=== PATIENT | male | born 1960 | race Caucasian/White ===

== ENCOUNTER 2017-04-27 20:35 | Emergency (ER) | payer OTHER ==
--- NOTE | 2017-04-27 21:28 | ED ---
Skin/Abscess/FB HPI - General Chief complaint: Skin/Abscess/Foreign Body Stated complaint: Infected Knee Time Seen by Provider: 04/27/17 20:43 Source: patient, RN notes reviewed Mode of arrival: ambulatory Limitations: no limitations - History of Present Illness Initial comments: This a 57-year-old male presents emergency Department chief complaint left knee infection. He states proximal week ago he was playing some valeri states that he had 2 L of pain. He states that she get any nausea or blister on his left knee. He states 2 days late area popped and states that he's been covering putting ointment with states that it formed a scab and now has increasing surrounding redness. Patient denies fever, chills. He has very minimal pain with movement of his left knee. He states that he was not wearing kneepads at that time. Patient's had no prior knee infections. Denies any pain proximal or distal to left knee. - Related Data Home Medications Medication Instructions Recorded Confirmed HYDROcodone/APAP 10-325MG [[place] 1 tab PO Q6H PRN 11/20/15 04/27/17 10-325] Levothyroxine Sodium [Synthroid] 50 mcg PO DAILY 11/20/15 04/27/17 Mirtazapine [Remeron] 30 mg PO HS 04/27/17 04/27/17 Simvastatin [Zocor] 20 mg PO QAM 04/27/17 04/27/17 Previous Rx's Medication Instructions Recorded Albuterol Inhaler [Ventolin Hfa 2 puff INHALATION RT-QID PRN #0 11/24/15 Inhaler] puff Divalproex ER [Depakote ER] 1,000 mg PO HS #60 tab.er.24h 11/24/15 Sulfamethox-Tmp 800-160Mg [Bactrim 1 each PO Q12HR #20 tab 04/27/17 Ds] Allergies Allergy/AdvReac Type Severity Reaction Status Date / Time quetiapine fumarate Allergy Rash/Hives Verified 04/27/17 20:41 [From Seroquel] Review of Systems ROS Statement: Those systems with pertinent positive or pertinent negative responses have been documented in the HPI. ROS Other: All systems not noted in ROS Statement are negative. Past Medical History Past Medical History: Asthma, COPD, Hyperlipidemia, Liver Disease, Musculoskeletal Disorder, Thyroid Disorder Additional Past Medical History / Comment(s): Optic neuritis History of Any Multi-Drug Resistant Organisms: None Reported Past Surgical History: No Surgical Hx Reported Past Anesthesia/Blood Transfusion Reactions: No Reported Reaction Past Psychological History: Bipolar, Depression Smoking Status: Current every day smoker Past Alcohol Use History: Abuse, Heavy Past Drug Use History: None Reported - Past Family History Father Additional Family Medical History / Comment(s): Patient states is father is but will not provide any additional information. He states he does not know his mothers history. He has 2 brothers and 2 step brothers and only one living. They have committed suicide. General Exam Limitations: no limitations General appearance: alert, in no apparent distress Respiratory exam: Present: normal lung sounds bilaterally. Absent: respiratory distress, wheezes, rales, rhonchi, stridor Cardiovascular Exam: Present: regular rate, normal rhythm, normal heart sounds. Absent: systolic murmur, diastolic murmur, rubs, gallop, clicks Extremities exam: Present: other (Left knee: Anterior surface of the patella there is a 4 cm area of open skin and erythematous surrounding borders., Patient has full range of motion with minimal discomfort there is minimal swelling of the left knee pupils are equal bilaterally) Course Vital Signs 04/27/17 20:37 Temperature 98.5 F Pulse Rate 74 Respiratory 16 Rate Blood Pressure 132/83 O2 Sat by Pulse 100 Oximetry Medical Decision Making - Medical Decision Making 57-year-old male present emergency from for possible infection to his left knee. Patient has open wound with surrounding erythema. Patient has no signs of cellulitis, infected wound. Patient was given Ancef in emergency department we discharged on Bactrim advised to wash with soap water and let air dry when possible. Patient will have recheck in 48 hours and return for worsening symptoms. - Lab Data Result diagrams: 04/27/17 21:31 04/27/17 21:31 Lab Results 04/27/17 04/27/17 Range/Units 21:31 21:31 WBC 6.0 (3.8-10.6) k/uL RBC 4.33 (4.30-5.90) m/uL Hgb 14.1 (13.0-17.5) gm/dL Hct 43.2 (39.0-53.0) % MCV 99.6 (80.0-100.0) fL MCH 32.5 (25.0-35.0) pg MCHC 32.6 (31.0-37.0) g/dL RDW 13.7 (11.5-15.5) % Plt Count 146 L (150-450) k/uL Neutrophils % 52 % Lymphocytes % 37 % Monocytes % 6 % Eosinophils % 1 % Basophils % 0 % Neutrophils # 3.1 (1.3-7.7) k/uL Lymphocytes # 2.2 (1.0-4.8) k/uL Monocytes # 0.4 (0-1.0) k/uL Eosinophils # 0.1 (0-0.7) k/uL Basophils # 0.0 (0-0.2) k/uL Sodium 141 (137-145) mmol/L Potassium 3.8 (3.5-5.1) mmol/L Chloride 105 (98-107) mmol/L Carbon Dioxide 25 (22-30) mmol/L Anion Gap 11 mmol/L BUN 14 (9-20) mg/dL Creatinine 0.70 (0.66-1.25) mg/dL Est GFR (MDRD) Af Amer >60 (>60 ml/min/1.73 sqM) Est GFR (MDRD) Non-Af >60 (>60 ml/min/1.73 sqM) Glucose 89 (74-99) mg/dL Calcium 10.0 (8.4-10.2) mg/dL Total Bilirubin 0.7 (0.2-1.3) mg/dL AST 30 (17-59) U/L ALT 50 (21-72) U/L Alkaline Phosphatase 45 (38-126) U/L C-Reactive Protein 5.7 (<10.0) mg/L Total Protein 7.2 (6.3-8.2) g/dL Albumin 4.3 (3.5-5.0) g/dL Disposition Clinical Impression: Cellulitis of left knee Disposition: HOME SELF-CARE Condition: Stable Instructions: Cellulitis (ED) Additional Instructions: Please return to the Emergency Department if symptoms worsen or any other concerns. Prescriptions: Sulfamethox-Tmp 800-160Mg [Bactrim Ds] 1 each PO Q12HR #20 tab Referrals: Cathy Fabian MD [Primary Care Provider] - 1-2 days Time of Disposition: 22:08
[2017-04-27 21:47] LABS: Basophils % (A) 0 %; Eosinophils # (A) 0.1 k/uL (0-0.7); Eosinophils % (A) 1 %; HCT 43.2 % (39.0-53.0); HGB 14.1 gm/dL (13.0-17.5); Lymphocytes # (A) 2.2 k/uL (1.0-4.8); Lymphocytes % (A) 37 %; MCH 32.5 pg (25.0-35.0); MCHC 32.6 g/dL (31.0-37.0); MCV 99.6 fL (80.0-100.0); Mean Platelet Volume 8.1; Monocytes # (A) 0.4 k/uL (0-1.0); Monocytes % (A) 6 %; Neutrophils # (A) 3.1 k/uL (1.3-7.7); Neutrophils % (A) 52 %; Platelet Count 146 k/uL (150-450); RBC 4.33 m/uL (4.30-5.90); RDW 13.7 % (11.5-15.5)
[2017-04-27 21:54] LABS: ALT 50 U/L (21-72); AST 30 U/L (17-59); Albumin 4.3 g/dL (3.5-5.0); Alkaline Phosphatase 45 U/L (38-126); Anion Gap 11 mmol/L; Blood Urea Nitrogen 14 mg/dL (9-20); C Reactive Protein 5.7 mg/L (<10.0); Carbon Dioxide 25 mmol/L (22-30); Chloride 105 mmol/L (98-107); Glucose 89 mg/dL (74-99); Potassium 3.8 mmol/L (3.5-5.1); Sodium 141 mmol/L (137-145); Total Bilirubin 0.7 mg/dL (0.2-1.3); Total Protein 7.2 g/dL (6.3-8.2)
--- NOTE | 2017-04-27 21:57 | XR ---
EXAMINATION TYPE: XR knee complete LT DATE OF EXAM: 04/27/2017 COMPARISON: NONE HISTORY: Knee swelling TECHNIQUE: 3 views FINDINGS: I see no fracture nor dislocation. Joint spaces are normal. There is no sign of knee joint effusion. IMPRESSION: Negative left knee exam. No fracture.
[2017-04-27] MEDS ORDERED: ceFAZolin IN SWFI 2 GM/20 ML SYRINGE IVP ONE (22:06)
[2017-04-27 22:25] VITALS: BP 164/93; PULSE 58; RESP 17; TEMP 98.6
[2017-04-27 22:37] LABS: Erythrocyte Sedimentation Rate 2 mm/hr (0-15)
== END 2017-04-27 22:33 | disposition home or self-care (01) ==
LOC: EC 20:35 → SUPCPDRO 20:35 → EC 22:33
DX: L03.116 Cellulitis of left lower limb (principal); E78.5 Hyperlipidemia, unspecified; E07.9 Disorder of thyroid, unspecified; F32.9 Major depressive disorder, single episode, unspecified; F17.200 Nicotine dependence, unspecified, uncomplicated; Z79.899 Other long term (current) drug therapy; Z88.8 Allergy status to other drugs, medicaments and biological substances
CPT/HCPCS: 36415; 80053; 85652; 85025; 86140; 87040; 73562; 99283; 96374; J0690

== ENCOUNTER → 2017-08-07 | Outpatient (CLI) | payer OTHER ==
[2017-08-07 11:28] LABS: Albumin 4.3 g/dL (3.5-5.0); Bilirubin, Delta 0.5 mg/dL (0.0-0.2); Total Bilirubin 0.5 mg/dL (0.2-1.3); Total Protein 7.7 g/dL (6.3-8.2)
[2017-08-07 11:34] LABS: Valproic Acid (Depakene) 58.8 ug/mL
[2017-08-07 11:45] LABS: T4, Free (Free Thyroxine) 0.91 ng/dL (0.78-2.19)
== END | disposition home or self-care (01) ==
LOC: LABWHC1 10:57
PROVIDERS: ATTEND Psychiatry & Neurology Psychiatry
DX: Z51.81 Encounter for therapeutic drug level monitoring (principal); Z79.899 Other long term (current) drug therapy
CPT/HCPCS: 36415; 80076; 80164; 84439; 84443

== ENCOUNTER 2017-09-01 20:50 | Emergency (ER) | payer OTHER ==
--- NOTE | 2017-09-01 21:18 | ED ---
Psych HPI - General Source: patient Mode of arrival: ambulatory - History of Present Illness MD Complaint: suicidal ideation, feels depressed Onset/Timin -: month(s) Associated Psychiatric Symptoms: depression History of same: Yes Quality: constant Improves With: none Worsens With: alcohol Context: recent alcohol abuse Associated Symptoms: denies other symptoms <Emile Vu - Last Filed: 09/01/17 21:29> <Mario Basilio - Last Filed: 09/02/17 06:28> - General Chief Complaint: Psychiatric Symptoms Stated Complaint: [facility] Eval Time Seen by Provider: 09/01/17 21:07 - History of Present Illness Initial Comments: This patient's 57-year-old man who presents with complaint that he has had worsening depression and associated suicidal feelings over about the past 3 months or so. (Emile Vu) - Related Data Home Medications Medication Instructions Recorded Confirmed HYDROcodone/APAP 10-325MG [[place] 1 tab PO Q6H PRN 11/20/15 04/27/17 10-325] Levothyroxine Sodium [Synthroid] 50 mcg PO DAILY 11/20/15 04/27/17 Mirtazapine [Remeron] 30 mg PO HS 04/27/17 04/27/17 Simvastatin [Zocor] 20 mg PO QAM 04/27/17 04/27/17 Previous Rx's Medication Instructions Recorded Albuterol Inhaler [Ventolin Hfa 2 puff INHALATION RT-QID PRN #0 11/24/15 Inhaler] puff Divalproex ER [Depakote ER] 1,000 mg PO HS #60 tab.er.24h 11/24/15 Sulfamethox-Tmp 800-160Mg [Bactrim 1 each PO Q12HR #20 tab 04/27/17 Ds] Allergies Allergy/AdvReac Type Severity Reaction Status Date / Time quetiapine fumarate Allergy Rash/Hives Verified 09/01/17 21:01 [From Seroquel] Review of Systems ROS Other: All systems not noted in ROS Statement are negative. Constitutional: Denies: fever, chills Respiratory: Reports: cough, wheezes. Denies: dyspnea Cardiovascular: Denies: chest pain, palpitations, edema Gastrointestinal: Denies: abdominal pain, vomiting, diarrhea Genitourinary: Denies: dysuria Musculoskeletal: Denies: back pain Skin: Denies: rash Neurological: Denies: headache, weakness, numbness Psychiatric: Reports: depression, suicidal thoughts. Denies: auditory hallucinations, visual hallucinations, homicidal thoughts <Emile Vu - Last Filed: 09/01/17 21:29> ROS Other: All systems not noted in ROS Statement are negative. <Mario Basilio - Last Filed: 09/02/17 06:28> ROS Statement: Those systems with pertinent positive or pertinent negative responses have been documented in the HPI. Past Medical History Past Medical History: Asthma, COPD, Hyperlipidemia, Liver Disease, Musculoskeletal Disorder, Thyroid Disorder Additional Past Medical History / Comment(s): Optic neuritis. liver disease. History of Any Multi-Drug Resistant Organisms: None Reported Past Surgical History: No Surgical Hx Reported Past Anesthesia/Blood Transfusion Reactions: No Reported Reaction Past Psychological History: Bipolar, Depression Smoking Status: Current every day smoker Past Alcohol Use History: Abuse, Daily, Heavy Past Drug Use History: None Reported - Past Family History Father Additional Family Medical History / Comment(s): Patient states is father is but will not provide any additional information. He states he does not know his mothers history. He has 2 brothers and 2 step brothers and only one living. They have committed suicide. <Emile Vu - Last Filed: 09/01/17 21:29> General Exam Limitations: no limitations General appearance: alert, in no apparent distress Head exam: Present: atraumatic, normocephalic Eye exam: Present: normal appearance. Absent: scleral icterus, conjunctival injection Respiratory exam: Present: normal lung sounds bilaterally. Absent: respiratory distress, wheezes, rales, rhonchi, stridor Cardiovascular Exam: Present: regular rate, normal rhythm, normal heart sounds. Absent: systolic murmur, diastolic murmur, rubs, gallop GI/Abdominal exam: Present: soft. Absent: distended, tenderness, guarding Extremities exam: Present: normal inspection, normal capillary refill. Absent: pedal edema, calf tenderness Back exam: Present: normal inspection. Absent: CVA tenderness (R), CVA tenderness (L) Skin exam: Present: warm, dry, intact, normal color. Absent: rash <Emile Vu - Last Filed: 09/01/17 21:29> Vital Signs 09/01/17 09/02/17 20:54 06:22 Temperature 97.7 F 98 F Pulse Rate 99 77 Respiratory 20 16 Rate Blood Pressure 147/96 153/92 O2 Sat by Pulse 98 95 Oximetry Medical Decision Making <Emile Vu - Last Filed: 09/01/17 21:29> - Lab Data Result diagrams: 09/02/17 04:15 09/02/17 04:15 <Mario Basilio - Last Filed: 09/02/17 06:28> - Medical Decision Making Patient is evaluated by EPS, given the diagnosis of both suicidal ideation and depression as well as alcoholism patient will be transferred at this time for further evaluation and treatment. Transfer is currently being arranged. I did reevaluate patient, he continues to be suicidal. CBC, CMP and urinalysis are obtained, these are consistent with some mild dehydration no significant abnormalities. I did complete a certification and patient will be transferred. (Mario Basilio) - Lab Data Lab Results 09/01/17 09/01/17 09/02/17 Range/Units 22:43 22:43 04:15 WBC 5.6 (3.8-10.6) k/uL RBC 4.54 (4.30-5.90) m/uL Hgb 15.0 (13.0-17.5) gm/dL Hct 43.7 (39.0-53.0) % MCV 96.2 (80.0-100.0) fL MCH 32.9 (25.0-35.0) pg MCHC 34.2 (31.0-37.0) g/dL RDW 13.2 (11.5-15.5) % Plt Count 232 (150-450) k/uL Neutrophils % 55 % Lymphocytes % 34 % Monocytes % 6 % Eosinophils % 2 % Basophils % 1 % Neutrophils # 3.0 (1.3-7.7) k/uL Lymphocytes # 1.9 (1.0-4.8) k/uL Monocytes # 0.3 (0-1.0) k/uL Eosinophils # 0.1 (0-0.7) k/uL Basophils # 0.0 (0-0.2) k/uL Sodium (137-145) mmol/L Potassium (3.5-5.1) mmol/L Chloride (98-107) mmol/L Carbon Dioxide (22-30) mmol/L Anion Gap mmol/L BUN (9-20) mg/dL Creatinine (0.66-1.25) mg/dL Est GFR (CKD-EPI)AfAm (>60 ml/min/1.73 sqM) Est GFR (CKD-EPI)NonAf (>60 ml/min/1.73 sqM) Glucose (74-99) mg/dL Calcium (8.4-10.2) mg/dL Total Bilirubin (0.2-1.3) mg/dL AST (17-59) U/L ALT (21-72) U/L Alkaline Phosphatase (38-126) U/L Total Protein (6.3-8.2) g/dL Albumin (3.5-5.0) g/dL Urine Color Light Yellow Urine Appearance Clear (Clear) Urine pH 5.5 (5.0-8.0) Ur Specific [place] 1.004 (1.001-1.035) Urine Protein Negative (Negative) Urine Glucose (UA) Negative (Negative) Urine Ketones Negative (Negative) Urine Blood Negative (Negative) Urine Nitrite Negative (Negative) Urine Bilirubin Negative (Negative) Urine Urobilinogen <2.0 (<2.0) mg/dL Ur Leukocyte Esterase Negative (Negative) Urine Opiates Screen Detected H (NotDetected) Ur Oxycodone Screen Not Detected (NotDetected) Urine Methadone Screen Not Detected (NotDetected) Ur Propoxyphene Screen Not Detected (NotDetected) Ur Barbiturates Screen Not Detected (NotDetected) U Tricyclic Antidepress Not Detected (NotDetected) Ur Phencyclidine Scrn Not Detected (NotDetected) Ur Amphetamines Screen Not Detected (NotDetected) U Methamphetamines Scrn Not Detected (NotDetected) U Benzodiazepines Scrn Not Detected (NotDetected) Urine Cocaine Screen Not Detected (NotDetected) U Marijuana (THC) Screen Detected H (NotDetected) 09/02/17 Range/Units 04:15 WBC (3.8-10.6) k/uL RBC (4.30-5.90) m/uL Hgb (13.0-17.5) gm/dL Hct (39.0-53.0) % MCV (80.0-100.0) fL MCH (25.0-35.0) pg MCHC (31.0-37.0) g/dL RDW (11.5-15.5) % Plt Count (150-450) k/uL Neutrophils % % Lymphocytes % % Monocytes % % Eosinophils % % Basophils % % Neutrophils # (1.3-7.7) k/uL Lymphocytes # (1.0-4.8) k/uL Monocytes # (0-1.0) k/uL Eosinophils # (0-0.7) k/uL Basophils # (0-0.2) k/uL Sodium 146 H (137-145) mmol/L Potassium 3.7 (3.5-5.1) mmol/L Chloride 111 H (98-107) mmol/L Carbon Dioxide 23 (22-30) mmol/L Anion Gap 12 mmol/L BUN 10 (9-20) mg/dL Creatinine 0.60 L (0.66-1.25) mg/dL Est GFR (CKD-EPI)AfAm >90 (>60 ml/min/1.73 sqM) Est GFR (CKD-EPI)NonAf >90 (>60 ml/min/1.73 sqM) Glucose 98 (74-99) mg/dL Calcium 9.6 (8.4-10.2) mg/dL Total Bilirubin 0.6 (0.2-1.3) mg/dL AST 87 H (17-59) U/L ALT 98 H (21-72) U/L Alkaline Phosphatase 101 (38-126) U/L Total Protein 6.9 (6.3-8.2) g/dL Albumin 3.6 (3.5-5.0) g/dL Urine Color Urine Appearance (Clear) Urine pH (5.0-8.0) Ur Specific [place] (1.001-1.035) Urine Protein (Negative) Urine Glucose (UA) (Negative) Urine Ketones (Negative) Urine Blood (Negative) Urine Nitrite (Negative) Urine Bilirubin (Negative) Urine Urobilinogen (<2.0) mg/dL Ur Leukocyte Esterase (Negative) Urine Opiates Screen (NotDetected) Ur Oxycodone Screen (NotDetected) Urine Methadone Screen (NotDetected) Ur Propoxyphene Screen (NotDetected) Ur Barbiturates Screen (NotDetected) U Tricyclic Antidepress (NotDetected) Ur Phencyclidine Scrn (NotDetected) Ur Amphetamines Screen (NotDetected) U Methamphetamines Scrn (NotDetected) U Benzodiazepines Scrn (NotDetected) Urine Cocaine Screen (NotDetected) U Marijuana (THC) Screen (NotDetected) Disposition <Emile Vu - Last Filed: 09/01/17 21:29> Is patient prescribed a controlled substance at d/c from ED?: No Time of Disposition: 05:01 - Out of Hospital Transfer - Req. Specs Out of Hospital Transfer - Requested Specifics: Psychiatric Non-ICU (Transfer to [facility]) <Mario Basilio - Last Filed: 09/02/17 06:28> Clinical Impression: Suicidal ideation, Depression, Alcohol abuse Disposition: OTHER INSTITUTION NOT DEFINED Condition: Stable Referrals: Cathy Fabian MD [Primary Care Provider] - 1-2 days
[2017-09-01 23:05] LABS: Amphetamine Screen,Urine Not Detected (NotDetected); Barbiturate Screen,Urine Not Detected (NotDetected); Benzodiazepines Screen,Urine Not Detected (NotDetected); Cocaine Screen,Urine Not Detected (NotDetected); Methadone Screen, Urine Not Detected (NotDetected); Opiate Screen,Urine Detected (NotDetected); Oxycodone Screen, Urine Not Detected (NotDetected); Phencyclidine Screen,Urine Not Detected (NotDetected); Tricyclic Antidepressant,Urine Not Detected (NotDetected); Urn Cannabinoid Scrn Detected (NotDetected)
[2017-09-02 04:35] LABS: ALT 98 U/L (21-72); AST 87 U/L (17-59); Albumin 3.6 g/dL (3.5-5.0); Alkaline Phosphatase 101 U/L (38-126); Anion Gap 12 mmol/L; Basophils % (A) 1 %; Blood Urea Nitrogen 10 mg/dL (9-20); Calcium 9.6 mg/dL (8.4-10.2); Carbon Dioxide 23 mmol/L (22-30); Chloride 111 mmol/L (98-107); Eosinophils # (A) 0.1 k/uL (0-0.7); Eosinophils % (A) 2 %; Glucose 98 mg/dL (74-99); HCT 43.7 % (39.0-53.0); Lymphocytes # (A) 1.9 k/uL (1.0-4.8); Lymphocytes % (A) 34 %; MCH 32.9 pg (25.0-35.0); MCHC 34.2 g/dL (31.0-37.0); MCV 96.2 fL (80.0-100.0); Mean Platelet Volume 6.8; Monocytes # (A) 0.3 k/uL (0-1.0); Monocytes % (A) 6 %; Neutrophils % (A) 55 %; Platelet Count 232 k/uL (150-450); Potassium 3.7 mmol/L (3.5-5.1); RBC 4.54 m/uL (4.30-5.90); RDW 13.2 % (11.5-15.5); Sodium 146 mmol/L (137-145); Total Bilirubin 0.6 mg/dL (0.2-1.3); Total Protein 6.9 g/dL (6.3-8.2); WBC 5.6 k/uL (3.8-10.6)
[2017-09-02 04:58] LABS: Appearance,Urine Clear (Clear); Bilirubin,Urine Negative (Negative); Blood,Urine Negative (Negative); Color,Urine Light Yellow; Glucose,Urine (UA) Negative (Negative); Ketones,Urine Negative (Negative); Leukocyte Esterase,Urine Negative (Negative); Nitrite,Urine Negative (Negative); PH, Urine 5.5 (5.0-8.0); Protein,Urine Negative (Negative); Specific Gravity,Urine 1.004 (1.001-1.035); Urobilinogen,Urine <2.0 mg/dL (<2.0)
[2017-09-02 06:23] VITALS: BP 153/92; PULSE 77; RESP 16; TEMP 98
== END 2017-09-02 08:56 | disposition short-term general hospital (02) ==
LOC: EC 20:50
DX: F31.30 Bipolar disorder, current episode depressed, mild or moderate severity, unspecified (principal); F10.10 Alcohol abuse, uncomplicated; R45.851 Suicidal ideations; E78.5 Hyperlipidemia, unspecified; E07.9 Disorder of thyroid, unspecified; F17.200 Nicotine dependence, unspecified, uncomplicated; Z79.899 Other long term (current) drug therapy; Z88.8 Allergy status to other drugs, medicaments and biological substances; Z81.8 Family history of other mental and behavioral disorders
CPT/HCPCS: 36415; 80053; 80306; 81003; 82075; 85025; 99285

== ENCOUNTER → 2017-10-05 | Outpatient (CLI) | payer OTHER ==
[2017-10-05 16:42] LABS: Basophils % (A) 1 %; Eosinophils # (A) 0.1 k/uL (0-0.7); Eosinophils % (A) 1 %; HCT 46.2 % (39.0-53.0); HGB 15.6 gm/dL (13.0-17.5); Lymphocytes # (A) 1.8 k/uL (1.0-4.8); Lymphocytes % (A) 25 %; MCHC 33.9 g/dL (31.0-37.0); MCV 100.3 fL (80.0-100.0); Monocytes # (A) 0.4 k/uL (0-1.0); Monocytes % (A) 5 %; Neutrophils # (A) 4.7 k/uL (1.3-7.7); Neutrophils % (A) 65 %; Platelet Count 177 k/uL (150-450); RDW 14.1 % (11.5-15.5); WBC 7.2 k/uL (3.8-10.6)
[2017-10-05 16:57] LABS: INR 1.2 (<1.2); Prothrombin Time 11.2 sec (9.0-12.0)
[2017-10-05 16:59] LABS: Albumin 4.2 g/dL (3.5-5.0); Bilirubin, Delta 0.4 mg/dL (0.0-0.2); Bilirubin,Unconjugated 0.1 mg/dL (0.0-1.1); Total Bilirubin 0.5 mg/dL (0.2-1.3); Total Protein 7.2 g/dL (6.3-8.2)
--- NOTE | 2017-10-07 14:30 | US ---
EXAMINATION TYPE: US liver DATE OF EXAM: 10/05/2017 COMPARISON: US 2016 CLINICAL HISTORY: B18.2 Chronic Hepatitis C. Hep C, history of liver biopsy EXAM MEASUREMENTS: Liver Length: 15.8 cm Gallbladder Wall: 0.2 cm CBD: 0.7 cm Right Kidney: 10.7 x 3.9 x 5.4 cm Pancreas: duct seen measuring 0.3cm Liver: wnl Gallbladder: hydropic Evidence for sonographic Leigh's sign: no CBD: dilated Right Kidney: seen in right pelvis, fullness of renal pelvis IMPRESSION: 1. The gallbladder appears somewhat hydropic there is no definite wall thickening or cholelithiasis. Common bile duct does measure slightly dilated 7 mm. Distal CBD pathology in the differential diagnos is correlate clinically. Stones, sludge or mucosal lesion. 2. The liver measures 15.8 cm and appears homogeneous in pattern without evidence of focal mass.
[2017-10-08 16:15] LABS: HCV Quant Log 6.05 (<1.08)
== END | disposition home or self-care (01) ==
LOC: RADUSWWP 15:53
PROVIDERS: ATTEND Internal Medicine Gastroenterology
DX: B18.2 Chronic viral hepatitis C (principal)
CPT/HCPCS: 76705; 80076; 82105; 85025; 85610; 87522; 87902

== ENCOUNTER 2017-10-29 22:31 | Emergency (ER) | payer OTHER ==
--- NOTE | 2017-10-30 00:04 | ED ---
General Adult HPI - General Chief complaint: Psychiatric Symptoms Stated complaint: mental health Time Seen by Provider: 10/29/17 22:47 Source: patient, RN notes reviewed, old records reviewed Mode of arrival: ambulatory Limitations: no limitations - History of Present Illness Initial comments: Is a 57-year-old male the ER for evaluation of multiple complaints, depression suicidal thoughts with positive alcohol intoxication. Patient denies drugs today. No suicide attempt was made - Related Data Home Medications Medication Instructions Recorded Confirmed HYDROcodone/APAP 10-325MG [[place] 1 tab PO Q6H PRN 11/20/15 10/29/17 10-325] Levothyroxine Sodium [Synthroid] 50 mcg PO DAILY 11/20/15 10/29/17 Simvastatin [Zocor] 20 mg PO QAM 04/27/17 10/29/17 traMADol HCL [Ultram] 50 mg PO Q6HR PRN 10/29/17 10/29/17 Previous Rx's Medication Instructions Recorded Albuterol Inhaler [Ventolin Hfa 2 puff INHALATION RT-QID PRN #0 11/24/15 Inhaler] puff Divalproex ER [Depakote ER] 1,000 mg PO HS #60 tab.er.24h 11/24/15 Allergies Allergy/AdvReac Type Severity Reaction Status Date / Time quetiapine fumarate Allergy Rash/Hives Verified 10/29/17 22:58 [From Seroquel] Review of Systems ROS Statement: Those systems with pertinent positive or pertinent negative responses have been documented in the HPI. ROS Other: All systems not noted in ROS Statement are negative. Past Medical History Past Medical History: Asthma, COPD, Hyperlipidemia, Liver Disease, Musculoskeletal Disorder, Thyroid Disorder Additional Past Medical History / Comment(s): Optic neuritis. liver disease. History of Any Multi-Drug Resistant Organisms: None Reported Past Surgical History: No Surgical Hx Reported Past Anesthesia/Blood Transfusion Reactions: No Reported Reaction Past Psychological History: Bipolar, Depression Smoking Status: Current every day smoker Past Alcohol Use History: Abuse, Daily, Heavy Past Drug Use History: None Reported - Past Family History Father Additional Family Medical History / Comment(s): Patient states is father is but will not provide any additional information. He states he does not know his mothers history. He has 2 brothers and 2 step brothers and only one living. They have committed suicide. General Exam Limitations: no limitations General appearance: alert, in no apparent distress, appears intoxicated Head exam: Present: atraumatic, normocephalic, normal inspection Eye exam: Present: normal appearance, PERRL, EOMI. Absent: scleral icterus, conjunctival injection, periorbital swelling ENT exam: Present: normal exam, mucous membranes moist Neck exam: Present: normal inspection. Absent: tenderness, meningismus, lymphadenopathy Respiratory exam: Present: normal lung sounds bilaterally. Absent: respiratory distress, wheezes, rales, rhonchi, stridor Cardiovascular Exam: Present: regular rate, normal rhythm, normal heart sounds. Absent: systolic murmur, diastolic murmur, rubs, gallop, clicks GI/Abdominal exam: Present: soft, normal bowel sounds. Absent: distended, tenderness, guarding, rebound, rigid Extremities exam: Present: normal inspection, full ROM, normal capillary refill. Absent: tenderness, pedal edema, joint swelling, calf tenderness Back exam: Present: normal inspection Neurological exam: Present: alert, oriented X3, CN II-XII intact Psychiatric exam: Present: normal affect, normal mood Skin exam: Present: warm, dry, intact, normal color. Absent: rash Course Vital Signs 10/29/17 22:42 Temperature 98.3 F Pulse Rate 84 Respiratory 18 Rate Blood Pressure 130/89 O2 Sat by Pulse 99 Oximetry Medical Decision Making - Medical Decision Making 57 male the ER with history of psychiatric illness, and without contrast intoxication suicidal thoughts and ideation. Patient be transferred for inpatient psychiatric treatment Disposition Clinical Impression: Suicidal ideation, Depression Disposition: TRANSFER TO PSYCH HOSP/UNIT Condition: Fair Is patient prescribed a controlled substance at d/c from ED?: No Referrals: Cathy Fabian MD [Primary Care Provider] - 1-2 days
[2017-10-30] MEDS ORDERED: diphenhydrAMINE 50 MG CAP PO STA (02:40)
[2017-10-30] MEDS ORDERED: LORazepam 1 MG TAB PO STA (02:40)
[2017-10-30 03:18] LABS: Appearance,Urine Clear (Clear); Basophils % (A) 1 %; Bilirubin,Urine Negative (Negative); Blood,Urine Negative (Negative); Color,Urine Yellow; Eosinophils # (A) 0.1 k/uL (0-0.7); Eosinophils % (A) 2 %; Glucose,Urine (UA) Negative (Negative); HCT 44.4 % (39.0-53.0); HGB 15.5 gm/dL (13.0-17.5); Ketones,Urine Negative (Negative); Leukocyte Esterase,Urine Negative (Negative); Lymphocytes # (A) 2.7 k/uL (1.0-4.8); Lymphocytes % (A) 45 %; MCH 34.6 pg (25.0-35.0); MCHC 34.8 g/dL (31.0-37.0); MCV 99.5 fL (80.0-100.0); Mean Platelet Volume 6.8; Monocytes # (A) 0.4 k/uL (0-1.0); Monocytes % (A) 7 %; Neutrophils # (A) 2.6 k/uL (1.3-7.7); Neutrophils % (A) 43 %; Nitrite,Urine Negative (Negative); PH, Urine 5.5 (5.0-8.0); Platelet Count 181 k/uL (150-450); Protein,Urine Negative (Negative); RBC 4.46 m/uL (4.30-5.90); RDW 13.8 % (11.5-15.5); Specific Gravity,Urine 1.007 (1.001-1.035); WBC 6.1 k/uL (3.8-10.6)
[2017-10-30 03:27] LABS: ALT 46 U/L (21-72); AST 38 U/L (17-59); Albumin 3.9 g/dL (3.5-5.0); Alkaline Phosphatase 54 U/L (38-126); Amphetamine Screen,Urine Not Detected (NotDetected); Anion Gap 12 mmol/L; Barbiturate Screen,Urine Not Detected (NotDetected); Benzodiazepines Screen,Urine Not Detected (NotDetected); Blood Urea Nitrogen 9 mg/dL (9-20); Calcium 9.4 mg/dL (8.4-10.2); Carbon Dioxide 23 mmol/L (22-30); Chloride 106 mmol/L (98-107); Cocaine Screen,Urine Not Detected (NotDetected); Glucose 109 mg/dL (74-99); Methadone Screen, Urine Not Detected (NotDetected); Opiate Screen,Urine Detected (NotDetected); Oxycodone Screen, Urine Not Detected (NotDetected); Phencyclidine Screen,Urine Not Detected (NotDetected); Potassium 3.5 mmol/L (3.5-5.1); Sodium 141 mmol/L (137-145); Total Bilirubin 0.4 mg/dL (0.2-1.3); Total Protein 6.7 g/dL (6.3-8.2); Tricyclic Antidepressant,Urine Not Detected (NotDetected); Urn Cannabinoid Scrn Detected (NotDetected)
[2017-10-30] MEDS ORDERED: ZIPRASIDONE 20 MG VIAL IM STA (06:32)
[2017-10-30] MEDS ORDERED: LORazepam 2 MG/ML INJ IM STA (06:36)
[2017-10-30 06:48] VITALS: BP 146/64; PULSE 84; RESP 18; TEMP 98.4
== END 2017-10-30 06:43 ==
LOC: EC 22:31
DX: F31.9 Bipolar disorder, unspecified (principal); R45.851 Suicidal ideations; F10.120 Alcohol abuse with intoxication, uncomplicated; E78.5 Hyperlipidemia, unspecified; E07.9 Disorder of thyroid, unspecified; F17.200 Nicotine dependence, unspecified, uncomplicated; Z88.8 Allergy status to other drugs, medicaments and biological substances
CPT/HCPCS: 82075 ×2; 36415; 80164; 80053; 85025; 81003; 80306; 99285; 96372 ×2; J2060; J3486

== ENCOUNTER 2017-12-24 23:10 | Inpatient (IN) | payer MEDICAID, OTHER ==
[2017-12-24] MEDS ORDERED: HALOPERIDOL LACTATE 5 MG/ML 1 ML VIAL IM STA (23:35)
[2017-12-24] MEDS ORDERED: diphenhydrAMINE 50 MG/ML 1 ML VIAL IM STA (23:36)
--- NOTE | 2017-12-25 | ED ---
Psych HPI - General Source: patient, RN notes reviewed Mode of arrival: ambulatory Limitations: no limitations <Yeison Murguia - Last Filed: 12/24/17 23:34> <Del Berman - Last Filed: 12/25/17 10:43> - General Chief Complaint: Psychiatric Symptoms Stated Complaint: mental health Time Seen by Provider: 12/24/17 23:21 - History of Present Illness Initial Comments: This is a 57-year-old male presents emergency Department with chief complaint of alcohol intoxication, psychiatric evaluation. Patient was brought to emergency department by a neighbor for evaluation. Patient states that he drinks alcohol and takes pills off the street daily. Patient states that he takes Adderall, [place]. Patient states he is suicidal and homicidal towards his landlord. Patient denies any physical other chronic back pain. (Yeison Murguia) - Related Data Home Medications Medication Instructions Recorded Confirmed HYDROcodone/APAP 10-325MG [[place] 1 tab PO Q6H PRN 11/20/15 12/25/17 10-325] Levothyroxine Sodium [Synthroid] 50 mcg PO DAILY 11/20/15 12/25/17 Simvastatin [Zocor] 20 mg PO QAM 04/27/17 12/25/17 Previous Rx's Medication Instructions Recorded Divalproex ER [Depakote ER] 1,000 mg PO HS #60 tab.er.24h 11/24/15 Allergies Allergy/AdvReac Type Severity Reaction Status Date / Time quetiapine fumarate Allergy Rash/Hives Verified 12/24/17 23:21 [From Seroquel] Review of Systems ROS Other: All systems not noted in ROS Statement are negative. <Yeison Murguia - Last Filed: 12/24/17 23:34> ROS Other: All systems not noted in ROS Statement are negative. <Del Berman - Last Filed: 12/25/17 10:43> ROS Statement: Those systems with pertinent positive or pertinent negative responses have been documented in the HPI. Past Medical History Past Medical History: Asthma, COPD, Hyperlipidemia, Liver Disease, Musculoskeletal Disorder, Thyroid Disorder Additional Past Medical History / Comment(s): Optic neuritis. liver disease. History of Any Multi-Drug Resistant Organisms: None Reported Past Surgical History: No Surgical Hx Reported Past Anesthesia/Blood Transfusion Reactions: No Reported Reaction Past Psychological History: Bipolar, Depression Smoking Status: Current every day smoker Past Alcohol Use History: Abuse, Daily, Heavy Past Drug Use History: Marijuana, Opiates - Past Family History Father Additional Family Medical History / Comment(s): Patient states is father is but will not provide any additional information. He states he does not know his mothers history. He has 2 brothers and 2 step brothers and only one living. They have committed suicide. <Yeison Murguia - Last Filed: 12/24/17 23:34> General Exam Limitations: no limitations <Yeison Murguia - Last Filed: 12/24/17 23:34> Limitations: no limitations General appearance: alert, in no apparent distress Head exam: Present: atraumatic Eye exam: Present: normal appearance Neck exam: Present: normal inspection Respiratory exam: Present: normal lung sounds bilaterally Cardiovascular Exam: Present: regular rate, normal rhythm GI/Abdominal exam: Present: soft. Absent: tenderness Extremities exam: Present: normal inspection Neurological exam: Present: alert Psychiatric exam: Present: depressed, agitated Skin exam: Present: normal color <Del Berman - Last Filed: 12/25/17 10:43> Vital Signs 12/24/17 23:12 Temperature 98.4 F Pulse Rate 104 H Respiratory 20 Rate Blood Pressure 147/93 O2 Sat by Pulse 98 Oximetry Procedures - Restraint - Face to Face Restraint Occurrence 1 Patient's Immediate Situation: Endangers staff safety, Violent behavior Patient's Reaction to the Intervention: Angry, Belligerent, Combative Patient's Medical & Behavioral Condition: Awake, Alert, Agitated Need to Continue or Terminate Restraint or Seclusion: Continue Face to Face Eval of Restraint Date: 12/24/17 Face to Face Eval of Restraint Time: 23:55 <Yeison Murguia - Last Filed: 12/24/17 23:34> Medical Decision Making <Yeison Murguia - Last Filed: 12/24/17 23:34> <Del Berman - Last Filed: 12/25/17 10:43> - Medical Decision Making Physical exam was not previously documented and exam was done by myself at this time. Patient was seen by mental health services who plans for transfer. Patient was reevaluated by myself, Dr. Berman. Patient admits to being depressed and having suicidal thoughts. Patient has plans of by any means necessary. Patient does not recall stating any homicidal thoughts. Positive clinical certificate is completed. (Del Berman) - Lab Data Lab Results 12/25/17 Range/Units 00:05 Urine Opiates Screen Not Detected (NotDetected) Ur Oxycodone Screen Not Detected (NotDetected) Urine Methadone Screen Not Detected (NotDetected) Ur Propoxyphene Screen Not Detected (NotDetected) Ur Barbiturates Screen Not Detected (NotDetected) U Tricyclic Antidepress Not Detected (NotDetected) Ur Phencyclidine Scrn Not Detected (NotDetected) Ur Amphetamines Screen Not Detected (NotDetected) U Methamphetamines Scrn Not Detected (NotDetected) U Benzodiazepines Scrn Not Detected (NotDetected) Urine Cocaine Screen Detected H (NotDetected) U Marijuana (THC) Screen Detected H (NotDetected) Disposition <Yeison Murguia - Last Filed: 12/24/17 23:34> Is patient prescribed a controlled substance at d/c from ED?: No Time of Disposition: 10:42 <Del Berman - Last Filed: 12/25/17 10:43> Clinical Impression: Suicidal ideation, Depression Disposition: TRANSFER TO PSYCH HOSP/UNIT Referrals: Cathy Fabian MD [Primary Care Provider] - 1-2 days
[2017-12-25 00:27] LABS: Amphetamine Screen,Urine Not Detected (NotDetected); Barbiturate Screen,Urine Not Detected (NotDetected); Benzodiazepines Screen,Urine Not Detected (NotDetected); Cocaine Screen,Urine Detected (NotDetected); Methadone Screen, Urine Not Detected (NotDetected); Opiate Screen,Urine Not Detected (NotDetected); Oxycodone Screen, Urine Not Detected (NotDetected); Phencyclidine Screen,Urine Not Detected (NotDetected); Tricyclic Antidepressant,Urine Not Detected (NotDetected); Urn Cannabinoid Scrn Detected (NotDetected)
[2017-12-25 11:10] LABS: Appearance,Urine Clear (Clear); Bilirubin,Urine Negative (Negative); Blood,Urine Negative (Negative); Color,Urine Colorless; Glucose,Urine (UA) Negative (Negative); Ketones,Urine Negative (Negative); Leukocyte Esterase,Urine Negative (Negative); Nitrite,Urine Negative (Negative); Protein,Urine Negative (Negative); Specific Gravity,Urine 1.004 (1.001-1.035); Urobilinogen,Urine <2.0 mg/dL (<2.0)
[2017-12-25 11:24] LABS: ALT 42 U/L (21-72); AST 52 U/L (17-59); Albumin 3.7 g/dL (3.5-5.0); Alkaline Phosphatase 54 U/L (38-126); Anion Gap 5 mmol/L; Blood Urea Nitrogen 10 mg/dL (9-20); Calcium 9.4 mg/dL (8.4-10.2); Carbon Dioxide 23 mmol/L (22-30); Chloride 115 mmol/L (98-107); Glucose 101 mg/dL (74-99); Potassium 4.1 mmol/L (3.5-5.1); Sodium 143 mmol/L (137-145); Total Bilirubin 0.4 mg/dL (0.2-1.3)
[2017-12-25 11:25] LABS: Basophils % (A) 1 %; Eosinophils # (A) 0.1 k/uL (0-0.7); Eosinophils % (A) 1 %; Lymphocytes # (A) 1.5 k/uL (1.0-4.8); Lymphocytes % (A) 29 %; MCH 32.4 pg (25.0-35.0); MCHC 32.7 g/dL (31.0-37.0); MCV 99.2 fL (80.0-100.0); Monocytes # (A) 0.3 k/uL (0-1.0); Monocytes % (A) 6 %; Neutrophils % (A) 60 %; Platelet Count 261 k/uL (150-450); RBC 4.64 m/uL (4.30-5.90)
[2017-12-25] MEDS ORDERED: MAG HYDROX/AL HYDROX/SIMETH 30 ML CUP PO PRN (16:48)
[2017-12-25] MEDS ORDERED: MAGNESIUM HYDROXIDE 2,400 MG/10 ML CUP PO PRN (16:48)
[2017-12-25] MEDS ORDERED: HALOPERIDOL LACTATE 5 MG/ML 1 ML VIAL IM PRN (16:53)
[2017-12-25] MEDS ORDERED: LORazepam 2 MG/ML INJ IM PRN (16:54)
[2017-12-25] MEDS: LORazepam 1 MG TAB PO PRN (17:28)
[2017-12-25] MEDS: NICOTINE 21MG/24HR PATCH TRANSDERM SCH (17:28)
[2017-12-25] MEDS: ACETAMINOPHEN TAB 325 MG TAB PO PRN ×2 (17:29→23:55)
[2017-12-25] MEDS ORDERED: DIVALPROEX ER 500 MG TAB.ER.24H PO SCH (21:00)
[2017-12-26] MEDS: ACETAMINOPHEN TAB 325 MG TAB PO PRN (09:19)
[2017-12-26] MEDS: LEVOTHYROXINE 50 MCG TAB PO SCH (09:19)
[2017-12-26] MEDS: ATORVASTATIN 10 MG TAB PO SCH (09:19)
[2017-12-26] MEDS: LORazepam 1 MG TAB PO PRN ×2 (09:19→15:48)
[2017-12-26] MEDS: NICOTINE 21MG/24HR PATCH TRANSDERM SCH (09:25)
[2017-12-26] MEDS: LOPERAMIDE 2 MG CAP PO PRN ×3 (09:26→20:58)
--- NOTE | 2017-12-26 11:16 | HP ---
HISTORY AND PHYSICAL DATE OF SERVICE: 12/26/2017 IDENTIFYING DATA: This patient is a 57-year-old single male who was admitted to the mental health unit through the emergency room. The patient states he was brought here by a friend as he was having suicidal ideation. He states, "I don't want to be here any longer." He reports having poor sleep for the last 2 days. He feels exhausted. His appetite has been poor and he has not eaten in 2-3 days. He describes a history of having bipolar disorder and is prescribed Depakote ER 1000 mg at bedtime, but he has been off of his medication for approximately a month. He states that he has been drinking heavily and has been doing so for the last 30-40 days, consuming liquor with beer and he would approximate it as a fifth a day. He also had cocaine and marijuana in his urine drug screen. He describes feeling very irritable in the context of having no sleep. He is reporting no homicidal ideation. He describes no auditory or visual hallucinations or specific delusions. PAST PSYCHIATRIC HISTORY: This is the patient's seventh psychiatric admission since 2014 on this mental health unit. His diagnoses have varied from depression, unspecified to bipolar disorder. He describes a history of suicide attempts in the past, but does not quantify how many. He states he has cut his wrist. He is prescribed Depakote ER 1000 mg at bedtime. He reports he has been on trazodone in the past. He refuses to cover other psychotropics tried stating "I have tried them all." PAST MEDICAL HISTORY: Hyperlipidemia, hypothyroidism, reported chronic pain. He is on Lipitor, Synthroid. He states he is prescribed [place] [address] Chapman. ALLERGIES: SEROQUEL. CHEMICAL DEPENDENCY HISTORY: He reports alcohol use as noted above, drinking daily for the last 30-40 days. He did not spontaneously mention cocaine or marijuana use, but admits to using it after we discussed the results of his urine drug screen. He states he had only been using that for several days. His opiates were not in his urine drug screen and he states he stopped those because of his alcohol use recently. He has been to inpatient chemical dependency treatment 7-8 times in the past. The last one approximately 1 year ago. FAMILY PSYCHIATRIC HISTORY: The patient states that all four of his brothers committed suicide. He is unable to describe the circumstances, whether they had a known psychiatric illness or substance use. SOCIAL HISTORY: The patient is 57 years old. He is single. He resides alone in his own apartment. He has a disability income. He has a high school education with history of special education help. No history of service. He had 4 brothers, but they are all due to suicide, he states. LEGAL HISTORY: Unknown. ABUSE HISTORY: Unknown. MENTAL STATUS EXAM: The patient is a thin male. He has a disheveled appearance. He is seated in the chair. Eye contact is intermittent. He is irritable and feels agitated with the questioning during the interview. He reports ongoing suicidal thoughts. No homicidal ideation. He is endorsing no auditory or visual hallucinations or any specific delusions. He is oriented to person, place, and date. He does not cooperate with any further cognitive testing. He is limited in his responses. He demonstrates no tangential thinking, loose associations or flight of ideas at this time. Insight and judgment limited. IMPRESSION: 1. Depression, unspecified, rule out major depressive disorder versus bipolar disorder, alcohol use disorder, rule out cocaine use disorder, rule out cannabis use disorder. 2. Medical comorbidities include hyperlipidemia, hypothyroidism, reported pain. PLAN OF TREATMENT: The patient will be admitted to the mental health unit. He is here voluntarily. We reviewed his presenting symptoms and treatment options. He feels restarting the Depakote ER 1000 mg at bedtime will help stabilize his mood. He is requesting trazodone at bedtime for sleep. He states that he would like to participate in inpatient chemical dependency treatment and we discussed the process for arranging that placement. He will be seen by Internal Medicine for routine history and physical exam. We will monitor him for safety including monitoring for alcohol withdrawal symptoms. We will utilize the CIWA protocol and Ativan is available as needed. We will involve family/friends as he will allow in treatment and discharge planning. MMCATIEL / MERYN: [id number] /
[2017-12-26] MEDS: HYDROcodone/APAP 5-325MG 1 EACH TAB PO PRN ×2 (13:25→20:59)
--- NOTE | 2017-12-26 16:42 | P.CONS ---
History of Present Illness - Reason for Consult Consult date: 12/26/17 H&P from mental health admission Requesting physician: Jorge Navas - Chief Complaint Depression - History of Present Illness This is a 57-year-old male patient who was a patient of Dr. Toth. Patient states he was having suicidal ideation and was brought into the emergency room by a friend. Patient reports that he has been having poor sleep and eating habits over the past couple days and patient also states he's been drinking heavily for the past 30-40 days straight. Patient was positive for cocaine and marijuana on urine drug screen. Patient has past medical history of asthma, COPD, hyperlipidemia, liver disease, thyroid disorder, bipolar, depression and nicotine dependence. Patient also reports opiate and alcohol abuse. TSH level 0.574. UA negative. Patient is currently admitted to the mental health unit. At this time patient denies chest pain or shortness of breath. Patient denies nausea or vomiting. Does report occasional diarrhea. Denies any urinary burning or frequency. Review of Systems Please refer to HPI otherwise unremarkable Past Medical History Past Medical History: Asthma, COPD, Hyperlipidemia, Liver Disease, Musculoskeletal Disorder, Thyroid Disorder Additional Past Medical History / Comment(s): Optic neuritis. liver disease. History of Any Multi-Drug Resistant Organisms: None Reported Past Surgical History: No Surgical Hx Reported Past Anesthesia/Blood Transfusion Reactions: No Reported Reaction Past Psychological History: Bipolar, Depression Smoking Status: Current every day smoker Past Alcohol Use History: Abuse, Daily, Heavy Past Drug Use History: Marijuana, Opiates - Past Family History Father Additional Family Medical History / Comment(s): Patient states is father is but will not provide any additional information. He states he does not know his mothers history. He has 2 brothers and 2 step brothers and only one living. They have committed suicide. Medications and Allergies Home Medications Medication Instructions Recorded Confirmed Type HYDROcodone/APAP 10-325MG [[place] 1 tab PO Q6H PRN 11/20/15 12/25/17 History 10-325] Levothyroxine Sodium [Synthroid] 50 mcg PO DAILY 11/20/15 12/25/17 History Divalproex ER [Depakote ER] 1,000 mg PO HS #60 tab.er.24h 11/24/15 12/25/17 Rx Simvastatin [Zocor] 20 mg PO QAM 04/27/17 12/25/17 History Allergies Allergy/AdvReac Type Severity Reaction Status Date / Time quetiapine fumarate Allergy Rash/Hives Verified 12/25/17 16:48 [From Seroquel] Physical Exam Vitals: Vital Signs Temp Pulse Pulse Resp BP BP Pulse Ox 12/26/17 13:23 98 18 138/84 12/26/17 06:10 98.2 F 69 16 150/87 12/25/17 16:50 98.4 F 65 16 132/75 12/25/17 16:41 99.5 F 74 18 140/80 100 Head normocephalic Neck supple Lungs clear to auscultation bilaterally no wheezing or crackles Heart regular rate and rhythm S1-S2, no rub or gallop Abdomen is soft nontender nondistended positive bowel sounds no hepatosplenomegaly Extremities no edema Neuro alert and orientated to 3 Results CBC & Chem 7: 12/25/17 11:07 12/25/17 11:07 Labs: Abnormal Lab Results - Last 24 Hours (Table) 12/25/17 Range/Units 11:07 HDL Cholesterol 66 H (40-60) mg/dL Assessment and Plan Assessment: 1. Depression with suicide ideation. Patient is currently admitted to the mental health unit and followed closely by psychiatry 2. History of hyperlipidemia. Patient on Lipitor 3. History of nicotine dependence. Patient currently ordered nicotine patch 4. Hypothyroidism. Patient currently on home dose of Synthroid. TSH level 0.54 5. Chronic back pain. Pain management managed by psychiatry 6. EtOH. Patient currently on CIWA protocal managed my psychiatry Thank you for this consultation. Time with Patient: Greater than 30 (Greater than 60% of the total time spent in counseling and coordination of care. I performed an examination of the patient and discussed their management with the Nurse Practitioner. I have reviewed the Nurse Practitioner's notes and agree with the documented findings and plan of care)
[2017-12-26 19:19] LABS: Hemoglobin A1C 5.7 % (4.0-6.0)
[2017-12-26] MEDS: traZODone HCL 50 MG TAB PO SCH (20:59)
[2017-12-26] MEDS: DIVALPROEX ER 500 MG TAB.ER.24H PO SCH (20:59)
[2017-12-27] MEDS: HYDROcodone/APAP 5-325MG 1 EACH TAB PO PRN ×3 (05:04→21:00)
[2017-12-27] MEDS: LORazepam 1 MG TAB PO PRN ×3 (05:06→21:00)
[2017-12-27] MEDS: LOPERAMIDE 2 MG CAP PO PRN (05:07)
--- NOTE | 2017-12-27 10:07 | P.PN ---
Progress Note - Text Interval history: The patient is found in his room. He prefers not to speak in an interview room. He reports feeling tired. He continues to have mild symptoms of alcohol withdrawal such as sweating. He reports having some diarrhea as well. That is being addressed with Imodium. He states he did call the access line and is due to participate in inpatient chemical dependency treatment at [facility] starting Sunday. He reports having a depressed mood with hopelessness thoughts. He has been isolating in his room due to his physical symptoms. Mental status exam: The patient is alert he makes appropriate eye contact he provides spontaneous speech and answers questions asked of him today. He indicates his mood is depressed and he has some hopelessness thinking. Continues to feel safe in the hospital but would be unsafe otherwise at this time. He endorses no homicidal ideation. He reports no auditory or visual hallucinations or specific delusions and there is no observed evidence of psychosis. He does not appear hypomanic or manic at this time. Thought process is linear overall directed. Insight and judgment limited. With outstretched arms he demonstrates no tremor. Plan: The patient will continue on his current medication. We will monitor him for safety. He has been restarted on the Depakote and we will draw a level once it has had time to reach steady state. He is encouraged to participate fully in the milieu once he is physically able. Vital signs reviewed.
[2017-12-27] MEDS: NICOTINE 21MG/24HR PATCH TRANSDERM SCH ×2 (10:27→21:19)
[2017-12-27] MEDS: LEVOTHYROXINE 50 MCG TAB PO SCH ×2 (10:27→12:05)
[2017-12-27] MEDS: ATORVASTATIN 10 MG TAB PO SCH ×2 (10:27→12:04)
[2017-12-27] MEDS: DIVALPROEX ER 500 MG TAB.ER.24H PO SCH (21:00)
[2017-12-27] MEDS: traZODone HCL 50 MG TAB PO SCH (21:00)
[2017-12-28] MEDS: HYDROcodone/APAP 5-325MG 1 EACH TAB PO PRN ×2 (05:58→16:32)
[2017-12-28] MEDS: LEVOTHYROXINE 50 MCG TAB PO SCH (06:01)
[2017-12-28] MEDS: NICOTINE 21MG/24HR PATCH TRANSDERM SCH (08:46)
[2017-12-28] MEDS: ATORVASTATIN 10 MG TAB PO SCH (08:46)
[2017-12-28] MEDS: LORazepam 1 MG TAB PO PRN ×2 (08:48→16:32)
--- NOTE | 2017-12-28 09:27 | P.PN ---
Progress Note - Text Interval history: The patient is found in group he follows me to an interview room. He reports that physically he is feeling better. He is no longer experiencing any diarrhea the sweating has reduced significantly. He has been able to eat. He reports he will attend groups. He remains committed to attending [facility] in [place] for inpatient chemical dependency treatment. He is scheduled to start Sunday he is hoping that we are able to discharge him Sunday so his parents can help him gather his belongings. He has no questions or concerns regarding his medication. Mental status exam: The patient is alert he is dressed in his own clothing he's mildly disheveled. Hygiene is adequate. Speech is fluent spontaneous nonpressured. He is much more interactive in the session today than the prior 2 days. He is reporting his mood is improving he feels safe in the hospital. He does note some continued irritability but it appears to be decreasing each day. No report or evidence of psychosis. He does not appear hypomanic or manic. Insight and judgment improving. He remains oriented to person place and date. Plan: The patient will continue on his current medications we will draw a Depakote level Sunday morning. He has asked for me to increase the trazodone to 100 mg at bedtime. He is advised to attend groups all day and he is agreeable. Vital signs reviewed they are within normal limits. We will consider discharging him Sunday or Sunday. Social work will be asked to contact his parents regarding the discharge plan.
[2017-12-28] MEDS: DIVALPROEX ER 500 MG TAB.ER.24H PO SCH (20:53)
[2017-12-28] MEDS: traZODone HCL 100 MG TAB PO SCH (20:53)
[2017-12-29 00:52] VITALS: TEMP 97.9
[2017-12-29] MEDS: HYDROcodone/APAP 5-325MG 1 EACH TAB PO PRN ×4 (00:54→23:52)
[2017-12-29] MEDS: LORazepam 1 MG TAB PO PRN ×4 (00:55→23:55)
[2017-12-29] MEDS: LEVOTHYROXINE 50 MCG TAB PO SCH (06:44)
[2017-12-29] MEDS: NICOTINE 21MG/24HR PATCH TRANSDERM SCH ×2 (08:58→16:45)
[2017-12-29] MEDS: ATORVASTATIN 10 MG TAB PO SCH (09:00)
--- NOTE | 2017-12-29 15:46 | P.PN ---
Progress Note - Text Progress Note Date: 12/29/17 Interval history: Patient is seen in cross coverage today. He reports that he plans on going to rehab treatment at [facility] after discharge from the hospital. He does describe having some hot and cold flashes which are related to withdrawal but the Ativan is helping. He does not seem to voice any adverse psychotropic medication side effects. He has been attending groups. Mental status exam: He is alert and cooperative with the interview. His speech is fluent, not rapid or pressured. He denies any thoughts of harm to self or others. No evidence of psychosis or agitation. Plan: Patient will be maintained on current psychotropic medication regimen. Continue to monitor for any medication side effects and his ongoing response to treatment. We'll continue to cover this patient through the weekend.
[2017-12-29] MEDS: DIVALPROEX ER 500 MG TAB.ER.24H PO SCH (20:41)
[2017-12-29] MEDS: traZODone HCL 100 MG TAB PO SCH (20:42)
[2017-12-30] MEDS: LEVOTHYROXINE 50 MCG TAB PO SCH (06:15)
[2017-12-30 06:59] VITALS: RESP 14
[2017-12-30] MEDS: NICOTINE 21MG/24HR PATCH TRANSDERM SCH (08:28)
[2017-12-30] MEDS: ATORVASTATIN 10 MG TAB PO SCH (08:28)
[2017-12-30] MEDS: LORazepam 1 MG TAB PO PRN ×2 (08:30→15:58)
[2017-12-30] MEDS: HYDROcodone/APAP 5-325MG 1 EACH TAB PO PRN ×2 (08:30→15:56)
--- NOTE | 2017-12-30 10:49 | P.PN ---
Progress Note - Text Progress Note Date: 12/30/17 Interval history: Patient is found in his room lying in bed. He did awaken with name-calling. He is seen in cross coverage today. He relates that his back is bothering him today. He talks about eating up to take a shower about an hour. He didn't sleep that well last night related to the pain it sounds. Mental status exam: He is found in his room lying in bed. He awaken with name- calling. He describes his mood as "fine." He denies any thoughts of harm to self or others. He does not show any active evidence of psychosis. He does not show any agitation. Plan: Patient be maintained on current psychotropic medication regimen. Continue to monitor for any medication side effects monitor his ongoing response to treatment.
[2017-12-30] MEDS: traZODone HCL 100 MG TAB PO SCH (20:50)
[2017-12-30] MEDS: DIVALPROEX ER 500 MG TAB.ER.24H PO SCH (20:50)
[2017-12-31] MEDS: HYDROcodone/APAP 5-325MG 1 EACH TAB PO PRN ×2 (00:38→08:37)
[2017-12-31 06:32] VITALS: BP 109/75; PULSE 80
[2017-12-31] MEDS: LEVOTHYROXINE 50 MCG TAB PO SCH (08:35)
[2017-12-31] MEDS: ATORVASTATIN 10 MG TAB PO SCH (08:36)
[2017-12-31] MEDS: LORazepam 1 MG TAB PO PRN (08:36)
[2017-12-31] MEDS: NICOTINE 21MG/24HR PATCH TRANSDERM SCH (08:59)
[2017-12-31 09:56] LABS: Valproic Acid (Depakene) 66.4 ug/mL
--- NOTE | 2017-12-31 10:17 | P.DS ---
Providers Date of admission: 12/25/17 16:35 Expected date of discharge: 12/31/17 Attending physician: Major Vázquez Consults: 12/25/17 16:48 Consult Physician Routine Consulting Provider: Sena Root Consult Reason/Comments: H&P for mental health admission Do you want consulting provider notified?: Yes Primary care physician: Cathy Fabian - Discharge Diagnosis(es) (1) Bipolar I disorder with depression Current Visit: Yes Status: Acute Priority: High (2) Alcohol use disorder Current Visit: Yes Status: Acute Priority: High Hospital Course: Brief summary of admission note: This patient is a 57-year-old single male who was admitted to the mental health unit through the emergency room with suicidal ideation. He reported having poor sleep and low energy and poor appetite. He reported he had not eaten in 2-3 days. He described a history of bipolar disorder and previously being prescribed Depakote which she had been off of for several weeks. He had been drinking alcohol heavily for the past 30- 40 days. He described feeling irritable. For full detail please refer to the psychiatric evaluation dated 12/26/2017. Summary of hospital course: The patient was admitted to the mental health unit voluntarily. We reviewed his presenting symptoms and treatment options. We decided to restart his Depakote ER thousand milligrams at bedtime. Trazodone was provided as needed for sleep. We monitored his alcohol withdrawal symptoms with the CIWA protocol and Ativan was provided as needed. He was seen by internal medicine for routine history and physical exam. Initially the patient was fairly irritable he did not attend groups and isolated in his room. This did improve and over the last several days he has been fully attending groups and has been cooperative. He was agreeable to going to inpatient chemical dependency treatment and preferred to go back to [facility]. His Depakote level was drawn this morning which was found to be 66.4 liver enzymes within normal limits. He has clinically stabilized and is appropriate for transition to inpatient chemical dependency treatment. He does have a support meeting with his parents scheduled for this afternoon. Mental status exam: The patient is alert he is dressed in his own clothing hygiene is adequate he's mildly disheveled. Eye contact is appropriate speech is fluent and spontaneous nonpressured. He reports his mood is better he denies having any suicidal or homicidal ideation intent or plan. He states he no longer feels hopeless. He reports no auditory or visual hallucinations or any specific delusions there is no observed evidence of psychosis. He demonstrates a linear thought process he demonstrates no tangential thinking loose associations or flight of ideas. He does not appear hypomanic or manic. Insight and judgment improved. He is oriented to person place and date. Affect is appropriately expressive. Impressions 1. Bipolar disorder, most recent depressed, alcohol use disorder, rule out cocaine use disorder rule out cannabis use disorder 2. Medical comorbidities include hypothyroidism hyperlipidemia and pain Plan: The patient will be discharged from the mental health unit today. He plans on residing with his parents today and going to [facility] for inpatient chemical dependency treatment. The patient will continue on Depakote ER 1000 mg at bedtime, trazodone 100 mg at bedtime as needed. Depakote level was 66.4 drawn today. There is no imminent safety risk the patient is appropriate for transition to inpatient chemical dependency treatment/outpatient care. He is instructed to return to the hospital with any acute safety concerns. He is instructed to abstain from any use of alcohol marijuana or other illicit drugs as they will elevate his safety risk. Patient Condition at Discharge: Stable Plan - Discharge Summary New Discharge Prescriptions: New Nicotine 21Mg/24Hr Patch [Habitrol] 1 patch TRANSDERM DAILY #10 patch traZODone HCL [Desyrel] 100 mg PO HS #30 tab Continue HYDROcodone/APAP 10-325MG [[place] 10-325] 1 tab PO Q6H PRN PRN Reason: Pain Divalproex ER [Depakote ER] 1,000 mg PO HS #60 tab.er.24h Levothyroxine Sodium [Synthroid] 50 mcg PO DAILY #30 tab Simvastatin [Zocor] 20 mg PO QAM #30 tablet Discharge Medication List HYDROcodone/APAP 10-325MG [[place] 10-325] 1 tab PO Q6H PRN 11/20/15 [History] Divalproex ER [Depakote ER] 1,000 mg PO HS #60 tab.er.24h 12/31/17 [Rx] Levothyroxine Sodium [Synthroid] 50 mcg PO DAILY #30 tab 12/31/17 [Rx] Nicotine 21Mg/24Hr Patch [Habitrol] 1 patch TRANSDERM DAILY #10 patch 12/31/17 [ Rx] Simvastatin [Zocor] 20 mg PO QAM #30 tablet 12/31/17 [Rx] traZODone HCL [Desyrel] 100 mg PO HS #30 tab 12/31/17 [Rx] Follow up Appointment(s)/Referral(s): Intake, Intake [Other] - 01/01/18 12:00 pm (Pt has appt at [facility] scheduled for 01/01/18 @ 12 pm.) Rich Chapman MD [STAFF PHYSICIAN] - 01/18/18 9:30 am Cathy Fabian MD [Primary Care Provider] - As Needed
== END 2017-12-31 12:13 | disposition home or self-care (01) | DRG 885 ==
LOC: EC 23:10 → 3MHU 12-25 16:35
PROVIDERS: ADMIT Psychiatry & Neurology Psychiatry; ATTEND Psychiatry & Neurology Psychiatry
DX: F31.9 Bipolar disorder, unspecified (principal); F10.239 Alcohol dependence with withdrawal, unspecified; R45.851 Suicidal ideations; E03.9 Hypothyroidism, unspecified; E78.5 Hyperlipidemia, unspecified; F12.10 Cannabis abuse, uncomplicated; F14.10 Cocaine abuse, uncomplicated; F17.200 Nicotine dependence, unspecified, uncomplicated; G89.29 Other chronic pain; J44.9 Chronic obstructive pulmonary disease, unspecified; Z91.5 Personal history of self-harm; Z88.8 Allergy status to other drugs, medicaments and biological substances; Z79.899 Other long term (current) drug therapy
CPT/HCPCS: 36415; 80053; 80061; 80164; 80306; 81003; 82075; 83036; 84443; 84450; 84460; 85025; 96372; 99285

== ENCOUNTER 2018-03-23 23:20 | Inpatient (IN) | payer MEDICAID, OTHER ==
[2018-03-24] MEDS ORDERED: HALOPERIDOL LACTATE 5 MG/ML 1 ML VIAL IM STA (00:05)
--- NOTE | 2018-03-24 00:07 | ED ---
Psych HPI - General Source: patient Mode of arrival: wheelchair - History of Present Illness MD Complaint: suicidal ideation, feels depressed -: days(s) Associated Psychiatric Symptoms: depression, suicidal ideation Quality: getting worse Improves With: none Worsens With: alcohol Context: recent alcohol abuse Associated Symptoms: denies other symptoms <MirellaEmile - Last Filed: 03/24/18 01:40> <Mario Kay - Last Filed: 03/25/18 13:47> - General Chief Complaint: Psychiatric Symptoms Stated Complaint: ETOH Time Seen by Provider: 03/23/18 23:33 - Related Data Home Medications Medication Instructions Recorded Confirmed HYDROcodone/APAP 10-325MG [[place] 1 tab PO Q6H PRN 11/20/15 03/24/18 10-325] Previous Rx's Medication Instructions Recorded Divalproex ER [Depakote ER] 1,000 mg PO HS #60 tab.er.24h 12/31/17 Levothyroxine Sodium [Synthroid] 50 mcg PO DAILY #30 tab 12/31/17 Simvastatin [Zocor] 20 mg PO QAM #30 tablet 12/31/17 traZODone HCL [Desyrel] 100 mg PO HS #30 tab 12/31/17 Allergies Allergy/AdvReac Type Severity Reaction Status Date / Time quetiapine fumarate Allergy Rash/Hives Verified 03/24/18 14:06 [From Seroquel] Review of Systems ROS Other: All systems not noted in ROS Statement are negative. Respiratory: Denies: cough, dyspnea Cardiovascular: Denies: chest pain, palpitations Gastrointestinal: Denies: abdominal pain, vomiting Musculoskeletal: Denies: back pain Neurological: Denies: headache Psychiatric: Reports: depression, homicidal thoughts, suicidal thoughts. Denies : auditory hallucinations, visual hallucinations <Emile Vu - Last Filed: 03/24/18 01:40> ROS Other: All systems not noted in ROS Statement are negative. <Mario Kay - Last Filed: 03/25/18 13:47> ROS Statement: Those systems with pertinent positive or pertinent negative responses have been documented in the HPI. Past Medical History Past Medical History: Asthma, COPD, Hyperlipidemia, Liver Disease, Musculoskeletal Disorder, Thyroid Disorder Additional Past Medical History / Comment(s): Optic neuritis. liver disease. History of Any Multi-Drug Resistant Organisms: None Reported Past Surgical History: No Surgical Hx Reported Past Anesthesia/Blood Transfusion Reactions: No Reported Reaction Past Psychological History: Bipolar, Depression Smoking Status: Current every day smoker Past Alcohol Use History: Abuse, Daily, Heavy Past Drug Use History: Marijuana, Opiates - Past Family History Father Additional Family Medical History / Comment(s): Patient states is father is but will not provide any additional information. He states he does not know his mothers history. He has 2 brothers and 2 step brothers and only one living. They have committed suicide. <Emile Vu - Last Filed: 03/24/18 01:40> General Exam Limitations: altered mental status General appearance: alert, appears intoxicated Head exam: Present: atraumatic, normocephalic Eye exam: Present: normal appearance. Absent: scleral icterus, conjunctival injection Respiratory exam: Present: normal lung sounds bilaterally. Absent: respiratory distress, wheezes, rales, rhonchi, stridor Cardiovascular Exam: Present: regular rate, normal rhythm, normal heart sounds. Absent: systolic murmur, diastolic murmur, rubs, gallop GI/Abdominal exam: Present: soft. Absent: distended, tenderness, guarding, rebound Extremities exam: Present: normal inspection, normal capillary refill Neurological exam: Present: alert, normal gait Skin exam: Present: warm, dry, intact, normal color. Absent: rash <Emile Vu - Last Filed: 03/24/18 01:40> Course <Emile Vu - Last Filed: 03/24/18 01:40> <Mario Kay - Last Filed: 03/25/18 13:47> Vital Signs 03/23/18 03/24/18 03/24/18 23:22 13:15 19:44 Temperature 97.8 F 98.0 F Pulse Rate 90 82 71 Respiratory 20 18 16 Rate Blood Pressure 141/98 108/72 139/88 O2 Sat by Pulse 98 97 98 Oximetry 03/24/18 03/25/18 03/25/18 23:26 00:50 01:54 Temperature 97.5 F L Pulse Rate 58 L Respiratory 17 16 17 Rate Blood Pressure 150/97 O2 Sat by Pulse 97 Oximetry 03/25/18 03/25/18 03/25/18 04:47 05:24 08:36 Temperature 97.9 F Pulse Rate 61 55 L Respiratory 17 17 16 Rate Blood Pressure 120/78 123/71 O2 Sat by Pulse 97 100 Oximetry - Reevaluation(s) Reevaluation #1: 03/25/18 11:24 The patient's been resting comfortably throughout the morning. I did complete a clinical certificate. (Mario Kay) Procedures - Restraint - Face to Face Restraint Occurrence 1 Patient's Immediate Situation: Endangers self safety Patient's Reaction to the Intervention: Angry Patient's Medical & Behavioral Condition: Suicidal thoughts Need to Continue or Terminate Restraint or Seclusion: Continue Face to Face Eval of Restraint Date: 03/24/18 Face to Face Eval of Restraint Time: 00:02 <Emile Vu - Last Filed: 03/24/18 01:40> Medical Decision Making <Emile Vu - Last Filed: 03/24/18 01:40> - Lab Data Result diagrams: 03/24/18 00:39 03/24/18 00:39 <Mario Kay - Last Filed: 03/25/18 13:47> - Medical Decision Making Patient was endorsed me at our shift change pending psychiatric evaluation. Patient was evaluated will be admitted. I did fill out a clinical certain however the patient voluntarily signed in. (Mario Kay) - Lab Data Lab Results 03/24/18 03/24/18 03/24/18 Range/Units 00:39 00:39 07:36 WBC 6.6 (3.8-10.6) k/uL RBC 4.92 (4.30-5.90) m/uL Hgb 16.1 (13.0-17.5) gm/dL Hct 48.2 (39.0-53.0) % MCV 97.9 (80.0-100.0) fL MCH 32.8 (25.0-35.0) pg MCHC 33.5 (31.0-37.0) g/dL RDW 13.1 (11.5-15.5) % Plt Count 221 (150-450) k/uL Neutrophils % 40 % Lymphocytes % 49 % Monocytes % 5 % Eosinophils % 1 % Basophils % 0 % Neutrophils # 2.6 (1.3-7.7) k/uL Lymphocytes # 3.2 (1.0-4.8) k/uL Monocytes # 0.3 (0-1.0) k/uL Eosinophils # 0.1 (0-0.7) k/uL Basophils # 0.0 (0-0.2) k/uL Sodium 151 H (137-145) mmol/L Potassium 3.8 (3.5-5.1) mmol/L Chloride 114 H (98-107) mmol/L Carbon Dioxide 24 (22-30) mmol/L Anion Gap 13 mmol/L BUN 9 (9-20) mg/dL Creatinine 0.58 L (0.66-1.25) mg/dL Est GFR (CKD-EPI)AfAm >90 (>60 ml/min/1.73 sqM) Est GFR (CKD-EPI)NonAf >90 (>60 ml/min/1.73 sqM) Glucose 87 (74-99) mg/dL Calcium 9.8 (8.4-10.2) mg/dL Urine Opiates Screen Not Detected (NotDetected) Ur Oxycodone Screen Not Detected (NotDetected) Urine Methadone Screen Not Detected (NotDetected) Ur Propoxyphene Screen Not Detected (NotDetected) Ur Barbiturates Screen Not Detected (NotDetected) Valproic Acid ug/mL U Tricyclic Antidepress Not Detected (NotDetected) Ur Phencyclidine Scrn Not Detected (NotDetected) Ur Amphetamines Screen Not Detected (NotDetected) U Methamphetamines Scrn Not Detected (NotDetected) U Benzodiazepines Scrn Not Detected (NotDetected) Urine Cocaine Screen Not Detected (NotDetected) U Marijuana (THC) Screen Detected H (NotDetected) Serum Alcohol 288 H* mg/dL 03/24/18 Range/Units 19:30 WBC (3.8-10.6) k/uL RBC (4.30-5.90) m/uL Hgb (13.0-17.5) gm/dL Hct (39.0-53.0) % MCV (80.0-100.0) fL MCH (25.0-35.0) pg MCHC (31.0-37.0) g/dL RDW (11.5-15.5) % Plt Count (150-450) k/uL Neutrophils % % Lymphocytes % % Monocytes % % Eosinophils % % Basophils % % Neutrophils # (1.3-7.7) k/uL Lymphocytes # (1.0-4.8) k/uL Monocytes # (0-1.0) k/uL Eosinophils # (0-0.7) k/uL Basophils # (0-0.2) k/uL Sodium (137-145) mmol/L Potassium (3.5-5.1) mmol/L Chloride (98-107) mmol/L Carbon Dioxide (22-30) mmol/L Anion Gap mmol/L BUN (9-20) mg/dL Creatinine (0.66-1.25) mg/dL Est GFR (CKD-EPI)AfAm (>60 ml/min/1.73 sqM) Est GFR (CKD-EPI)NonAf (>60 ml/min/1.73 sqM) Glucose (74-99) mg/dL Calcium (8.4-10.2) mg/dL Urine Opiates Screen (NotDetected) Ur Oxycodone Screen (NotDetected) Urine Methadone Screen (NotDetected) Ur Propoxyphene Screen (NotDetected) Ur Barbiturates Screen (NotDetected) Valproic Acid 11.3 ug/mL U Tricyclic Antidepress (NotDetected) Ur Phencyclidine Scrn (NotDetected) Ur Amphetamines Screen (NotDetected) U Methamphetamines Scrn (NotDetected) U Benzodiazepines Scrn (NotDetected) Urine Cocaine Screen (NotDetected) U Marijuana (THC) Screen (NotDetected) Serum Alcohol mg/dL Disposition <Emile uV - Last Filed: 03/24/18 01:40> <Mario Kay - Last Filed: 03/25/18 13:47> Clinical Impression: Depression, Suicidal ideation, Alcohol intoxication Disposition: TRANSFER TO PSYCH HOSP/UNIT Condition: Stable Referrals: Cathy Fabian MD [Primary Care Provider] - 1-2 days
[2018-03-24 01:40] LABS: Basophils % (A) 0 %; Eosinophils # (A) 0.1 k/uL (0-0.7); Eosinophils % (A) 1 %; HCT 48.2 % (39.0-53.0); HGB 16.1 gm/dL (13.0-17.5); Lymphocytes # (A) 3.2 k/uL (1.0-4.8); Lymphocytes % (A) 49 %; MCH 32.8 pg (25.0-35.0); MCHC 33.5 g/dL (31.0-37.0); MCV 97.9 fL (80.0-100.0); Mean Platelet Volume 6.8; Monocytes # (A) 0.3 k/uL (0-1.0); Monocytes % (A) 5 %; Neutrophils # (A) 2.6 k/uL (1.3-7.7); Neutrophils % (A) 40 %; Platelet Count 221 k/uL (150-450); RBC 4.92 m/uL (4.30-5.90); RDW 13.1 % (11.5-15.5); WBC 6.6 k/uL (3.8-10.6)
[2018-03-24 01:51] LABS: Anion Gap 13 mmol/L; Blood Urea Nitrogen 9 mg/dL (9-20); Calcium 9.8 mg/dL (8.4-10.2); Carbon Dioxide 24 mmol/L (22-30); Chloride 114 mmol/L (98-107); Glucose 87 mg/dL (74-99); Potassium 3.8 mmol/L (3.5-5.1); Sodium 151 mmol/L (137-145)
[2018-03-24 01:55] LABS: Alcohol 288 mg/dL
[2018-03-24 08:38] LABS: Amphetamine Screen,Urine Not Detected (NotDetected); Barbiturate Screen,Urine Not Detected (NotDetected); Benzodiazepines Screen,Urine Not Detected (NotDetected); Cocaine Screen,Urine Not Detected (NotDetected); Methadone Screen, Urine Not Detected (NotDetected); Opiate Screen,Urine Not Detected (NotDetected); Oxycodone Screen, Urine Not Detected (NotDetected); Phencyclidine Screen,Urine Not Detected (NotDetected); Tricyclic Antidepressant,Urine Not Detected (NotDetected); Urn Cannabinoid Scrn Detected (NotDetected)
[2018-03-24] MEDS ORDERED: DIVALPROEX ER 500 MG TAB.ER.24H PO SCH (23:00)
[2018-03-24] MEDS ORDERED: traZODone HCL 100 MG TAB PO SCH (23:00)
[2018-03-24] MEDS: HYDROcodone/APAP 10-325MG 1 EACH TAB PO PRN (23:22)
[2018-03-24] MEDS: ATORVASTATIN 10 MG TAB PO SCH (23:23)
[2018-03-25] MEDS ORDERED: THIAMINE 100 MG/ML 2 ML VIAL IM STA (02:49)
[2018-03-25] MEDS ORDERED: LORazepam 1 MG TAB PO STA (02:49)
[2018-03-25] MEDS ORDERED: LORazepam 2 MG/ML INJ IV PRN ×3 (02:50)
[2018-03-25] MEDS ORDERED: LEVOTHYROXINE 50 MCG TAB PO SCH (06:30)
[2018-03-25] MEDS: HYDROcodone/APAP 10-325MG 1 EACH TAB PO PRN (08:09)
[2018-03-25] MEDS: ATORVASTATIN 10 MG TAB PO SCH ×2 (09:10→20:15)
[2018-03-25] MEDS ORDERED: MAGNESIUM HYDROXIDE 2,400 MG/10 ML CUP PO PRN (14:02)
[2018-03-25] MEDS ORDERED: MAG HYDROX/AL HYDROX/SIMETH 30 ML CUP PO PRN (14:02)
[2018-03-25] MEDS ORDERED: LORazepam 1 MG TAB PO PRN (14:02)
[2018-03-25] MEDS ORDERED: ALBUTEROL INHALER 60 PUFF/8 GM INHALER INHALATION PRN (15:02)
--- NOTE | 2018-03-25 15:13 | P.CONS ---
History of Present Illness - Reason for Consult Consult date: 03/25/18 Medical management Requesting physician: Henrry Miller - Chief Complaint Depression and suicide ideation - History of Present Illness This is a 58-year-old male with a known past medical history of bipolar, depression, previous psychiatric admissions, COPD, hyperlipidemia, liver disease , hypothyroidism, nicotine dependence, alcohol abuse and chronic back pain. He presents to the ER with complaints of feeling more depressed and suicidal ideation. He's been drinking more frequently and heavily. Patient has been admitted to the psychiatric unit. We have been consulted for medical management. Patient was found to have a sodium level of 151. ETOH level of 288 , drug screen positive for marijuana. Patient is awake and alert answering questions appropriately. He's been started on Librium and Ativan and full casted for 6 alcohol withdrawal. Patient reports 2 episodes of diarrhea. Stool is becoming more formed. We'll continue to monitor. Denies any nausea or vomiting. Denies any abdominal pain. Denies any chest pain or shortness of breath. Denies any burning or difficulty with urinating. Reports that he has not been eating or drinking very well. He takes Depakote for his bipolar. No history of seizure disorder. Depakote level 11.3 Review of Systems Please refer to HPI otherwise unremarkable Past Medical History Past Medical History: Asthma, COPD, Hyperlipidemia, Liver Disease, Musculoskeletal Disorder, Thyroid Disorder Additional Past Medical History / Comment(s): Optic neuritis. liver disease. History of Any Multi-Drug Resistant Organisms: None Reported Past Surgical History: No Surgical Hx Reported Past Anesthesia/Blood Transfusion Reactions: No Reported Reaction Past Psychological History: Bipolar, Depression Smoking Status: Current every day smoker Past Alcohol Use History: Abuse, Daily, Heavy Past Drug Use History: Marijuana, Opiates - Past Family History Father Additional Family Medical History / Comment(s): Patient states is father is but will not provide any additional information. He states he does not know his mothers history. He has 2 brothers and 2 step brothers and only one living. They have committed suicide. Medications and Allergies Home Medications Medication Instructions Recorded Confirmed Type HYDROcodone/APAP 10-325MG [[place] 1 tab PO Q6H PRN 11/20/15 03/24/18 History 10-325] Divalproex ER [Depakote ER] 1,000 mg PO HS #60 tab.er.24h 12/31/17 03/24/18 Rx Levothyroxine Sodium [Synthroid] 50 mcg PO DAILY #30 tab 12/31/17 03/24/18 Rx Simvastatin [Zocor] 20 mg PO QAM #30 tablet 12/31/17 03/24/18 Rx traZODone HCL [Desyrel] 100 mg PO HS #30 tab 12/31/17 03/24/18 Rx Allergies Allergy/AdvReac Type Severity Reaction Status Date / Time quetiapine fumarate Allergy Rash/Hives Verified 03/24/18 14:06 [From Seroquel] Physical Exam Vitals: Vital Signs Temp Pulse Resp BP Pulse Ox 03/25/18 14:09 89 16 129/82 99 03/25/18 08:36 97.9 F 55 L 16 123/71 100 03/25/18 05:24 61 17 120/78 97 03/25/18 04:47 17 03/25/18 01:54 17 03/25/18 00:50 16 03/24/18 23:26 97.5 F L 58 L 17 150/97 97 03/24/18 19:44 98.0 F 71 16 139/88 98 Head normocephalic Neck supple Lungs clear to auscultation bilaterally no wheezing or crackles Heart regular rate and rhythm S1-S2, no rub or gallop Abdomen is soft nontender nondistended positive bowel sounds no hepatosplenomegaly Extremities no edema Neuro alert and orientated to 3 Results CBC & Chem 7: 03/24/18 00:39 03/24/18 00:39 Assessment and Plan Assessment: 1. Depression with suicidal ideation: Patient is been admitted to the psychiatric unit. Psychiatry is following his place patient on Haldol and Ativan as needed 2. Alcohol abuse with alcohol toxicity present on admission: Psychiatry is placed patient on Librium, Ativan, Folic acid vitamin B complex 3. Nicotine dependence: Add nicotine patch 4. Hypothyroidism: Continue Synthroid. Check TSH level 5. Hypernatremia: Recheck sodium level. We'll make further recommendations if it remains elevated 6. Drug screen positive for marijuana 7. History of COPD: Stable. Resume patient's albuterol inhaler as needed 8. History of bipolar and depression: Patient is on Depakote at home 9. Hyperlipidemia continue statin 10. Diarrhea: Improving. Possibly related to alcohol toxicity. We'll monitor. If diarrhea persists we'll check stool studies Thank you for this consultation. We'll follow up on patient's blood work. Please call for any questions or concerns Time with Patient: Greater than 30 (Greater than 50% of the total time spent in counseling and coordination of care.I performed an examination of the patient and discussed their management with the physician Computational Chemist. I have reviewed the Physician Computational Chemist's notes and agree with the documented findings and plan of care)
[2018-03-25 15:54] LABS: ALT 51 U/L (21-72); AST 44 U/L (17-59); Albumin 3.7 g/dL (3.5-5.0); Alkaline Phosphatase 48 U/L (38-126); Anion Gap 6 mmol/L; Blood Urea Nitrogen 19 mg/dL (9-20); Calcium 9.5 mg/dL (8.4-10.2); Carbon Dioxide 27 mmol/L (22-30); Chloride 107 mmol/L (98-107); Glucose 87 mg/dL (74-99); Potassium 4.2 mmol/L (3.5-5.1); Sodium 140 mmol/L (137-145); Total Bilirubin 0.7 mg/dL (0.2-1.3); Total Protein 6.7 g/dL (6.3-8.2)
[2018-03-25 16:24] VITALS: BMI 20.1
[2018-03-25] MEDS ORDERED: THIAMINE 100 MG TAB PO SCH (17:00)
[2018-03-25] MEDS: HALOPERIDOL 1 MG TAB PO SCH (20:15)
[2018-03-25] MEDS ORDERED: ATORVASTATIN 10 MG TAB PO SCH (21:00)
[2018-03-26] MEDS: LEVOTHYROXINE 50 MCG TAB PO SCH (06:20)
[2018-03-26] MEDS: FOLIC ACID-VIT B COMPLEX-VIT C 1 CAP PO SCH (08:24)
[2018-03-26] MEDS: NICOTINE 14MG/24HR PATCH TRANSDERM SCH (08:24)
[2018-03-26 08:25] LABS: Hemoglobin A1C 5.2 % (4.0-6.0)
--- NOTE | 2018-03-26 11:43 | P.HP ---
Psychiatric H&P - . H&P Date: 03/25/18 History & Physical: Allergies Allergy/AdvReac Type Severity Reaction Status Date / Time quetiapine fumarate Allergy Rash/Hives Verified 03/24/18 14:06 [From Seroquel] Vital Signs Temp 97.9 F 03/25/18 08:36 Pulse 89 03/25/18 14:09 Resp 16 03/25/18 14:09 BP 129/82 03/25/18 14:09 Pulse Ox 99 03/25/18 14:09 Laboratory Last Values WBC 6.6 k/uL (3.8-10.6) 03/24/18 00:39 RBC 4.92 m/uL (4.30-5.90) 03/24/18 00:39 Hgb 16.1 gm/dL (13.0-17.5) 03/24/18 00:39 Hct 48.2 % (39.0-53.0) 03/24/18 00:39 MCV 97.9 fL (80.0-100.0) 03/24/18 00:39 MCH 32.8 pg (25.0-35.0) 03/24/18 00:39 MCHC 33.5 g/dL (31.0-37.0) 03/24/18 00:39 RDW 13.1 % (11.5-15.5) 03/24/18 00:39 Plt Count 221 k/uL (150-450) 03/24/18 00:39 Neutrophils % 40 % 03/24/18 00:39 Lymphocytes % 49 % 03/24/18 00:39 Monocytes % 5 % 03/24/18 00:39 Eosinophils % 1 % 03/24/18 00:39 Basophils % 0 % 03/24/18 00:39 Neutrophils # 2.6 k/uL (1.3-7.7) 03/24/18 00:39 Lymphocytes # 3.2 k/uL (1.0-4.8) 03/24/18 00:39 Monocytes # 0.3 k/uL (0-1.0) 03/24/18 00:39 Eosinophils # 0.1 k/uL (0-0.7) 03/24/18 00:39 Basophils # 0.0 k/uL (0-0.2) 03/24/18 00:39 Sodium 151 mmol/L (137-145) H 03/24/18 00:39 Potassium 3.8 mmol/L (3.5-5.1) 03/24/18 00:39 Chloride 114 mmol/L (98-107) H 03/24/18 00:39 Carbon Dioxide 24 mmol/L (22-30) 03/24/18 00:39 Anion Gap 13 mmol/L 03/24/18 00:39 BUN 9 mg/dL (9-20) 03/24/18 00:39 Creatinine 0.58 mg/dL (0.66-1.25) L 03/24/18 00:39 Est GFR (CKD-EPI)AfAm >90 (>60 ml/min/1.73 sqM) 03/24/18 00:39 Est GFR (CKD-EPI)NonAf >90 (>60 ml/min/1.73 sqM) 03/24/18 00:39 Glucose 87 mg/dL (74-99) 03/24/18 00:39 Calcium 9.8 mg/dL (8.4-10.2) 03/24/18 00:39 Urine Opiates Screen Not Detected (NotDetected) 03/24/18 07:36 Ur Oxycodone Screen Not Detected (NotDetected) 03/24/18 07:36 Urine Methadone Screen Not Detected (NotDetected) 03/24/18 07:36 Ur Propoxyphene Screen Not Detected (NotDetected) 03/24/18 07:36 Ur Barbiturates Screen Not Detected (NotDetected) 03/24/18 07:36 Valproic Acid 11.3 ug/mL 03/24/18 19:30 U Tricyclic Antidepress Not Detected (NotDetected) 03/24/18 07:36 Ur Phencyclidine Scrn Not Detected (NotDetected) 03/24/18 07:36 Ur Amphetamines Screen Not Detected (NotDetected) 03/24/18 07:36 U Methamphetamines Scrn Not Detected (NotDetected) 03/24/18 07:36 U Benzodiazepines Scrn Not Detected (NotDetected) 03/24/18 07:36 Urine Cocaine Screen Not Detected (NotDetected) 03/24/18 07:36 U Marijuana (THC) Screen Detected (NotDetected) H 03/24/18 07:36 Serum Alcohol 288 mg/dL H* 03/24/18 00:39 Assessment and Plan Assessment: Chief Complaint: Psychiatric Symptoms Stated Complaint: ETOH Time Seen by Provider: 03/23/18 23:33 This is a 58 year old male who presents with etoh-depression, labile, tearful agitated in triage,.admits to daily drinking, tearful when asked about suicide refuses to talk. He is homeless and has difficulty was substance use disorder severe alcohol and is seeking treatment for detox and transferred to [place]. - Related Data Home Medications Medication Instructions Recorded Confirmed HYDROcodone/APAP 10-325MG [[place] 1 tab PO Q6H PRN 11/20/15 03/24/18 10-325] Previous Rx's Medication Instructions Recorded Divalproex ER [Depakote ER] 1,000 mg PO HS #60 tab.er.24h 12/31/17 Levothyroxine Sodium [Synthroid] 50 mcg PO DAILY #30 tab 12/31/17 Simvastatin [Zocor] 20 mg PO QAM #30 tablet 12/31/17 traZODone HCL [Desyrel] 100 mg PO HS #30 tab 12/31/17 Allergies Allergy/AdvReac Type Severity Reaction Status Date / Time quetiapine fumarate Allergy Rash/Hives Verified 03/24/18 14:06 [From Seroquel] Past Medical History Past Medical History: Asthma, COPD, Hyperlipidemia, Liver Disease, Musculoskeletal Disorder, Thyroid Disorder Additional Past Medical History / Comment(s): Optic neuritis. liver disease. History of Any Multi-Drug Resistant Organisms: None Reported Past Surgical History: No Surgical Hx Reported Past Anesthesia/Blood Transfusion Reactions: No Reported Reaction Past Psychological History: Bipolar, Depression Smoking Status: Current every day smoker Past Alcohol Use History: Abuse, Daily, Heavy Past Drug Use History: Marijuana, Opiates - Past Family History Father Additional Family Medical History / Comment(s): Patient states is father is but will not provide any additional information. He states he does not know his mothers history. He has 2 brothers and 2 step brothers and only one living. They have committed suicide. Musculoskeletal Examination - Abnormal/Involuntary Movements: [none Strength: [greater than antigravity (greater than/equal to 3/5) in all extremities] Muscle Tone: [no impairment Gait: [grossly normal Station: [grossly normal Mental Status Examination - General Appearance: [disheveled, appears older than stated age Speech/Language: [spontaneous, rapid, , expressive, mute, loud, soft, other] Attitude/Behavior: [irritable, withdrawn, indifferent, other] Mood: [euthymic, depressed, euphoric, anxious, elated, irritable, angry, fearful , hopelessness, other] Affect: [full range, lively, flat, incongruent, labile, blunted constricted, other] Orientation: [time, person, place situation] Thought Content: [wnl, Risk Factors: [He is suicidal (ideations, plan), and/or Homicidal (ideations, plan), other] Perception: [wnl, denies hallucinations (auditory, visual, tactile), other] Thought Processes: [goal-oriented Concentration/Attention Span: [wnl [Per observation and interview with the patient] Recent Memory: [wnl Remote Memory: [wnl] [past events, as related history] Intelligence: [below average] [based on history, based on vocabulary, syntax, grammar, and content] Judgement: [ poor] [per patient's behavior/history of present illness] Insight: [poor] [understanding severity of illness/history of present illness] Admitting Diagnosis: [1. Depression with suicide ideation. Patient is currently admitted to the mental health unit and followed closely by psychiatry 2. History of hyperlipidemia. Patient on Lipitor 3. History of nicotine dependence. Patient currently ordered nicotine patch 4. Hypothyroidism. Patient currently on home dose of Synthroid. TSH level 0.54 5. Chronic back pain. Pain management managed by psychiatry 6. EtOH use disorder-severe. Patient currently on CIWA protocal ] Patient Strengths - Housing stability: [x] Able to vocalize needs: [x] Patient Limitations: [medication, non-compliance, pathological/unsupported environment, intellectual impairment, lack of social supports] Initial Plan of Care: [He is admitted formal voluntary for mood disorder and detoxification from alcohol. He'll be placed on 15 minute checks as well as a CO protocol and be followed for his psychiatric disorder. he will be evaluated by medicine, psychiatry, nursing staff, social work, and recreational therapy into group therapy along with [facility] milieu therapeutic environment. He was restarted on his Depakote thousand milligrams at bedtime extended release and trazodone. He also has major complaints of back pain she is back doctor and put him on hydrocodone 5 mg 325. Length of Stay: [5 days] Initial Discharge Plan: [home, [facility], referred to therapist for substance abuse residential Prognosis: [ guarded] Justification for Inpatient Hospitalization - [agitation, anxiety, depression resulting in significant loss of functioning.] [Dangerous to self, others, or property with need for controlled environment.] [Emotional or behavioral conditions and complications requiring 24 hour medical and nursing care.] [Need for special drug therapy, or other therapeutic program requiring continuous hospitalization.] [Failure of social or occupational functioning.] [Inability to meet basic life and health needs.] [Patient's occupation presents danger to public safety if they continue to use drugs or alcohol.] [Biomedical conditions and complications requiring 24 hour medical and nursing care.] [Recovery environment includes detrimental family structure, logical impediments to out-patient treatment.] Time with Patient: Greater than 30
[2018-03-26] MEDS: HYDROcodone/APAP 5-325MG 1 EACH TAB PO PRN ×2 (13:42→20:53)
[2018-03-26] MEDS: DIVALPROEX ER 500 MG TAB.ER.24H PO SCH (20:49)
[2018-03-26] MEDS: HALOPERIDOL 1 MG TAB PO SCH (20:49)
[2018-03-26] MEDS: traZODone HCL 100 MG TAB PO SCH (20:49)
[2018-03-26] MEDS: ATORVASTATIN 10 MG TAB PO SCH (20:51)
[2018-03-27] MEDS: HYDROcodone/APAP 5-325MG 1 EACH TAB PO PRN ×5 (03:07→22:45)
[2018-03-27] MEDS: LEVOTHYROXINE 50 MCG TAB PO SCH (06:50)
[2018-03-27] MEDS: NICOTINE 14MG/24HR PATCH TRANSDERM SCH (08:43)
[2018-03-27] MEDS: FOLIC ACID-VIT B COMPLEX-VIT C 1 CAP PO SCH (11:27)
--- NOTE | 2018-03-27 12:49 | P.PN ---
Subjective Progress Note Date: 03/27/18 Principal diagnosis: Bipolar and alcohol use disorder This is a 58 year old male who presents with etoh-bipolar, labile, tearful agitated in triage,.admits to daily drinking, tearful when asked about suicide refuses to talk. He is homeless and has difficulty was substance use disorder severe alcohol and is seeking treatment for detox and transferred to [place]. He is more awake and still detoxing. Objective - Vital Signs Vital signs: Vital Signs Temp 97.7 F 03/27/18 02:40 Pulse 99 03/27/18 02:40 Resp 18 03/27/18 02:40 BP 103/60 03/27/18 02:40 Pulse Ox 96 03/25/18 16:16 Intake & Output 03/26/18 03/27/18 03/27/18 18:59 06:59 18:59 Weight 61.8 kg - Labs CBC & Chem 7: 03/24/18 00:39 03/25/18 15:35 Assessment and Plan Assessment: Chief Complaint: Psychiatric Symptoms Stated Complaint: ETOH Time Seen by Provider: 03/23/18 23:33 This is a 58 year old male who presents with etoh-depression, labile, tearful agitated in triage,.admits to daily drinking, tearful when asked about suicide refuses to talk. He is homeless and has difficulty was substance use disorder severe alcohol and is seeking treatment for detox and transferred to [place]. - Related Data Home Medications Medication Instructions Recorded Confirmed HYDROcodone/APAP 10-325MG [[place] 1 tab PO Q6H PRN 11/20/15 03/24/18 10-325] Previous Rx's Medication Instructions Recorded Divalproex ER [Depakote ER] 1,000 mg PO HS #60 tab.er.24h 12/31/17 Levothyroxine Sodium [Synthroid] 50 mcg PO DAILY #30 tab 12/31/17 Simvastatin [Zocor] 20 mg PO QAM #30 tablet 12/31/17 traZODone HCL [Desyrel] 100 mg PO HS #30 tab 12/31/17 Allergies Allergy/AdvReac Type Severity Reaction Status Date / Time quetiapine fumarate Allergy Rash/Hives Verified 03/24/18 14:06 [From Seroquel] Past Medical History Past Medical History: Asthma, COPD, Hyperlipidemia, Liver Disease, Musculoskeletal Disorder, Thyroid Disorder Additional Past Medical History / Comment(s): Optic neuritis. liver disease. History of Any Multi-Drug Resistant Organisms: None Reported Past Surgical History: No Surgical Hx Reported Past Anesthesia/Blood Transfusion Reactions: No Reported Reaction Past Psychological History: Bipolar, Depression Smoking Status: Current every day smoker Past Alcohol Use History: Abuse, Daily, Heavy Past Drug Use History: Marijuana, Opiates - Past Family History Father Additional Family Medical History / Comment(s): Patient states is father is but will not provide any additional information. He states he does not know his mothers history. He has 2 brothers and 2 step brothers and only one living. They have committed suicide. Musculoskeletal Examination - Abnormal/Involuntary Movements: [none Strength: [greater than antigravity (greater than/equal to 3/5) in all extremities] Muscle Tone: [no impairment Gait: [grossly normal Station: [grossly normal Mental Status Examination - General Appearance: [disheveled, appears older than stated age Speech/Language: [spontaneous, rapid, , expressive, mute, loud, soft, other] Attitude/Behavior: [irritable, withdrawn, indifferent, other] Mood: [euthymic, depressed, euphoric, anxious, elated, irritable, angry, fearful , hopelessness, other] Affect: [full range, lively, flat, incongruent, labile, blunted constricted, other] Orientation: [time, person, place situation] Thought Content: [wnl, Risk Factors: [He is suicidal (ideations, plan), and/or Homicidal (ideations, plan), other] Perception: [wnl, denies hallucinations (auditory, visual, tactile), other] Thought Processes: [goal-oriented Concentration/Attention Span: [wnl [Per observation and interview with the patient] Recent Memory: [wnl Remote Memory: [wnl] [past events, as related history] Intelligence: [below average] [based on history, based on vocabulary, syntax, grammar, and content] Judgement: [ poor] [per patient's behavior/history of present illness] Insight: [poor] [understanding severity of illness/history of present illness] Admitting Diagnosis: [1. Depression with suicide ideation. Patient is currently admitted to the mental health unit and followed closely by psychiatry 2. History of hyperlipidemia. Patient on Lipitor 3. History of nicotine dependence. Patient currently ordered nicotine patch 4. Hypothyroidism. Patient currently on home dose of Synthroid. TSH level 0.54 5. Chronic back pain. Pain management managed by psychiatry 6. EtOH use disorder-severe. Patient currently on CIWA protocal ] Patient Strengths - Housing stability: [x] Able to vocalize needs: [x] Patient Limitations: [medication, non-compliance, pathological/unsupported environment, intellectual impairment, lack of social supports] Initial Plan of Care: [He is admitted formal voluntary for mood disorder and detoxification from alcohol. He'll be placed on 15 minute checks as well as a CO protocol and be followed for his psychiatric disorder. he will be evaluated by medicine, psychiatry, nursing staff, social work, and recreational therapy into group therapy along with [facility] milieu therapeutic environment. He was restarted on his Depakote thousand milligrams at bedtime extended release and trazodone. He also has major complaints of back pain she is back doctor and put him on hydrocodone 5 mg 325. Length of Stay: [5 days] Initial Discharge Plan: [home, [facility], referred to therapist for substance abuse residential Prognosis: [ guarded] Justification for Inpatient Hospitalization - [agitation, anxiety, depression resulting in significant loss of functioning.] [Dangerous to self, others, or property with need for controlled environment.] [Emotional or behavioral conditions and complications requiring 24 hour medical and nursing care.] [Need for special drug therapy, or other therapeutic program requiring continuous hospitalization.] [Failure of social or occupational functioning.] [Biomedical conditions and complications requiring 24 hour medical and nursing care.] [Recovery environment includes detrimental family structure, logical impediments to out-patient treatment.] Plan: maintain medications and draw cmp tomorrow. Still detoxing. Has productive cough. VSS Time with Patient: Less than 30
[2018-03-27] MEDS: HALOPERIDOL 1 MG TAB PO SCH (20:11)
[2018-03-27] MEDS: ATORVASTATIN 10 MG TAB PO SCH (20:11)
[2018-03-27] MEDS: DIVALPROEX ER 500 MG TAB.ER.24H PO SCH (20:11)
[2018-03-27] MEDS: traZODone HCL 100 MG TAB PO SCH (22:45)
[2018-03-28] MEDS: HYDROcodone/APAP 5-325MG 1 EACH TAB PO PRN ×3 (05:33→19:51)
[2018-03-28] MEDS: LEVOTHYROXINE 50 MCG TAB PO SCH (06:20)
[2018-03-28] MEDS: NICOTINE 14MG/24HR PATCH TRANSDERM SCH (08:43)
[2018-03-28] MEDS: FOLIC ACID-VIT B COMPLEX-VIT C 1 CAP PO SCH (08:43)
--- NOTE | 2018-03-28 14:16 | P.PN ---
Subjective Progress Note Date: 03/28/18 Principal diagnosis: Bipolar and alcohol use disorder This is a 58 year old male who presents with etoh-bipolar, labile, tearful agitated in triage,.admits to daily drinking, tearful when asked about suicide refuses to talk. He is homeless and has difficulty was substance use disorder severe alcohol and is seeking treatment for detox and transferred to [place]. He is more less awake and still detoxing with complaints of hot and cold. Objective - Vital Signs Vital signs: Vital Signs Temp 97.4 F L 03/28/18 05:30 Pulse 72 03/28/18 05:30 Resp 16 03/28/18 05:30 BP 111/72 03/28/18 05:30 Pulse Ox 96 03/25/18 16:16 - Labs CBC & Chem 7: 03/24/18 00:39 03/25/18 15:35 Assessment and Plan Assessment: Chief Complaint: Psychiatric Symptoms Stated Complaint: ETOH Time Seen by Provider: 03/23/18 23:33 This is a 58 year old male who presents with etoh-depression, labile, tearful agitated in triage,.admits to daily drinking, tearful when asked about suicide refuses to talk. He is homeless and has difficulty was substance use disorder severe alcohol and is seeking treatment for detox and transferred to [place]. - Related Data Home Medications Medication Instructions Recorded Confirmed HYDROcodone/APAP 10-325MG [[place] 1 tab PO Q6H PRN 11/20/15 03/24/18 10-325] Previous Rx's Medication Instructions Recorded Divalproex ER [Depakote ER] 1,000 mg PO HS #60 tab.er.24h 12/31/17 Levothyroxine Sodium [Synthroid] 50 mcg PO DAILY #30 tab 12/31/17 Simvastatin [Zocor] 20 mg PO QAM #30 tablet 12/31/17 traZODone HCL [Desyrel] 100 mg PO HS #30 tab 12/31/17 Allergies Allergy/AdvReac Type Severity Reaction Status Date / Time quetiapine fumarate Allergy Rash/Hives Verified 03/24/18 14:06 [From Seroquel] Past Medical History Past Medical History: Asthma, COPD, Hyperlipidemia, Liver Disease, Musculoskeletal Disorder, Thyroid Disorder Additional Past Medical History / Comment(s): Optic neuritis. liver disease. History of Any Multi-Drug Resistant Organisms: None Reported Past Surgical History: No Surgical Hx Reported Past Anesthesia/Blood Transfusion Reactions: No Reported Reaction Past Psychological History: Bipolar, Depression Smoking Status: Current every day smoker Past Alcohol Use History: Abuse, Daily, Heavy Past Drug Use History: Marijuana, Opiates - Past Family History Father Additional Family Medical History / Comment(s): Patient states is father is but will not provide any additional information. He states he does not know his mothers history. He has 2 brothers and 2 step brothers and only one living. They have committed suicide. Musculoskeletal Examination - Abnormal/Involuntary Movements: [none Strength: [greater than antigravity (greater than/equal to 3/5) in all extremities] Muscle Tone: [no impairment Gait: [grossly normal Station: [grossly normal Mental Status Examination - General Appearance: [disheveled, appears older than stated age Speech/Language: [spontaneous, rapid, , expressive, mute, loud, soft, other] Attitude/Behavior: [irritable, withdrawn, indifferent, other] Mood: [euthymic, depressed, euphoric, anxious, elated, irritable, angry, fearful , hopelessness, other] Affect: [full range, lively, flat, incongruent, labile, blunted constricted, other] Orientation: [time, person, place situation] Thought Content: [wnl, Risk Factors: [He is suicidal (ideations, plan), and/or Homicidal (ideations, plan), other] Perception: [wnl, denies hallucinations (auditory, visual, tactile), other] Thought Processes: [goal-oriented Concentration/Attention Span: [wnl [Per observation and interview with the patient] Recent Memory: [wnl Remote Memory: [wnl] [past events, as related history] Intelligence: [below average] [based on history, based on vocabulary, syntax, grammar, and content] Judgement: [ poor] [per patient's behavior/history of present illness] Insight: [poor] [understanding severity of illness/history of present illness] Admitting Diagnosis: [1. Depression with suicide ideation. Patient is currently admitted to the mental health unit and followed closely by psychiatry 2. History of hyperlipidemia. Patient on Lipitor 3. History of nicotine dependence. Patient currently ordered nicotine patch 4. Hypothyroidism. Patient currently on home dose of Synthroid. TSH level 0.54 5. Chronic back pain. Pain management managed by psychiatry 6. EtOH use disorder-severe. Patient currently on CIWA protocal ] Patient Strengths - Housing stability: [x] Able to vocalize needs: [x] Patient Limitations: [medication, non-compliance, pathological/unsupported environment, intellectual impairment, lack of social supports] Initial Plan of Care: [He is admitted formal voluntary for mood disorder and detoxification from alcohol. He'll be placed on 15 minute checks as well as a CO protocol and be followed for his psychiatric disorder. he will be evaluated by medicine, psychiatry, nursing staff, social work, and recreational therapy into group therapy along with [facility] milieu therapeutic environment. He was restarted on his Depakote thousand milligrams at bedtime extended release and trazodone. He also has major complaints of back pain she is back doctor and put him on hydrocodone 5 mg 325. Length of Stay: [4 days] Initial Discharge Plan: [home, [facility], referred to therapist for substance abuse residential Prognosis: [ guarded] Justification for Inpatient Hospitalization - [agitation, anxiety, depression resulting in significant loss of functioning.] [Dangerous to self, others, or property with need for controlled environment.] [Emotional or behavioral conditions and complications requiring 24 hour medical and nursing care.] [Need for special drug therapy, or other therapeutic program requiring continuous hospitalization.] [Failure of social or occupational functioning.] [Biomedical conditions and complications requiring 24 hour medical and nursing care.] [Recovery environment includes detrimental family structure, logical impediments to out-patient treatment.] (1) Alcohol intoxication Current Visit: Yes Status: Acute Code(s): F10.929 - ALCOHOL USE, UNSPECIFIED WITH INTOXICATION, UNSPECIFIED SNOMED Code(s): 81502594 (2) Suicidal ideation Current Visit: Yes Status: Acute Priority: Medium Code(s): R45.851 - SUICIDAL IDEATIONS SNOMED Code(s): 0511575 (3) Bipolar depression Current Visit: No Status: Acute Code(s): F31.30 - BIPOLAR DISORD, CRNT EPSD DEPRESS, MILD OR MOD SEVERT, UNSP SNOMED Code(s): 44404327 Plan: maintain medications and draw TSH/T3 and repeat CMP tomorrow. Still detoxing. Has productive cough. VSS Time with Patient: Less than 30
[2018-03-28 15:56] LABS: ALT 46 U/L (21-72); AST 35 U/L (17-59); Albumin 3.6 g/dL (3.5-5.0); Alkaline Phosphatase 43 U/L (38-126); Anion Gap 5 mmol/L; Blood Urea Nitrogen 15 mg/dL (9-20); Calcium 9.4 mg/dL (8.4-10.2); Carbon Dioxide 26 mmol/L (22-30); Chloride 108 mmol/L (98-107); Glucose 85 mg/dL (74-99); Potassium 4.6 mmol/L (3.5-5.1); Sodium 139 mmol/L (137-145); Total Bilirubin 0.4 mg/dL (0.2-1.3); Total Protein 6.4 g/dL (6.3-8.2)
[2018-03-28] MEDS: DIVALPROEX ER 500 MG TAB.ER.24H PO SCH (22:25)
[2018-03-28] MEDS: ATORVASTATIN 10 MG TAB PO SCH (22:25)
[2018-03-28] MEDS: traZODone HCL 100 MG TAB PO SCH (22:26)
[2018-03-28] MEDS: HALOPERIDOL 1 MG TAB PO SCH (22:26)
[2018-03-29] MEDS: HYDROcodone/APAP 5-325MG 1 EACH TAB PO PRN ×4 (02:17→21:31)
[2018-03-29] MEDS: LEVOTHYROXINE 50 MCG TAB PO SCH (06:08)
[2018-03-29] MEDS: ACETAMINOPHEN TAB 325 MG TAB PO PRN (06:25)
--- NOTE | 2018-03-29 12:16 | P.PN ---
Subjective Progress Note Date: 03/29/18 Principal diagnosis: Bipolar and alcohol use disorder This is a 58 year old male who presents with etoh-bipolar, labile, tearful agitated in triage,.admits to daily drinking, tearful when asked about suicide refuses to talk. He is homeless and has difficulty was substance use disorder severe alcohol and is seeking treatment for detox and transferred to [place]. He is more less awake and still detoxing with complaints of hot and cold. X 03/29/2018 he is more alert and awake and is looking forward to going to rehab treatment. He still has mild depression with stability of his moodwas homicidal homicidal ideation today. He is able to sleep and is well focused. Objective - Vital Signs Vital signs: Vital Signs Temp 97.9 F 03/29/18 02:16 Pulse 89 03/29/18 02:16 Resp 16 03/29/18 02:16 BP 109/66 03/29/18 02:16 Pulse Ox 96 03/25/18 16:16 - Labs CBC & Chem 7: 03/24/18 00:39 03/28/18 15:23 Labs: Abnormal Lab Results - Last 24 Hours (Table) 03/28/18 Range/Units 15:23 Chloride 108 H (98-107) mmol/L Assessment and Plan Assessment: Chief Complaint: Psychiatric Symptoms Stated Complaint: ETOH Time Seen by Provider: 03/23/18 23:33 This is a 58 year old male who presents with etoh-depression, labile, tearful agitated in triage,.admits to daily drinking, tearful when asked about suicide refuses to talk. He is homeless and has difficulty was substance use disorder severe alcohol and is seeking treatment for detox and transferred to [place]. - Related Data Home Medications Medication Instructions Recorded Confirmed HYDROcodone/APAP 10-325MG [[place] 1 tab PO Q6H PRN 11/20/15 03/24/18 10-325] Previous Rx's Medication Instructions Recorded Divalproex ER [Depakote ER] 1,000 mg PO HS #60 tab.er.24h 12/31/17 Levothyroxine Sodium [Synthroid] 50 mcg PO DAILY #30 tab 12/31/17 Simvastatin [Zocor] 20 mg PO QAM #30 tablet 12/31/17 traZODone HCL [Desyrel] 100 mg PO HS #30 tab 12/31/17 Allergies Allergy/AdvReac Type Severity Reaction Status Date / Time quetiapine fumarate Allergy Rash/Hives Verified 03/24/18 14:06 [From Seroquel] Past Medical History Past Medical History: Asthma, COPD, Hyperlipidemia, Liver Disease, Musculoskeletal Disorder, Thyroid Disorder Additional Past Medical History / Comment(s): Optic neuritis. liver disease. History of Any Multi-Drug Resistant Organisms: None Reported Past Surgical History: No Surgical Hx Reported Past Anesthesia/Blood Transfusion Reactions: No Reported Reaction Past Psychological History: Bipolar, Depression Smoking Status: Current every day smoker Past Alcohol Use History: Abuse, Daily, Heavy Past Drug Use History: Marijuana, Opiates - Past Family History Father Additional Family Medical History / Comment(s): Patient states is father is but will not provide any additional information. He states he does not know his mothers history. He has 2 brothers and 2 step brothers and only one living. They have committed suicide. Musculoskeletal Examination - Abnormal/Involuntary Movements: [none Strength: [greater than antigravity (greater than/equal to 3/5) in all extremities] Muscle Tone: [no impairment Gait: [grossly normal Station: [grossly normal Mental Status Examination - General Appearance: [disheveled, appears older than stated age Speech/Language: [spontaneous, rapid, , expressive, mute, loud, soft, other] Attitude/Behavior: [irritable, withdrawn, indifferent, other] Mood: [euthymic, depressed, euphoric, anxious, elated, irritable, angry, fearful , hopelessness, other] Affect: [full range, lively, flat, incongruent, labile, blunted constricted, other] Orientation: [time, person, place situation] Thought Content: [wnl, Risk Factors: [He is suicidal (ideations, plan), and/or Homicidal (ideations, plan), other] Perception: [wnl, denies hallucinations (auditory, visual, tactile), other] Thought Processes: [goal-oriented Concentration/Attention Span: [wnl [Per observation and interview with the patient] Recent Memory: [wnl Remote Memory: [wnl] [past events, as related history] Intelligence: [below average] [based on history, based on vocabulary, syntax, grammar, and content] Judgement: [ poor] [per patient's behavior/history of present illness] Insight: [poor] [understanding severity of illness/history of present illness] Admitting Diagnosis: [1. Bipolar affective disorder with Depression with suicide ideation. Patient is currently admitted to the mental health unit and followed closely by psychiatry 2. History of hyperlipidemia. Patient on Lipitor 3. History of nicotine dependence. Patient currently ordered nicotine patch 4. Hypothyroidism. Patient currently on home dose of Synthroid. TSH level 0.54 5. Chronic back pain. Pain management managed by psychiatry 6. EtOH use disorder-severe. Patient currently on CIWA protocal now discontinued 03/29/2018 ] Patient Strengths - Housing stability: [x] Able to vocalize needs: [x] Patient Limitations: [medication, non-compliance, pathological/unsupported environment, intellectual impairment, lack of social supports] Initial Plan of Care: [He is admitted formal voluntary for mood disorder and detoxification from alcohol. He'll be placed on 15 minute checks as well as a CIWA protocol and be followed for his psychiatric disorder. he will be evaluated by medicine, psychiatry, nursing staff, social work, and recreational therapy into group therapy along with [facility] milieu therapeutic environment. He was restarted on his Depakote thousand milligrams at bedtime extended release and trazodone. He also has major complaints of back pain she is back doctor and put him on hydrocodone 5 mg 325. Length of Stay: [3 days] Initial Discharge Plan: [home, [facility], referred to therapist for substance abuse residential which will occur on 04/01/2018 Prognosis: [ guarded] Justification for Inpatient Hospitalization - [agitation, anxiety, depression resulting in significant loss of functioning.] [Dangerous to self, others, or property with need for controlled environment.] [Emotional or behavioral conditions and complications requiring 24 hour medical and nursing care.] [Need for special drug therapy, or other therapeutic program requiring continuous hospitalization.] [Failure of social or occupational functioning.] [Biomedical conditions and complications requiring 24 hour medical and nursing care.] [Recovery environment includes detrimental family structure, logical impediments to out-patient treatment.] (1) Alcohol intoxication Current Visit: Yes Status: Acute Code(s): F10.929 - ALCOHOL USE, UNSPECIFIED WITH INTOXICATION, UNSPECIFIED SNOMED Code(s): 61783278 (2) Suicidal ideation Current Visit: Yes Status: Acute Priority: Medium Code(s): R45.851 - SUICIDAL IDEATIONS SNOMED Code(s): 3191338 (3) Bipolar depression Current Visit: No Status: Acute Code(s): F31.30 - BIPOLAR DISORD, CRNT EPSD DEPRESS, MILD OR MOD SEVERT, UNSP SNOMED Code(s): 89029639 Plan: maintain medications and draw TSH/T3 was within normal and repeat CMP which was well within normal. Still detoxing. Has productive cough. VSS We'll discontinue his benzodiazepine. Lab will be obtained for a Depakote blood level and ammonia level. Time with Patient: Less than 30
[2018-03-29] MEDS: FOLIC ACID-VIT B COMPLEX-VIT C 1 CAP PO SCH (13:29)
[2018-03-29] MEDS: ATORVASTATIN 10 MG TAB PO SCH (20:13)
[2018-03-29] MEDS: traZODone HCL 100 MG TAB PO SCH (20:13)
[2018-03-29] MEDS: DIVALPROEX ER 500 MG TAB.ER.24H PO SCH (20:13)
[2018-03-29] MEDS: HALOPERIDOL 1 MG TAB PO SCH (20:13)
[2018-03-29] MEDS ORDERED: HALOPERIDOL 0.5 MG TAB PO SCH (22:16)
[2018-03-30] MEDS: LEVOTHYROXINE 50 MCG TAB PO SCH (06:06)
[2018-03-30] MEDS: HYDROcodone/APAP 5-325MG 1 EACH TAB PO PRN ×4 (06:22→19:30)
--- NOTE | 2018-03-30 08:57 | P.PN ---
Progress Note - Text Interval history: The patient is found the hallway he follows me to an interview room. He indicates his mood is good. He plans to be discharged Sunday and is going to [place] for inpatient chemical dependency treatment for his alcohol use disorder. He has no questions or concerns regarding his psychotropic medication. She speaks at length about why he likes [place] and the plan he has afterwards. 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 He has been attending groups appetite stable. Mental status exam: The patient is alert he is dressed in his own clothing he is mildly disheveled hygiene is adequate. Eye contact good speech is fluent spontaneous nonpressured. He is easily directed during the session. He describes having no suicidal or homicidal ideation intent or plan. He is reporting no auditory or visual hallucinations or any specific delusions. He demonstrates no verbal or physical aggressiveness he demonstrates no involuntary repetitive movements. Insight and judgment improving. Plan: The patient will continue on his current psychotropic medication. We will monitor him for safety. Vital signs are reviewed.
[2018-03-30] MEDS: ACETAMINOPHEN TAB 325 MG TAB PO PRN ×3 (09:31→19:36)
[2018-03-30] MEDS: FOLIC ACID-VIT B COMPLEX-VIT C 1 CAP PO SCH (12:24)
[2018-03-30] MEDS ORDERED: HALOPERIDOL 1 MG TAB PO SCH (21:00)
[2018-03-30] MEDS: DIVALPROEX ER 500 MG TAB.ER.24H PO SCH (22:33)
[2018-03-30] MEDS: ATORVASTATIN 10 MG TAB PO SCH (22:33)
[2018-03-30] MEDS: traZODone HCL 100 MG TAB PO SCH (22:34)
[2018-03-31] MEDS ORDERED: HALOPERIDOL 0.5 MG TAB PO SCH (00:15)
[2018-03-31] MEDS: HYDROcodone/APAP 5-325MG 1 EACH TAB PO PRN ×5 (00:46→21:00)
[2018-03-31] MEDS: ACETAMINOPHEN TAB 325 MG TAB PO PRN ×3 (04:38→21:35)
[2018-03-31] MEDS: LEVOTHYROXINE 50 MCG TAB PO SCH (06:16)
[2018-03-31] MEDS: FOLIC ACID-VIT B COMPLEX-VIT C 1 CAP PO SCH (11:05)
--- NOTE | 2018-03-31 15:48 | P.PN ---
Progress Note - Text Interval history: The patient is found in the library. He states his mood is good. He reports sleep is been stable he participated in groups appetite is stable. He has no questions or concerns regarding his medications. He is looking forward to being discharged and attending inpatient chemical dependent treatment at [place]. Mental status exam: The patient is alert he is cooperative. He is dressed in his own clothing hygiene grooming are adequate. Speech is fluent spontaneous nonpressured. He reports no suicidal or homicidal ideation intent or plan he is endorsing no auditory or visual hallucinations or any specific delusions. There is no observed evidence of psychosis. He demonstrates no tangential thinking loose associations or flight of ideas. He can be circumstantial. He demonstrates no involuntary repetitive movements. He demonstrates no verbal or physical aggressiveness. Insight and judgment improving. Plan: The patient will continue on his current psychotropic medications. We will monitor him for safety and encourage his participation in the milieu vital signs reviewed.
[2018-03-31] MEDS: traZODone HCL 100 MG TAB PO SCH (21:00)
[2018-03-31] MEDS: ATORVASTATIN 10 MG TAB PO SCH (21:00)
[2018-03-31] MEDS: DIVALPROEX ER 500 MG TAB.ER.24H PO SCH (21:00)
[2018-04-01] MEDS: ACETAMINOPHEN TAB 325 MG TAB PO PRN ×2 (01:40→09:32)
[2018-04-01] MEDS: HYDROcodone/APAP 5-325MG 1 EACH TAB PO PRN ×2 (04:00→10:21)
[2018-04-01] MEDS: LEVOTHYROXINE 50 MCG TAB PO SCH (06:22)
[2018-04-01 06:56] VITALS: BP 93/54; PULSE 57; RESP 16; TEMP 97.3
--- NOTE | 2018-04-01 10:26 | P.DS ---
Providers Date of admission: 03/25/18 13:50 Expected date of discharge: 04/01/18 Attending physician: Henrry Miller DO Consults: 03/25/18 14:02 Consult Physician Routine Consulting Provider: Sena Root Consult Reason/Comments: medical management Do you want consulting provider notified?: Yes, Notify in am Primary care physician: Sena Root - Discharge Diagnosis(es) (1) Alcohol intoxication Current Visit: Yes Status: Acute (2) Suicidal ideation Current Visit: Yes Status: Acute Priority: Medium (3) Bipolar depression This is a 58-year-old male with a known past medical history of bipolar, depression, previous psychiatric admissions, COPD, hyperlipidemia, liver disease , hypothyroidism, nicotine dependence, alcohol abuse and chronic back pain. He presents to the ER with complaints of feeling more depressed and suicidal ideation. He's been drinking more frequently and heavily. Patient has been admitted to the psychiatric unit. We have been consulted for medical management. Patient was found to have a sodium level of 151. ETOH level of 288 , drug screen positive for marijuana. Patient is awake and alert answering questions appropriately. He's been started on Librium and Ativan and full casted for 6 alcohol withdrawal. Patient reports 2 episodes of diarrhea. Stool is becoming more formed. We'll continue to monitor. Denies any nausea or vomiting. Denies any abdominal pain. Denies any chest pain or shortness of breath. Denies any burning or difficulty with urinating. Reports that he has not been eating or drinking very well. He takes Depakote for his bipolar. No history of seizure disorder. Depakote level 11.3 Past Medical History Past Medical History: Asthma, COPD, Hyperlipidemia, Liver Disease, Musculoskeletal Disorder, Thyroid Disorder Additional Past Medical History / Comment(s): Optic neuritis. liver disease. History of Any Multi-Drug Resistant Organisms: None Reported Past Surgical History: No Surgical Hx Reported Past Anesthesia/Blood Transfusion Reactions: No Reported Reaction Past Psychological History: Bipolar, Depression Smoking Status: Current every day smoker Past Alcohol Use History: Abuse, Daily, Heavy Past Drug Use History: Marijuana, Opiates - Past Family History Father Additional Family Medical History / Comment(s): Patient states is father is but will not provide any additional information. He states he does not know his mothers history. He has 2 brothers and 2 step brothers and only one living. They have committed suicide. Medications and Allergies Home Medications Medication Instructions Recorded Confirmed Type HYDROcodone/APAP 10-325MG [[place] 1 tab PO Q6H PRN 11/20/15 03/24/18 History 10-325] Divalproex ER [Depakote ER] 1,000 mg PO HS #60 tab.er.24h 12/31/17 03/24/18 Rx Levothyroxine Sodium [Synthroid] 50 mcg PO DAILY #30 tab 12/31/17 03/24/18 Rx Simvastatin [Zocor] 20 mg PO QAM #30 tablet 12/31/17 03/24/18 Rx traZODone HCL [Desyrel] 100 mg PO HS #30 tab 12/31/17 03/24/18 Rx Allergies Allergy/AdvReac Type Severity Reaction Status Date / Time quetiapine fumarate Allergy Rash/Hives Verified 03/24/18 14:06 [From Seroquel] Current Visit: No Status: Acute Hospital Course: The client was was formal voluntary and signed in voluntarily needing help for his depression and alcoholism. He had difficulty [place] as well as not being able take his medicines and regular routine. He has plans of 04/01 to go to [place] for further substance abuse residential care. He is able to go to groups eat his bills take care of himself and respect the forrester and milieu therapeutic environment as well as being placed on 15 minute checks for safety throughout his stay. Mental status examination the time of discharge The patient presents alert, pleasant, and cooperative. There calmly seated without any agitated behavior. [He] reports that []his mood is good. Affect is congruent and euthymic. [He] deny having any suicidal or homicidal ideation intent or plan. [He] denies any auditory or visual hallucinations. There is no evidence of any delusional thought content. [His] thought process is linear and goal-directed. [His] speech is fluent and nonpressured. [His] memory and concentration is grossly intact for the purposes of this session. He was placed on the following medications and titrated to the maximum of 2 for resolution of symptoms of depression and anxiety and decrease craving of alcohol. He has been in addition to the below medications narcotics He is going to a detox and I don't like narcotics for toothaches. traZODone HCL [Desyrel] 100 mg PO HS for depression and sleep Albuterol Inhaler [Ventolin Hfa Inhaler] 2 puff INHALATION RT-QID PRN asthma Atorvastatin [Lipitor] 10 mg PO HS 30 Days hypercholesterolemia Divalproex ER [Depakote ER] 1,000 mg PO 2100 30 Days mood stabilizer Haloperidol [Haldol] 1 mg PO 2100 30 Days antipsychotic Levothyroxine Sodium [Synthroid] 50 mcg PO DAILY hypothyroidism Simvastatin [Zocor] 20 mg PO QAM hypercholesterolemia Patient Condition at Discharge: Stable Plan - Discharge Summary Discharge Rx Participant: Yes New Discharge Prescriptions: New Albuterol Inhaler [Ventolin Hfa Inhaler] 2 puff INHALATION RT-QID PRN 30 Days #1 puff PRN Reason: Shortness Of Breath Or Wheezing Atorvastatin [Lipitor] 10 mg PO HS 30 Days #30 tab Divalproex ER [Depakote ER] 1,000 mg PO 2100 30 Days #30 tab.er.24h Haloperidol [Haldol] 1 mg PO 2100 30 Days #30 tab traZODone HCL [Desyrel] 100 mg PO HS 30 Days #30 tab Continue traZODone HCL [Desyrel] 100 mg PO HS #30 tab Levothyroxine Sodium [Synthroid] 50 mcg PO DAILY #30 tab Simvastatin [Zocor] 20 mg PO QAM #30 tablet Discontinued HYDROcodone/APAP 10-325MG [[place] 10-325] 1 tab PO Q6H PRN PRN Reason: Pain Divalproex ER [Depakote ER] 1,000 mg PO HS #60 tab.er.24h Discharge Medication List traZODone HCL [Desyrel] 100 mg PO HS #30 tab 12/31/17 [Rx] Albuterol Inhaler [Ventolin Hfa Inhaler] 2 puff INHALATION RT-QID PRN 30 Days # 1 puff 04/01/18 [Rx] Atorvastatin [Lipitor] 10 mg PO HS 30 Days #30 tab 04/01/18 [Rx] Divalproex ER [Depakote ER] 1,000 mg PO 2100 30 Days #30 tab.er.24h 04/01/18 [Rx ] Haloperidol [Haldol] 1 mg PO 2100 30 Days #30 tab 04/01/18 [Rx] Levothyroxine Sodium [Synthroid] 50 mcg PO DAILY #30 tab 04/01/18 [Rx] Simvastatin [Zocor] 20 mg PO QAM #30 tablet 04/01/18 [Rx] traZODone HCL [Desyrel] 100 mg PO HS 30 Days #30 tab 04/01/18 [Rx] Follow up Appointment(s)/Referral(s): intake,intake [Other] - 04/01/18 3:00 pm Cathy Fabian MD [STAFF PHYSICIAN] - 1-2 days Patient Instructions/Handouts: Depression (DC), Alcohol Intoxication (DC), Abuse of Alcohol (DC), Suicide Prevention (DC) Discharge Disposition: HOME SELF-CARE
[2018-04-01] MEDS ORDERED: HALOPERIDOL 0.5 MG TAB PO SCH (21:00)
== END 2018-04-01 10:55 | disposition home or self-care (01) | DRG 885 ==
LOC: EC 23:20 → 3MHU 03-25 13:50
PROVIDERS: ADMIT Psychiatry & Neurology Psychiatry; ATTEND Psychiatry & Neurology Psychiatry
DX: F31.30 Bipolar disorder, current episode depressed, mild or moderate severity, unspecified (principal); E87.0 Hyperosmolality and hypernatremia; F10.239 Alcohol dependence with withdrawal, unspecified; R45.851 Suicidal ideations; E03.9 Hypothyroidism, unspecified; E78.00 Pure hypercholesterolemia, unspecified; E78.5 Hyperlipidemia, unspecified; F10.229 Alcohol dependence with intoxication, unspecified; F17.200 Nicotine dependence, unspecified, uncomplicated; G89.29 Other chronic pain; J44.9 Chronic obstructive pulmonary disease, unspecified; R45.850 Homicidal ideations; M54.9 Dorsalgia, unspecified; R19.7 Diarrhea, unspecified; Z59.0 Homelessness; Z79.890 Hormone replacement therapy; Z79.899 Other long term (current) drug therapy; Z91.19 Patient's noncompliance with other medical treatment and regimen; Z88.8 Allergy status to other drugs, medicaments and biological substances; Y90.8 Blood alcohol level of 240 mg/100 ml or more
CPT/HCPCS: 36415; 80048; 80053; 80061; 80164; 80306; 80320; 82075; 82140; 83036; 84443; 85025; 96372; 96374; 99285

== ENCOUNTER 2018-05-01 10:38 | Emergency (ER) | payer OTHER ==
[2018-05-01 11:01] VITALS: BP 131/91; PULSE 68; RESP 18; TEMP 98.3
--- NOTE | 2018-05-01 12:14 | ED ---
ENT HPI - General Chief complaint: Dental/Oral Stated complaint: Jaw Abscess Time Seen by Provider: 05/01/18 11:34 Source: patient, RN notes reviewed Mode of arrival: ambulatory Limitations: no limitations - History of Present Illness Initial comments: 58-year-old male presented from chief complaint of dental pain. Patient states that pain last few days but woke up with swollen face. Patient denies any pain with ocular movement denies any headache, dizziness, neck pain or neck stiffness. Patient states that he's been taking [id number] ibuprofen. Patient states he called the dentist and cannot get in until next week. - Related Data Previous Rx's Medication Instructions Recorded traZODone HCL [Desyrel] 100 mg PO HS #30 tab 12/31/17 Albuterol Inhaler [Ventolin Hfa 2 puff INHALATION RT-QID PRN 30 04/01/18 Inhaler] Days #1 puff Atorvastatin [Lipitor] 10 mg PO HS 30 Days #30 tab 04/01/18 Divalproex ER [Depakote ER] 1,000 mg PO 2100 30 Days #30 04/01/18 tab.er.24h Haloperidol [Haldol] 1 mg PO 2100 30 Days #30 tab 04/01/18 Levothyroxine Sodium [Synthroid] 50 mcg PO DAILY #30 tab 04/01/18 Simvastatin [Zocor] 20 mg PO QAM #30 tablet 04/01/18 traZODone HCL [Desyrel] 100 mg PO HS 30 Days #30 tab 04/01/18 Ibuprofen [Motrin] 800 mg PO Q6HR #30 tab 05/01/18 Penicillin V Potassium [Pen Vee K] 500 mg PO QID #40 tablet 05/01/18 Allergies Allergy/AdvReac Type Severity Reaction Status Date / Time quetiapine fumarate Allergy Rash/Hives Verified 05/01/18 10:57 [From Seroquel] Review of Systems ROS Statement: Those systems with pertinent positive or pertinent negative responses have been documented in the HPI. ROS Other: All systems not noted in ROS Statement are negative. Past Medical History Past Medical History: Asthma, COPD, Hyperlipidemia, Liver Disease, Musculoskeletal Disorder, Thyroid Disorder Additional Past Medical History / Comment(s): Optic neuritis. liver disease. History of Any Multi-Drug Resistant Organisms: None Reported Past Surgical History: No Surgical Hx Reported Past Anesthesia/Blood Transfusion Reactions: No Reported Reaction Past Psychological History: Bipolar, Depression Smoking Status: Current every day smoker Past Alcohol Use History: None Reported Past Drug Use History: None Reported - Past Family History Father Additional Family Medical History / Comment(s): Patient states is father is but will not provide any additional information. He states he does not know his mothers history. He has 2 brothers and 2 step brothers and only one living. They have committed suicide. General Exam Limitations: no limitations General appearance: alert, in no apparent distress Head exam: Present: atraumatic, normocephalic, normal inspection Eye exam: Present: normal appearance, PERRL, EOMI. Absent: scleral icterus, conjunctival injection, periorbital swelling ENT exam: Present: mucous membranes moist, other (Mild left cheek swelling). Absent: normal oropharynx (Edentulous, poor dentition no drainable abscess) Neck exam: Present: normal inspection, full ROM. Absent: tenderness, meningismus, lymphadenopathy Respiratory exam: Present: normal lung sounds bilaterally. Absent: respiratory distress, wheezes, rales, rhonchi, stridor Cardiovascular Exam: Present: regular rate, normal rhythm, normal heart sounds. Absent: systolic murmur, diastolic murmur, rubs, gallop, clicks Course Vital Signs 05/01/18 10:58 Temperature 98.3 F Pulse Rate 68 Respiratory 18 Rate Blood Pressure 131/91 O2 Sat by Pulse 100 Oximetry Medical Decision Making - Medical Decision Making 58-year-old male presented for facial swelling, dental pain. Patient was started on penicillin 4 times a day, ibuprofen 800 mg. Patient is follow-up with dentist, return parameters were discussed. Disposition Clinical Impression: Dental abscess Disposition: HOME SELF-CARE Condition: Stable Instructions: Dental Abscess (ED) Additional Instructions: Please return to the Emergency Department if symptoms worsen or any other concerns. Prescriptions: Ibuprofen [Motrin] 800 mg PO Q6HR #30 tab Penicillin V Potassium [Pen Vee K] 500 mg PO QID #40 tablet Is patient prescribed a controlled substance at d/c from ED?: No Referrals: Sena Root MD [Primary Care Provider] - 1-2 days Time of Disposition: 12:14
== END 2018-05-01 12:28 | disposition home or self-care (01) ==
LOC: EC 10:38
DX: K04.7 Periapical abscess without sinus (principal); F17.200 Nicotine dependence, unspecified, uncomplicated; Z88.8 Allergy status to other drugs, medicaments and biological substances
CPT/HCPCS: 99283

== ENCOUNTER → 2018-06-05 | Outpatient (CLI) | payer OTHER ==
[2018-06-05 16:18] LABS: Basophils % (A) 1 %; Eosinophils # (A) 0.2 k/uL (0-0.7); Eosinophils % (A) 3 %; HCT 46.7 % (39.0-53.0); HGB 15.4 gm/dL (13.0-17.5); Lymphocytes # (A) 2.8 k/uL (1.0-4.8); Lymphocytes % (A) 51 %; MCH 32.1 pg (25.0-35.0); MCHC 32.9 g/dL (31.0-37.0); MCV 97.5 fL (80.0-100.0); Mean Platelet Volume 7.6; Monocytes # (A) 0.4 k/uL (0-1.0); Monocytes % (A) 6 %; Neutrophils % (A) 36 %; Platelet Count 138 k/uL (150-450); RBC 4.79 m/uL (4.30-5.90); RDW 12.4 % (11.5-15.5); WBC 5.5 k/uL (3.8-10.6)
[2018-06-05 23:09] LABS: Valproic Acid (Depakene) 89.3 ug/mL (50.0-100.0)
[2018-06-05 23:11] LABS: Albumin 4.5 g/dL (3.80-4.90); Albumin/Globulin Ratio 1.67 (1.60-3.17); Anion Gap 4.9 mmol/L (4.00-12.00); Bilirubin, Conjugated 0.2 mg/dL (0.20-0.40); Bilirubin,Unconjugated 0.3 mg/dL; Calcium 10.3 mg/dL (8.7-10.3); Carbon Dioxide 30.1 mmol/L (21.6-31.8); Globulin 2.7 g/dL (1.6-3.3); Potassium 5.7 mmol/L (3.5-5.5); Total Bilirubin 0.5 mg/dL (0.2-1.2); Total Protein 7.2 g/dL (6.2-8.2)
[2018-06-05 23:41] LABS: Hemoglobin A1C 5.7 % (4.0-6.0)
== END | disposition home or self-care (01) ==
LOC: LABWHC1 15:37
PROVIDERS: ATTEND Psychiatry & Neurology Psychiatry
DX: Z51.81 Encounter for therapeutic drug level monitoring (principal); Z79.899 Other long term (current) drug therapy
CPT/HCPCS: 36415; 80053; 80061; 80164; 82248; 83036; 84439; 84443; 85025

== ENCOUNTER → 2018-07-09 | Outpatient (CLI) | payer OTHER | END | disposition home or self-care (01) | LOC: LABWHC1 07:53 | PROVIDERS: ATTEND Psychiatry & Neurology Psychiatry | DX: Z51.81 Encounter for therapeutic drug level monitoring (principal); Z79.899 Other long term (current) drug therapy | CPT/HCPCS: 36415; 80178 ==

== ENCOUNTER 2018-10-07 21:27 | Emergency (ER) | payer OTHER ==
--- NOTE | 2018-10-07 22:37 | ED ---
Psych HPI - General Chief Complaint: Psychiatric Symptoms Stated Complaint: ETOH Time Seen by Provider: 10/07/18 21:36 Source: patient Mode of arrival: ambulatory - History of Present Illness Initial Comments: 's patient is a 58-year-old man who complains that he has been feeling suicidal today. Patient states she has long-standing history of psychiatric illness, mainly bipolar disorder. He states that for number weeks she has not been taking his medications. Patient has also been drinking alcohol and states that sometimes makes his mood get worse. Patient states that today he started feeling so bad that he was considering suicide. The patient states he took gone out. MD Complaint: suicidal ideation, feels depressed Onset/Timin -: days(s) Associated Psychiatric Symptoms: depression, suicidal ideation History of same: Yes Quality: changing over time Improves With: none Worsens With: alcohol Context: recent alcohol abuse - Related Data Home Medications Medication Instructions Recorded Confirmed Desvenlafaxine Succinate [Pristiq 50 mg PO DAILY 10/07/18 10/07/18 ER] Divalproex ER [Depakote ER] 1,000 mg PO HS 10/07/18 10/07/18 [place] Carbonate 600 mg PO HS 10/07/18 10/07/18 Melatonin 5 mg PO HS 10/07/18 10/07/18 Sildenafil [Revatio] 20 mg PO DAILY 10/07/18 10/07/18 traZODone HCL [Desyrel] 300 mg PO HS 10/07/18 10/07/18 Previous Rx's Medication Instructions Recorded Levothyroxine Sodium [Synthroid] 50 mcg PO DAILY #30 tab 04/01/18 Simvastatin [Zocor] 20 mg PO QAM #30 tablet 04/01/18 Allergies Allergy/AdvReac Type Severity Reaction Status Date / Time quetiapine fumarate Allergy Rash/Hives Verified 10/07/18 21:38 [From Seroquel] Review of Systems ROS Statement: Those systems with pertinent positive or pertinent negative responses have been documented in the HPI. ROS Other: All systems not noted in ROS Statement are negative. Constitutional: Denies: fever, chills, weakness Respiratory: Denies: cough, dyspnea Cardiovascular: Denies: chest pain, palpitations Gastrointestinal: Denies: abdominal pain, vomiting Musculoskeletal: Reports: back pain (Chronic), arthralgia (Chronic) Neurological: Denies: headache, weakness Psychiatric: Reports: depression, suicidal thoughts. Denies: auditory hallucinations, visual hallucinations, homicidal thoughts Past Medical History Past Medical History: Asthma, COPD, Hyperlipidemia, Liver Disease, Musculoskeletal Disorder, Thyroid Disorder Additional Past Medical History / Comment(s): Optic neuritis. liver disease. History of Any Multi-Drug Resistant Organisms: None Reported Past Surgical History: No Surgical Hx Reported Past Anesthesia/Blood Transfusion Reactions: No Reported Reaction Past Psychological History: Bipolar, Depression Smoking Status: Current every day smoker Past Alcohol Use History: Daily, Heavy Past Drug Use History: None Reported - Past Family History Father Additional Family Medical History / Comment(s): Patient states is father is but will not provide any additional information. He states he does not know his mothers history. He has 2 brothers and 2 step brothers and only one living. They have committed suicide. General Exam Limitations: no limitations General appearance: alert, in no apparent distress Head exam: Present: atraumatic, normocephalic Eye exam: Present: normal appearance. Absent: scleral icterus, conjunctival injection ENT exam: Present: mucous membranes dry Respiratory exam: Present: normal lung sounds bilaterally. Absent: respiratory distress, wheezes, rales, rhonchi, stridor Cardiovascular Exam: Present: regular rate (Heart rate 104 -), normal rhythm, normal heart sounds. Absent: systolic murmur, diastolic murmur, rubs, gallop GI/Abdominal exam: Present: soft. Absent: distended, tenderness, guarding, rebound, rigid, mass Extremities exam: Present: normal inspection, normal capillary refill. Absent: pedal edema, calf tenderness Neurological exam: Present: alert Psychiatric exam: Present: depressed. Absent: agitated, anxious, flat affect, manic, homicidal ideation Skin exam: Present: warm, dry, intact, normal color. Absent: rash Course Vital Signs 10/07/18 10/08/18 10/08/18 21:28 00:08 06:08 Temperature 98.0 F 98.7 F Pulse Rate 113 H 68 Respiratory 20 18 14 Rate Blood Pressure 124/79 114/77 O2 Sat by Pulse 98 99 Oximetry Medical Decision Making - Lab Data Result diagrams: 10/07/18 22:51 10/07/18 22:51 Lab Results 10/07/18 10/07/18 10/08/18 Range/Units 22:51 22:51 07:00 WBC 7.4 (3.8-10.6) k/uL RBC 4.60 (4.30-5.90) m/uL Hgb 14.7 (13.0-17.5) gm/dL Hct 44.1 (39.0-53.0) % MCV 95.7 (80.0-100.0) fL MCH 31.9 (25.0-35.0) pg MCHC 33.3 (31.0-37.0) g/dL RDW 13.0 (11.5-15.5) % Plt Count 158 (150-450) k/uL Neutrophils % 48 % Lymphocytes % 43 % Monocytes % 4 % Eosinophils % 3 % Basophils % 1 % Neutrophils # 3.5 (1.3-7.7) k/uL Lymphocytes # 3.1 (1.0-4.8) k/uL Monocytes # 0.3 (0-1.0) k/uL Eosinophils # 0.2 (0-0.7) k/uL Basophils # 0.0 (0-0.2) k/uL Sodium 145 (137-145) mmol/L Potassium 3.9 (3.5-5.1) mmol/L Chloride 111 H (98-107) mmol/L Carbon Dioxide 25 (22-30) mmol/L Anion Gap 9 mmol/L BUN 13 (9-20) mg/dL Creatinine 0.75 (0.66-1.25) mg/dL Est GFR (CKD-EPI)AfAm >90 (>60 ml/min/1.73 sqM) Est GFR (CKD-EPI)NonAf >90 (>60 ml/min/1.73 sqM) Glucose 86 (74-99) mg/dL Calcium 9.0 (8.4-10.2) mg/dL Urine Opiates Screen Not Detected (NotDetected) Ur Oxycodone Screen Detected H (NotDetected) Urine Methadone Screen Not Detected (NotDetected) Ur Propoxyphene Screen Not Detected (NotDetected) Ur Barbiturates Screen Not Detected (NotDetected) U Tricyclic Antidepress Not Detected (NotDetected) Ur Phencyclidine Scrn Not Detected (NotDetected) Ur Amphetamines Screen Not Detected (NotDetected) U Methamphetamines Scrn Not Detected (NotDetected) U Benzodiazepines Scrn Not Detected (NotDetected) Urine Cocaine Screen Not Detected (NotDetected) U Marijuana (THC) Screen Not Detected (NotDetected) Disposition Clinical Impression: Alcohol intoxication Disposition: HOME SELF-CARE Condition: Good Is patient prescribed a controlled substance at d/c from ED?: No Referrals: Sena Root MD [Primary Care Provider] - 1-2 days
[2018-10-07 22:57] LABS: Basophils % (A) 1 %; Eosinophils # (A) 0.2 k/uL (0-0.7); Eosinophils % (A) 3 %; HCT 44.1 % (39.0-53.0); HGB 14.7 gm/dL (13.0-17.5); Lymphocytes # (A) 3.1 k/uL (1.0-4.8); Lymphocytes % (A) 43 %; MCH 31.9 pg (25.0-35.0); MCHC 33.3 g/dL (31.0-37.0); MCV 95.7 fL (80.0-100.0); Monocytes # (A) 0.3 k/uL (0-1.0); Monocytes % (A) 4 %; Neutrophils # (A) 3.5 k/uL (1.3-7.7); Neutrophils % (A) 48 %; Platelet Count 158 k/uL (150-450); WBC 7.4 k/uL (3.8-10.6)
[2018-10-07 23:14] LABS: African American GFR (CKD) >90 (>60 ml/min/1.73 sqM); Anion Gap 9 mmol/L; Blood Urea Nitrogen 13 mg/dL (9-20); Carbon Dioxide 25 mmol/L (22-30); Chloride 111 mmol/L (98-107); Glucose 86 mg/dL (74-99); Potassium 3.9 mmol/L (3.5-5.1); Sodium 145 mmol/L (137-145)
[2018-10-08 06:10] VITALS: BP 114/77; PULSE 68; RESP 14; TEMP 98.7
[2018-10-08 08:06] LABS: Amphetamine Screen,Urine Not Detected (NotDetected); Barbiturate Screen,Urine Not Detected (NotDetected); Benzodiazepines Screen,Urine Not Detected (NotDetected); Cocaine Screen,Urine Not Detected (NotDetected); Methadone Screen, Urine Not Detected (NotDetected); Opiate Screen,Urine Not Detected (NotDetected); Oxycodone Screen, Urine Detected (NotDetected); Phencyclidine Screen,Urine Not Detected (NotDetected); Tricyclic Antidepressant,Urine Not Detected (NotDetected); Urn Cannabinoid Scrn Not Detected (NotDetected)
== END 2018-10-08 09:31 | disposition home or self-care (01) ==
LOC: EC 21:27
DX: F10.129 Alcohol abuse with intoxication, unspecified (principal); F31.9 Bipolar disorder, unspecified; F17.200 Nicotine dependence, unspecified, uncomplicated; Z79.899 Other long term (current) drug therapy; Z88.8 Allergy status to other drugs, medicaments and biological substances; Z91.14 Patient's other noncompliance with medication regimen
CPT/HCPCS: 36415; 80048; 80306; 82075; 85025; 99285

== ENCOUNTER 2018-10-24 19:16 | Emergency (ER) | payer OTHER ==
[2018-10-24 19:23] LABS: Glucose,Whole Blood 106 mg/dL (75-99)
[2018-10-24] MEDS ORDERED: SODIUM CHLORIDE 0.9% 1,000 ML IV STA ×2 (19:29)
[2018-10-24] MEDS ORDERED: SODIUM CHLORIDE 0.9% 500 ML 500 ML IV STA (19:29)
--- NOTE | 2018-10-24 19:31 | ED ---
Weakness HPI - General Chief complaint: Neuro Symptoms/Deficit Stated complaint: Tingling Time Seen by Provider: 10/24/18 19:29 Source: patient Mode of arrival: EMS Limitations: no limitations - Related Data Home Medications Medication Instructions Recorded Confirmed Desvenlafaxine Succinate [Pristiq 50 mg PO DAILY 10/07/18 10/24/18 ER] Divalproex ER [Depakote ER] 1,000 mg PO HS 10/07/18 10/24/18 [place] Carbonate 600 mg PO HS 10/07/18 10/24/18 Melatonin 5 mg PO HS 10/07/18 10/24/18 Sildenafil [Revatio] 20 mg PO DAILY 10/07/18 10/24/18 traZODone HCL [Desyrel] 300 mg PO HS 10/07/18 10/24/18 Simvastatin [Zocor] 20 mg PO DAILY 10/24/18 10/24/18 Previous Rx's Medication Instructions Recorded Levothyroxine Sodium [Synthroid] 50 mcg PO DAILY #30 tab 04/01/18 Allergies Allergy/AdvReac Type Severity Reaction Status Date / Time quetiapine fumarate Allergy Rash/Hives Verified 10/24/18 19:33 [From Seroquel] Review of Systems ROS Statement: Those systems with pertinent positive or pertinent negative responses have been documented in the HPI. ROS Other: All systems not noted in ROS Statement are negative. Past Medical History Past Medical History: Asthma, COPD, Hyperlipidemia, Liver Disease, Musculoskeletal Disorder, Thyroid Disorder Additional Past Medical History / Comment(s): Optic neuritis. liver disease. History of Any Multi-Drug Resistant Organisms: None Reported Past Surgical History: No Surgical Hx Reported Past Anesthesia/Blood Transfusion Reactions: No Reported Reaction Past Psychological History: Bipolar, Depression Smoking Status: Current every day smoker Past Alcohol Use History: Daily, Heavy Past Drug Use History: None Reported - Past Family History Father Additional Family Medical History / Comment(s): Patient states is father is but will not provide any additional information. He states he does not know his mothers history. He has 2 brothers and 2 step brothers and only one living. They have committed suicide. General Exam Limitations: no limitations General appearance: alert, in no apparent distress Head exam: Present: atraumatic, normocephalic, normal inspection Eye exam: Present: normal appearance, PERRL, EOMI. Absent: scleral icterus, conjunctival injection, periorbital swelling ENT exam: Present: normal exam, mucous membranes moist Neck exam: Present: normal inspection. Absent: tenderness, meningismus, lymphadenopathy Respiratory exam: Present: normal lung sounds bilaterally. Absent: respiratory distress, wheezes, rales, rhonchi, stridor Cardiovascular Exam: Present: regular rate, normal rhythm, normal heart sounds. Absent: systolic murmur, diastolic murmur, rubs, gallop, clicks GI/Abdominal exam: Present: soft, normal bowel sounds. Absent: distended, tenderness, guarding, rebound, rigid Extremities exam: Present: normal inspection, full ROM, normal capillary refill. Absent: tenderness, pedal edema, joint swelling, calf tenderness Back exam: Present: normal inspection Neurological exam: Present: alert, oriented X3, CN II-XII intact Psychiatric exam: Present: normal affect, normal mood Skin exam: Present: warm, dry, intact, normal color. Absent: rash Course Vital Signs 10/24/18 19:18 Temperature 98.9 F Pulse Rate 90 Respiratory 18 Rate Blood Pressure 128/94 O2 Sat by Pulse 97 Oximetry EKG Findings - EKG Comments: EKG Findings:: EKG shows normal sinus arrhythmia, ND 150, QRS 90, QTc 469 Medical Decision Making - Lab Data Result diagrams: 10/24/18 19:31 10/24/18 19:31 Lab Results 10/24/18 10/24/18 10/24/18 Range/Units 19:21 19:31 19:31 WBC 11.8 H (3.8-10.6) k/uL RBC 4.73 (4.30-5.90) m/uL Hgb 15.1 (13.0-17.5) gm/dL Hct 44.4 (39.0-53.0) % MCV 93.8 (80.0-100.0) fL MCH 31.9 (25.0-35.0) pg MCHC 34.0 (31.0-37.0) g/dL RDW 13.8 (11.5-15.5) % Plt Count 323 D (150-450) k/uL Neutrophils % 59 % Lymphocytes % 27 % Monocytes % 7 % Eosinophils % 3 % Basophils % 1 % Neutrophils # 7.0 (1.3-7.7) k/uL Lymphocytes # 3.1 (1.0-4.8) k/uL Monocytes # 0.8 (0-1.0) k/uL Eosinophils # 0.4 (0-0.7) k/uL Basophils # 0.1 (0-0.2) k/uL Sodium 145 (137-145) mmol/L Potassium 4.5 (3.5-5.1) mmol/L Chloride 105 (98-107) mmol/L Carbon Dioxide 27 (22-30) mmol/L Anion Gap 13 mmol/L BUN 10 (9-20) mg/dL Creatinine 0.91 (0.66-1.25) mg/dL Est GFR (CKD-EPI)AfAm >90 (>60 ml/min/1.73 sqM) Est GFR (CKD-EPI)NonAf >90 (>60 ml/min/1.73 sqM) Glucose 91 (74-99) mg/dL POC Glucose (mg/dL) 106 H (75-99) mg/dL POC Glu Tubular Riveter ID Yessi Chan Calcium 9.9 (8.4-10.2) mg/dL Phosphorus 4.6 H (2.5-4.5) mg/dL Magnesium 1.7 (1.6-2.3) mg/dL Total Bilirubin 0.3 (0.2-1.3) mg/dL AST 31 (17-59) U/L ALT 41 (21-72) U/L Alkaline Phosphatase 59 (38-126) U/L Total Protein 8.4 H (6.3-8.2) g/dL Albumin 4.9 (3.5-5.0) g/dL Lipase 25 (23-300) U/L Urine Color Urine Appearance (Clear) Urine pH (5.0-8.0) Ur Specific [place] (1.001-1.035) Urine Protein (Negative) Urine Glucose (UA) (Negative) Urine Ketones (Negative) Urine Blood (Negative) Urine Nitrite (Negative) Urine Bilirubin (Negative) Urine Urobilinogen (<2.0) mg/dL Ur Leukocyte Esterase (Negative) Urine Opiates Screen (NotDetected) Ur Oxycodone Screen (NotDetected) Urine Methadone Screen (NotDetected) Ur Propoxyphene Screen (NotDetected) Ur Barbiturates Screen (NotDetected) U Tricyclic Antidepress (NotDetected) Ur Phencyclidine Scrn (NotDetected) Ur Amphetamines Screen (NotDetected) U Methamphetamines Scrn (NotDetected) U Benzodiazepines Scrn (NotDetected) Urine Cocaine Screen (NotDetected) U Marijuana (THC) Screen (NotDetected) Serum Alcohol 142 mg/dL 10/24/18 Range/Units 19:35 WBC (3.8-10.6) k/uL RBC (4.30-5.90) m/uL Hgb (13.0-17.5) gm/dL Hct (39.0-53.0) % MCV (80.0-100.0) fL MCH (25.0-35.0) pg MCHC (31.0-37.0) g/dL RDW (11.5-15.5) % Plt Count (150-450) k/uL Neutrophils % % Lymphocytes % % Monocytes % % Eosinophils % % Basophils % % Neutrophils # (1.3-7.7) k/uL Lymphocytes # (1.0-4.8) k/uL Monocytes # (0-1.0) k/uL Eosinophils # (0-0.7) k/uL Basophils # (0-0.2) k/uL Sodium (137-145) mmol/L Potassium (3.5-5.1) mmol/L Chloride (98-107) mmol/L Carbon Dioxide (22-30) mmol/L Anion Gap mmol/L BUN (9-20) mg/dL Creatinine (0.66-1.25) mg/dL Est GFR (CKD-EPI)AfAm (>60 ml/min/1.73 sqM) Est GFR (CKD-EPI)NonAf (>60 ml/min/1.73 sqM) Glucose (74-99) mg/dL POC Glucose (mg/dL) (75-99) mg/dL POC Glu Tubular Riveter ID Calcium (8.4-10.2) mg/dL Phosphorus (2.5-4.5) mg/dL Magnesium (1.6-2.3) mg/dL Total Bilirubin (0.2-1.3) mg/dL AST (17-59) U/L ALT (21-72) U/L Alkaline Phosphatase (38-126) U/L Total Protein (6.3-8.2) g/dL Albumin (3.5-5.0) g/dL Lipase (23-300) U/L Urine Color Yellow Urine Appearance Clear (Clear) Urine pH 5.5 (5.0-8.0) Ur Specific [place] 1.012 (1.001-1.035) Urine Protein Negative (Negative) Urine Glucose (UA) Negative (Negative) Urine Ketones Negative (Negative) Urine Blood Negative (Negative) Urine Nitrite Negative (Negative) Urine Bilirubin Negative (Negative) Urine Urobilinogen <2.0 (<2.0) mg/dL Ur Leukocyte Esterase Negative (Negative) Urine Opiates Screen Not Detected (NotDetected) Ur Oxycodone Screen Not Detected (NotDetected) Urine Methadone Screen Not Detected (NotDetected) Ur Propoxyphene Screen Not Detected (NotDetected) Ur Barbiturates Screen Not Detected (NotDetected) U Tricyclic Antidepress Not Detected (NotDetected) Ur Phencyclidine Scrn Not Detected (NotDetected) Ur Amphetamines Screen Not Detected (NotDetected) U Methamphetamines Scrn Not Detected (NotDetected) U Benzodiazepines Scrn Not Detected (NotDetected) Urine Cocaine Screen Not Detected (NotDetected) U Marijuana (THC) Screen Not Detected (NotDetected) Serum Alcohol mg/dL Disposition Clinical Impression: Alcohol intoxication, Paresthesia Disposition: HOME SELF-CARE Condition: Good Instructions (If sedation given, give patient instructions): Paresthesia (ED) Is patient prescribed a controlled substance at d/c from ED?: No Referrals: eSna Root MD [Primary Care Provider] - 1-2 days
[2018-10-24 19:49] LABS: Appearance,Urine Clear (Clear); Bilirubin,Urine Negative (Negative); Blood,Urine Negative (Negative); Color,Urine Yellow; Glucose,Urine (UA) Negative (Negative); Ketones,Urine Negative (Negative); Leukocyte Esterase,Urine Negative (Negative); Nitrite,Urine Negative (Negative); PH, Urine 5.5 (5.0-8.0); Protein,Urine Negative (Negative); Specific Gravity,Urine 1.012 (1.001-1.035); Urobilinogen,Urine <2.0 mg/dL (<2.0)
[2018-10-24 19:57] LABS: Potassium 4.5 mmol/L (3.5-5.1)
[2018-10-24 19:57] LABS: Amphetamine Screen,Urine Not Detected (NotDetected); Barbiturate Screen,Urine Not Detected (NotDetected); Benzodiazepines Screen,Urine Not Detected (NotDetected); Cocaine Screen,Urine Not Detected (NotDetected); Methadone Screen, Urine Not Detected (NotDetected); Opiate Screen,Urine Not Detected (NotDetected); Oxycodone Screen, Urine Not Detected (NotDetected); Phencyclidine Screen,Urine Not Detected (NotDetected); Tricyclic Antidepressant,Urine Not Detected (NotDetected); Urn Cannabinoid Scrn Not Detected (NotDetected)
[2018-10-24 19:58] LABS: ALT 41 U/L (21-72); AST 31 U/L (17-59); African American GFR (CKD) >90 (>60 ml/min/1.73 sqM); Albumin 4.9 g/dL (3.5-5.0); Alkaline Phosphatase 59 U/L (38-126); Anion Gap 13 mmol/L; Blood Urea Nitrogen 10 mg/dL (9-20); Calcium 9.9 mg/dL (8.4-10.2); Carbon Dioxide 27 mmol/L (22-30); Chloride 105 mmol/L (98-107); Glucose 91 mg/dL (74-99); Lipase 25 U/L (23-300); Magnesium 1.7 mg/dL (1.6-2.3); Phosphorus 4.6 mg/dL (2.5-4.5); Sodium 145 mmol/L (137-145); Total Bilirubin 0.3 mg/dL (0.2-1.3); Total Protein 8.4 g/dL (6.3-8.2)
[2018-10-24 19:59] LABS: Basophils # (A) 0.1 k/uL (0-0.2); Basophils % (A) 1 %; Eosinophils # (A) 0.4 k/uL (0-0.7); Eosinophils % (A) 3 %; HCT 44.4 % (39.0-53.0); HGB 15.1 gm/dL (13.0-17.5); Lymphocytes # (A) 3.1 k/uL (1.0-4.8); Lymphocytes % (A) 27 %; MCH 31.9 pg (25.0-35.0); MCV 93.8 fL (80.0-100.0); Mean Platelet Volume 7.1; Monocytes # (A) 0.8 k/uL (0-1.0); Monocytes % (A) 7 %; Neutrophils % (A) 59 %; RBC 4.73 m/uL (4.30-5.90); RDW 13.8 % (11.5-15.5); WBC 11.8 k/uL (3.8-10.6)
[2018-10-24 20:03] LABS: Platelet Count 323 k/uL (150-450)
[2018-10-24 20:04] LABS: Alcohol 142 mg/dL
[2018-10-24 21:02] VITALS: BP 154/88; PULSE 85; RESP 16; TEMP 98.3
[2018-10-24 21:10] LABS: Acetaminophen <10.0 ug/mL; Lithium 0.5 mmol/L; Salicylate <1.0 mg/dL
[2018-10-24 21:15] LABS: Valproic Acid (Depakene) <10.0 ug/mL
== END 2018-10-24 20:55 | disposition home or self-care (01) ==
LOC: EC 19:16
DX: F10.129 Alcohol abuse with intoxication, unspecified (principal); R20.2 Paresthesia of skin; E78.5 Hyperlipidemia, unspecified; F31.9 Bipolar disorder, unspecified; F41.9 Anxiety disorder, unspecified; F17.200 Nicotine dependence, unspecified, uncomplicated; Z79.899 Other long term (current) drug therapy; Z88.8 Allergy status to other drugs, medicaments and biological substances; Y90.6 Blood alcohol level of 120-199 mg/100 ml
CPT/HCPCS: 36415; 93005; 80164; 80053; 83690; 80178; 83735; 84100; 85025; 81003; 80306; 83520; 99284; G0480 ×2; 80320; 80329

== ENCOUNTER 2019-03-05 14:29 | Emergency (ER) | payer OTHER ==
[2019-03-05 14:37] VITALS: RESP 18; TEMP 98.3
--- NOTE | 2019-03-05 14:54 | ED ---
Extremity Problem HPI - General Chief complaint: Extremity Problem,Nontraumatic Stated complaint: Hip/Back Pain Time Seen by Provider: 03/05/19 14:41 Source: patient Mode of arrival: ambulatory Limitations: no limitations - History of Present Illness Initial comments: 58-year-old male presented to the emergency department for chief complaint of right hip pain radiating down the leg 2 months. Patient states he has a sharp shooting pain that starts in his mid buttock towards the right heller. Patient states this has been ongoing for months. Patient states he has had previous disc herniations. Patient denies any specific aggravating events. Patient denies loss of bowel bladder control urinary retention loss of sensation or weakness of the lower extremities. Patient denies erectile dysfunction. Patient denies fever or IV drug use or history of cancer. Patient denies any falls or recent trauma to the back. Patient states the pain does not appear to be in his back is no increase in his chronic back pain he states it mostly feels that he is in the hip down and he would prefer imaging studies at this time. Remaining review systems negative patient appears well upon arrival ambulatory - Related Data Home Medications Medication Instructions Recorded Confirmed Desvenlafaxine Succinate [Pristiq 50 mg PO DAILY 10/07/18 10/24/18 ER] Divalproex ER [Depakote ER] 1,000 mg PO HS 10/07/18 10/24/18 [place] Carbonate 600 mg PO HS 10/07/18 10/24/18 Melatonin 5 mg PO HS 10/07/18 10/24/18 Sildenafil [Revatio] 20 mg PO DAILY 10/07/18 10/24/18 traZODone HCL [Desyrel] 300 mg PO HS 10/07/18 10/24/18 Simvastatin [Zocor] 20 mg PO DAILY 10/24/18 10/24/18 Previous Rx's Medication Instructions Recorded Levothyroxine Sodium [Synthroid] 50 mcg PO DAILY #30 tab 04/01/18 Ibuprofen 800 mg PO Q8H PRN 7 Days #21 tablet 03/05/19 Allergies Allergy/AdvReac Type Severity Reaction Status Date / Time quetiapine fumarate Allergy Rash/Hives Verified 03/05/19 14:37 [From Seroquel] Review of Systems ROS Statement: Those systems with pertinent positive or pertinent negative responses have been documented in the HPI. ROS Other: All systems not noted in ROS Statement are negative. Past Medical History Past Medical History: Asthma, COPD, Hyperlipidemia, Liver Disease, Musculoskeletal Disorder, Thyroid Disorder Additional Past Medical History / Comment(s): Optic neuritis. liver disease. History of Any Multi-Drug Resistant Organisms: None Reported Past Surgical History: No Surgical Hx Reported Past Anesthesia/Blood Transfusion Reactions: No Reported Reaction Past Psychological History: Bipolar, Depression Smoking Status: Current every day smoker Past Alcohol Use History: None Reported, Daily, Heavy Past Drug Use History: None Reported - Past Family History Father Additional Family Medical History / Comment(s): Patient states is father is but will not provide any additional information. He states he does not know his mothers history. He has 2 brothers and 2 step brothers and only one living. They have committed suicide. General Exam - General Exam Comments Initial Comments: General: The patient is awake and alert, in no distress, and does not appear acutely ill. Eye: Pupils are equal, round and reactive to light, extra-ocular movements are intact. No nystagmus. There is normal conjunctiva bilaterally. No signs of ic terus. Ears, nose, mouth and throat: There are moist mucous membranes and no oral lesions. Neck: The neck is supple, there is no tenderness or JVD. Cardiovascular: There is a regular rate and rhythm. No murmur, rub or gallop is appreciated. Respiratory: Lungs are clear to auscultation, respirations are non-labored, breath sounds are equal. No wheezes, stridor, rales, or rhonchi. Musculoskeletal: Normal inspection of the cervicothoracic and lumbar spine. No midline tenderness. Negative straight leg raise. Patient has normal range of motion with slight discomfort in the right hip. No redness or warmth, patent.Strength 5/5. Sensation intact of the lower extremity is equal comparison bilaterally. DP and radial pulses equal bilaterally 2+. Lower extremity edema no CVA tenderness +2/5 DTR. Normal ambulation. Neurological: A&O x 3. CN II-XII intact grossly, There are no obvious motor or sensory deficits. Coordination appears grossly intact. Speech is normal. Skin: Skin is warm and dry and no rashes or lesions are noted. Psychiatric: Cooperative, appropriate mood & affect, normal judgment. Limitations: no limitations Course Vital Signs 11/13/19 11/13/19 14:34 16:16 Temperature 98.3 F Pulse Rate 64 65 Respiratory 18 18 Rate Blood Pressure 132/79 130/80 O2 Sat by Pulse 100 98 Oximetry Medical Decision Making - Medical Decision Making 58yo male presenting to the ER for cc of right hip pain ongoing > 2 months. Pt N/V intact. No signs of cauda equina. No flank pain. Patient ambulatory. XR reveal degenerative changes no acute process. At this time I feel patient is stable for d/c with PCP f/u. Return parameters discussed pateint discharged appearing well. Discussed case attending provider prior to discharge. Disposition Clinical Impression: Right hip pain, Radiculopathy Disposition: HOME SELF-CARE Condition: Good Instructions (If sedation given, give patient instructions): Lumbar Radiculo urban (ED), Hip Pain (ED) Additional Instructions: Please use medication as discussed. Please follow-up with family doctor in the next 2 days, recommend orthopedic referral if symptoms are persistent. Please return to emergency room if the symptoms increase or worsen or for any other concerns. Prescriptions: Ibuprofen 800 mg PO Q8H PRN 7 Days #21 tablet PRN Reason: Pain Is patient prescribed a controlled substance at d/c from ED?: No Referrals: Sena Root MD [Primary Care Provider] - 1-2 days Time of Disposition: 15:43
--- NOTE | 2019-03-05 15:38 | XR ---
EXAMINATION TYPE: XR lumbar spine 2 or 3V DATE OF EXAM: 03/05/2019 CLINICAL HISTORY: Chronic low back pain TECHNIQUE: Frontal and lateral images of the lumbar spine are obtained. COMPARISON: 09/26/2012 FINDINGS: There are 5 lumbar type vertebral bodies identified. The lumbar spine shows satisfactory alignment without evidence of acute fracture or dislocation. Vertebral body heights are maintained. I ntervertebral disc space narrowing is seen at L5-S1. Multilevel anterior osteophytes and facet arthro urban are seen of the lumbar spine. Advanced atherosclerosis of the abdominal aorta. The overlying so ft tissue appears unremarkable. IMPRESSION: Moderate multilevel degenerative disc disease of the lumbar spine, progressed from the pr ior of 2012. No new vertebral body height loss or malalignment of the lumbar spine.
--- NOTE | 2019-03-05 15:40 | XR ---
EXAMINATION TYPE: XR Hip RT and AP Pelvis DATE OF EXAM: 03/05/2019 COMPARISON: NONE HISTORY: Right hip pain that is chronic with no stated injury. TECHNIQUE: A single AP view of the pelvis is obtained. Two views of the right hip are obtained. FINDINGS: There is no acute fracture/dislocation evident in the pelvis. The hip and sacroiliac join ts appear symmetric and unremarkable. The overlying soft tissue appears unremarkable. Two views of right hip show no acute fracture or dislocation. No focal lytic or sclerotic lesion see n in the proximal right femur. Mild acetabular sclerosis bilaterally and subtle subchondral cyst of t he superior lateral acetabulum. The overlying soft tissue is unremarkable. IMPRESSION: 1. No acute fracture or dislocation in the pelvis or right hip. 2. Mild right femoral acetabular arthropathy.
[2019-03-05] MEDS ORDERED: KETOROLAC 30 MG/ML 1 ML VIAL IM STA (15:41)
[2019-03-05] MEDS ORDERED: ACET/COD 300 MG/30 MG STARTER PACK 6 TAB BTL PO STA (15:42)
[2019-03-05 16:18] VITALS: BP 130/80; PULSE 65
== END 2019-03-05 16:16 | disposition home or self-care (01) ==
LOC: EC 14:29
DX: M54.16 Radiculopathy, lumbar region (principal); G89.29 Other chronic pain; M54.5 Low back pain; R60.0 Localized edema; F17.200 Nicotine dependence, unspecified, uncomplicated; F31.9 Bipolar disorder, unspecified; E78.5 Hyperlipidemia, unspecified; Z79.899 Other long term (current) drug therapy; Z88.8 Allergy status to other drugs, medicaments and biological substances
CPT/HCPCS: 72100; 73502; 96372; 99283; J1885

== ENCOUNTER → 2019-06-04 | Outpatient (CLI) | payer OTHER ==
[2019-06-04 12:54] LABS: HCT 42.5 % (39.0-53.0); HGB 14.1 gm/dL (13.0-17.5); MCH 32.4 pg (25.0-35.0); MCHC 33.1 g/dL (31.0-37.0); MCV 97.8 fL (80.0-100.0); Platelet Count 201 k/uL (150-450); RBC 4.34 m/uL (4.30-5.90); RDW 12.5 % (11.5-15.5); WBC 5.4 k/uL (3.8-10.6)
[2019-06-04 13:32] LABS: Eosinophils # (M) 0.38 k/uL (0-0.7); Lymphocytes # (M) 2.16 k/uL (1.0-4.8); Monocytes # (M) 0.81 k/uL (0-1.0); Neutrophils # (M) 2.05 k/uL (1.3-7.7); Neutrophils % (M) 38 %; Nucleated Red Blood Cells 0 /100 WBC (0-0); Total Cells Counted 100
[2019-06-04 18:36] LABS: Albumin 4.3 g/dL (3.80-4.90); Albumin/Globulin Ratio 1.95 (1.60-3.17); Anion Gap 4.3 mmol/L (4.00-12.00); BUN/Creat Ratio 18.89 Ratio (12.00-20.00); Bilirubin, Conjugated 0.2 mg/dL (0.20-0.40); Bilirubin,Unconjugated 0.1 mg/dL; Calcium 9.7 mg/dL (8.7-10.3); Carbon Dioxide 27.7 mmol/L (21.6-31.8); Chol/HDL Ratio 2.57; Globulin 2.2 g/dL (1.6-3.3); LDL Cholesterol,Calculated 59.6 mg/dL (0.0-131.0); Non-African American GFR(CKD) 93.2 (60.0-200.0); Potassium 4.7 mmol/L (3.5-5.5); Total Bilirubin 0.3 mg/dL (0.2-1.2); Total Protein 6.5 g/dL (6.2-8.2); VLDL Calculation 20.4 mg/dL (5.00-40.00)
[2019-06-04 18:38] LABS: Valproic Acid (Depakene) 96.2 ug/mL (50.0-100.0)
[2019-06-04 19:50] LABS: Hemoglobin A1C 4.9 % (4.0-6.0)
== END | disposition home or self-care (01) ==
LOC: LABWHC1 11:12
PROVIDERS: ATTEND Psychiatry & Neurology Psychiatry
DX: Z51.81 Encounter for therapeutic drug level monitoring (principal); Z79.899 Other long term (current) drug therapy
CPT/HCPCS: 36415; 80053; 80061; 80164; 82248; 83036; 84439; 84443; 85025

== ENCOUNTER → 2019-12-23 | Outpatient (CLI) | payer OTHER ==
--- NOTE | 2019-12-23 18:08 | US ---
EXAMINATION TYPE: US venous doppler duplex LE RT DATE OF EXAM: 12/23/2019 12:45 PM COMPARISON: NONE CLINICAL HISTORY: Pain swelling right lower limb R22.41 M79.661. SIDE PERFORMED: Right TECHNIQUE: The lower extremity deep venous system is examined utilizing real time linear array sonog sekou with graded compression, doppler sonography and color-flow sonography. VESSELS IMAGED: External Iliac Vein (EIV) Common Femoral Vein Deep Femoral Vein Greater Saphenous Vein * Femoral Vein Popliteal Vein Small Saphenous Vein * Proximal Calf Veins (* superficial vessels) Right Leg: Negative for DVT IMPRESSION: No evidence of deep vein thrombosis in the right leg. Negative exam.
== END | disposition home or self-care (01) ==
LOC: RADUSWWP 12:03
PROVIDERS: ATTEND Internal Medicine
DX: M79.661 Pain in right lower leg (principal); R22.31 Localized swelling, mass and lump, right upper limb

== ENCOUNTER 2020-02-04 11:31 | Emergency (ER) | payer OTHER ==
[2020-02-04] MEDS ORDERED: IPRATROPIUM-ALBUTEROL 3 ML NEB INHALATION STA (12:15)
[2020-02-04] MEDS ORDERED: methylPREDNISolone SOD SUCCI 125 MG/2 ML VIAL IV STA (12:15)
--- NOTE | 2020-02-04 12:22 | XR ---
EXAMINATION TYPE: XR chest 2V DATE OF EXAM: 02/04/2020 CLINICAL HISTORY: Difficulty breathing. History of COPD. TECHNIQUE: Frontal and lateral views of the chest are obtained. COMPARISON: 10/31/2015 chest radiograph FINDINGS: The cardiomediastinal silhouette is within normal limits for size. Pulmonary vasculature i s normal. There is no focal air space opacity, pleural effusion, or pneumothorax seen. Degenerative c hanges of the spine.. IMPRESSION: No acute cardiopulmonary process.
[2020-02-04 12:24] LABS: Basophils # (A) 0.1 k/uL (0-0.2); Basophils % (A) 1 %; Eosinophils # (A) 0.2 k/uL (0-0.7); Eosinophils % (A) 1 %; HCT 46.5 % (39.0-53.0); HGB 15.5 gm/dL (13.0-17.5); Lymphocytes % (A) 26 %; MCH 32.4 pg (25.0-35.0); MCHC 33.3 g/dL (31.0-37.0); MCV 97.1 fL (80.0-100.0); Mean Platelet Volume 6.8; Monocytes # (A) 0.9 k/uL (0-1.0); Monocytes % (A) 8 %; Neutrophils # (A) 7.3 k/uL (1.3-7.7); Neutrophils % (A) 62 %; Platelet Count 358 k/uL (150-450); RBC 4.79 m/uL (4.30-5.90); WBC 11.8 k/uL (3.8-10.6)
[2020-02-04 12:38] LABS: Prothrombin Time 10.6 sec (9.0-12.0)
[2020-02-04] MEDS ORDERED: ACETAMINOPHEN TAB 325 MG TAB PO STA (12:40)
[2020-02-04 12:43] LABS: ALT 51 U/L (4-49); AST 38 U/L (17-59); African American GFR (CKD) >90 (>60 ml/min/1.73 sqM); Albumin 4.2 g/dL (3.5-5.0); Alkaline Phosphatase 68 U/L (38-126); Anion Gap 10 mmol/L; Blood Urea Nitrogen 16 mg/dL (9-20); Calcium 9.5 mg/dL (8.4-10.2); Carbon Dioxide 22 mmol/L (22-30); Chloride 109 mmol/L (98-107); Glucose 89 mg/dL (74-99); Magnesium 1.6 mg/dL (1.6-2.3); Non-African American GFR(CKD) >90 (>60 ml/min/1.73 sqM); Potassium 4.1 mmol/L (3.5-5.1); Sodium 141 mmol/L (137-145); Total Bilirubin 0.5 mg/dL (0.2-1.3); Total Protein 7.3 g/dL (6.3-8.2)
--- NOTE | 2020-02-04 13:12 | ED ---
General Adult HPI - General Chief complaint: Shortness of Breath Stated complaint: ILAN, congestion, cough Time Seen by Provider: 02/04/20 11:44 Source: patient Mode of arrival: ambulatory Limitations: no limitations - History of Present Illness Initial comments: 59-year-old smoker presents to the ER today for chief complaint of shortness of breath cough x 8 days. Patient states she's had a persistent cough since January 26 he states he has been on azithromycin as well as steroids which haven't seemed to help. Patient denies any sputum production. He denies any hemoptysis leg swelling, pain with deep inspiration or chest pressure. Patient states that he feels like his COPD is acting up. He is out of his inhaler. Patient denies neck stiffness, abdominal pain, nausea, vomiting. Patient denies additional complaints. Upon arrival he appears well nontoxic in no acute distress. - Related Data Home Medications Medication Instructions Recorded Confirmed Desvenlafaxine Succinate [Pristiq 50 mg PO DAILY 10/07/18 10/24/18 ER] Divalproex ER [Depakote ER] 1,000 mg PO HS 10/07/18 10/24/18 [place] Carbonate 600 mg PO HS 10/07/18 10/24/18 Melatonin 5 mg PO HS 10/07/18 10/24/18 Sildenafil [Revatio] 20 mg PO DAILY 10/07/18 10/24/18 traZODone HCL [Desyrel] 300 mg PO HS 10/07/18 10/24/18 Simvastatin [Zocor] 20 mg PO DAILY 10/24/18 10/24/18 Previous Rx's Medication Instructions Recorded Levothyroxine Sodium [Synthroid] 50 mcg PO DAILY #30 tab 04/01/18 Ibuprofen 800 mg PO Q8H PRN 7 Days #21 tablet 03/05/19 Albuterol Inhaler [Ventolin Hfa 1 puff INHALATION Q4H PRN 30 Days 02/04/20 Inhaler] #60 puff Amoxicillin/Potassium Clav 1 tab PO Q12HR 7 Days #14 tab 02/04/20 [Augmentin 875-125 Tablet] predniSONE 50 mg PO DAILY 3 Days #3 tab 02/04/20 Allergies Allergy/AdvReac Type Severity Reaction Status Date / Time quetiapine fumarate Allergy Rash/Hives Verified 03/05/19 14:37 [From Seroquel] Review of Systems ROS Statement: Those systems with pertinent positive or pertinent negative responses have been documented in the HPI. ROS Other: All systems not noted in ROS Statement are negative. Past Medical History Past Medical History: Asthma, COPD, Hyperlipidemia, Liver Disease, Musculoskeletal Disorder, Thyroid Disorder Additional Past Medical History / Comment(s): Optic neuritis. liver disease. History of Any Multi-Drug Resistant Organisms: None Reported Past Surgical History: No Surgical Hx Reported Past Anesthesia/Blood Transfusion Reactions: No Reported Reaction Past Psychological History: Bipolar, Depression Smoking Status: Current every day smoker Past Alcohol Use History: None Reported, Daily, Heavy Past Drug Use History: Marijuana - Past Family History Father Additional Family Medical History / Comment(s): Patient states is father is but will not provide any additional information. He states he does not know his mothers history. He has 2 brothers and 2 step brothers and only one living. They have committed suicide. General Exam - General Exam Comments Initial Comments: General: The patient is awake and alert, in no distress, and does not appear acutely ill. Eye: +3 mm pupils are equal, round and reactive to light, extra-ocular movements are intact. No nystagmus. There is normal conjunctiva bilaterally. No signs of icterus. Ears, nose, mouth and throat: There are moist mucous membranes and no oral lesions. Nasal congestion Neck: The neck is supple, there is no tenderness or JVD. Cardiovascular: There is a regular rate and rhythm. No murmur, rub or gallop is appreciated. Respiratory: Respirations are non-labored, breath sounds are equal. Mild expiratory wheeze No stridor, rales, or rhonchi. dry cough Gastrointestinal: Soft, non-distended, non-tender abdomen without masses or organomegaly noted. There is no rebound or guarding present. Musculoskeletal: Normal ROM, no tenderness. Strength 5/5. Sensation intact. Pulses equal bilaterally 2+. Neurological: A&O x 3. CN II-XII intact grossly, There are no obvious motor or sensory deficits. Coordination appears grossly intact. Speech is normal. Skin: Skin is warm and dry and no rashes or lesions are noted. No LE edema. Psychiatric: Cooperative, appropriate mood & affect, normal judgment. Limitations: no limitations Course Vital Signs 02/04/20 02/04/20 02/04/20 11:34 12:38 12:44 Temperature 98.0 F Pulse Rate 110 H 94 97 Respiratory 20 Rate Blood Pressure 138/94 O2 Sat by Pulse 98 Oximetry 02/04/20 13:25 Temperature 98 F Pulse Rate 94 Respiratory 16 Rate Blood Pressure 134/74 O2 Sat by Pulse 98 Oximetry EKG Findings - EKG Comments: EKG Findings:: Ventricular rate 84 bpm, OK interval 142 ms, QRS ratio 90 ms, QT /QTC 366/432 ms. This is normal sinus there is no ST elevation or depression, low voltage QRS Medical Decision Making - Medical Decision Making Labs stable. Patietn appears well nontoxic. No respiratory distress. CXR clear. Hx COPD. Mild expiratory wheeze, improved with one treatment. Obvious URI symptoms. Patient will be placed on steroids/abx/inhaler and is to f/u with pcp. Patient is agreeable to this care plan. pt homeless currently and I personally reviewed with patient resources/homeless shelters and provided addresses/directions. Discussed case with attending who is agreeable to care plan and discharge. - Lab Data Result diagrams: 02/04/20 12:02 02/04/20 12:02 Lab Results 02/04/20 02/04/20 02/04/20 Range/Units 12:02 12:02 12:02 WBC 11.8 H (3.8-10.6) k/uL RBC 4.79 (4.30-5.90) m/uL Hgb 15.5 (13.0-17.5) gm/dL Hct 46.5 (39.0-53.0) % MCV 97.1 (80.0-100.0) fL MCH 32.4 (25.0-35.0) pg MCHC 33.3 (31.0-37.0) g/dL RDW 14.0 (11.5-15.5) % Plt Count 358 (150-450) k/uL Neutrophils % 62 % Lymphocytes % 26 % Monocytes % 8 % Eosinophils % 1 % Basophils % 1 % Neutrophils # 7.3 (1.3-7.7) k/uL Lymphocytes # 3.0 (1.0-4.8) k/uL Monocytes # 0.9 (0-1.0) k/uL Eosinophils # 0.2 (0-0.7) k/uL Basophils # 0.1 (0-0.2) k/uL PT 10.6 (9.0-12.0) sec INR 1.0 (<1.2) APTT 28.0 (22.0-30.0) sec Sodium 141 (137-145) mmol/L Potassium 4.1 (3.5-5.1) mmol/L Chloride 109 H (98-107) mmol/L Carbon Dioxide 22 (22-30) mmol/L Anion Gap 10 mmol/L BUN 16 (9-20) mg/dL Creatinine 0.61 L (0.66-1.25) mg/dL Est GFR (CKD-EPI)AfAm >90 (>60 ml/min/1.73 sqM) Est GFR (CKD-EPI)NonAf >90 (>60 ml/min/1.73 sqM) Glucose 89 (74-99) mg/dL Plasma Lactic Acid [place] (0.7-2.0) mmol/L Calcium 9.5 (8.4-10.2) mg/dL Magnesium 1.6 (1.6-2.3) mg/dL Total Bilirubin 0.5 (0.2-1.3) mg/dL AST 38 (17-59) U/L ALT 51 H (4-49) U/L Alkaline Phosphatase 68 (38-126) U/L Troponin I (0.000-0.034) ng/mL NT-Pro-B Natriuret Pep pg/mL Total Protein 7.3 (6.3-8.2) g/dL Albumin 4.2 (3.5-5.0) g/dL 02/04/20 02/04/20 02/04/20 Range/Units 12:02 12:02 12:02 WBC (3.8-10.6) k/uL RBC (4.30-5.90) m/uL Hgb (13.0-17.5) gm/dL Hct (39.0-53.0) % MCV (80.0-100.0) fL MCH (25.0-35.0) pg MCHC (31.0-37.0) g/dL RDW (11.5-15.5) % Plt Count (150-450) k/uL Neutrophils % % Lymphocytes % % Monocytes % % Eosinophils % % Basophils % % Neutrophils # (1.3-7.7) k/uL Lymphocytes # (1.0-4.8) k/uL Monocytes # (0-1.0) k/uL Eosinophils # (0-0.7) k/uL Basophils # (0-0.2) k/uL PT (9.0-12.0) sec INR (<1.2) APTT (22.0-30.0) sec Sodium (137-145) mmol/L Potassium (3.5-5.1) mmol/L Chloride (98-107) mmol/L Carbon Dioxide (22-30) mmol/L Anion Gap mmol/L BUN (9-20) mg/dL Creatinine (0.66-1.25) mg/dL Est GFR (CKD-EPI)AfAm (>60 ml/min/1.73 sqM) Est GFR (CKD-EPI)NonAf (>60 ml/min/1.73 sqM) Glucose (74-99) mg/dL Plasma Lactic Acid [place] 1.1 (0.7-2.0) mmol/L Calcium (8.4-10.2) mg/dL Magnesium (1.6-2.3) mg/dL Total Bilirubin (0.2-1.3) mg/dL AST (17-59) U/L ALT (4-49) U/L Alkaline Phosphatase (38-126) U/L Troponin I <0.012 (0.000-0.034) ng/mL NT-Pro-B Natriuret Pep 56 pg/mL Total Protein (6.3-8.2) g/dL Albumin (3.5-5.0) g/dL Disposition Clinical Impression: Congestion of nasal sinus, Cough Disposition: HOME SELF-CARE Condition: Good Instructions (If sedation given, give patient instructions): Acute Bronchitis (ED) Additional Instructions: Please use medication as discussed. Please follow-up with family doctor in the next 2 days. Please return to emergency room if the symptoms increase or worsen or for any other concerns. Prescriptions: Amoxicillin/Potassium Clav [Augmentin 875-125 Tablet] 1 tab PO Q12HR 7 Days #14 tab predniSONE 50 mg PO DAILY 3 Days #3 tab Albuterol Inhaler [Ventolin Hfa Inhaler] 1 puff INHALATION Q4H PRN 30 Days #60 puff PRN Reason: Wheezing Is patient prescribed a controlled substance at d/c from ED?: No Referrals: Sena Root MD [Primary Care Provider] - 1-2 days Time of Disposition: 13:12
[2020-02-04 13:26] VITALS: BP 134/74; PULSE 94; RESP 16; TEMP 98
== END 2020-02-04 13:25 | disposition home or self-care (01) ==
LOC: EC 11:31
DX: R09.81 Nasal congestion (principal); R05 Cough; Z20.828 Contact with and (suspected) exposure to other viral communicable diseases; R06.2 Wheezing; Z59.0 Homelessness; E78.5 Hyperlipidemia, unspecified; E07.9 Disorder of thyroid, unspecified; F31.9 Bipolar disorder, unspecified; Z79.899 Other long term (current) drug therapy; F17.200 Nicotine dependence, unspecified, uncomplicated; Z88.8 Allergy status to other drugs, medicaments and biological substances; Z87.09 Personal history of other diseases of the respiratory system
CPT/HCPCS: 36415; 94640; 93005; 83880; 80053; 83605; 83735; 84484; 85025; 85610; 85730; 71046; 99285; 96374; U0003; J2930

== ENCOUNTER 2020-04-17 15:32 | Inpatient (IN) | payer MEDICAID, OTHER ==
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
[2020-04-17] MEDS ORDERED: THIAMINE 100 MG/ML 2 ML VIAL IM STA (17:52)
[2020-04-17] MEDS ORDERED: LORazepam 2 MG/ML INJ IV PRN ×3 (17:52)
[2020-04-17 18:15] LABS: Amphetamine Screen,Urine Not Detected (NotDetected); Barbiturate Screen,Urine Not Detected (NotDetected); Benzodiazepines Screen,Urine Not Detected (NotDetected); Cocaine Screen,Urine Not Detected (NotDetected); Methadone Screen, Urine Not Detected (NotDetected); Opiate Screen,Urine Not Detected (NotDetected); Oxycodone Screen, Urine Not Detected (NotDetected); Phencyclidine Screen,Urine Not Detected (NotDetected); Tricyclic Antidepressant,Urine Not Detected (NotDetected); Urn Cannabinoid Scrn Detected (NotDetected)
[2020-04-17 18:25] LABS: Basophils # (A) 0.1 k/uL (0-0.2); Basophils % (A) 3 %; Eosinophils # (A) 0.1 k/uL (0-0.7); Eosinophils % (A) 2 %; HCT 43.7 % (39.0-53.0); HGB 14.8 gm/dL (13.0-17.5); Lymphocytes # (A) 2.2 k/uL (1.0-4.8); Lymphocytes % (A) 48 %; MCHC 33.9 g/dL (31.0-37.0); MCV 97.1 fL (80.0-100.0); Mean Platelet Volume 7.8; Monocytes # (A) 0.3 k/uL (0-1.0); Monocytes % (A) 6 %; Neutrophils # (A) 1.7 k/uL (1.3-7.7); Neutrophils % (A) 37 %; Platelet Count 142 k/uL (150-450); RDW 12.9 % (11.5-15.5); WBC 4.6 k/uL (3.8-10.6)
[2020-04-17 18:41] LABS: Potassium 4.2 mmol/L (3.5-5.1)
[2020-04-17 18:42] LABS: ALT 203 U/L (4-49); AST 183 U/L (17-59); African American GFR (CKD) >90 (>60 ml/min/1.73 sqM); Albumin 3.9 g/dL (3.5-5.0); Alkaline Phosphatase 106 U/L (38-126); Anion Gap 6 mmol/L; Blood Urea Nitrogen 5 mg/dL (9-20); Calcium 9.1 mg/dL (8.4-10.2); Carbon Dioxide 28 mmol/L (22-30); Chloride 112 mmol/L (98-107); Glucose 93 mg/dL (74-99); Non-African American GFR(CKD) >90 (>60 ml/min/1.73 sqM); Sodium 146 mmol/L (137-145); Total Bilirubin 0.6 mg/dL (0.2-1.3); Total Protein 6.7 g/dL (6.3-8.2)
[2020-04-17 18:56] LABS: Alcohol 206 mg/dL
[2020-04-18] MEDS ORDERED: THIAMINE 100 MG TAB PO SCH (07:30)
[2020-04-18] MEDS ORDERED: MAGNESIUM HYDROXIDE 2,400 MG/10 ML CUP PO PRN (08:56)
[2020-04-18] MEDS ORDERED: LORazepam 1 MG TAB PO PRN (08:56)
[2020-04-18] MEDS ORDERED: MAG HYDROX/AL HYDROX/SIMETH 30 ML CUP PO PRN (08:56)
[2020-04-18] MEDS ORDERED: ACETAMINOPHEN TAB 325 MG TAB PO PRN (08:56)
[2020-04-18] MEDS ORDERED: LORazepam 2 MG/ML INJ IM PRN (08:58)
[2020-04-18] MEDS ORDERED: HALOPERIDOL LACTATE 5 MG/ML 1 ML VIAL IM PRN (08:58)
[2020-04-18] MEDS ORDERED: ALBUTEROL INHALER 60 PUFF/8 GM INHALER (MHU) INHALATION PRN (08:59)
[2020-04-18] MEDS ORDERED: tiZANidine 4 MG TAB PO PRN (08:59)
[2020-04-18] MEDS: NICOTINE 14MG/24HR PATCH TRANSDERM SCH (12:52)
[2020-04-18] MEDS: ATORVASTATIN 10 MG TAB PO SCH (12:52)
[2020-04-18] MEDS: TAMSULOSIN 0.4 MG CAP.ER.24H PO SCH (12:52)
[2020-04-18] MEDS: LEVOTHYROXINE 75 MCG TAB PO SCH (12:52)
[2020-04-18 13:35] LABS: Albumin 3.8 g/dL (3.5-5.0); Bilirubin, Delta 0.6 mg/dL (0.0-0.2); Bilirubin,Unconjugated 0.2 mg/dL (0.0-1.1); Total Bilirubin 0.8 mg/dL (0.2-1.3); Total Protein 6.7 g/dL (6.3-8.2)
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
[2020-04-18] MEDS: IBUPROFEN 800 MG TAB PO SCH ×2 (16:41→21:49)
[2020-04-18] MEDS: OLANZapine 5 MG TAB PO SCH ×2 (16:41→21:49)
--- NOTE | 2020-04-18 16:46 | P.CONS ---
History of Present Illness - History of Present Illness This is a pleasant 60 years old male with past medical history of asthma/COPD, hyperlipidemia, hypothyroidism. He drinks alcohol and smokes cigarettes without specification. Also he has history of depression and bipolar disorder who was admitted to the mental health unit for signs and symptoms of depression and suicidal ideation. Medical consult is requested for routine medical management When I saw the patient he was lying in bed covered and sheets, looks withdrawn, fully awake and oriented and minimally interactive, he denies any specific complaints, no chest pain or dyspnea. No abdominal pain. No change in urine or bowel habits. No fever. Vitas looks stable and is afebrile. Labs including CBC is unremarkable. BMP is unremarkable except for mildly high sodium 1.46, liver enzymes his elevated with AST 192 and ALT 214 . Urine drug screen is positive for marijuana. Alcohol level was elevated 206 admission, coronary Vitas detected Review of Systems CONSTITUTIONAL: No fever, no malaise, no fatigue. HEENT: No recent visual problems or hearing problems. Denied any sore throat. CARDIOVASCULAR: No orthopnea, PND, no palpitations, no syncope. PULMONARY: No shortness of breath, no cough, no hemoptysis. GASTROINTESTINAL: No diarrhea, no nausea, no vomiting, no abdominal pain. Normoactive bowel sounds. NEUROLOGICAL: No headaches, no weakness, no numbness. HEMATOLOGICAL: Denies any bleeding or petechiae. GENITOURINARY: Denies any burning micturition, frequency, or urgency. MUSCULOSKELETAL/RHEUMATOLOGICAL: Denies any joint pain, swelling, or any muscle pain. ENDOCRINE: Denies any polyuria or polydipsia. Past Medical History Past Medical History: Asthma, COPD, Hyperlipidemia, Liver Disease, Musculoskeletal Disorder, Thyroid Disorder Additional Past Medical History / Comment(s): Optic neuritis. liver disease. History of Any Multi-Drug Resistant Organisms: None Reported Past Surgical History: No Surgical Hx Reported Past Anesthesia/Blood Transfusion Reactions: No Reported Reaction Past Psychological History: Bipolar, Depression Smoking Status: Current every day smoker Past Alcohol Use History: None Reported, Daily, Heavy Past Drug Use History: Marijuana - Past Family History Father Additional Family Medical History / Comment(s): Patient states is father is but will not provide any additional information. He states he does not know his mothers history. He has 2 brothers and 2 step brothers and only one living. They have committed suicide. Medications and Allergies Home Medications Medication Instructions Recorded Confirmed Type Simvastatin [Zocor] 20 mg PO DAILY 10/24/18 04/17/20 History Albuterol Sulfate [Proventil Hfa] 2 puff INHALATION RT-Q6H PRN 04/17/20 04/17/20 History Hydrocodone/Acetaminophen [[place] 1 tab PO TID PRN 04/17/20 04/17/20 History 10-325] Levothyroxine Sodium [Synthroid] 75 mcg PO DAILY 04/17/20 04/17/20 History Tamsulosin [Flomax] 0.4 mg PO DAILY 04/17/20 04/17/20 History tiZANidine [Zanaflex] 4 mg PO TID PRN 04/17/20 04/17/20 History Allergies Allergy/AdvReac Type Severity Reaction Status Date / Time quetiapine fumarate Allergy Rash/Hives Verified 04/17/20 22:41 [From Seroquel] Physical Exam Vitals: Vital Signs Temp Pulse Pulse Resp BP BP Pulse Ox 04/18/20 13:00 97.1 F L 04/18/20 08:53 97.7 F 68 14 116/69 97 04/18/20 08:28 88 16 137/79 99 04/18/20 06:40 98.2 F 73 18 107/68 95 04/17/20 23:30 98.1 F 67 20 115/71 94 L 04/17/20 15:52 98.0 F 70 20 125/83 95 Intake and Output 04/17/20 04/18/20 04/18/20 22:59 06:59 14:59 Other: Weight 68.039 kg GENERAL: The patient is alert and oriented x3, not in any acute distress. Well developed, well nourished. HEENT: Pupils are round and equally reacting to light. EOMI. No scleral icterus. No conjunctival pallor. Normocephalic, atraumatic. No pharyngeal erythema. No thyromegaly. CARDIOVASCULAR: S1 and S2 present. No murmurs, rubs, or gallops. PULMONARY: Chest is clear to auscultation, no wheezing or crackles. ABDOMEN: Soft, nontender, nondistended, normoactive bowel sounds. No palpable organomegaly. MUSCULOSKELETAL: No joint swelling or deformity. EXTREMITIES: No cyanosis, clubbing, or pedal edema. NEUROLOGICAL: Gross neurological examination did not reveal any focal deficits. SKIN: No rashes. No petechiae Results CBC & Chem 7: 04/17/20 18:12 04/17/20 18:12 Labs: Abnormal Lab Results - Last 24 Hours (Table) 04/17/20 04/17/20 04/17/20 Range/Units 18:12 18:12 18:12 Plt Count 142 L (150-450) k/uL Sodium 146 H (137-145) mmol/L Chloride 112 H (98-107) mmol/L BUN 5 L (9-20) mg/dL Delta Bilirubin 0.6 H (0.0-0.2) mg/dL AST 183 H 192 H (17-59) U/L ALT 203 H 214 H (4-49) U/L U Marijuana (THC) Screen (NotDetected) Serum Alcohol 206 H* mg/dL 04/17/20 Range/Units Unknown Plt Count (150-450) k/uL Sodium (137-145) mmol/L Chloride (98-107) mmol/L BUN (9-20) mg/dL Delta Bilirubin (0.0-0.2) mg/dL AST (17-59) U/L ALT (4-49) U/L U Marijuana (THC) Screen Detected H (NotDetected) Serum Alcohol mg/dL Assessment and Plan Assessment: -Depression with suicidal ideation and other psychiatric illnesses, management as per sec primary team -Alcohol abuse, patient is counseled. Psychiatric appears are following. Continue with CIWA protocol and family -Nicotine dependence, patient is counseled continue with nicotine patch -elevated liver enzymes, mostly secondary to alcohol abuse -Substance abuse with marijuana, patient is counseled -Hyperlipidemia, continue with Lipitor DVT prophylaxis. Patient is mobile low risk for DVT Patient is instructed to follow up with PCP within one week after discharge Thank you for consulting us, we will see the patient on as needed basis. Please feel free to contact us for any further question
[2020-04-19] MEDS: IBUPROFEN 800 MG TAB PO SCH ×4 (10:03→22:08)
[2020-04-19] MEDS: NICOTINE 14MG/24HR PATCH TRANSDERM SCH ×2 (10:04→10:11)
[2020-04-19] MEDS: OLANZapine 5 MG TAB PO SCH ×4 (10:04→22:08)
[2020-04-19] MEDS: ATORVASTATIN 10 MG TAB PO SCH ×3 (10:04→15:34)
[2020-04-19] MEDS: LEVOTHYROXINE 75 MCG TAB PO SCH ×3 (10:04→15:33)
[2020-04-19] MEDS: TAMSULOSIN 0.4 MG CAP.ER.24H PO SCH ×3 (10:04→15:33)
--- NOTE | 2020-04-19 11:23 | P.PN ---
Progress Note - Text Progress Note Date: 04/19/20 Interval History: Patient was seen resting in bed and was directable and refused to get out of bed to speak with this investigative writer. As per chart review, the patient's brother recently committed suicide and that the patient has been feeling more depressed than usual. This also led him to drinking "a lot" recently. Patient expresses that he is suicidal but refuses to elaborate further on any other symptoms. He remains irritable stating that he does not want to talk to this provider and would rather talk tomorrow. He states that his medications are "in the records and you should just read that." He has refused his medications this morning, and when this was brought up, the patient became very irritated and said that it was because he took his medications already. He was informed that he did not, and that this does not reflect on the record. The patient then reported that he probably took his medications last night but that does not change things. When inquired if he is going through alcohol withdrawal, the patient denies it. He remains angry and abruptly ends interview. Mental Status Exam: General Appearance: Patient appears to be stated age is alert, is on directable, and not cooperative. He appears disheveled with poor dentition. Behavior: Patient refuses eye contact. He is easily agitated. Remains in bed covered himself of his bedsheet. Speech: Patient's speech is loud in volume, yelling, nonspontaneous. Mood/Affect: Mood is angry, affect is congruent and agitated. Suicidality/Homicidality: Patient endorses suicidal ideation but no intention or plan. Perceptions: Unable to assess Though content/process: Unable to assess. Memory and concentration: Unable to assess. Memory appears to be poor. Judgment and insight: Very poor. Assessment Major depression Alcohol use disorder Plan: -Patient continues to meet criteria for inpatient psychiatric admission for symptom stabilization and safety. Patient has signed adult voluntary form. -Medications: Continue Zyprexa 5 mg 3 times a day for mood stabilization -When necessary Ativan and Haldol for agitation/aggression. -Continue CIWA protocol. -NRT - nicotine patch -SW on board for discharge planning. Encouraged the patient to participate in milieu.
[2020-04-20] MEDS: LEVOTHYROXINE 75 MCG TAB PO SCH (06:25)
[2020-04-20] MEDS: OLANZapine 5 MG TAB PO SCH ×3 (09:52→20:51)
[2020-04-20] MEDS: NICOTINE 14MG/24HR PATCH TRANSDERM SCH (09:52)
[2020-04-20] MEDS: IBUPROFEN 800 MG TAB PO SCH ×4 (09:52→20:51)
[2020-04-20] MEDS: ATORVASTATIN 10 MG TAB PO SCH ×2 (09:52→12:57)
[2020-04-20] MEDS: TAMSULOSIN 0.4 MG CAP.ER.24H PO SCH (09:53)
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
[2020-04-20] MEDS ORDERED: DIVALPROEX ER 500 MG TAB.ER.24H PO SCH (21:00)
[2020-04-21] MEDS: LEVOTHYROXINE 75 MCG TAB PO SCH (06:48)
[2020-04-21 06:49] VITALS: RESP 16
[2020-04-21] MEDS: NICOTINE 14MG/24HR PATCH TRANSDERM SCH (09:39)
[2020-04-21] MEDS: OLANZapine 5 MG TAB PO SCH (09:40)
[2020-04-21] MEDS: IBUPROFEN 800 MG TAB PO SCH (09:40)
[2020-04-21] MEDS: ATORVASTATIN 10 MG TAB PO SCH (09:40)
[2020-04-21] MEDS: TAMSULOSIN 0.4 MG CAP.ER.24H PO SCH (09:40)
[2020-04-21 09:43] VITALS: BP 116/79; PULSE 82
--- NOTE | 2020-04-21 09:49 | P.PN ---
Progress Note - Text Progress Note Date: 04/21/20 Interval History: Patient was seen resting in bed and was agreeable and directable to speak with newswriter in his room. Patient expresses that he feels better since restarting his Depakote. He reports that he is feeling much more calm. He expresses a desire to go to [place] for alcohol rehab. He is currently not reporting any suicidal or homicidal ideation, intention, and/or plan. He is not reporting any auditory or visual hallucinations. He is stating his racing thoughts continue to be present but have been decreasing. He is not reporting any auditory or visual hallucinations. He denies any paranoia or delusions. Review of his [facility] notes reveal that he was on a regimen of Depakote, lithium, and Remeron. Mental Status Exam: General Appearance: Patient appears to be stated age is alert, directable today, and cooperative. Hygiene appears to be improving. Patient is wearing a hoodie. Behavior: Eye contact is appropriate. Less agitated. Psychomotor activity appears normal. Speech: Patient's speech is spontaneous, normal in volume, fluent, and with normal rate. Mood/Affect: Mood is "okay." Affect is congruent and constricted. Suicidality/Homicidality: Patient endorses suicidal ideation but no intention or plan. Perceptions: Patient is not endorsing any auditory or visual hallucinations. Though content/process: No delusional thought content is evident. Thought process appears to be linear, logical, and goal-directed. Memory and concentration: Patient is alert and oriented in all spheres. Concentration is appropriate. Judgment and insight: Mildly improving Assessment Bipolar disorder, unspecified Alcohol use disorder Plan: -Patient continues to meet criteria for inpatient psychiatric admission for symptom stabilization and safety. Patient has signed adult voluntary form. -We will need to obtain [facility] progress notes for this patient to determine his medication regimen as well as treatment -Medications: Continue Depakote 1000 mg at bedtime for mood stabilization. We will add Remeron 30 mg by mouth at bedtime at bedtime for appetite stimulation/depression/insomnia. -When necessary Ativan and Haldol for agitation/aggression. -Continue CIWA protocol. -NRT - nicotine patch -SW on board for discharge planning. Encouraged the patient to participate in milieu.
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
[2020-04-21 13:30] VITALS: TEMP 97.3
[2020-04-21] MEDS ORDERED: MIRTAZAPINE 15 MG TAB PO SCH (21:00)
== END 2020-04-21 14:27 | disposition home or self-care (01) | DRG 885 ==
LOC: EC 15:32 → 3MHU 04-18 08:18
PROVIDERS: ADMIT Psychiatry & Neurology Psychiatry; ATTEND Psychiatry & Neurology Psychiatry
DX: F31.4 Bipolar disorder, current episode depressed, severe, without psychotic features (principal); R45.851 Suicidal ideations; F10.239 Alcohol dependence with withdrawal, unspecified; F10.229 Alcohol dependence with intoxication, unspecified; Y90.7 Blood alcohol level of 200-239 mg/100 ml; J44.9 Chronic obstructive pulmonary disease, unspecified; Z20.828 Contact with and (suspected) exposure to other viral communicable diseases; E78.5 Hyperlipidemia, unspecified; G47.00 Insomnia, unspecified; M79.9 Soft tissue disorder, unspecified; K76.9 Liver disease, unspecified; E03.9 Hypothyroidism, unspecified; Z91.5 Personal history of self-harm; Z59.0 Homelessness; F17.210 Nicotine dependence, cigarettes, uncomplicated; Z71.6 Tobacco abuse counseling; Z79.890 Hormone replacement therapy; Z79.899 Other long term (current) drug therapy; Z88.8 Allergy status to other drugs, medicaments and biological substances
CPT/HCPCS: 36415; 80053; 80061; 80076; 80306; 80320; 82075; 83036; 84443; 85025; 87635; 96372; 99285

== ENCOUNTER → 2020-06-17 | Outpatient (CLI) | payer OTHER ==
--- NOTE | 2020-06-17 07:50 | US ---
EXAMINATION TYPE: US liver DATE OF EXAM: 06/17/2020 COMPARISON: NONE CLINICAL HISTORY: R94.5 Abnormal liver function test. elevated lft's, no symptoms EXAM MEASUREMENTS: Liver Length: 15.8 cm Gallbladder Wall: 0.3 cm CBD: 0.7 cm Right Kidney: not seen Pancreas: wnl Liver: wnl Gallbladder: wall thickness is upper limits of normal, patient is NPO Evidence for sonographic Leigh's sign: no CBD: wnl Right Kidney: not seen within rt flank, patient stated no surgical history, looking at previous exam , after today's us, right renal sits within right pelvis, if ordering physician wants right renal cesar ged, patient will need to come back with kidney order. IMPRESSION: No distinct abnormality within the imaged field. See above.
== END | disposition home or self-care (01) ==
LOC: RADUSWWP 07:14
PROVIDERS: ATTEND Internal Medicine
DX: R94.5 Abnormal results of liver function studies (principal)
CPT/HCPCS: 76705

== ENCOUNTER 2020-06-26 02:43 | Emergency (ER) | payer OTHER ==
--- NOTE | 2020-06-26 02:53 | ED ---
Alcohol HPI - General Stated Complaint: Intoxicated Time Seen by Provider: 06/26/20 02:45 Source: RN notes reviewed, old records reviewed Mode of arrival: EMS Limitations: no limitations - History of Present Illness Initial Comments: This is a 60-year-old male who called PD for help. Patient was asking for help secondary to alcohol intoxication. Patient's very emotional on arrival but denies homicidal or suicidal thoughts. Patient is intoxicated is homeless states he needs place to stay. 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 Carbonate 450 mg PO BID 30 Days capsule 04/21/20 Mirtazapine [Remeron] 30 mg PO HS 30 Days tab 04/21/20 Nicotine 14Mg/24Hr Patch [Habitrol] 1 patch TRANSDERM DAILY #30 patch 04/21/20 Tamsulosin [Flomax] 0.4 mg PO DAILY 30 Days cap 04/21/20 tiZANidine [Zanaflex] 4 mg PO TID PRN 30 Days tab 04/21/20 Allergies Allergy/AdvReac Type Severity Reaction Status Date / Time quetiapine fumarate Allergy Rash/Hives Verified 04/17/20 22:41 [From Seroquel] Review of Systems ROS Statement: Those systems with pertinent positive or pertinent negative responses have been documented in the HPI. ROS Other: All systems not noted in ROS Statement are negative. Past Medical History Past Medical History: Asthma, COPD, Hyperlipidemia, Liver Disease, Musculoskeletal Disorder, Thyroid Disorder Additional Past Medical History / Comment(s): Optic neuritis. liver disease. History of Any Multi-Drug Resistant Organisms: None Reported Past Surgical History: No Surgical Hx Reported Past Anesthesia/Blood Transfusion Reactions: No Reported Reaction Past Psychological History: Bipolar, Depression Smoking Status: Current every day smoker Past Alcohol Use History: None Reported, Daily, Heavy Past Drug Use History: Marijuana - Past Family History Father Additional Family Medical History / Comment(s): Patient states is father is but will not provide any additional information. He states he does not know his mothers history. He has 2 brothers and 2 step brothers and only one living. They have committed suicide. General Exam General appearance: alert, in no apparent distress, appears intoxicated Head exam: Present: atraumatic, normocephalic, normal inspection Eye exam: Present: normal appearance, PERRL, EOMI. Absent: scleral icterus, conjunctival injection, periorbital swelling ENT exam: Present: normal exam, mucous membranes moist Neck exam: Present: normal inspection. Absent: tenderness, meningismus, lymphadenopathy Respiratory exam: Present: normal lung sounds bilaterally. Absent: respiratory distress, wheezes, rales, rhonchi, stridor Cardiovascular Exam: Present: regular rate, normal rhythm, normal heart sounds. Absent: systolic murmur, diastolic murmur, rubs, gallop, clicks GI/Abdominal exam: Present: soft, normal bowel sounds. Absent: distended, tenderness, guarding, rebound, rigid Extremities exam: Present: normal inspection, full ROM, normal capillary refill. Absent: tenderness, pedal edema, joint swelling, calf tenderness Back exam: Present: normal inspection Neurological exam: Present: alert, oriented X3, CN II-XII intact Psychiatric exam: Present: normal affect, normal mood Skin exam: Present: warm, dry, intact, normal color. Absent: rash Course Vital Signs 06/26/20 02:51 Temperature 98 F Pulse Rate 77 Respiratory 18 Rate Blood Pressure 190/90 O2 Sat by Pulse 100 Oximetry - Reevaluation(s) Reevaluation #1: Medical record is reviewed Patient symptoms are improved and resolved here in the ER Patient informed of results, questions answered Patient is able to ambulate without difficulty, clinically sober Patient feels good for discharge home Medical Decision Making - Medical Decision Making 60 male to the ER for evaluation patient is intoxicated was able sleep it off feels good for discharge home and can be discharged Disposition Clinical Impression: Alcohol use disorder, Alcohol intoxication Disposition: HOME SELF-CARE Condition: Good Instructions (If sedation given, give patient instructions): Alcohol Intoxication (ED) Is patient prescribed a controlled substance at d/c from ED?: No Referrals: Sena Root MD [Primary Care Provider] - 1-2 days
[2020-06-26 03:07] VITALS: BP 190/90; PULSE 77; RESP 18; TEMP 98
== END 2020-06-26 06:56 | disposition home or self-care (01) ==
LOC: EC 02:43
DX: F10.129 Alcohol abuse with intoxication, unspecified (principal); F17.200 Nicotine dependence, unspecified, uncomplicated; Z88.8 Allergy status to other drugs, medicaments and biological substances; Y90.9 Presence of alcohol in blood, level not specified
CPT/HCPCS: 99284

== ENCOUNTER 2020-08-17 21:25 | Emergency (ER) | payer OTHER ==
--- NOTE | 2020-08-17 23:10 | XR ---
EXAMINATION TYPE: XR chest 2V DATE OF EXAM: 08/17/2020 COMPARISON: 02/04/2020 HISTORY: Cough TECHNIQUE: FINDINGS: Heart and mediastinum are normal. Lungs are clear. Diaphragm is normal. Bony thorax appears normal. IMPRESSION: Normal chest. No change.
[2020-08-18] MEDS ORDERED: AMOXIC-POT CLAV 875MG STARTER PACK 2 TAB BTL PO STA (00:46)
--- NOTE | 2020-08-18 00:49 | ED ---
General Adult HPI - General Chief complaint: Upper Respiratory Infection Stated complaint: SOB Time Seen by Provider: 08/18/20 00:24 Source: patient, RN notes reviewed Mode of arrival: ambulatory Limitations: no limitations - History of Present Illness Initial comments: 60-year-old male with a past medical history of asthma, COPD, hyperlipidemia, liver disease presents to the emergency room for inability to breathe through his nose. Patient reports that he feels congested. States it is making his eyes itchy. States he cannot breathe through his nose because of this congestion. States he thinks he needs antibiotics. Patient denies any chest pain or shortness of breath aside from not being able to breathe through his nose.Patient has no other complaints at this time including chest pain, abdominal pain, nausea or vomiting, headache, or visual changes. - Related Data Home Medications Medication Instructions Recorded Confirmed Hydrocodone/Acetaminophen [[place] 1 tab PO TID PRN 04/17/20 04/17/20 10-325] Previous Rx's Medication Instructions Recorded Albuterol Sulfate [Proventil Hfa] 2 puff INHALATION RT-Q6H PRN 30 04/21/20 Days inhaler Atorvastatin [Lipitor] 10 mg PO DAILY 30 Days tab 04/21/20 Levothyroxine Sodium [Synthroid] 75 mcg PO DAILY 30 Days tab 04/21/20 [place] Carbonate 450 mg PO BID 30 Days capsule 04/21/20 Mirtazapine [Remeron] 30 mg PO HS 30 Days tab 04/21/20 Nicotine 14Mg/24Hr Patch [Habitrol] 1 patch TRANSDERM DAILY #30 patch 04/21/20 Tamsulosin [Flomax] 0.4 mg PO DAILY 30 Days cap 04/21/20 tiZANidine [Zanaflex] 4 mg PO TID PRN 30 Days tab 04/21/20 Amoxicillin/Potassium Clav 1 tab PO Q12HR #20 tab 08/18/20 [Augmentin 875-125 Tablet] Loratadine [Claritin] 10 mg PO DAILY #20 tab 08/18/20 Allergies Allergy/AdvReac Type Severity Reaction Status Date / Time quetiapine fumarate Allergy Rash/Hives Verified 04/17/20 22:41 [From Seroquel] Review of Systems ROS Statement: Those systems with pertinent positive or pertinent negative responses have been documented in the HPI. ROS Other: All systems not noted in ROS Statement are negative. Past Medical History Past Medical History: Asthma, COPD, Hyperlipidemia, Liver Disease, Musculoskeletal Disorder, Thyroid Disorder Additional Past Medical History / Comment(s): Optic neuritis. liver disease. History of Any Multi-Drug Resistant Organisms: None Reported Past Surgical History: No Surgical Hx Reported Past Anesthesia/Blood Transfusion Reactions: No Reported Reaction Past Psychological History: Bipolar, Depression Smoking Status: Current every day smoker Past Alcohol Use History: None Reported, Daily, Heavy Past Drug Use History: Marijuana - Past Family History Father Additional Family Medical History / Comment(s): Patient states is father is but will not provide any additional information. He states he does not know his mothers history. He has 2 brothers and 2 step brothers and only one living. They have committed suicide. General Exam Limitations: no limitations General appearance: alert, in no apparent distress Head exam: Present: atraumatic, normocephalic, normal inspection Eye exam: Present: normal appearance, PERRL, EOMI. Absent: scleral icterus, conjunctival injection, periorbital swelling ENT exam: Present: normal exam, mucous membranes moist Neck exam: Present: normal inspection, full ROM. Absent: tenderness, meningismus, lymphadenopathy Respiratory exam: Present: normal lung sounds bilaterally. Absent: respiratory distress, wheezes, rales, rhonchi, stridor Cardiovascular Exam: Present: regular rate, normal rhythm, normal heart sounds. Absent: systolic murmur, diastolic murmur, rubs, gallop, clicks GI/Abdominal exam: Present: soft, normal bowel sounds. Absent: distended, tenderness, guarding, rebound, rigid Course Vital Signs 08/17/20 21:52 Temperature 97.6 F Pulse Rate 89 Respiratory 18 Rate Blood Pressure 145/101 O2 Sat by Pulse 100 Oximetry Medical Decision Making - Medical Decision Making Vitals are stable. Patient is 100% on room air. No tenderness to the frontal sinuses. No erythema or edema. Patient does have poor dentition however no evidence of infection of the throat or gums. Chest x-ray was obtained in triage which shows a normal chest. No change. Patient tested for coronavirus. This is negative. Patient will be discharged home with Augmentin and Claritin. Will return for any worsening symptoms. - Lab Data Lab Results 08/18/20 Range/Units 00:58 Influenza Type A (PCR) Not Detected (Not Detectd) Influenza Type B (PCR) Not Detected (Not Detectd) RSV (PCR) Not Detected (Not Detectd) SARS-CoV-2 (PCR) Not Detected (Not Detectd) Disposition Clinical Impression: Sinusitis Disposition: HOME SELF-CARE Condition: Good Instructions (If sedation given, give patient instructions): Sinusitis (ED) Additional Instructions: Please take antibiotic as directed. Please follow-up with your doctor in one to 2 days. Return to the emergency room for any worsening symptoms. Prescriptions: Amoxicillin/Potassium Clav [Augmentin 875-125 Tablet] 1 tab PO Q12HR #20 tab Loratadine [Claritin] 10 mg PO DAILY #20 tab Is patient prescribed a controlled substance at d/c from ED?: No Referrals: Sena Root MD [Primary Care Provider] - 1-2 days Time of Disposition: 00:49
[2020-08-18 02:23] VITALS: BP 142/89; PULSE 77; RESP 16; TEMP 97.9
== END 2020-08-18 02:22 | disposition home or self-care (01) ==
LOC: EC 21:25
DX: J32.9 Chronic sinusitis, unspecified (principal); K08.9 Disorder of teeth and supporting structures, unspecified; F17.200 Nicotine dependence, unspecified, uncomplicated; Z20.822 Contact with and (suspected) exposure to COVID-19; Z88.8 Allergy status to other drugs, medicaments and biological substances
CPT/HCPCS: 71046; 87636; 99285

== ENCOUNTER 2020-08-19 16:37 | Emergency (ER) | payer OTHER ==
--- NOTE | 2020-08-19 17:18 | ED ---
General Adult HPI - General Chief complaint: Overdose Stated complaint: overdose Time Seen by Provider: 08/19/20 16:40 Source: patient, EMS, RN notes reviewed Mode of arrival: EMS Limitations: no limitations - History of Present Illness Initial comments: Patient is a pleasant 6-year-old male presenting to the emergency department following an overdose. Patient admits to snorting heroin. Narcan provided by EMS with resolution of unresponsiveness per patient denies any injury. Patient has no complaints at this time other than feeling a little bit drowsy. Patient is alert and able to hold conversation. No suicidal thoughts. - Related Data Home Medications Medication Instructions Recorded Confirmed Hydrocodone/Acetaminophen [[place] 1 tab PO TID PRN 04/17/20 04/17/20 10-325] Previous Rx's Medication Instructions Recorded Albuterol Sulfate [Proventil Hfa] 2 puff INHALATION RT-Q6H PRN 30 04/21/20 Days inhaler Atorvastatin [Lipitor] 10 mg PO DAILY 30 Days tab 04/21/20 Levothyroxine Sodium [Synthroid] 75 mcg PO DAILY 30 Days tab 04/21/20 [place] Carbonate 450 mg PO BID 30 Days capsule 04/21/20 Mirtazapine [Remeron] 30 mg PO HS 30 Days tab 04/21/20 Nicotine 14Mg/24Hr Patch [Habitrol] 1 patch TRANSDERM DAILY #30 patch 04/21/20 Tamsulosin [Flomax] 0.4 mg PO DAILY 30 Days cap 04/21/20 tiZANidine [Zanaflex] 4 mg PO TID PRN 30 Days tab 04/21/20 Amoxicillin/Potassium Clav 1 tab PO Q12HR #20 tab 08/18/20 [Augmentin 875-125 Tablet] Loratadine [Claritin] 10 mg PO DAILY #20 tab 08/18/20 Allergies Allergy/AdvReac Type Severity Reaction Status Date / Time quetiapine fumarate Allergy Rash/Hives Verified 08/19/20 16:42 [From Seroquel] Review of Systems ROS Statement: Those systems with pertinent positive or pertinent negative responses have been documented in the HPI. ROS Other: All systems not noted in ROS Statement are negative. Constitutional: Denies: fever Eyes: Denies: eye pain ENT: Denies: ear pain Respiratory: Denies: cough Cardiovascular: Denies: chest pain Endocrine: Denies: fatigue Gastrointestinal: Denies: abdominal pain Genitourinary: Denies: dysuria Musculoskeletal: Denies: back pain Skin: Denies: rash Neurological: Denies: headache, confusion Past Medical History Past Medical History: Asthma, COPD, Hyperlipidemia, Liver Disease, Musculoskeletal Disorder, Thyroid Disorder Additional Past Medical History / Comment(s): Optic neuritis. liver disease. History of Any Multi-Drug Resistant Organisms: None Reported Past Surgical History: No Surgical Hx Reported Past Anesthesia/Blood Transfusion Reactions: No Reported Reaction Past Psychological History: Bipolar, Depression Smoking Status: Current every day smoker Past Alcohol Use History: None Reported, Daily, Heavy Past Drug Use History: Heroin, Marijuana - Past Family History Father Additional Family Medical History / Comment(s): Patient states is father is but will not provide any additional information. He states he does not know his mothers history. He has 2 brothers and 2 step brothers and only one living. They have committed suicide. General Exam Limitations: no limitations General appearance: alert, in no apparent distress Head exam: Present: atraumatic Eye exam: Present: normal appearance, PERRL Neck exam: Present: normal inspection. Absent: tenderness Respiratory exam: Present: normal lung sounds bilaterally Cardiovascular Exam: Present: regular rate, normal rhythm GI/Abdominal exam: Present: soft. Absent: tenderness Extremities exam: Present: normal inspection. Absent: pedal edema, calf tenderness Neurological exam: Present: alert, oriented X3, CN II-XII intact. Absent: motor sensory deficit Psychiatric exam: Present: normal affect, normal mood Skin exam: Present: normal color Course Vital Signs 08/19/20 08/19/20 16:42 17:21 Temperature 97.7 F Pulse Rate 88 84 Respiratory 22 18 Rate Blood Pressure 174/110 147/92 O2 Sat by Pulse 99 100 Oximetry EKG Findings - EKG Comments: EKG Findings:: Normal sinus rhythm at 81. FL 128. QRS 90. QT 388. QTC 450. Right axis. Slow R-wave progression. No acute ST change Medical Decision Making - Medical Decision Making Patient reevaluated and alert and appropriate. Patient is comfortable with discharge. Disposition Clinical Impression: Heroin overdose Disposition: HOME SELF-CARE Condition: Stable Instructions (If sedation given, give patient instructions): Adult Overdose (ED), Opioid Use Disorder (ED) Additional Instructions: Discontinue drug use. Please follow-up with primary care physician in the next day or 2 for recheck. Consider rehab or counselor or Narcotics Anonymous. Is patient prescribed a controlled substance at d/c from ED?: No Referrals: Sena Root MD [Primary Care Provider] - 1-2 days Time of Disposition: 18:41
[2020-08-19 17:26] VITALS: RESP 18
[2020-08-19 19:25] VITALS: BP 135/86; PULSE 99; TEMP 98.1
== END 2020-08-19 19:15 | disposition home or self-care (01) ==
LOC: EC 16:37
DX: T40.1X1A Poisoning by heroin, accidental (unintentional), initial encounter (principal); F17.200 Nicotine dependence, unspecified, uncomplicated; E78.5 Hyperlipidemia, unspecified; J44.9 Chronic obstructive pulmonary disease, unspecified; F12.90 Cannabis use, unspecified, uncomplicated; F32.9 Major depressive disorder, single episode, unspecified
CPT/HCPCS: 93005; 99285

== ENCOUNTER 2020-10-01 19:53 | Emergency (ER) | payer OTHER ==
--- NOTE | 2020-10-01 19:56 | ED ---
General Adult HPI - General Stated complaint: Overdose Time Seen by Provider: 10/01/20 19:55 Source: patient, EMS, RN notes reviewed, old records reviewed - History of Present Illness Initial comments: 60-year-old male with evaluation after heroin overdose. Patient is to snorting $20 of heroin. Police were on scene and did administer intranasal Narcan for reported minimal respirations. By the time paramedics arrived patient was breathing spontaneously but still not alert, IV was established an additional 1 mg of Narcan was administered. The patient denies any suicidal thoughts or suicide attempt. He states this was recreational. He is cooperative with police. No physical complaints. He states that he only uses heroin very infrequently. - Related Data Home Medications Medication Instructions Recorded Confirmed Hydrocodone/Acetaminophen [[place] 1 tab PO TID PRN 04/17/20 04/17/20 10-325] Previous Rx's Medication Instructions Recorded Albuterol Sulfate [Proventil Hfa] 2 puff INHALATION RT-Q6H PRN 30 04/21/20 Days inhaler Atorvastatin [Lipitor] 10 mg PO DAILY 30 Days tab 04/21/20 Levothyroxine Sodium [Synthroid] 75 mcg PO DAILY 30 Days tab 04/21/20 [place] Carbonate 450 mg PO BID 30 Days capsule 04/21/20 Mirtazapine [Remeron] 30 mg PO HS 30 Days tab 04/21/20 Nicotine 14Mg/24Hr Patch [Habitrol] 1 patch TRANSDERM DAILY #30 patch 04/21/20 Tamsulosin [Flomax] 0.4 mg PO DAILY 30 Days cap 04/21/20 tiZANidine [Zanaflex] 4 mg PO TID PRN 30 Days tab 04/21/20 Amoxicillin/Potassium Clav 1 tab PO Q12HR #20 tab 08/18/20 [Augmentin 875-125 Tablet] Loratadine [Claritin] 10 mg PO DAILY #20 tab 08/18/20 Allergies Allergy/AdvReac Type Severity Reaction Status Date / Time quetiapine fumarate Allergy Rash/Hives Verified 08/19/20 16:42 [From Seroquel] Review of Systems ROS Statement: Those systems with pertinent positive or pertinent negative responses have been documented in the HPI. ROS Other: All systems not noted in ROS Statement are negative. Past Medical History Past Medical History: Asthma, COPD, Hyperlipidemia, Liver Disease, Musculoskeletal Disorder, Thyroid Disorder Additional Past Medical History / Comment(s): Optic neuritis. liver disease. History of Any Multi-Drug Resistant Organisms: None Reported Past Surgical History: No Surgical Hx Reported Past Anesthesia/Blood Transfusion Reactions: No Reported Reaction Past Psychological History: Bipolar, Depression Smoking Status: Current every day smoker Past Alcohol Use History: None Reported, Daily, Heavy Past Drug Use History: Heroin, Marijuana - Past Family History Father Additional Family Medical History / Comment(s): Patient states is father is but will not provide any additional information. He states he does not know his mothers history. He has 2 brothers and 2 step brothers and only one living. They have committed suicide. General Exam General appearance: alert, in no apparent distress Head exam: Present: atraumatic, normocephalic Eye exam: Present: normal appearance, PERRL ENT exam: Present: normal exam Neck exam: Present: normal inspection. Absent: tenderness, meningismus Respiratory exam: Present: normal lung sounds bilaterally. Absent: respiratory distress, wheezes Cardiovascular Exam: Present: normal rhythm, tachycardia GI/Abdominal exam: Present: soft. Absent: distended, tenderness, guarding, rebound Extremities exam: Present: normal inspection, normal capillary refill. Absent: pedal edema Neurological exam: Present: alert, oriented X3, CN II-XII intact. Absent: motor sensory deficit Psychiatric exam: Present: depressed. Absent: suicidal ideation Skin exam: Present: warm, dry, intact. Absent: cyanosis, diaphoretic Course Vital Signs 10/01/20 19:54 Temperature 98.1 F Pulse Rate 105 H Respiratory 16 Rate Blood Pressure 127/83 O2 Sat by Pulse 97 Oximetry Medical Decision Making - Medical Decision Making Patient alert and oriented stable vitals. Patient does not want to wait in the emergency department. He will not agree to observation after Narcan administration. He is informed of the risks and chooses to leave despite these risks. Patient is alert and oriented and able to make his own decisions at the time of discharge. Disposition Clinical Impression: Drug overdose, Heroin overdose Disposition: HOME SELF-CARE Condition: Fair Instructions (If sedation given, give patient instructions): Adult Overdose (ED) Is patient prescribed a controlled substance at d/c from ED?: No Referrals: Sena Root MD [Primary Care Provider] - 1-2 days Time of Disposition: 20:09
[2020-10-01 20:05] VITALS: BP 127/83; PULSE 105; RESP 16; TEMP 98.1
== END 2020-10-01 20:10 | disposition home or self-care (01) ==
LOC: EC 19:53
DX: T40.1X1A Poisoning by heroin, accidental (unintentional), initial encounter (principal); E78.5 Hyperlipidemia, unspecified; F17.200 Nicotine dependence, unspecified, uncomplicated; J44.9 Chronic obstructive pulmonary disease, unspecified; F32.9 Major depressive disorder, single episode, unspecified; F12.90 Cannabis use, unspecified, uncomplicated; E07.9 Disorder of thyroid, unspecified
CPT/HCPCS: 99284

== ENCOUNTER 2020-10-26 20:37 | Emergency (ER) | payer OTHER ==
[2020-10-26 20:44] VITALS: TEMP 98.1
--- NOTE | 2020-10-26 21:18 | ED ---
General Adult HPI - General Chief complaint: Overdose Stated complaint: Overdose Time Seen by Provider: 10/26/20 20:40 Source: patient, EMS, RN notes reviewed, old records reviewed Mode of arrival: EMS Limitations: no limitations - History of Present Illness Initial comments: 60-year-old male with heroin overdose. Patient was found by EMS with agonal r espirations, pinpoint pupils. He has a strong pulse. He received BVM for approximately 60 seconds. He did have an IV established and 1 mg of IV Narcan was administered. Patient is alert and oriented to time my evaluation with no complaints. He states this was an accidental overdose. This was not a suicide attempt. He has been known to use both intranasal and IV heroin. He admits to using IV heroin earlier today. - Related Data Home Medications Medication Instructions Recorded Confirmed Hydrocodone/Acetaminophen [[place] 1 tab PO TID PRN 04/17/20 04/17/20 10-325] Previous Rx's Medication Instructions Recorded Albuterol Sulfate [Proventil Hfa] 2 puff INHALATION RT-Q6H PRN 30 04/21/20 Days inhaler Atorvastatin [Lipitor] 10 mg PO DAILY 30 Days tab 04/21/20 Levothyroxine Sodium [Synthroid] 75 mcg PO DAILY 30 Days tab 04/21/20 [place] Carbonate 450 mg PO BID 30 Days capsule 04/21/20 Mirtazapine [Remeron] 30 mg PO HS 30 Days tab 04/21/20 Nicotine 14Mg/24Hr Patch [Habitrol] 1 patch TRANSDERM DAILY #30 patch 04/21/20 Tamsulosin [Flomax] 0.4 mg PO DAILY 30 Days cap 04/21/20 tiZANidine [Zanaflex] 4 mg PO TID PRN 30 Days tab 04/21/20 Amoxicillin/Potassium Clav 1 tab PO Q12HR #20 tab 08/18/20 [Augmentin 875-125 Tablet] Loratadine [Claritin] 10 mg PO DAILY #20 tab 08/18/20 Allergies Allergy/AdvReac Type Severity Reaction Status Date / Time quetiapine fumarate Allergy Rash/Hives Verified 08/19/20 16:42 [From Seroquel] Review of Systems ROS Statement: Those systems with pertinent positive or pertinent negative responses have been documented in the HPI. ROS Other: All systems not noted in ROS Statement are negative. Past Medical History Past Medical History: Asthma, COPD, Hyperlipidemia, Liver Disease, Musculoskeletal Disorder, Thyroid Disorder Additional Past Medical History / Comment(s): Optic neuritis. liver disease. History of Any Multi-Drug Resistant Organisms: None Reported Past Surgical History: No Surgical Hx Reported Past Anesthesia/Blood Transfusion Reactions: No Reported Reaction Past Psychological History: Bipolar, Depression Smoking Status: Current every day smoker Past Alcohol Use History: None Reported, Daily, Heavy Past Drug Use History: Heroin, Marijuana - Past Family History Father Additional Family Medical History / Comment(s): Patient states is father is but will not provide any additional information. He states he does not know his mothers history. He has 2 brothers and 2 step brothers and only one living. They have committed suicide. General Exam Limitations: no limitations General appearance: alert, in no apparent distress Head exam: Present: atraumatic, normocephalic Eye exam: Present: normal appearance, PERRL ENT exam: Present: normal exam Neck exam: Present: normal inspection. Absent: tenderness Respiratory exam: Present: normal lung sounds bilaterally. Absent: respiratory distress, wheezes Cardiovascular Exam: Present: regular rate, normal rhythm GI/Abdominal exam: Present: soft. Absent: distended, tenderness, guarding Extremities exam: Present: normal inspection, normal capillary refill Neurological exam: Present: alert, oriented X3. Absent: motor sensory deficit Psychiatric exam: Present: normal affect, normal mood Skin exam: Present: warm, dry, intact Course Vital Signs 10/26/20 20:39 Temperature 98.1 F Pulse Rate 101 H Respiratory 16 Rate Blood Pressure 125/101 O2 Sat by Pulse 94 L Oximetry Medical Decision Making - Medical Decision Making Patient with heroin overdose. He is observed in the emergency department for approximately 60 minutes. This time patient is eager for discharge. Disposition Clinical Impression: Heroin overdose, Drug overdose Disposition: HOME SELF-CARE Condition: Fair Instructions (If sedation given, give patient instructions): Adult Overdose (ED) Is patient prescribed a controlled substance at d/c from ED?: No Referrals: None,Stated [Primary Care Provider] - 1-2 days Joseph Baca [STAFF PHYSICIAN] - 1-2 days Time of Disposition: 21:17
[2020-10-26 21:28] VITALS: PULSE 93; RESP 12
[2020-10-26 21:43] VITALS: BP 150/117
== END 2020-10-26 21:47 | disposition home or self-care (01) ==
LOC: EC 20:37
DX: T40.1X1A Poisoning by heroin, accidental (unintentional), initial encounter (principal); J44.9 Chronic obstructive pulmonary disease, unspecified; E78.5 Hyperlipidemia, unspecified; F31.9 Bipolar disorder, unspecified; F12.90 Cannabis use, unspecified, uncomplicated; F17.200 Nicotine dependence, unspecified, uncomplicated; Z79.890 Hormone replacement therapy; Z79.891 Long term (current) use of opiate analgesic; Z79.899 Other long term (current) drug therapy
CPT/HCPCS: 99284

== ENCOUNTER 2020-11-05 01:40 | Emergency (ER) | payer OTHER ==
[2020-11-05 01:45] VITALS: BP 140/103; PULSE 95; RESP 22; TEMP 98.2
[2020-11-05] MEDS ORDERED: SODIUM CHLORIDE 0.9% 1,000 ML IV ONE (02:20)
[2020-11-05] MEDS ORDERED: THIAMINE 100 MG TAB PO STA (02:21)
== END 2020-11-05 02:33 | disposition left against medical advice (07) ==
LOC: EC 01:40
DX: Z53.21 Procedure and treatment not carried out due to patient leaving prior to being seen by health care provider (principal)
CPT/HCPCS: 99499

== ENCOUNTER 2020-11-30 13:01 | Inpatient (IN) | payer OTHER ==
--- NOTE | 2020-11-30 14:16 | ED ---
General Adult HPI - General Chief complaint: Psychiatric Symptoms Stated complaint: mental health Time Seen by Provider: 11/30/20 13:51 Source: patient, Caregiver Mode of arrival: ambulatory Limitations: no limitations - History of Present Illness Initial comments: 60-year-old male with a a past psychiatric history of bipolar disorder presents to the emergency room for a chief complaint of suicidal thoughts. Patient reports that he has been suicidal for months and has tried to overdose on heroin several times. Patient states that he feels that he is a danger to himself and so today he went in for the program eligibility specialist and was ordered to come to the hospital. Patient has not been taking his medication including lithium for several months at least but is unsure of how long. Patient states his plan today is to overdose on heroin to kill himself.Patient has no other complaints at this time including shortness of breath, chest pain, abdominal pain, nausea or vomiting, headache, or visual changes. - Related Data Home Medications Medication Instructions Recorded Confirmed Albuterol Sulfate [Proair Hfa] 2 puff INHALATION RT-Q6H PRN 11/30/20 11/30/20 Divalproex ER [Depakote ER] 500 mg PO BID 11/30/20 11/30/20 Meloxicam [Mobic] 15 mg PO DAILY 11/30/20 11/30/20 Omeprazole 20 mg PO DAILY 11/30/20 11/30/20 traZODone HCL 100 mg PO HS 11/30/20 11/30/20 Previous Rx's Medication Instructions Recorded Levothyroxine Sodium [Synthroid] 75 mcg PO DAILY 30 Days tab 04/21/20 Tamsulosin [Flomax] 0.4 mg PO DAILY 30 Days cap 04/21/20 tiZANidine [Zanaflex] 4 mg PO TID PRN 30 Days tab 04/21/20 Loratadine [Claritin] 10 mg PO DAILY #20 tab 08/18/20 Allergies Allergy/AdvReac Type Severity Reaction Status Date / Time quetiapine fumarate Allergy Rash/Hives Verified 11/30/20 16:17 [From Seroquel] Review of Systems ROS Statement: Those systems with pertinent positive or pertinent negative responses have been documented in the HPI. ROS Other: All systems not noted in ROS Statement are negative. Past Medical History Past Medical History: Asthma, COPD, Hyperlipidemia, Liver Disease, Musculoskeletal Disorder, Thyroid Disorder Additional Past Medical History / Comment(s): Optic neuritis. liver disease. History of Any Multi-Drug Resistant Organisms: None Reported Past Surgical History: No Surgical Hx Reported Past Anesthesia/Blood Transfusion Reactions: No Reported Reaction Past Psychological History: Bipolar, Depression Smoking Status: Current every day smoker Past Alcohol Use History: None Reported, Daily, Heavy Past Drug Use History: Heroin, Marijuana - Past Family History Father Additional Family Medical History / Comment(s): Patient states is father is but will not provide any additional information. He states he does not know his mothers history. He has 2 brothers and 2 step brothers and only one living. They have committed suicide. General Exam Limitations: no limitations General appearance: alert Head exam: Present: atraumatic Eye exam: Present: normal appearance, PERRL, EOMI. Absent: scleral icterus ENT exam: Present: normal exam, mucous membranes moist Neck exam: Present: normal inspection, full ROM. Absent: tenderness Respiratory exam: Present: normal lung sounds bilaterally. Absent: respiratory distress, wheezes Cardiovascular Exam: Present: regular rate, normal rhythm, normal heart sounds GI/Abdominal exam: Present: soft, normal bowel sounds. Absent: distended, tenderness, guarding, rebound, rigid Neurological exam: Present: alert Psychiatric exam: Present: suicidal ideation. Absent: homicidal ideation Course Vital Signs 11/30/20 11/30/20 13:24 17:10 Temperature 98.3 F 98.1 F Pulse Rate 112 H Pulse Rate [ 96 Right] Respiratory 19 20 Rate Blood Pressure 136/100 Blood Pressure 146/96 [Right Arm] O2 Sat by Pulse 97 Oximetry Medical Decision Making - Medical Decision Making Patient admitted for suicidal thoughts. - Lab Data Lab Results 11/30/20 Range/Units 15:11 Urine Opiates Screen Not Detected (NotDetected) Ur Oxycodone Screen Not Detected (NotDetected) Urine Methadone Screen Not Detected (NotDetected) Ur Propoxyphene Screen Not Detected (NotDetected) Ur Barbiturates Screen Detected H (NotDetected) U Tricyclic Antidepress Not Detected (NotDetected) Ur Phencyclidine Scrn Not Detected (NotDetected) Ur Amphetamines Screen Not Detected (NotDetected) U Methamphetamines Scrn Not Detected (NotDetected) U Benzodiazepines Scrn Not Detected (NotDetected) Urine Cocaine Screen Not Detected (NotDetected) U Marijuana (THC) Screen Detected H (NotDetected) Disposition Clinical Impression: Suicidal ideation Disposition: TRANSFER TO PSYCH HOSP/UNIT Is patient prescribed a controlled substance at d/c from ED?: No Time of Disposition: 19:37
[2020-11-30 15:33] LABS: Amphetamine Screen,Urine Not Detected (NotDetected); Barbiturate Screen,Urine Detected (NotDetected); Benzodiazepines Screen,Urine Not Detected (NotDetected); Cocaine Screen,Urine Not Detected (NotDetected); Methadone Screen, Urine Not Detected (NotDetected); Opiate Screen,Urine Not Detected (NotDetected); Oxycodone Screen, Urine Not Detected (NotDetected); Phencyclidine Screen,Urine Not Detected (NotDetected); Tricyclic Antidepressant,Urine Not Detected (NotDetected); Urn Cannabinoid Scrn Detected (NotDetected)
[2020-11-30] MEDS ORDERED: MAGNESIUM HYDROXIDE 2,400 MG/10 ML CUP PO PRN (17:11)
[2020-11-30] MEDS ORDERED: MAG HYDROX/AL HYDROX/SIMETH 30 ML CUP PO PRN (17:11)
[2020-11-30] MEDS ORDERED: ACETAMINOPHEN TAB 325 MG TAB PO PRN (17:11)
[2020-11-30] MEDS ORDERED: LORazepam 2 MG/ML INJ IM PRN (17:18)
[2020-11-30] MEDS ORDERED: HALOPERIDOL LACTATE 5 MG/ML 1 ML VIAL IM PRN (17:19)
[2020-11-30] MEDS: LORazepam 1 MG TAB PO PRN (18:22)
[2020-11-30 18:36] LABS: Lithium <0.2 mmol/L
[2020-11-30 18:44] LABS: Valproic Acid (Depakene) <10.0 ug/mL
[2020-12-01 08:01] LABS: ALT 78 U/L (4-49); AST 68 U/L (17-59); African American GFR (CKD) >90 (>60 ml/min/1.73 sqM); Albumin 4.4 g/dL (3.5-5.0); Alkaline Phosphatase 66 U/L (38-126); Anion Gap 7 mmol/L; Blood Urea Nitrogen 18 mg/dL (9-20); Carbon Dioxide 29 mmol/L (22-30); Chloride 103 mmol/L (98-107); Glucose 97 mg/dL (74-99); Non-African American GFR(CKD) >90 (>60 ml/min/1.73 sqM); Potassium 4.3 mmol/L (3.5-5.1); Sodium 139 mmol/L (137-145); Total Bilirubin 0.8 mg/dL (0.2-1.3); Total Protein 7.5 g/dL (6.3-8.2)
[2020-12-01 08:07] LABS: Basophils # (A) 0.1 k/uL (0-0.2); Basophils % (A) 1 %; Eosinophils # (A) 0.2 k/uL (0-0.7); Eosinophils % (A) 4 %; HCT 50.8 % (39.0-53.0); HGB 17.3 gm/dL (13.0-17.5); Lymphocytes # (A) 1.8 k/uL (1.0-4.8); Lymphocytes % (A) 31 %; MCV 99.8 fL (80.0-100.0); Monocytes # (A) 0.8 k/uL (0-1.0); Monocytes % (A) 14 %; Neutrophils # (A) 2.6 k/uL (1.3-7.7); Neutrophils % (A) 46 %; Platelet Count 192 k/uL (150-450); RBC 5.09 m/uL (4.30-5.90); RDW 12.9 % (11.5-15.5); WBC 5.7 k/uL (3.8-10.6)
[2020-12-01] MEDS: LORazepam 1 MG TAB PO PRN (08:42)
--- NOTE | 2020-12-01 10:20 | P.CONS ---
History of Present Illness - Reason for Consult Consult date: 12/01/20 ( ) medical managmente Requesting physician: Rahul Preciado - Chief Complaint Depression with suicidal ideation - History of Present Illness This is a 60-year-old male who presented to the ER with depression and suicidal ideation. Patient has a past medical history of bipolar disorder and drug abuse. According to ER report patient had tried to overdose on heroin several times over the past month. Patient has not been taking his home medications. Patient also reports he has been drinking heavily daily [id number]. Patient reports he drinks vodka. At this time patient denies any recent illness. Patient denies chest pain or shortness of breath. Patient denies nausea vomiting or diarrhea. Patient denies any urinary burning or frequency. Patient has been admitted to the mental health Unit. Review of Systems Please refer to HPI otherwise unremarkable Past Medical History Past Medical History: Asthma, COPD, Hyperlipidemia, Liver Disease, Musculoskeletal Disorder, Thyroid Disorder Additional Past Medical History / Comment(s): Optic neuritis. liver disease. History of Any Multi-Drug Resistant Organisms: None Reported Past Surgical History: No Surgical Hx Reported Past Anesthesia/Blood Transfusion Reactions: No Reported Reaction Past Psychological History: Bipolar, Depression Smoking Status: Current every day smoker Past Alcohol Use History: None Reported, Daily, Heavy Past Drug Use History: Heroin, Marijuana - Past Family History Father Additional Family Medical History / Comment(s): Patient states is father is but will not provide any additional information. He states he does not know his mothers history. He has 2 brothers and 2 step brothers and only one living. They have committed suicide. Medications and Allergies Home Medications Medication Instructions Recorded Confirmed Type Levothyroxine Sodium [Synthroid] 75 mcg PO DAILY 30 Days tab 04/21/20 11/30/20 Rx Tamsulosin [Flomax] 0.4 mg PO DAILY 30 Days cap 04/21/20 11/30/20 Rx tiZANidine [Zanaflex] 4 mg PO TID PRN 30 Days tab 04/21/20 11/30/20 Rx Loratadine [Claritin] 10 mg PO DAILY #20 tab 08/18/20 11/30/20 Rx Albuterol Sulfate [Proair Hfa] 2 puff INHALATION RT-Q6H PRN 11/30/20 11/30/20 History Divalproex ER [Depakote ER] 500 mg PO BID 11/30/20 11/30/20 History Meloxicam [Mobic] 15 mg PO DAILY 11/30/20 11/30/20 History Omeprazole 20 mg PO DAILY 11/30/20 11/30/20 History traZODone HCL 100 mg PO HS 11/30/20 11/30/20 History Allergies Allergy/AdvReac Type Severity Reaction Status Date / Time quetiapine fumarate Allergy Rash/Hives Verified 11/30/20 16:17 [From Seroquel] Physical Exam Vitals: Vital Signs Temp Pulse Pulse Resp BP BP Pulse Ox 12/01/20 08:38 98.2 F 69 18 145/84 11/30/20 17:10 98.1 F 96 20 146/96 11/30/20 13:24 98.3 F 112 H 19 136/100 97 Intake and Output 11/30/20 12/01/20 12/01/20 22:59 06:59 14:59 Other: Weight 66.678 kg Head normocephalic Neck supple Lungs clear to auscultation bilaterally no wheezing or crackles Heart regular rate and rhythm S1-S2, no rub or gallop Abdomen is soft nontender nondistended positive bowel sounds no hepatosplenomegaly Extremities no edema Neuro alert and orientated to 3 Results CBC & Chem 7: 12/01/20 07:05 12/01/20 07:05 Labs: Abnormal Lab Results - Last 24 Hours (Table) 11/30/20 12/01/20 Range/Units 15:11 07:05 AST 68 H (17-59) U/L ALT 78 H (4-49) U/L Ur Barbiturates Screen Detected H (NotDetected) U Marijuana (THC) Screen Detected H (NotDetected) Assessment and Plan Assessment: 1. Depression with suicidal ideation 2. EtOH abuse 3. Heroin abuse 4. History of hypothyroidism 5. History of hyperlipidemia 6. History of COPD no exacerbation at this time 7. History of bipolar 8. Nicotine dependence Time with Patient: Greater than 30 (Greater than 60% of the total time spent in counseling and coordination of care)
[2020-12-01 11:35] LABS: Chol/HDL Ratio 2.55; Cholesterol 166 mg/dL (0-200); LDL Cholesterol,Calculated 84.2 mg/dL (0.0-131.0)
[2020-12-01] MEDS ORDERED: ALBUTEROL INHALER 60 PUFF/8 GM INHALER (MHU) INHALATION PRN (14:03)
--- NOTE | 2020-12-01 14:14 | P.HP ---
Psychiatric H&P - . H&P Date: 12/01/20 History & Physical: Allergies Allergy/AdvReac Type Severity Reaction Status Date / Time quetiapine fumarate Allergy Rash/Hives Verified 11/30/20 16:17 [From Seroquel] Vital Signs Temp 98.2 F 12/01/20 08:38 Pulse 69 12/01/20 08:38 Resp 18 12/01/20 08:38 BP 145/84 12/01/20 08:38 Pulse Ox 97 11/30/20 13:24 Intake & Output 11/30/20 12/01/20 12/01/20 18:59 06:59 18:59 Weight 66.678 kg Laboratory Last Values WBC 5.7 k/uL (3.8-10.6) 12/01/20 07:05 RBC 5.09 m/uL (4.30-5.90) 12/01/20 07:05 Hgb 17.3 gm/dL (13.0-17.5) 12/01/20 07:05 Hct 50.8 % (39.0-53.0) 12/01/20 07:05 MCV 99.8 fL (80.0-100.0) 12/01/20 07:05 MCH 34.0 pg (25.0-35.0) 12/01/20 07:05 MCHC 34.0 g/dL (31.0-37.0) 12/01/20 07:05 RDW 12.9 % (11.5-15.5) 12/01/20 07:05 Plt Count 192 k/uL (150-450) 12/01/20 07:05 MPV 8.0 12/01/20 07:05 Neutrophils % 46 % 12/01/20 07:05 Lymphocytes % 31 % 12/01/20 07:05 Monocytes % 14 % 12/01/20 07:05 Eosinophils % 4 % 12/01/20 07:05 Basophils % 1 % 12/01/20 07:05 Neutrophils # 2.6 k/uL (1.3-7.7) 12/01/20 07:05 Lymphocytes # 1.8 k/uL (1.0-4.8) 12/01/20 07:05 Monocytes # 0.8 k/uL (0-1.0) 12/01/20 07:05 Eosinophils # 0.2 k/uL (0-0.7) 12/01/20 07:05 Basophils # 0.1 k/uL (0-0.2) 12/01/20 07:05 Sodium 139 mmol/L (137-145) 12/01/20 07:05 Potassium 4.3 mmol/L (3.5-5.1) 12/01/20 07:05 Chloride 103 mmol/L (98-107) 12/01/20 07:05 Carbon Dioxide 29 mmol/L (22-30) 12/01/20 07:05 Anion Gap 7 mmol/L 12/01/20 07:05 BUN 18 mg/dL (9-20) 12/01/20 07:05 Creatinine 0.77 mg/dL (0.66-1.25) 12/01/20 07:05 Est GFR (CKD-EPI)AfAm >90 (>60 ml/min/1.73 sqM) 12/01/20 07:05 Est GFR (CKD-EPI)NonAf >90 (>60 ml/min/1.73 sqM) 12/01/20 07:05 Glucose 97 mg/dL (74-99) 12/01/20 07:05 Calcium 10.0 mg/dL (8.4-10.2) 12/01/20 07:05 Total Bilirubin 0.8 mg/dL (0.2-1.3) 12/01/20 07:05 AST 68 U/L (17-59) H 12/01/20 07:05 ALT 78 U/L (4-49) H 12/01/20 07:05 Alkaline Phosphatase 66 U/L (38-126) 12/01/20 07:05 Total Protein 7.5 g/dL (6.3-8.2) 12/01/20 07:05 Albumin 4.4 g/dL (3.5-5.0) 12/01/20 07:05 TSH 3.970 mIU/L (0.465-4.680) 12/01/20 07:05 Urine Opiates Screen Not Detected (NotDetected) 11/30/20 15:11 Ur Oxycodone Screen Not Detected (NotDetected) 11/30/20 15:11 Urine Methadone Screen Not Detected (NotDetected) 11/30/20 15:11 Ur Propoxyphene Screen Not Detected (NotDetected) 11/30/20 15:11 Ur Barbiturates Screen Detected (NotDetected) H 11/30/20 15:11 Valproic Acid <10.0 ug/mL 11/30/20 18:05 U Tricyclic Antidepress Not Detected (NotDetected) 11/30/20 15:11 Ur Phencyclidine Scrn Not Detected (NotDetected) 11/30/20 15:11 Ur Amphetamines Screen Not Detected (NotDetected) 11/30/20 15:11 U Methamphetamines Scrn Not Detected (NotDetected) 11/30/20 15:11 U Benzodiazepines Scrn Not Detected (NotDetected) 11/30/20 15:11 [place] <0.2 mmol/L 11/30/20 18:05 Urine Cocaine Screen Not Detected (NotDetected) 11/30/20 15:11 U Marijuana (THC) Screen Detected (NotDetected) H 11/30/20 15:11 12/01/20 10:03 IDENTIFYING DATA: Patient is a 60-year-old male with a history of bipolar disorder and alcohol use disorder, Currently single has no kids and was coming from [facility]. HPI: Patient presented to the hospital and reported in the ER of suicidal ideations Having a history of bipolar disorder. Patient also has admitted to be noncompliant with his medications for several months now. He mentioned that he tried to overdose multiple times on heroin in the recent past. Patient's UDS was positive for barbiturates and THC. Patient was seen today by advertising copywriter and agreeable to speak to advertising copywriter in the office for evaluation. Patient claims that she has been noncompliant with his psychiatric medications and claims that he sees Dr. Yen at [facility]. He states that he was at rehab and told the coin machine supervisor that he violated the hip a lot. He states that he became upset afterwards and told him to leave the property. He rambled significantly about his therapist about his treatment at [facility] and claims that he relapsed back on alcohol. He states that he does have a history of withdrawals And currently claims that he feels tremulous and "shaky". He also is endorsing depression and anxiety. He states that he came into the hospital feeling "manic" and states that he went to see Judge Millard who had him picked up and taken to the hospital. He states that his sleep has been poor. He claims that he has attempted to overdose approximately 5 times in the past month on heroin. He claims that his sleep has been poor. He states that he has been drinking approximately a fifth of vodka a day. Patient denies any suicidal or homicidal ideations intent or plan. At this time patient denies any auditory or visual hallucinations. Patient denies any flight of ideas racing thoughts and increased in goal directed behavior. Patient admits to using Cigarettes daily, marijuana occasionally, heroin occasionally and states that he drinks alcohol as listed above. PAST PSYCHIATRIC HISTORY: Patient states that He has a history of alcohol use disorder and bipolar disorder. Patient was previously on Depakote, lithium, Remeron. Patient's last psychiatric admission was in March 2020 on the mental health unit. Patient claims that he follows up at [facility] with Dr. Lott. Things that he has had several suicide attempts in the past and most recently in the past month 5 times attempted to overdose on heroin. Past Medical History: Asthma, COPD, Hyperlipidemia, Liver Disease, Musculoskeletal Disorder, Thyroid Disorder Additional Past Medical History / Comment(s): Optic neuritis. liver disease. ALLERGIES: as per EMR CHEMICAL DEPENDENCY HISTORY: as per HPI FAMILY PSYCHIATRIC/SUBSTANCE USE HISTORY: He states that 4 of his brothers have committed suicide. SOCIAL HISTORY: Patient was born and raised in [facility]. He states that he completed his GED and did some college. He states that he is currently on SSI. [facility] has no kids. He states that he was in custodial for 15 years 30 years ago for criminal sexual conduct. MENTAL STATUS EXAM: General Appearance: Patient appears to be Wrapped in blankets, stated age is alert, [directable, and attempts to cooperate]. Patient appears to have [poor] hygiene and grooming. Behavior: Patient is seated without any agitated behavior. [] Speech: Patient's speech is [fluent and nonpressured.] Direct and concrete. Mood/Affect: Patient reports their mood is [depressed And anxious], affect is congruent and constricted. Suicidality/Homicidality: Patient denies having any homicidal ideation intent or plan. [Denies any suicidal ideations intent or plan] Perceptions: Patient denies any visual hallucinations [and denies any auditory hallucinations] Though content/process: [There is no evidence of any delusional thought content. He rambles significantly and is tangential. Focused on his stressors. Memory and concentration: AOX3, grossly intact for the purposes of this session. Can spell "WORLD" backwards Judgment and insight: [poor] STRENGTHS/WEAKNESSES: strength is that patient is [resilient]. Weakness is that patient [has poor judgment and has poor social support] INTELLECT: [average] IMPRESSIONS: Bipolar disorder, mixed episode Alcohol use disorder, currently in withdrawal Opiate abuse Cannabis use disorder mild Nicotine dependence PLAN: -Patient is admitted under [voluntary] status to MHU for stabilization of psychiatric symptoms and safety. Patient has signed [adult voluntary form and] [medication consent] and is placed in patient's chart. -Medications : Will start patient on Zyprexa 2.5 mg daily at bedtime for insomnia/mood stabilization. Depakote 1000 mg daily at bedtime for mood stabilization. Valium 2 mg 3 times a day for alcohol withdrawal. -Ativan [and Haldol] PRN for agitation/aggression [-Started thiamine, MVM for etoh use] [-CIWA protocol with Ativan PRN for ETOH withdrawal] [-Patient was counselled on substance abuse and desired to cut back on use] -Patient was informed of the risks, benefits and side effects of the medication and patient verbally consented to taking the medications. Patient signed med consent form and was placed in chart. -Internal Medicine consult to perform medical evaluation and physical. -NRT - [nicotine patch] -SW on board for discharge planning. Encourage patient to participate in groups to work on coping skills. 12/01/20 14:07
[2020-12-01] MEDS: LEVOTHYROXINE 75 MCG TAB PO SCH (14:32)
[2020-12-01] MEDS: NICOTINE 14MG/24HR PATCH TRANSDERM SCH ×2 (14:32→14:38)
[2020-12-01] MEDS: TAMSULOSIN 0.4 MG CAP.ER.24H PO SCH (14:32)
[2020-12-01] MEDS: LORATADINE 10 MG TAB PO SCH (14:32)
[2020-12-01] MEDS: diazePAM 2 MG TAB PO SCH ×2 (14:32→20:18)
[2020-12-01] MEDS: MELOXICAM 7.5 MG TAB PO SCH (14:32)
[2020-12-01 18:54] LABS: Hemoglobin A1C 5.1 % (4.0-6.0)
[2020-12-01] MEDS: DIVALPROEX ER 500 MG TAB.ER.24H PO SCH (20:17)
[2020-12-01] MEDS ORDERED: OLANZapine 2.5 MG TAB PO SCH (21:00)
[2020-12-02] MEDS: LEVOTHYROXINE 75 MCG TAB PO SCH (06:17)
[2020-12-02] MEDS: NICOTINE 14MG/24HR PATCH TRANSDERM SCH (09:35)
[2020-12-02] MEDS: TAMSULOSIN 0.4 MG CAP.ER.24H PO SCH (09:40)
[2020-12-02] MEDS: LORATADINE 10 MG TAB PO SCH (09:40)
[2020-12-02] MEDS: MELOXICAM 7.5 MG TAB PO SCH (09:40)
[2020-12-02] MEDS: FOLIC ACID 1 MG TAB PO SCH (09:40)
[2020-12-02] MEDS: THIAMINE 100 MG TAB PO SCH (09:41)
[2020-12-02] MEDS: diazePAM 2 MG TAB PO SCH ×2 (09:41→20:29)
[2020-12-02] MEDS: MULTIVITAMINS, THERA 1 EACH TAB PO SCH (09:41)
[2020-12-02 09:59] VITALS: RESP 16
--- NOTE | 2020-12-02 11:01 | P.PN ---
Progress Note - Text Progress Note Date: 12/02/20 Interval History: Patient was seen lying in his bed this morning and was directable and agreeable to speak with loan underwriter in his room however did not want to get out of his bed today. He states that he is feeling very irritable today and claims that he has "snapping at everyone". He claims that he has a low frustration tolerance and does not understand why. He claims that he is not able to sleep fairly last night and was fairly preoccupied with trazodone and his nighttime medications. He has mildly improved mood and anxiety and states that his withdrawals have been improving since yesterday. He is denying any tremors today. He states that he slept approximately 1-2 hours last night. He states that his appetite is fair. At this time patient denies any suicidal or homical ideations, intent or plan. Patient denies any auditory, visual hallucinations and denies any paranoia or delusions. Patient denies any side effects from the medications and has been compliant with meds. Mental Status Exam: General Appearance: Patient appears to be wrapped in blankets, stated age is alert, irritable however at times to cooperate. Patient appears to have poor hygiene and grooming. Behavior: Patient is seated without any agitated behavior. Irritable Speech: Patient's speech is fluent and nonpressured. Direct and concrete. Mood/Affect: Patient reports their mood is improving mildly, affect is congruent Suicidality/Homicidality: Patient denies having any homicidal ideation intent or plan. Denies any suicidal ideations intent or plan Perceptions: Patient denies any visual hallucinations and denies any auditory hallucinations Though content/process: There is no evidence of any delusional thought content. He rambles. Focused on his stressors and his medications. Memory and concentration: AOX3, grossly intact for the purposes of this session. Judgment and insight: poor, improving mildly Assessment Bipolar disorder, mixed episode Alcohol use disorder, currently in withdrawal Opiate abuse Cannabis use disorder mild Nicotine dependence Plan: -Patient continues to meet criteria for inpatient psychiatric admission for symptom stabilization and safety. Patient has signed adult voluntary form and medication consent and was placed in patient's chart. -Medications: Increase Zyprexa to 7.5 mg daily at bedtime for insomnia/mood stabilization. Continue Depakote 1000 mg daily at bedtime for mood stabilization. decreased valium 2mg bid for alcohol withdrawal -thiamine, MVM for etoh use -CIWA protocol with Ativan PRN for ETOH withdrawal -When necessary Ativan and Haldol for agitation/aggression. -NRT - nicotine patch -SW on board for discharge planning. Encouraged the patient to participate in milieu.
--- NOTE | 2020-12-02 14:31 | P.PN ---
Subjective Progress Note Date: 12/02/20 This is a 60-year-old male who presented to the ER with depression and suicidal ideation. Patient has a past medical history of bipolar disorder and drug abuse. According to ER report patient had tried to overdose on heroin several times over the past month. Patient has not been taking his home medications. Patient also reports he has been drinking heavily daily [id number]. Patient reports he drinks vodka. At this time patient denies any recent illness. Patient denies chest pain or shortness of breath. Patient denies nausea vomiting or diarrhea. Patient denies any urinary burning or frequency. Patient has been admitted to the mental health Unit. On 12/02/2020 patient was seen and examined in the psychiatry unit, he is alert and oriented 3 in no apparent distress, he is complaining that he is not receiving any of his medications including his thyroid medications and his pros arcos medication, otherwise he denies any complaints, I did review patient order and medications, he is receiving Synthroid 75 g daily and receiving Flomax 0.4 mg by mouth once daily, I will continue with the same, TSH level was done on admission and was normal at 3.97 Objective - Vital Signs Vital signs: Vital Signs Temp 98.5 F 12/02/20 09:00 Pulse 70 12/02/20 09:00 Resp 16 12/02/20 09:00 BP 111/74 12/02/20 09:00 Pulse Ox 97 12/02/20 09:00 - Labs CBC & Chem 7: 12/01/20 07:05 12/01/20 07:05 Assessment and Plan Assessment: 1. Depression with suicidal ideation, management as per primary psychiatry team 2. EtOH abuse 3. Heroin abuse 4. History of hypothyroidism, continue with Synthroid 75 g daily 5. History of hyperlipidemia 6. History of COPD no exacerbation at this time 7. History of bipolar 8. Nicotine dependence 9. History of benign prostatic hypertrophy, maintained on Flomax 0.4 mg by mouth daily continue At this time I have reviewed patient's medications and labs, liver enzymes are mildly elevated we will monitor closely Continue current medication otherwise I would follow during this admission
[2020-12-02] MEDS: DIVALPROEX ER 500 MG TAB.ER.24H PO SCH (20:30)
[2020-12-02] MEDS ORDERED: OLANZapine 7.5 MG TAB PO SCH (21:00)
[2020-12-03] MEDS: MELOXICAM 7.5 MG TAB PO SCH (09:53)
[2020-12-03] MEDS: LORATADINE 10 MG TAB PO SCH (09:53)
[2020-12-03] MEDS: TAMSULOSIN 0.4 MG CAP.ER.24H PO SCH (09:53)
[2020-12-03] MEDS: FOLIC ACID 1 MG TAB PO SCH (09:53)
[2020-12-03] MEDS: LEVOTHYROXINE 75 MCG TAB PO SCH (09:53)
[2020-12-03] MEDS: THIAMINE 100 MG TAB PO SCH (09:54)
[2020-12-03] MEDS: MULTIVITAMINS, THERA 1 EACH TAB PO SCH (09:54)
[2020-12-03] MEDS: NICOTINE 14MG/24HR PATCH TRANSDERM SCH (09:54)
--- NOTE | 2020-12-03 10:23 | P.PN ---
Progress Note - Text Progress Note Date: 12/03/20 Interval History: Patient was seen lying in his bed this morning and was sleeping. He was awoken by music writer and once again appeared to be fairly irritable with music writer. He stated "cant you see Im sleeping, get outa here I dont wanna talk to you". Labor Relations Consultant attempted to ask patient questions about his medications however patient did not reply and yelled at music writer to leave him alone as he did not want to talk today. Mental Status Exam: General Appearance: Patient appears to be wrapped in blankets, stated age is alert, irritable, uncooperative. Patient appears to have poor hygiene and grooming. Behavior: Patient is seated without any agitated behavior. Irritable and loud Speech: Patient's speech is fluent and nonpressured. Direct and concrete. Mood/Affect: unable to assess Suicidality/Homicidality: unable to assess Perceptions: unable to assess Though content/process: demanding, concrete Memory and concentration: unable to assess Judgment and insight: chronically poor Assessment Bipolar disorder, mixed episode Alcohol use disorder, currently in withdrawal Opiate abuse Cannabis use disorder mild Nicotine dependence Plan: -Patient continues to meet criteria for inpatient psychiatric admission for symptom stabilization and safety. Patient has signed adult voluntary form and medication consent and was placed in patient's chart. -Medications: Increase Zyprexa to 10 mg daily at bedtime for insomnia/mood stabilization. Continue Depakote 1000 mg daily at bedtime for mood stabil ization. d/c valium today with last dose at 1400. Trazodone 50mg qhs prn for insomnia -thiamine, MVM for etoh use -CIWA protocol with Ativan PRN for ETOH withdrawal, this can be d/c over the weekend if patient is not requiring ativan and has low CIWA scores. -When necessary Ativan and Haldol for agitation/aggression. -NRT - nicotine patch -SW on board for discharge planning. Encouraged the patient to participate in milieu. PAtient signed AMA form on 12/02 which will on 12/06/20.
[2020-12-03] MEDS: diazePAM 2 MG TAB PO SCH (10:57)
[2020-12-03] MEDS ORDERED: diazePAM 2 MG TAB PO ONE (14:00)
[2020-12-03] MEDS: DIVALPROEX ER 500 MG TAB.ER.24H PO SCH (19:53)
[2020-12-03] MEDS: OLANZapine 10 MG TAB PO SCH (19:53)
[2020-12-03] MEDS: traZODone HCL 100 MG TAB PO PRN (21:05)
[2020-12-04] MEDS: THIAMINE 100 MG TAB PO SCH (07:57)
[2020-12-04] MEDS: MULTIVITAMINS, THERA 1 EACH TAB PO SCH (07:57)
[2020-12-04] MEDS: MELOXICAM 7.5 MG TAB PO SCH (07:58)
[2020-12-04] MEDS: LORATADINE 10 MG TAB PO SCH (07:58)
[2020-12-04] MEDS: TAMSULOSIN 0.4 MG CAP.ER.24H PO SCH (07:59)
[2020-12-04] MEDS: LEVOTHYROXINE 75 MCG TAB PO SCH (07:59)
[2020-12-04] MEDS: FOLIC ACID 1 MG TAB PO SCH (07:59)
[2020-12-04] MEDS: NICOTINE 14MG/24HR PATCH TRANSDERM SCH (08:00)
[2020-12-04] MEDS ORDERED: NICOTINE POLACRILEX 2 MG GUM BUCCAL PRN (17:00)
--- NOTE | 2020-12-04 17:28 | PN ---
PROGRESS NOTE DATE OF SERVICE: 12/04/2020. CHIEF COMPLAINT: The patient has significant alcohol use issues and was discharged prematurely from [place]. He has not been following through with [facility]. He continues to use significant abusive substances. INTERVAL HISTORY: Patient has been doing fair. He had a quiet day yesterday. Mostly he keeps to himself. He spends a fair amount of time in his room. He will interact a little with others. He does not come out too much. He does not attend groups. He tends to minimize problems he is having. He is minimally cooperative. Staff documented that he slept 5 hours last night. Today he has been mostly in his room. He had no specific complaints or concerns today. When I interviewed him, he gave very brief responses and not indicating that he had any problems or concerns. He was reporting no thoughts of suicide, which was part of his admission issue. He was vague when I reviewed symptoms related to acute withdrawal. His CIWA scores have been zero. His vital signs have been stable. He tolerates his psychotropic medications. MENTAL STATUS: Patient gave fair eye contact. Psychomotor activity was slowed. Speech was monotone. He answered questions with brief responses. He was not spontaneous or interactive. His affect was flat, mood reserved. It was difficult to assess his level of distress. There was no indication of thought disorder. He denied thoughts of harm. Cognition was clear. ASSESSMENT: I will continue the current diagnosis and treatment plan. I will continue psychotropic medications the same, including Depakote 1000 mg a day and Zyprexa 10 mg at bedtime. In addition, he is ordered trazodone 50 mg at bedtime p.r.n. We will coordinate with outpatient resources and focus on stabilization and discharge planning. MMCATIEL / MERYN: [id number] /
[2020-12-04] MEDS: OLANZapine 10 MG TAB PO SCH (21:22)
[2020-12-04] MEDS: DIVALPROEX ER 500 MG TAB.ER.24H PO SCH (21:22)
[2020-12-04] MEDS: traZODone HCL 100 MG TAB PO PRN (21:27)
[2020-12-05] MEDS: MELOXICAM 7.5 MG TAB PO SCH (08:08)
[2020-12-05] MEDS: MULTIVITAMINS, THERA 1 EACH TAB PO SCH (08:08)
[2020-12-05] MEDS: FOLIC ACID 1 MG TAB PO SCH (08:09)
[2020-12-05] MEDS: THIAMINE 100 MG TAB PO SCH (08:09)
[2020-12-05] MEDS: TAMSULOSIN 0.4 MG CAP.ER.24H PO SCH (08:09)
[2020-12-05] MEDS: LEVOTHYROXINE 75 MCG TAB PO SCH (08:10)
[2020-12-05] MEDS: LORATADINE 10 MG TAB PO SCH (08:10)
--- NOTE | 2020-12-05 12:38 | PN ---
PROGRESS NOTE DATE OF SERVICE: 12/05/2020 CHIEF COMPLAINT: The patient had significant alcohol use issues and was discharged prematurely from [place]. He has not been following through with [facility]. He continues to use significant abusive substances. INTERVAL HISTORY: Patient has been doing fairly well. He had a quiet day yesterday. He comes out on the unit. He interacts with others. Mostly he keeps to himself. He chooses not to go to groups. His CIWA score remained zero yesterday. He said he slept fair last night. Today he has been up. Overall he continues about the same. He has a good outlook. He talked about discharge planning and that he is open to go into [facility]. He anticipates going to [facility] tomorrow. He had signed a three-day intent, though decided to cancel the three-day intent and just work with the treatment team. Our plan will be to discharge him tomorrow so that he can follow through with his discharge planning. It is noteworthy that he talked at length about his plans to work on sobriety. He notes that he had 28 days in [place], though said that he was released prematurely because he had raised questions that they had violated HIPAA rules. He said as a result he ended up for 4 or 5 days coming back to the area and was drinking during those times. He said he does want to go back to that situation again and is quite positive about what benefits he can get from [facility]. He has not had any problems with his medications and feels they have been helpful for him. MENTAL STATUS: Patient was somewhat restless. He gave fairly good eye contact. He answered questions appropriately. His thoughts were clear, coherent and goal-directed. He was spontaneous and interactive. His affect was a little intense though generally appropriate. His mood was reserved though not clearly down or depressed. He did not seem to be distressed. His thoughts were clear. There was no indication of thoughts of harm. He did indicate that the issues with an overdose was over a month ago and that he feels that issue is well behind him. He is oriented and alert. ASSESSMENT: I will continue the current diagnosis and treatment plan. Will continue psychotropic medications the same. Patient appears to be doing fairly well with his medications. He has a good understanding of his follow-up needs, which include working on sobriety in a number of ways. He intends to get re-connected with AA. He has several people that he has connected with, including a sponsor, that he has made contacts with. He is positive about moving to [facility]. Unless any other specifics come up, I would anticipate discharge tomorrow. KAREN / ILIR: [id number] /
[2020-12-05] MEDS: DIVALPROEX ER 500 MG TAB.ER.24H PO SCH (21:03)
[2020-12-05] MEDS: OLANZapine 10 MG TAB PO SCH (21:03)
[2020-12-05] MEDS: traZODone HCL 100 MG TAB PO PRN (21:04)
[2020-12-06] MEDS: LEVOTHYROXINE 75 MCG TAB PO SCH (06:37)
[2020-12-06 07:08] VITALS: BP 112/87; PULSE 91; TEMP 97.7
[2020-12-06] MEDS: THIAMINE 100 MG TAB PO SCH (08:41)
[2020-12-06] MEDS: FOLIC ACID 1 MG TAB PO SCH (08:41)
[2020-12-06] MEDS: TAMSULOSIN 0.4 MG CAP.ER.24H PO SCH (08:41)
[2020-12-06] MEDS: LORATADINE 10 MG TAB PO SCH (08:41)
[2020-12-06] MEDS: MULTIVITAMINS, THERA 1 EACH TAB PO SCH (08:41)
[2020-12-06] MEDS: MELOXICAM 7.5 MG TAB PO SCH (08:41)
--- NOTE | 2020-12-06 10:29 | DS ---
DISCHARGE SUMMARY DATE OF ADMISSION: 11/30/2020 DATE OF DISCHARGE: 12/06/2020 ADMISSION AND DISCHARGE DIAGNOSES: 1. Bipolar affective disorder, mixed episode. 2. Alcohol use disorder, currently in withdrawal. 3. Opioid abuse. 4. Cannabis use disorder, mild. 5. Nicotine dependence. HISTORY OF PRESENTING ILLNESS: The patient is a 60-year-old male. He has a history of bipolar disorder. He had been noncompliant with his medications for several months. He had a past history of making efforts to overdose with heroin. He had been in [place], though was discharged prematurely. He stated that he believed they had a HIPAA violation; that was a conflict between him and the [facility]. He had relapsed back to drinking. He had anxiety and depression. Apparently a pick-up order was initiated for him coming to the hospital. MENTAL STATUS EXAM: The patient had poor hygiene and grooming. He had a quiet manner. His thoughts were direct and concrete. His mood was depressed. He reported no thoughts of harm to self or others. He denied hallucinations. His thought process included that he rambled and was tangential. Through much of the interview, he was oriented and alert. COURSE OF HOSPITALIZATION: The patient was admitted for comprehensive medical, psychiatric and psychosocial evaluation. We engaged the patient in individual and group therapeutic activities. The patient was started on Zyprexa, Depakote and Valium for alcohol withdrawal. He was monitored closely with CIWA scale for alcohol. He showed a gradual decline in withdrawal symptoms. His Depakote was adjusted to 500 mg twice a day. Zyprexa was titrated up to 10 mg at bedtime. For most of the admission the patient tended to keep to himself. He would spend a fair amount of time in his room. He would come out in the day areas. He interacted some with others, though generally had a quiet manner. He chose not to attend groups. By the last several days of his hospitalization, CIWA scores were zero. He was cooperative with care. He had coordinated on his own with [facility], which had an opening available for him for the day of discharge. He showed improvement in his mood and was not demonstrating manic, hypomanic or depressive symptoms. CONDITION ON DISCHARGE: Patient was stable. Mood was improved. There was no indication of thoughts of harm. He tolerated his psychotropic medications. RECOMMENDATIONS AND FOLLOWUP: Patient will be discharged to [facility]. [facility]up will be with [facility]. Discharge medications include Depakote 500 mg twice a day and Zyprexa 10 mg at bedtime. In addition, he has Desyrel 50 mg as needed. MMODL / IJN: [id number] /
--- NOTE | 2020-12-06 17:18 | DS ---
DISCHARGE SUMMARY DATE OF ADMISSION: 11/30/2020 DATE OF DISCHARGE: 12/06/2020 ADMISSION AND DISCHARGE DIAGNOSIS: 1. Bipolar affective disorder, mixed episode. 2. Alcohol use disorder, currently in withdrawal. 3. Opioid abuse. 4. Cannabis use disorder, mild. HISTORY OF PRESENTING ILLNESS: The patient is a 60-year-old male. He has a history of bipolar disorder. He had recently been admitted to [facility] [place] for substance use treatment, though had a discharge prematurely due to a conflict he had over what he claimed was a HIPAA violation. He acknowledged being noncompliant with his medications. He had been seeing Dr. Meza at [facility], though notes that he had not been following up with treatment for an extended period time. When he left [place] he acknowledged relapsing with alcohol and barbiturates. This was confirmed by a urine drug screen. He was reporting depressed mood, poor sleep, difficulty with function. He indicated that he had attempted overdose approximately 5 times in the past month with heroin. His last psychiatric hospitalization was in March 2020. He was admitted for further evaluation. Medical history: Asthma, COPD, hyperlipidemia, liver disease, musculoskeletal disorder, thyroid disorder. MENTAL STATUS EXAM: The patient had poor hygiene and grooming. He sat without restlessness. His thoughts were clear. He responded to questions appropriately. His mood was depressed, affect constricted. He was not indicating any thoughts of harm. He did not indicate any issues of thought disorder. In the interview, he was noted to ramble and be tangential. He was oriented and alert. COURSE OF HOSPITALIZATION: The patient was admitted for comprehensive medical, psychiatric and psychosocial evaluation. We engaged the patient in individual and group therapeutic activities. On admission, the patient was started on Zyprexa 2.5 mg a day, Depakote 1000 mg a day, and Valium 2 mg three times a day. Valium was indicated for alcohol withdrawal. Early on in his hospitalization the patient acknowledged that he had irritability and low frustration tolerance. He was not sleeping well. He continued to be fairly distressed. The patient did acknowledge that he was drinking heavily and said that he was drinking essentially around the clock. He reported drinking vodka. For the most part, he tended to keep to himself. He spent a fair amount of time in his room. As his hospitalization progressed, he did start sleeping a reasonable amount at night, though also napped in the day. His Zyprexa was titrated up to 10 mg at bedtime. CIWA scores over the last few days of his hospitalization were zero. He had made contact with [facility] and had set up a plan where he would be able to be admitted to [facility] for followup. He was focused on maintaining sobriety and talked about issues that he would need to address to make that happen. He talked about his intention to get reconnected with AA. He identified several people, including a sponsor, who had supported him in the past. He said that he would be making more efforts to work with AA. He was able to engage appropriately in discharge planning. On the day of discharge he was able to confirm with [facility] the bed availability. CONDITION AT DISCHARGE: Patient was stable. His mood was improved. He denied thoughts of harm. He was not showing acute detox symptoms. Vital signs were stable. He tolerated his psychotropic medications. RECOMMENDATIONS AND FOLLOWUP: The patient is discharged to [facility]. Discharge medications include Depakote 1000 mg at bedtime, Zyprexa 10 mg a day, and Desyrel 50 mg at bedtime. He will have followup as per social work referral. See discharge packet for detail. MMODL / IJN: [id number] /
== END 2020-12-06 11:51 | disposition home or self-care (01) | DRG 885 ==
LOC: EC 13:01 → 3MHU 17:05
PROVIDERS: ADMIT Psychiatry & Neurology Psychiatry; ATTEND Psychiatry & Neurology Psychiatry
DX: F31.60 Bipolar disorder, current episode mixed, unspecified (principal); R45.851 Suicidal ideations; F10.239 Alcohol dependence with withdrawal, unspecified; F11.10 Opioid abuse, uncomplicated; J44.9 Chronic obstructive pulmonary disease, unspecified; F12.10 Cannabis abuse, uncomplicated; F41.9 Anxiety disorder, unspecified; E78.5 Hyperlipidemia, unspecified; K76.9 Liver disease, unspecified; E03.9 Hypothyroidism, unspecified; T50.906A Underdosing of unspecified drugs, medicaments and biological substances, initial encounter; N40.0 Benign prostatic hyperplasia without lower urinary tract symptoms; Z91.128 Patient's intentional underdosing of medication regimen for other reason; F17.210 Nicotine dependence, cigarettes, uncomplicated; Z71.6 Tobacco abuse counseling; Z79.1 Long term (current) use of non-steroidal anti-inflammatories (NSAID); Z79.890 Hormone replacement therapy; Z79.899 Other long term (current) drug therapy; Z91.5 Personal history of self-harm; Z87.39 Personal history of other diseases of the musculoskeletal system and connective tissue; Z86.69 Personal history of other diseases of the nervous system and sense organs; Z88.8 Allergy status to other drugs, medicaments and biological substances
CPT/HCPCS: 80053; 80061; 80164; 80178; 80306; 82075; 83036; 84443; 85025; 99285

== ENCOUNTER 2020-12-16 10:13 | Inpatient (IN) | payer OTHER ==
[2020-12-16] MEDS ORDERED: SODIUM CHLORIDE 0.9% 1,000 ML IV ONE ×2 (10:53→12:54)
[2020-12-16] MEDS ORDERED: SODIUM CHLORIDE 0.9% 500 ML 500 ML IV ONE (10:53)
--- NOTE | 2020-12-16 10:56 | ED ---
General Adult HPI - General Chief complaint: Alcohol Stated complaint: Alcohol Time Seen by Provider: 12/16/20 10:25 Source: patient, RN notes reviewed, old records reviewed Mode of arrival: ambulatory Limitations: no limitations - History of Present Illness Initial comments: This is a 60-year-old male who presents emergency Department complaining of al cohol intoxication. Patient states she like to get some rehabilitation cycles primary medical care doctor is told to come to the emergency department. Patient states she's been drinking for 2 weeks straight and is afraid if he stops he'll go into DTs. Patient denies any physical complaints currently. Patient denies any shakes currently patient denies any nausea. Patient denies chest pain difficult breathing shortness of breath. Patient denies any recent fever chills or cough per patient denies any injury or trauma. Patient denies abdominal pain patient denies nausea vomiting diarrhea. - Related Data Home Medications Medication Instructions Recorded Confirmed Albuterol Sulfate [Proair Hfa] 2 puff INHALATION RT-Q6H PRN 11/30/20 12/16/20 Meloxicam [Mobic] 15 mg PO DAILY 11/30/20 12/16/20 traZODone HCL 50 mg PO HS PRN 12/16/20 12/16/20 Previous Rx's Medication Instructions Recorded Levothyroxine Sodium [Synthroid] 75 mcg PO DAILY 30 Days tab 04/21/20 Tamsulosin [Flomax] 0.4 mg PO DAILY 30 Days cap 04/21/20 Loratadine [Claritin] 10 mg PO DAILY #20 tab 08/18/20 Divalproex ER [Depakote ER] 500 mg PO BID #60 tab 12/06/20 Nicotine Polacrilex [Nicorette] 2 mg BUCCAL Q4HR PRN gum 12/06/20 OLANZapine [ZyPREXA] 10 mg PO HS #30 tab 12/06/20 Allergies Allergy/AdvReac Type Severity Reaction Status Date / Time quetiapine fumarate Allergy Rash/Hives Verified 12/16/20 11:40 [From Seroquel] Review of Systems ROS Statement: Those systems with pertinent positive or pertinent negative responses have been documented in the HPI. ROS Other: All systems not noted in ROS Statement are negative. Past Medical History Past Medical History: Asthma, COPD, Hyperlipidemia, Liver Disease, Musculoskeletal Disorder, Thyroid Disorder Additional Past Medical History / Comment(s): Optic neuritis. liver disease. History of Any Multi-Drug Resistant Organisms: None Reported Past Surgical History: No Surgical Hx Reported Past Anesthesia/Blood Transfusion Reactions: No Reported Reaction Past Psychological History: Bipolar, Depression Smoking Status: Current every day smoker Past Alcohol Use History: None Reported, Daily, Heavy Past Drug Use History: Heroin, Marijuana - Past Family History Father Additional Family Medical History / Comment(s): Patient states is father is but will not provide any additional information. He states he does not know his mothers history. He has 2 brothers and 2 step brothers and only one living. They have committed suicide. General Exam - General Exam Comments Initial Comments: GENERAL: Patient is well-developed and well-nourished. Patient is nontoxic and well- hydrated and is in no acute distress. Patient does appear intoxicated ENT: Neck is soft and supple. No significant lymphadenopathy is noted. Oropharynx is clear. Moist mucous membranes. EYES: The sclera were anicteric and conjunctiva were pink and moist. Extraocular movements were intact and pupils were equal round and reactive to light. Eyelids were unremarkable. PULMONARY: Unlabored respirations. Good breath sounds bilaterally. No audible rales rhonchi or wheezing was noted. CARDIOVASCULAR: There is a regular rate and rhythm without any murmurs gallops or rubs. ABDOMEN: Soft and nontender with normal bowel sounds. No palpable organomegaly was noted. There is no palpable pulsatile mass. SKIN: Skin is clear with no lesions or rashes and otherwise unremarkable. NEUROLOGIC: Patient is alert and oriented x3. Cranial nerves II through XII are grossly intact. Motor and sensory are also intact. Normal speech, volume and content. Symmetrical smile. MUSCULOSKELETAL: Normal extremities with adequate strength and full range of motion. LYMPHATICS: No significant lymphadenopathy is noted PSYCHIATRIC: Normal psychiatric evaluation. Limitations: no limitations Course Vital Signs 12/16/20 12/16/20 10:23 11:25 Temperature 97.8 F Pulse Rate 94 Respiratory 20 18 Rate Blood Pressure 131/86 O2 Sat by Pulse 96 Oximetry Medical Decision Making - Medical Decision Making I spoke with Dr. Root he agreed to admit the patient to the patient wrote admitting orders. - Lab Data Result diagrams: 12/16/20 11:00 12/16/20 11:00 Lab Results 12/16/20 12/16/20 Range/Units 11:00 11:00 WBC 5.4 (3.8-10.6) k/uL RBC 4.30 (4.30-5.90) m/uL Hgb 14.7 (13.0-17.5) gm/dL Hct 41.9 (39.0-53.0) % MCV 97.4 (80.0-100.0) fL MCH 34.2 (25.0-35.0) pg MCHC 35.1 (31.0-37.0) g/dL RDW 12.9 (11.5-15.5) % Plt Count 206 (150-450) k/uL MPV 7.0 Neutrophils % 49 % Lymphocytes % 39 % Monocytes % 5 % Eosinophils % 3 % Basophils % 1 % Neutrophils # 2.6 (1.3-7.7) k/uL Lymphocytes # 2.1 (1.0-4.8) k/uL Monocytes # 0.3 (0-1.0) k/uL Eosinophils # 0.2 (0-0.7) k/uL Basophils # 0.1 (0-0.2) k/uL Sodium 146 H (137-145) mmol/L Potassium 3.7 (3.5-5.1) mmol/L Chloride 113 H (98-107) mmol/L Carbon Dioxide 22 (22-30) mmol/L Anion Gap 11 mmol/L BUN 5 L (9-20) mg/dL Creatinine 0.56 L (0.66-1.25) mg/dL Est GFR (CKD-EPI)AfAm >90 (>60 ml/min/1.73 sqM) Est GFR (CKD-EPI)NonAf >90 (>60 ml/min/1.73 sqM) Glucose 105 H (74-99) mg/dL Calcium 9.2 (8.4-10.2) mg/dL Magnesium 1.5 L (1.6-2.3) mg/dL Total Bilirubin 0.6 (0.2-1.3) mg/dL AST 50 (17-59) U/L ALT 44 (4-49) U/L Alkaline Phosphatase 62 (38-126) U/L Total Protein 7.1 (6.3-8.2) g/dL Albumin 4.1 (3.5-5.0) g/dL Lipase 79 (23-300) U/L Serum Alcohol 215 H* mg/dL Disposition Clinical Impression: Alcohol intoxication Disposition: ADMITTED IP TO THIS HOSP Referrals: Sena Root MD [Primary Care Provider] - 1-2 days Time of Disposition: 12:54
[2020-12-16 11:10] LABS: Basophils # (A) 0.1 k/uL (0-0.2); Basophils % (A) 1 %; Eosinophils # (A) 0.2 k/uL (0-0.7); Eosinophils % (A) 3 %; HCT 41.9 % (39.0-53.0); HGB 14.7 gm/dL (13.0-17.5); Lymphocytes # (A) 2.1 k/uL (1.0-4.8); Lymphocytes % (A) 39 %; MCH 34.2 pg (25.0-35.0); MCHC 35.1 g/dL (31.0-37.0); MCV 97.4 fL (80.0-100.0); Monocytes # (A) 0.3 k/uL (0-1.0); Monocytes % (A) 5 %; Neutrophils # (A) 2.6 k/uL (1.3-7.7); Neutrophils % (A) 49 %; Platelet Count 206 k/uL (150-450); RDW 12.9 % (11.5-15.5); WBC 5.4 k/uL (3.8-10.6)
[2020-12-16] MEDS ORDERED: SODIUM CHLORIDE 0.9% 1,000 ML with MVI, ADULT NO.4 WITH VIT K 10 ML, THIAMINE 100 MG, F... IV ONE ×4 (11:15)
[2020-12-16 11:31] LABS: ALT 44 U/L (4-49); AST 50 U/L (17-59); African American GFR (CKD) >90 (>60 ml/min/1.73 sqM); Albumin 4.1 g/dL (3.5-5.0); Alkaline Phosphatase 62 U/L (38-126); Anion Gap 11 mmol/L; Blood Urea Nitrogen 5 mg/dL (9-20); Calcium 9.2 mg/dL (8.4-10.2); Carbon Dioxide 22 mmol/L (22-30); Chloride 113 mmol/L (98-107); Glucose 105 mg/dL (74-99); Lipase 79 U/L (23-300); Magnesium 1.5 mg/dL (1.6-2.3); Non-African American GFR(CKD) >90 (>60 ml/min/1.73 sqM); Potassium 3.7 mmol/L (3.5-5.1); Sodium 146 mmol/L (137-145); Total Bilirubin 0.6 mg/dL (0.2-1.3); Total Protein 7.1 g/dL (6.3-8.2)
[2020-12-16 11:59] LABS: Alcohol 215 mg/dL
[2020-12-16] MEDS ORDERED: LORazepam 2 MG/ML INJ IV PRN ×3 (12:55)
[2020-12-16] MEDS ORDERED: THIAMINE 100 MG/ML 2 ML VIAL IM STA (12:55)
[2020-12-16] MEDS: MAGNESIUM SULFATE-D5W PMX 1 GM in DEXTROSE/WATER 1 100ML.BAG IVPB SCH ×2 (13:35→14:40)
[2020-12-16] MEDS: THIAMINE 100 MG TAB PO SCH (17:40)
[2020-12-16] MEDS ORDERED: traZODone HCL 50 MG TAB PO PRN (22:11)
[2020-12-16] MEDS ORDERED: NICOTINE GUM (POLACRILEX) 2 MG GUM BUCCAL PRN (22:11)
[2020-12-16] MEDS ORDERED: ALBUTEROL NEBULIZED 2.5 MG/3 ML INHALATION PRN (22:14)
[2020-12-16] MEDS: DIVALPROEX ER 500 MG TAB.ER.24H PO SCH (22:55)
[2020-12-16] MEDS: OLANZapine 10 MG TAB PO SCH (22:56)
[2020-12-17] MEDS: LEVOTHYROXINE 75 MCG TAB PO SCH (05:47)
[2020-12-17] MEDS: LORATADINE 10 MG TAB PO SCH (07:49)
[2020-12-17] MEDS: THIAMINE 100 MG TAB PO SCH ×2 (07:49→16:43)
[2020-12-17] MEDS: DIVALPROEX ER 500 MG TAB.ER.24H PO SCH ×2 (07:49→20:10)
[2020-12-17] MEDS: MELOXICAM 7.5 MG TAB PO SCH (07:49)
[2020-12-17] MEDS: TAMSULOSIN 0.4 MG CAP.ER.24H PO SCH (07:49)
[2020-12-17 09:36] LABS: Basophils % (A) 1 %; Eosinophils # (A) 0.3 k/uL (0-0.7); Eosinophils % (A) 5 %; HGB 14.2 gm/dL (13.0-17.5); Lymphocytes # (A) 1.5 k/uL (1.0-4.8); Lymphocytes % (A) 28 %; MCH 33.7 pg (25.0-35.0); MCHC 33.8 g/dL (31.0-37.0); MCV 99.6 fL (80.0-100.0); Mean Platelet Volume 7.8; Monocytes # (A) 0.4 k/uL (0-1.0); Monocytes % (A) 8 %; Neutrophils % (A) 56 %; Platelet Count 154 k/uL (150-450); RBC 4.22 m/uL (4.30-5.90); RDW 12.7 % (11.5-15.5); WBC 5.3 k/uL (3.8-10.6)
[2020-12-17 09:46] LABS: ALT 34 U/L (4-49); AST 38 U/L (17-59); African American GFR (CKD) >90 (>60 ml/min/1.73 sqM); Albumin 3.2 g/dL (3.5-5.0); Albumin/Globulin Ratio 1.2; Alkaline Phosphatase 55 U/L (38-126); Anion Gap 5 mmol/L; Blood Urea Nitrogen 12 mg/dL (9-20); Calcium 8.9 mg/dL (8.4-10.2); Carbon Dioxide 23 mmol/L (22-30); Chloride 112 mmol/L (98-107); Globulin 2.7 g/dL; Glucose 94 mg/dL (74-99); Non-African American GFR(CKD) >90 (>60 ml/min/1.73 sqM); Potassium 3.9 mmol/L (3.5-5.1); Sodium 140 mmol/L (137-145); Total Bilirubin 0.6 mg/dL (0.2-1.3); Total Protein 5.9 g/dL (6.3-8.2)
--- NOTE | 2020-12-17 10:21 | P.HPIM ---
History of Present Illness H&P Date: 12/16/20 Silver Smith, is a 60-year-old male who presented to [facility] emergency room with a chief complaint of alcohol intoxication and early alcohol withdrawal. Patient reports that he has been drinking steadily for the past 2 weeks. Patient cleared that he would go into withdrawal if he stopped drinking Patient has past medical history of asthma, COPD, hyperlipidemia, liver disease, musculoskeletal disorder, thyroid disorder, optic neuritis, bipolar depression and of drug abuse and EtOH. Laboratory data reveals and EtOH level 215. Patient was admitted to medical floor for further evaluation and treatment. Call withdrawal protocol has been ordered home meds resumed. At this time patient is resting comfortably in bed. metal engineering process worker consult placed. Patient denies chest pain or shortness breath. Patient denies nausea vomiting or diarrhea. Patient denies any urinary burning or frequency. Review of Systems please refer to HPI otherwise unremarkable Past Medical History Past Medical History: Asthma, COPD, Hyperlipidemia, Liver Disease, Musculoskeletal Disorder, Thyroid Disorder Additional Past Medical History / Comment(s): Optic neuritis. liver disease. History of Any Multi-Drug Resistant Organisms: None Reported Past Surgical History: No Surgical Hx Reported Past Anesthesia/Blood Transfusion Reactions: No Reported Reaction Past Psychological History: Bipolar, Depression Smoking Status: Current every day smoker Past Alcohol Use History: None Reported, Daily, Heavy Past Drug Use History: Heroin, Marijuana - Past Family History Father Additional Family Medical History / Comment(s): Patient states is father is but will not provide any additional information. He states he does not know his mothers history. He has 2 brothers and 2 step brothers and only one living. They have committed suicide. Medications and Allergies Home Medications Medication Instructions Recorded Confirmed Type Levothyroxine Sodium [Synthroid] 75 mcg PO DAILY 30 Days tab 04/21/20 12/16/20 Rx Tamsulosin [Flomax] 0.4 mg PO DAILY 30 Days cap 04/21/20 12/16/20 Rx Loratadine [Claritin] 10 mg PO DAILY #20 tab 08/18/20 12/16/20 Rx Albuterol Sulfate [Proair Hfa] 2 puff INHALATION RT-Q6H PRN 11/30/20 12/16/20 History Meloxicam [Mobic] 15 mg PO DAILY 11/30/20 12/16/20 History Divalproex ER [Depakote ER] 500 mg PO BID #60 tab 12/06/20 12/16/20 Rx Nicotine Polacrilex [Nicorette] 2 mg BUCCAL Q4HR PRN gum 12/06/20 12/16/20 Rx OLANZapine [ZyPREXA] 10 mg PO HS #30 tab 12/06/20 12/16/20 Rx traZODone HCL 50 mg PO HS PRN 12/16/20 12/16/20 History Allergies Allergy/AdvReac Type Severity Reaction Status Date / Time quetiapine fumarate Allergy Rash/Hives Verified 12/16/20 11:40 [From Seroquel] Physical Exam Vitals: Vital Signs Temp Pulse Resp BP Pulse Ox 12/16/20 16:00 18 12/16/20 15:00 18 12/16/20 14:00 18 12/16/20 13:00 18 12/16/20 12:00 18 12/16/20 11:25 18 12/16/20 10:23 97.8 F 94 20 131/86 96 Intake and Output 12/16/20 12/16/20 12/16/20 06:59 14:59 22:59 Other: Weight 63.503 kg In general patient is alert and oriented x 3 in no distress HEENT head normocephalic and atraumatic Neck is supple no JVD no goiter no lymphadenopathy no carotid bruit Chest examination is clear to auscultation no crackles no wheezing Cardiac exam reveals regular heart sounds S1 and S2 no gallops no murmurs Abdomen is soft nontender no organomegaly with normal bowel sounds Extremity exam reveals no edema no cyanosis or clubbing Neurological examination reveals no gross focal deficits Results CBC & Chem 7: 12/17/20 09:11 12/16/20 11:00 Labs: Abnormal Lab Results - Last 24 Hours (Table) 12/16/20 Range/Units 11:00 Sodium 146 H (137-145) mmol/L Chloride 113 H (98-107) mmol/L BUN 5 L (9-20) mg/dL Creatinine 0.56 L (0.66-1.25) mg/dL Glucose 105 H (74-99) mg/dL Magnesium 1.5 L (1.6-2.3) mg/dL Serum Alcohol 215 H* mg/dL Assessment and Plan Assessment: 1. EtOH with alcohol withdrawal 2. History of depression 3. History of heroin abuse 4. History of hypothyroidism 5. History of hyperlipidemia 6. History of COPD no exacerbation at this time 7. History of bipolar DVT prophylaxis Lovenox. GI prophylaxis Protonix Continue alcohol withdrawal protocol Repeat labs ordered for a.m. metal engineering process worker consult placed Time with Patient: Greater than 30 (Greater than 60% of the total time spent in counseling and coordination of care)
--- NOTE | 2020-12-17 10:22 | P.PN ---
Subjective Progress Note Date: 12/17/20 Silver Smith, is a 60-year-old male who presented to [facility] emergency room with a chief complaint of alcohol intoxication and early alcohol withdrawal. Patient reports that he has been drinking steadily for the past 2 weeks. Patient cleared that he would go into withdrawal if he stopped drinking Patient has past medical history of asthma, COPD, hyperlipidemia, liver disease, musculoskeletal disorder, thyroid disorder, optic neuritis, bipolar depression and of drug abuse and EtOH. Laboratory data reveals and EtOH level 215. Patient was admitted to medical floor for further evaluation and treatment. Call withdrawal protocol has been ordered home meds resumed. At this time patient is resting comfortably in bed. machine worker consult placed. Patient denies chest pain or shortness breath. Patient denies nausea vomiting or diarrhea. Patient denies any urinary burning or frequency. On 12/17/2020 patient is resting comfortably in bed. Patient did receive 1 dose of IV Ativan yesterday. Patient denies chest pain or shortness of breath. Patient denies nausea vomiting or diarrhea. Patient denies any urinary burning or frequency. Temp 98.3, pulse ox 80, respiratory rate 18 and blood pressure 142/84 Objective - Vital Signs Vital signs: Vital Signs Temp 98.3 F 12/17/20 04:26 Pulse 80 12/17/20 04:26 Resp 18 12/17/20 08:54 BP 142/84 12/17/20 04:26 Pulse Ox 98 12/17/20 04:26 Intake & Output 12/16/20 12/17/20 12/17/20 18:59 06:59 18:59 Intake Total 540 Balance 540 Weight 63.503 kg 63.503 kg Intake: Oral 540 - Exam In general patient is alert and oriented x 3 in no distress HEENT head normocephalic and atraumatic Neck is supple no JVD no goiter no lymphadenopathy no carotid bruit Chest examination is clear to auscultation no crackles no wheezing Cardiac exam reveals regular heart sounds S1 and S2 no gallops no murmurs Abdomen is soft nontender no organomegaly with normal bowel sounds Extremity exam reveals no edema no cyanosis or clubbing Neurological examination reveals no gross focal deficits - Labs CBC & Chem 7: 12/17/20 09:11 12/17/20 09:11 Labs: Abnormal Lab Results - Last 24 Hours (Table) 12/16/20 12/17/20 12/17/20 Range/Units 11:00 09:11 09:11 RBC 4.22 L (4.30-5.90) m/uL Sodium 146 H (137-145) mmol/L Chloride 113 H 112 H (98-107) mmol/L BUN 5 L (9-20) mg/dL Creatinine 0.56 L 0.62 L (0.66-1.25) mg/dL Glucose 105 H (74-99) mg/dL Magnesium 1.5 L (1.6-2.3) mg/dL Total Protein 5.9 L (6.3-8.2) g/dL Albumin 3.2 L (3.5-5.0) g/dL Serum Alcohol 215 H* mg/dL Assessment and Plan Assessment: 1. EtOH with alcohol withdrawal 2. History of depression 3. History of heroin abuse 4. History of hypothyroidism 5. History of hyperlipidemia 6. History of COPD no exacerbation at this time 7. History of bipolar DVT prophylaxis Lovenox. GI prophylaxis Protonix Continue alcohol withdrawal protocol Repeat labs ordered for a.m. machine worker consult placed
--- NOTE | 2020-12-17 11:33 | CDI ---
Documentation Clarification Form Date: 12/17/2020 11:02:20 AM From: Julisa Mayes RN, CCDS Admit Date: 12/16/2020 12:54:00 PM Patient Name: Silver Smith Visit Number: [id number] Discharge Date: ATTENTION: The Clinical Documentation Specialists (CDI) and [facility] Coding Staff appreciate your assistance in clarifying documentation. Please respond to the clarification below the line at the bottom and electronically sign. The CDI & [facility] Coding staff will review the response and follow-up if needed. Please note: Queries are made part of the Legal Health Record. If you have any questions, please contact the author of this message via ITS. Dr. Sena Root Alcohol with alcohol withdrawal is documented in the H/P and subsequent progress notes. Additional clarification is needed for abuse, use or dependency to further specify the condition if known. History/Risk Factors: Asthma, COPD, Liver Disease, Current everyday smoker, Heroin use, Marijuana use Clinical Indicators: 60-year-old male present to emergency department complaining of alcohol intoxication has been drinking heavy for 2 weeks, concern for DTs. 12/16 Vital signs: 131/86 94 20 96 % RA 12/16 Labs: Sodium 146, magnesium 1.5, Serum Alcohol 215 Treatment: CIWA Protocol Ativan 1 MG IV PER CIWA Protocol Ativan 2 MG IV PER CIWA Protocol Depakote 500MG PO BID Thiamine Hcl 100MG IV X1 THEN 100 MG PO BID .9NS IV 1000 MLS Bolus In your professional opinion, can you please clarify if the above clinical indicators and treatment signify any of the following? Alcohol withdrawal with alcohol abuse Alcohol withdrawal with alcohol dependency Alcohol withdrawal with alcohol use Alcohol dependence with impending delirium tremens Other, please specify Unable to determine AND Prophylactic treatment of potential thiamine deficiency associated with alcohol use/alcoholism Unable to determine Other, please specify (Last Revision: January 2017) Alcohol with stromal with alcohol abuse Prophylactic treatment of potential thiamine deficiency associated with alcohol abuse MTDD
[2020-12-17] MEDS: OLANZapine 10 MG TAB PO SCH (20:10)
[2020-12-18 04:32] VITALS: TEMP 97.9
[2020-12-18] MEDS ORDERED: PANTOPRAZOLE 40 MG TABLET PO SCH (07:30)
[2020-12-18] MEDS ORDERED: ENOXAPARIN 40 MG/0.4 ML SYRINGE SQ SCH (09:00)
[2020-12-18] MEDS: TAMSULOSIN 0.4 MG CAP.ER.24H PO SCH (09:03)
[2020-12-18] MEDS: DIVALPROEX ER 500 MG TAB.ER.24H PO SCH (09:04)
[2020-12-18] MEDS: MELOXICAM 7.5 MG TAB PO SCH (09:04)
[2020-12-18] MEDS: LEVOTHYROXINE 75 MCG TAB PO SCH (09:04)
[2020-12-18] MEDS: LORATADINE 10 MG TAB PO SCH (09:05)
[2020-12-18] MEDS: THIAMINE 100 MG TAB PO SCH (09:56)
[2020-12-18 12:35] VITALS: BP 135/81; PULSE 63; RESP 15
--- NOTE | 2020-12-18 16:03 | P.DS ---
Providers Date of admission: 12/16/20 12:54 Expected date of discharge: 12/18/20 Attending physician: Sena Root Primary care physician: Sena Root [facility] Course: Diagnosis on discharge: 1. EtOH with alcohol withdrawal 2. History of depression 3. History of heroin abuse 4. History of hypothyroidism 5. History of hyperlipidemia 6. History of COPD no exacerbation at this time 7. History of bipolar Hospital course: Silver Smith, is a 60-year-old male who presented to [facility] emergency room with a chief complaint of alcohol intoxication and early alcohol withdrawal. Patient reports that he has been drinking steadily for the past 2 weeks. Patient cleared that he would go into withdrawal if he stopped drinking Patient has past medical history of asthma, COPD, hyperlipidemia, liver disease, musculoskeletal disorder, thyroid disorder, optic neuritis, bipolar depression and of drug abuse and EtOH. Laboratory data reveals and EtOH level 215. Patient was admitted to medical floor for further evaluation and treatment. Call withdrawal protocol has been ordered home meds resumed. At this time patient is resting comfortably in bed. rodent control worker consult placed. Patient denies chest pain or shortness breath. Patient denies nausea vomiting or diarrhea. Patient denies any urinary burning or frequency. On 12/17/2020 patient is resting comfortably in bed. Patient did receive 1 dose of IV Ativan yesterday. Patient denies chest pain or shortness of breath. Patient denies nausea vomiting or diarrhea. Patient denies any urinary burning or frequency. Temp 98.3, pulse ox 80, respiratory rate 18 and blood pressure 142/84 On 12/17/2020 Patient was seen and examined on the medical floor, he is alert and oriented x 3 in no distress, he denies any complaints there is no fever or chills no headache or dizziness no chest pain no shortness of breath no palpitation no cough no nausea or vomiting no abdominal pain no diarrhea no blood in the stools no burning with urination no frequency or urgency and no hematuria, there is no weakness or numbness in any of the extremities no change in vision speech or gait. Patient is feeling better he is ready to go home he will be discharged home today he was given a prescription for Protonix, thiamine, he was also given Ativan 0.5 mg to be used as needed in case patient has recurrent symptoms of alcohol withdrawal, he was given #20 pills. He will be followed in our office within 1 week patient already has a follow-up appointment at [place] for possible alcohol rehab. Plan - Discharge Summary New Discharge Prescriptions: New Thiamine [Vitamin B-1] 100 mg PO BID-W/MEALS tab Pantoprazole [Protonix] 40 mg PO AC-BRKFST tablet. Continue Tamsulosin [Flomax] 0.4 mg PO DAILY 30 Days cap Levothyroxine Sodium [Synthroid] 75 mcg PO DAILY 30 Days tab Loratadine [Claritin] 10 mg PO DAILY #20 tab Meloxicam [Mobic] 15 mg PO DAILY Nicotine Polacrilex [Nicorette] 2 mg BUCCAL Q4HR PRN gum PRN Reason: Nicotine Cravings Divalproex ER [Depakote ER] 500 mg PO BID #60 tab traZODone HCL 50 mg PO HS PRN PRN Reason: Insomnia Albuterol Sulfate [Proair Hfa] 2 puff INHALATION RT-Q6H PRN PRN Reason: Shortness Of Breath OLANZapine [ZyPREXA] 10 mg PO HS #30 tab Discharge Medication List Levothyroxine Sodium [Synthroid] 75 mcg PO DAILY 30 Days tab 04/21/20 [Rx] Tamsulosin [Flomax] 0.4 mg PO DAILY 30 Days cap 04/21/20 [Rx] Loratadine [Claritin] 10 mg PO DAILY #20 tab 08/18/20 [Rx] Albuterol Sulfate [Proair Hfa] 2 puff INHALATION RT-Q6H PRN 11/30/20 [History] Meloxicam [Mobic] 15 mg PO DAILY 11/30/20 [History] Divalproex ER [Depakote ER] 500 mg PO BID #60 tab 12/06/20 [Rx] Nicotine Polacrilex [Nicorette] 2 mg BUCCAL Q4HR PRN gum 12/06/20 [Rx] OLANZapine [ZyPREXA] 10 mg PO HS #30 tab 12/06/20 [Rx] traZODone HCL 50 mg PO HS PRN 12/16/20 [History] Pantoprazole [Protonix] 40 mg PO AC-BRKFST tablet. 12/18/20 [Rx] Thiamine [Vitamin B-1] 100 mg PO BID-W/MEALS tab 12/18/20 [Rx] Follow up Appointment(s)/Referral(s): Sena Root MD [Primary Care Provider] - 1-2 days
== END 2020-12-18 16:29 | disposition home or self-care (01) | DRG 897 ==
LOC: EC 10:13 → 5NMEDONC 12:54
PROVIDERS: ADMIT Internal Medicine; ATTEND Internal Medicine
DX: F10.139 Alcohol abuse with withdrawal, unspecified (principal); F10.129 Alcohol abuse with intoxication, unspecified; F31.9 Bipolar disorder, unspecified; J44.9 Chronic obstructive pulmonary disease, unspecified; F11.21 Opioid dependence, in remission; E03.9 Hypothyroidism, unspecified; Y90.7 Blood alcohol level of 200-239 mg/100 ml; E78.5 Hyperlipidemia, unspecified; K76.9 Liver disease, unspecified; M79.9 Soft tissue disorder, unspecified; F17.210 Nicotine dependence, cigarettes, uncomplicated; Z71.6 Tobacco abuse counseling; Z79.1 Long term (current) use of non-steroidal anti-inflammatories (NSAID); Z79.890 Hormone replacement therapy; Z79.899 Other long term (current) drug therapy; Z86.69 Personal history of other diseases of the nervous system and sense organs; Z88.8 Allergy status to other drugs, medicaments and biological substances; Z81.8 Family history of other mental and behavioral disorders
CPT/HCPCS: 36415; 80053; 80320; 83690; 83735; 85025; 96360; 96361; 99285

== ENCOUNTER 2021-01-23 01:28 | Emergency (ER) | payer OTHER ==
[2021-01-23] MEDS ORDERED: PROPARACAINE 0.5% OPHTH DROPS 15 ML BTL RIGHT EYE STA (01:49)
[2021-01-23] MEDS ORDERED: FLUORESCEIN STRIPS 1 MG STRIP RIGHT EYE ONE (01:49)
--- NOTE | 2021-01-23 02:23 | ED ---
Eye Problem HPI - General Chief complaint: Eye Problems Stated complaint: Left Eye Irritation Time Seen by Provider: 01/23/21 01:49 Source: patient, RN notes reviewed Mode of arrival: ambulatory Limitations: no limitations - History of Present Illness Initial comments: Patient is a 60-year-old male presenting to emergency Department with complaints of left eye irritation started today. He thinks that there is a foreign object in his eye. He was doing a lot of weed wacking today and thinks it could be a piece of grass. He describes irritation in the corner of his left eye. He denies wearing contacts. He denies any injuries or trauma to his left eye. He has no further complaints. - Related Data Home Medications Medication Instructions Recorded Confirmed Albuterol Sulfate [Proair Hfa] 2 puff INHALATION RT-Q6H PRN 11/30/20 12/16/20 Meloxicam [Mobic] 15 mg PO DAILY 11/30/20 12/16/20 traZODone HCL 50 mg PO HS PRN 12/16/20 12/16/20 Previous Rx's Medication Instructions Recorded Levothyroxine Sodium [Synthroid] 75 mcg PO DAILY 30 Days tab 04/21/20 Tamsulosin [Flomax] 0.4 mg PO DAILY 30 Days cap 04/21/20 Loratadine [Claritin] 10 mg PO DAILY #20 tab 08/18/20 Divalproex ER [Depakote ER] 500 mg PO BID #60 tab 12/06/20 Nicotine Gum (Polacrilex) 2 mg BUCCAL Q4HR PRN gum 12/06/20 [Nicorette] OLANZapine [ZyPREXA] 10 mg PO HS #30 tab 12/06/20 Pantoprazole [Protonix] 40 mg PO AC-BRKFST tablet. 12/18/20 Thiamine [Vitamin B-1] 100 mg PO BID-W/MEALS tab 12/18/20 Erythromycin Ophth Oint [Romycin 1 applic LEFT EYE QID 5 Days #1 gm 01/23/21 Ophth Oint] Allergies Allergy/AdvReac Type Severity Reaction Status Date / Time quetiapine fumarate Allergy Rash/Hives Verified 01/23/21 01:40 [From Seroquel] Review of Systems ROS Statement: Those systems with pertinent positive or pertinent negative responses have been documented in the HPI. ROS Other: All systems not noted in ROS Statement are negative. Past Medical History Past Medical History: Asthma, COPD, Hyperlipidemia, Liver Disease, Musculoskeletal Disorder, Thyroid Disorder Additional Past Medical History / Comment(s): Optic neuritis. liver disease. History of Any Multi-Drug Resistant Organisms: None Reported Past Surgical History: No Surgical Hx Reported Past Anesthesia/Blood Transfusion Reactions: No Reported Reaction Past Psychological History: Bipolar, Depression Smoking Status: Current every day smoker Past Alcohol Use History: None Reported, Daily, Heavy Past Drug Use History: Heroin, Marijuana - Past Family History Father Additional Family Medical History / Comment(s): Patient states is father is but will not provide any additional information. He states he does not know his mothers history. He has 2 brothers and 2 step brothers and only one living. They have committed suicide. General Exam - General Exam Comments Initial Comments: GENERAL: Patient is well-developed and well-nourished. Patient is nontoxic and in no acute distress. HEAD: Atraumatic, normocephalic. EYES: Pupils equal round and reactive to light, extraocular movements intact, sclera anicteric, left eye is slightly injected, there is an internal hordeolum in the upper outer eyelid. No foreign body seen in left eye, no abrasion on fluorescein stain. ENT: Nares patent, oropharynx clear without exudates. Moist mucous membranes. NECK: Normal range of motion, supple without lymphadenopathy or JVD. LUNGS: Unlabored respirations. Breath sounds clear to auscultation bilaterally and equal. No wheezes rales or rhonchi. HEART: Regular rate and rhythm without murmurs, rubs or gallops. MUSCULOSKELETAL: Normal extremities with adequate strength and normal range of motion, no pitting or edema. No clubbing or cyanosis. NEUROLOGICAL: Patient is alert and oriented x 3. SKIN: Warm, Dry, normal turgor, no rashes or lesions noted. Limitations: no limitations Course Vital Signs 01/23/21 01:35 Temperature 98.7 F Pulse Rate 84 Respiratory 18 Rate Blood Pressure 115/84 O2 Sat by Pulse 98 Oximetry Medical Decision Making - Medical Decision Making Patient is a 6-year-old male here with irritation to left eye that he noticed today. Does have some watering, some mild injection of the left eye. There is no foreign body seen, no abrasions on for seen stain. Patient does have a small hordeolum in the inner upper eyelid, lateral aspect. I will prescribe an antibiotic ointment and recommended warm compresses to left eye. Patient is agreeable this is stable for discharge. Case discussed with Dr. Vu. Disposition Clinical Impression: Internal hordeolum of left eye Disposition: HOME SELF-CARE Condition: Stable Instructions (If sedation given, give patient instructions): [facility] (ED) Additional Instructions: Please return to the Emergency Department if symptoms worsen or any other adán rns. Use warm compresses to the eye. Use antibiotic eye ointment as prescribed. Follow-up with your eye doctor if symptoms persist. Prescriptions: Erythromycin Ophth Oint [Romycin Ophth Oint] 1 applic LEFT EYE QID 5 Days #1 gm Is patient prescribed a controlled substance at d/c from ED?: No Referrals: Sena Root MD [Primary Care Provider] - 1-2 days Time of Disposition: 02:22
[2021-01-23 03:25] LABS: Amphetamine Screen,Urine Not Detected (NotDetected); Barbiturate Screen,Urine Not Detected (NotDetected); Benzodiazepines Screen,Urine Not Detected (NotDetected); Cocaine Screen,Urine Not Detected (NotDetected); Methadone Screen, Urine Not Detected (NotDetected); Opiate Screen,Urine Not Detected (NotDetected); Oxycodone Screen, Urine Not Detected (NotDetected); Phencyclidine Screen,Urine Not Detected (NotDetected); Tricyclic Antidepressant,Urine Not Detected (NotDetected); Urn Cannabinoid Scrn Not Detected (NotDetected)
[2021-01-23 04:03] VITALS: BP 124/84; PULSE 83; RESP 21; TEMP 98.6
== END 2021-01-23 04:02 | disposition home or self-care (01) ==
LOC: EC 01:28
DX: H00.024 Hordeolum internum left upper eyelid (principal); J44.9 Chronic obstructive pulmonary disease, unspecified; E78.5 Hyperlipidemia, unspecified; F31.9 Bipolar disorder, unspecified; F17.200 Nicotine dependence, unspecified, uncomplicated; F12.90 Cannabis use, unspecified, uncomplicated; F11.90 Opioid use, unspecified, uncomplicated; Z79.51 Long term (current) use of inhaled steroids
CPT/HCPCS: 80306; 99283

== ENCOUNTER 2022-05-02 09:23 | Emergency (ER) | payer OTHER ==
[2022-05-02 09:33] VITALS: RESP 18
[2022-05-02] MEDS ORDERED: IPRATROPIUM-ALBUTEROL 3 ML NEB INHALATION STA (10:12)
--- NOTE | 2022-05-02 10:15 | ED ---
ENT HPI - General Chief complaint: ENT Stated complaint: facial edema, weakness Time Seen by Provider: 05/02/22 10:05 Source: patient, RN notes reviewed, old records reviewed Mode of arrival: ambulatory Limitations: no limitations - History of Present Illness Initial comments: This is a nontoxic-appearing 62-year-old male that presents to the emergency room with sinus congestion for the past 4-5 days. Denies any fevers. States that he is homeless and has not slept in the past couple of days. He does have a history of COPD and asthma. Is a pack-a-day smoker. MD complaint: other (Nasal congestion) -: days(s) (5) Severity scale (1-10): 0 Quality: constant Consistency: constant Improves with: none Context- Dental: history of dental caries, poor dental care - Related Data Home Medications Medication Instructions Recorded Confirmed Albuterol Sulfate [Proair Hfa] 2 puff INHALATION RT-Q6H PRN 11/30/20 12/16/20 Meloxicam [Mobic] 15 mg PO DAILY 11/30/20 12/16/20 traZODone HCL 50 mg PO HS PRN 12/16/20 12/16/20 Previous Rx's Medication Instructions Recorded Levothyroxine Sodium [Synthroid] 75 mcg PO DAILY 30 Days tab 04/21/20 Tamsulosin [Flomax] 0.4 mg PO DAILY 30 Days cap 04/21/20 Loratadine [Claritin] 10 mg PO DAILY #20 tab 08/18/20 Divalproex ER [Depakote ER] 500 mg PO BID #60 tab 12/06/20 Nicotine Gum (Polacrilex) 2 mg BUCCAL Q4HR PRN gum 12/06/20 [Nicorette] OLANZapine [ZyPREXA] 10 mg PO HS #30 tab 12/06/20 Pantoprazole [Protonix] 40 mg PO AC-BRKFST tablet. 12/18/20 Thiamine [Vitamin B-1] 100 mg PO BID-W/MEALS tab 12/18/20 Erythromycin Ophth Oint [Romycin 1 applic LEFT EYE QID 5 Days #1 gm 01/23/21 Ophth Oint] Allergies Allergy/AdvReac Type Severity Reaction Status Date / Time quetiapine fumarate Allergy Rash/Hives Verified 05/02/22 09:33 [From Seroquel] Review of Systems ROS Statement: Those systems with pertinent positive or pertinent negative responses have been documented in the HPI. ROS Other: All systems not noted in ROS Statement are negative. Past Medical History Past Medical History: Asthma, COPD, Hyperlipidemia, Liver Disease, Musculoskeletal Disorder, Thyroid Disorder Additional Past Medical History / Comment(s): Optic neuritis. liver disease. History of Any Multi-Drug Resistant Organisms: None Reported Past Surgical History: No Surgical Hx Reported Past Anesthesia/Blood Transfusion Reactions: No Reported Reaction Past Psychological History: Bipolar, Depression Smoking Status: Current every day smoker Past Alcohol Use History: None Reported, Daily, Heavy Past Drug Use History: Heroin, Marijuana - Past Family History Father Additional Family Medical History / Comment(s): Patient states is father is but will not provide any additional information. He states he does not know his mothers history. He has 2 brothers and 2 step brothers and only one living. They have committed suicide. General Exam Limitations: no limitations General appearance: alert, in no apparent distress Head exam: Present: atraumatic Eye exam: Absent: scleral icterus, conjunctival injection, periorbital swelling ENT exam: Present: mucous membranes moist Expanded Mouth exam: Present: tongue normal, tongue elevation, other (Lips chapped, no bleeding). Absent: drooling, trismus, muffled voice Teeth exam: Present: dental caries. Absent: gingival enlargement Throat exam: normal inspection. negative: tonsillar erythema, tonsillomegaly, tonsillar exudate, R peritonsillar mass, L peritonsillar mass Neck exam: Present: full ROM. Absent: tenderness, meningismus, lymphadenopathy Respiratory exam: Present: wheezes. Absent: chest wall tenderness, accessory muscle use Cardiovascular Exam: Present: regular rate GI/Abdominal exam: Present: soft. Absent: distended, tenderness, rigid Neurological exam: Present: alert, oriented X3 Psychiatric exam: Present: normal affect, normal mood Skin exam: Present: warm, dry, normal color. Absent: cyanosis, diaphoretic, petechiae, pallor Course Vital Signs 05/02/22 05/02/22 05/02/22 09:31 10:58 11:08 Temperature 96 F L Pulse Rate 70 91 93 Respiratory 18 18 18 Rate Blood Pressure 129/89 O2 Sat by Pulse 100 Oximetry 05/02/22 05/02/22 11:37 11:40 Temperature 97.8 F Pulse Rate 87 Respiratory 18 Rate Blood Pressure 127/71 O2 Sat by Pulse 99 Oximetry Medical Decision Making - Medical Decision Making Patient presents with sinus congestion for 4-5 days with no fevers. He is a pack-a-day smoker. History of COPD and asthma. He was given DuoNeb treatment. Oxygen saturation is 100% on room air. Patient is homeless. Requesting to be able to sleep for a few hours in the ER. Patient directed to stop smoking as this will worsen his symptoms and follow up with his primary care doctor. States that he does have pro-air for his asthma. Case discussed with Dr. Sandoval Was pt. sent in by a medical professional or institution? @ -No Did you speak to anyone other than the patient for history? @ -No Did you review nursing and triage notes? @ -Yes I agree Were old charts reviewed? @ -No Differential Diagnosis? @ -Sinusitis, URI, viral illness, COPD exacerbation, asthma What testing was considered but not performed? (CT, X-rays, U/S, labs)? Why? @ none What meds were considered but not given? Why? @ -Antibiotics were considered however there is no evidence of fever, patient's symptoms have been for 4 days only and not consistent with sinusitis Did you discuss the management of the patient with other professionals? @ -No Did you reconcile home meds? @ -No Was smoking cessation discussed for >3mins.? @ -yes Was critical care preformed (if so, how long)? @ -No Were there social determinants of health that impacted care today? How? (Homelessness, low income, unemployed, alcoholism, drug addiction, transportation, low edu. Level, literacy, decrease access to med. care, detention, rehab)? @ -Homelessness Was there de-escalation of care discussed even if they declined? (Discuss DNR or withdrawal of care, Hospice)? @ -No What co-morbidities impacted this encounter? (DM, HTN, Smoking, COPD, CAD, Cancer, CVA, Hep., AIDS, mental health diagnosis, sleep apnea, morbid obesity)? @ -COPD, asthma, depression Was patient admitted / discharged? @ -Discharged Undiagnosed new problem with uncertain prognosis? @ -No Drug Therapy requiring intensive monitoring for toxicity (Heparin, Nitro, Insulin, Cardizem)? @ -No Were any procedures done? @ -No Diagnosis/symptom? @ -Sinus congestion, URI Acute, or Chronic, or Acute on Chronic? @ -Acute Uncomplicated (without systemic symptoms) or Complicated (systemic symptoms)? @ -Uncomplicated Side effects of treatment? @ -[none] Exacerbation, Progression, or Severe Exacerbation] @ -[no] Poses a threat to life or bodily function? @ -[no] Disposition Clinical Impression: Sinus congestion Disposition: HOME SELF-CARE Condition: Good Instructions (If sedation given, give patient instructions): How to Stop Smoking (ED), Upper Respiratory Infection (ED) Additional Instructions: Stop smoking. Use nasal saline for nasal congestion or Mucinex. Follow-up with your primary care doctor next week. Return to the emergency room with any new or concerning symptoms including difficulty breathing or fevers. Is patient prescribed a controlled substance at d/c from ED?: No Referrals: Sena Root MD [Primary Care Provider] - 1-2 days Forms: Community Resources, Personal Cnc Supervisor Time of Disposition: 10:40
[2022-05-02 11:39] VITALS: BP 127/71; PULSE 87
[2022-05-02 11:40] VITALS: TEMP 97.8
== END 2022-05-02 11:40 | disposition home or self-care (01) ==
LOC: EC 09:23
DX: R09.81 Nasal congestion (principal); J44.9 Chronic obstructive pulmonary disease, unspecified; E78.5 Hyperlipidemia, unspecified; E07.9 Disorder of thyroid, unspecified; F31.9 Bipolar disorder, unspecified; F17.200 Nicotine dependence, unspecified, uncomplicated; F12.90 Cannabis use, unspecified, uncomplicated; Z88.8 Allergy status to other drugs, medicaments and biological substances; Z79.899 Other long term (current) drug therapy
CPT/HCPCS: 94640; 99284

== ENCOUNTER 2022-08-09 18:24 | Emergency (ER) | payer OTHER ==
[2022-08-09 18:36] VITALS: TEMP 98.4
[2022-08-09] MEDS ORDERED: SODIUM CHLORIDE 0.9% 1,000 ML IV STA (19:04)
[2022-08-09] MEDS ORDERED: THIAMINE 100 MG/ML 2 ML VIAL IM STA (19:33)
--- NOTE | 2022-08-09 19:35 | ED ---
Overdose HPI - General Chief Complaint: Alcohol Stated Complaint: overdose, ETOH Time Seen by Provider: 08/09/22 18:57 Source: patient, EMS, RN notes reviewed Mode of arrival: EMS Limitations: no limitations - History of Present Illness Initial Comments: This is a 62-year-old male who presents to the emergency department for alcohol intoxication and possible overdose. Patient went to check himself in to [facility] this morning. He reported taking his entire bottle of gabapentin. There were supposedly 30 pills in the bottle. He is unsure what the dosage was. Also reports having his last alcoholic beverage this morning. On initial examination , he was sleeping heavily, but arousable and very irritable. Throughout his emergency department visit, he became much more awake and energetic. He is exhibiting no signs of distress or clinical intoxication. He has had no nausea, vomiting, or other physical complaints. Denies any fevers, chills, sore throat, cough, dyspnea, chest pain, palpitations, abdominal pain, nausea, vomiting, diarrhea, back pain, or headaches. MD Complaint: intentional overdose - Related Data Home Medications Medication Instructions Recorded Confirmed Albuterol Sulfate [Proair Hfa] 2 puff INHALATION RT-Q6H PRN 11/30/20 08/09/22 Gabapentin [Neurontin] 100 mg PO DAILY 06/18/22 08/09/22 Ibuprofen [Motrin] 800 mg PO BID PRN 06/18/22 08/09/22 Levothyroxine Sodium [Synthroid] 88 mcg PO DAILY 06/18/22 08/09/22 traZODone HCL 150 mg PO HS 06/18/22 08/09/22 Previous Rx's Medication Instructions Recorded Tamsulosin [Flomax] 0.4 mg PO DAILY 30 Days cap 04/21/20 Divalproex ER [Depakote ER] 500 mg PO BID #60 tab 12/06/20 Allergies Allergy/AdvReac Type Severity Reaction Status Date / Time quetiapine fumarate Allergy Rash/Hives Verified 08/09/22 18:37 [From Seroquel] Review of Systems ROS Statement: Those systems with pertinent positive or pertinent negative responses have been documented in the HPI. ROS Other: All systems not noted in ROS Statement are negative. Past Medical History Past Medical History: Asthma, COPD, Hyperlipidemia, Liver Disease, Musculoskeletal Disorder, Thyroid Disorder Additional Past Medical History / Comment(s): Optic neuritis. liver disease. ETOH History of Any Multi-Drug Resistant Organisms: None Reported Past Surgical History: No Surgical Hx Reported Past Anesthesia/Blood Transfusion Reactions: No Reported Reaction Past Psychological History: Bipolar, Depression Smoking Status: Current every day smoker Past Alcohol Use History: None Reported, Abuse, Daily Past Drug Use History: Cocaine, Heroin, IV Drug Use, Marijuana, Methamphetamine, Opiates, Prescription Drug Abuse - Past Family History Father Additional Family Medical History / Comment(s): Patient states is father is but will not provide any additional information. He states he does not know his mothers history. He has 2 brothers and 2 step brothers and only one living. They have committed suicide. General Exam Limitations: no limitations General appearance: alert, in no apparent distress Head exam: Present: atraumatic, normocephalic, normal inspection Respiratory exam: Present: normal lung sounds bilaterally. Absent: respiratory distress, wheezes, rales, rhonchi, stridor Cardiovascular Exam: Present: regular rate, normal rhythm, normal heart sounds. Absent: systolic murmur, diastolic murmur, rubs, gallop, clicks Neurological exam: Present: alert, oriented X3, CN II-XII intact Psychiatric exam: Present: normal affect, normal mood Skin exam: Present: warm, dry, intact, normal color. Absent: rash Course Vital Signs 08/09/22 08/09/22 08/09/22 18:31 18:56 20:43 Temperature 98.4 F Pulse Rate 62 60 72 Respiratory 18 17 18 Rate Blood Pressure 162/99 146/95 132/91 O2 Sat by Pulse 99 97 98 Oximetry 08/09/22 22:50 Temperature Pulse Rate 80 Respiratory 18 Rate Blood Pressure 158/78 O2 Sat by Pulse 96 Oximetry Medical Decision Making - Medical Decision Making This is a 62-year-old male who presents to the emergency department for a alcohol intoxication and intentional overdose. Was pt. sent in by a medical professional or institution? @ -No Did you speak to anyone other than the patient for history? @ -No Did you review nursing and triage notes? @ -Yes, and I agree, it is accurate with regards to the patient's symptoms. Were old charts reviewed? @ -No Differential Diagnosis? @ -Differential Alcohol Intoxication: Sympathomimetic syndrome, anti-muscarinic syndrome, serotonin syndrome, neuroleptic malignant syndrome, thyrotoxicosis, encephalitis, acute psychosis, hypoglycemia, trauma, sepsis. This is not meant to be an all-inclusive list. EKG interpreted by me (3pts min.)? @ -Sinus rhythm. Ventricular rate 63 beats per minute, NV interval 153 ms, QRS duration 102 ms, QTC 424 ms. What testing was considered but not performed? (CT, X-rays, U/S, labs)? Why? @ -None What meds were considered but not given? Why? @ -None Did you discuss the management of the patient with other professionals? @ -No Did you reconcile home meds? @ -No Was smoking cessation discussed for >3mins.? @ -I discussed smoking cessation for greater than 3 minutes. The risk of smoking were discussed with the patient including but not limited to risks of cancer, stroke, coronary artery disease and COPD. Also discussed with patient were multiple methods of quitting smoking. Lastly we discussed the financial cost of smoking. Was critical care preformed (if so, how long)? @ -No Were there social determinants of health that impacted care today? How? (Homelessness, low income, unemployed, alcoholism, drug addiction, transport ation, low edu. Level, literacy, decrease access to med. care, intermediate, rehab)? @ -Yes, patient is in rehab for polysubstance abuse. Patient's polysubstance abuse worsens his overall health status and increases his risk for multiple illnesses, including early . It also makes him a rather poor historian, especially at the time of intoxication. Was there de-escalation of care discussed even if they declined? (Discuss DNR or withdrawal of care, Hospice)? @ -No What co-morbidities impacted this encounter? (DM, HTN, Smoking, COPD, CAD, Cancer, CVA, Hep., AIDS, mental health diagnosis, sleep apnea, morbid obesity)? @ -Asthma, COPD, polysubstance abuse Was patient admitted / discharged? @ -Discharged. Lab work obtained revealing minor elevation in liver enzymes, which is much improved when compared with prior values and consistent with his known history of alcohol abuse. He was given IV fluids. He declined IM thiamine. Serum alcohol level is 244. Urine drug screen positive for marijuana. Patient was initially very sleepy and difficult to obtain history from. Throughout the emergency department visit, he became much more arousable and energetic. He was able to answer questions appropriately. He was also sitting up and eating and not exhibiting any signs of distress. We tried to contact poison control multiple times regarding the reported gabapentin overdose. However, we were unable to reach poison control. Given the unremarkable labs and the patient acting appropriately, he was stable for discharge. Patient discharged back into the care of [facility]. Undiagnosed new problem with uncertain prognosis? @ -None Drug Therapy requiring intensive monitoring for toxicity (Heparin, Nitro, Insulin, Cardizem)? @ -None Were any procedures done? @ -None Diagnosis/symptom? @ -Gabapentin overdose, alcohol intoxication Acute, or Chronic, or Acute on Chronic? @ -Acute Uncomplicated (without systemic symptoms) or Complicated (systemic symptoms)? @ -Uncomplicated Side effects of treatment? @ -None Exacerbation, Progression, or Severe Exacerbation] @ -Not applicable Poses a threat to life or bodily function? @ -Yes Diagnosis/symptom? @ -Polysubstance abuse Acute, or Chronic, or Acute on Chronic? @ -Chronic Uncomplicated (without systemic symptoms) or Complicated (systemic symptoms)? @ -Uncomplicated Side effects of treatment? @ -None Exacerbation, Progression, or Severe Exacerbation] @ -Stable Poses a threat to life or bodily function? @ -Yes Return precautions reviewed in depth, the patient is instructed to return to the emergency department with any new, worsening, or concerning symptoms. Patient verbalized understanding. This case was discussed in detail with the attending ED physician, Dr. Vu. Presentation, findings, and treatment plan discussed in detail as well. - Lab Data Result diagrams: 08/09/22 19:16 08/09/22 19:16 Lab Results 08/09/22 08/09/22 08/09/22 Range/Units 19:16 19:16 19:16 WBC 5.2 (3.8-10.6) k/uL RBC 4.92 (4.30-5.90) m/uL Hgb 16.6 D (13.0-17.5) gm/dL Hct 49.4 (39.0-53.0) % MCV 100.4 H (80.0-100.0) fL MCH 33.8 (25.0-35.0) pg MCHC 33.7 (31.0-37.0) g/dL RDW 13.5 (11.5-15.5) % Plt Count 200 (150-450) k/uL MPV 7.3 Neutrophils % 51 % Lymphocytes % 39 % Monocytes % 7 % Eosinophils % 1 % Basophils % 1 % Neutrophils # 2.7 (1.3-7.7) k/uL Lymphocytes # 2.0 (1.0-4.8) k/uL Monocytes # 0.3 (0-1.0) k/uL Eosinophils # 0.1 (0-0.7) k/uL Basophils # 0.0 (0-0.2) k/uL PT 11.7 (9.0-12.0) sec INR 1.1 (<1.2) Sodium 146 H (137-145) mmol/L Potassium 3.8 (3.5-5.1) mmol/L Chloride 109 H (98-107) mmol/L Carbon Dioxide 26 (22-30) mmol/L Anion Gap 11 mmol/L BUN 5 L (9-20) mg/dL Creatinine 0.59 L (0.66-1.25) mg/dL Est GFR (CKD-EPI)AfAm >90 (>60 ml/min/1.73 sqM) Est GFR (CKD-EPI)NonAf >90 (>60 ml/min/1.73 sqM) Glucose 83 (74-99) mg/dL Calcium 8.9 (8.4-10.2) mg/dL Phosphorus 4.5 (2.5-4.5) mg/dL Magnesium 1.5 L (1.6-2.3) mg/dL Total Bilirubin 0.8 (0.2-1.3) mg/dL AST 63 H (17-59) U/L ALT 65 H (4-49) U/L Alkaline Phosphatase 87 (38-126) U/L Total Protein 7.7 (6.3-8.2) g/dL Albumin 4.5 (3.5-5.0) g/dL Amylase 59 (30-110) U/L Lipase 95 (23-300) U/L Urine Color Urine Appearance (Clear) Urine pH (5.0-8.0) Ur Specific [place] (1.001-1.035) Urine Protein (Negative) Urine Glucose (UA) (Negative) Urine Ketones (Negative) Urine Blood (Negative) Urine Nitrite (Negative) Urine Bilirubin (Negative) Urine Urobilinogen (<2.0) mg/dL Ur Leukocyte Esterase (Negative) Urine Opiates Screen (NotDetected) Ur Oxycodone Screen (NotDetected) Urine Methadone Screen (NotDetected) Ur Propoxyphene Screen (NotDetected) Ur Barbiturates Screen (NotDetected) U Tricyclic Antidepress (NotDetected) Ur Phencyclidine Scrn (NotDetected) Ur Amphetamines Screen (NotDetected) U Methamphetamines Scrn (NotDetected) U Benzodiazepines Scrn (NotDetected) Urine Cocaine Screen (NotDetected) U Marijuana (THC) Screen (NotDetected) Serum Alcohol 244 H* mg/dL 08/09/22 Range/Units 19:35 WBC (3.8-10.6) k/uL RBC (4.30-5.90) m/uL Hgb (13.0-17.5) gm/dL Hct (39.0-53.0) % MCV (80.0-100.0) fL MCH (25.0-35.0) pg MCHC (31.0-37.0) g/dL RDW (11.5-15.5) % Plt Count (150-450) k/uL MPV Neutrophils % % Lymphocytes % % Monocytes % % Eosinophils % % Basophils % % Neutrophils # (1.3-7.7) k/uL Lymphocytes # (1.0-4.8) k/uL Monocytes # (0-1.0) k/uL Eosinophils # (0-0.7) k/uL Basophils # (0-0.2) k/uL PT (9.0-12.0) sec INR (<1.2) Sodium (137-145) mmol/L Potassium (3.5-5.1) mmol/L Chloride (98-107) mmol/L Carbon Dioxide (22-30) mmol/L Anion Gap mmol/L BUN (9-20) mg/dL Creatinine (0.66-1.25) mg/dL Est GFR (CKD-EPI)AfAm (>60 ml/min/1.73 sqM) Est GFR (CKD-EPI)NonAf (>60 ml/min/1.73 sqM) Glucose (74-99) mg/dL Calcium (8.4-10.2) mg/dL Phosphorus (2.5-4.5) mg/dL Magnesium (1.6-2.3) mg/dL Total Bilirubin (0.2-1.3) mg/dL AST (17-59) U/L ALT (4-49) U/L Alkaline Phosphatase (38-126) U/L Total Protein (6.3-8.2) g/dL Albumin (3.5-5.0) g/dL Amylase (30-110) U/L Lipase (23-300) U/L Urine Color Light Yellow Urine Appearance Clear (Clear) Urine pH 5.5 (5.0-8.0) Ur Specific [place] 1.004 (1.001-1.035) Urine Protein Negative (Negative) Urine Glucose (UA) Negative (Negative) Urine Ketones Negative (Negative) Urine Blood Negative (Negative) Urine Nitrite Negative (Negative) Urine Bilirubin Negative (Negative) Urine Urobilinogen <2.0 (<2.0) mg/dL Ur Leukocyte Esterase Negative (Negative) Urine Opiates Screen Not Detected (NotDetected) Ur Oxycodone Screen Not Detected (NotDetected) Urine Methadone Screen Not Detected (NotDetected) Ur Propoxyphene Screen Not Detected (NotDetected) Ur Barbiturates Screen Not Detected (NotDetected) U Tricyclic Antidepress Not Detected (NotDetected) Ur Phencyclidine Scrn Not Detected (NotDetected) Ur Amphetamines Screen Not Detected (NotDetected) U Methamphetamines Scrn Not Detected (NotDetected) U Benzodiazepines Scrn Not Detected (NotDetected) Urine Cocaine Screen Not Detected (NotDetected) U Marijuana (THC) Screen Detected H (NotDetected) Serum Alcohol mg/dL Disposition Clinical Impression: Alcohol intoxication, Gabapentin overdose, Polysubstance abuse Disposition: HOME SELF-CARE Instructions (If sedation given, give patient instructions): Alcohol Intoxication (ED) Additional Instructions: Return to the emergency department with any new, worsening, or concerning symptoms. Follow up with your primary care provider in 1-2 days. Is patient prescribed a controlled substance at d/c from ED?: No Referrals: Sena Root MD [Primary Care Provider] - 1-2 days
[2022-08-09 19:47] LABS: Basophils % (A) 1 %; Eosinophils # (A) 0.1 k/uL (0-0.7); Eosinophils % (A) 1 %; HCT 49.4 % (39.0-53.0); Lymphocytes % (A) 39 %; MCH 33.8 pg (25.0-35.0); MCHC 33.7 g/dL (31.0-37.0); MCV 100.4 fL (80.0-100.0); Mean Platelet Volume 7.3; Monocytes # (A) 0.3 k/uL (0-1.0); Monocytes % (A) 7 %; Neutrophils # (A) 2.7 k/uL (1.3-7.7); Neutrophils % (A) 51 %; Platelet Count 200 k/uL (150-450); RBC 4.92 m/uL (4.30-5.90); RDW 13.5 % (11.5-15.5); WBC 5.2 k/uL (3.8-10.6)
[2022-08-09 19:54] LABS: Appearance,Urine Clear (Clear); Bilirubin,Urine Negative (Negative); Blood,Urine Negative (Negative); Color,Urine Light Yellow; Glucose,Urine (UA) Negative (Negative); Ketones,Urine Negative (Negative); Leukocyte Esterase,Urine Negative (Negative); Nitrite,Urine Negative (Negative); PH, Urine 5.5 (5.0-8.0); Protein,Urine Negative (Negative); Specific Gravity,Urine 1.004 (1.001-1.035); Urobilinogen,Urine <2.0 mg/dL (<2.0)
[2022-08-09 20:01] LABS: INR 1.1 (<1.2); Prothrombin Time 11.7 sec (9.0-12.0)
[2022-08-09 20:02] LABS: ALT 65 U/L (4-49); AST 63 U/L (17-59); African American GFR (CKD) >90 (>60 ml/min/1.73 sqM); Albumin 4.5 g/dL (3.5-5.0); Alkaline Phosphatase 87 U/L (38-126); Amylase 59 U/L (30-110); Anion Gap 11 mmol/L; Blood Urea Nitrogen 5 mg/dL (9-20); Calcium 8.9 mg/dL (8.4-10.2); Carbon Dioxide 26 mmol/L (22-30); Chloride 109 mmol/L (98-107); Glucose 83 mg/dL (74-99); Lipase 95 U/L (23-300); Magnesium 1.5 mg/dL (1.6-2.3); Non-African American GFR(CKD) >90 (>60 ml/min/1.73 sqM); Phosphorus 4.5 mg/dL (2.5-4.5); Potassium 3.8 mmol/L (3.5-5.1); Sodium 146 mmol/L (137-145); Total Bilirubin 0.8 mg/dL (0.2-1.3); Total Protein 7.7 g/dL (6.3-8.2)
[2022-08-09 20:20] LABS: HGB 16.6 gm/dL (13.0-17.5)
[2022-08-09 20:26] LABS: Amphetamine Screen,Urine Not Detected (NotDetected); Barbiturate Screen,Urine Not Detected (NotDetected); Benzodiazepines Screen,Urine Not Detected (NotDetected); Cocaine Screen,Urine Not Detected (NotDetected); Methadone Screen, Urine Not Detected (NotDetected); Opiate Screen,Urine Not Detected (NotDetected); Oxycodone Screen, Urine Not Detected (NotDetected); Phencyclidine Screen,Urine Not Detected (NotDetected); Tricyclic Antidepressant,Urine Not Detected (NotDetected); Urn Cannabinoid Scrn Detected (NotDetected)
[2022-08-09 20:33] LABS: Alcohol 244 mg/dL
[2022-08-09 20:44] VITALS: RESP 18
[2022-08-09 22:52] VITALS: BP 158/78; PULSE 80
== END 2022-08-09 22:52 | disposition home or self-care (01) ==
LOC: EC 18:24
DX: T42.6X1A Poisoning by other antiepileptic and sedative-hypnotic drugs, accidental (unintentional), initial encounter (principal); F10.129 Alcohol abuse with intoxication, unspecified; F19.10 Other psychoactive substance abuse, uncomplicated; Y90.8 Blood alcohol level of 240 mg/100 ml or more; J44.9 Chronic obstructive pulmonary disease, unspecified; E78.5 Hyperlipidemia, unspecified; E07.9 Disorder of thyroid, unspecified; F17.200 Nicotine dependence, unspecified, uncomplicated; F12.90 Cannabis use, unspecified, uncomplicated; F11.90 Opioid use, unspecified, uncomplicated; F14.90 Cocaine use, unspecified, uncomplicated; F15.90 Other stimulant use, unspecified, uncomplicated; Z79.890 Hormone replacement therapy; Z79.899 Other long term (current) drug therapy; Z88.8 Allergy status to other drugs, medicaments and biological substances
CPT/HCPCS: 36415; 80053; 82150; 83690; 83735; 84100; 85025; 85610; 81003; 80306; 99284; 96360; 96361 ×3; G0480; 80320

== ENCOUNTER 2022-10-30 21:41 | Emergency (ER) | payer OTHER ==
--- NOTE | 2022-10-30 22:37 | ED ---
General Adult HPI - General Source: patient, RN notes reviewed Mode of arrival: ambulatory Limitations: no limitations <Rosy Webb - Last Filed: 10/30/22 22:37> - General Source: patient, RN notes reviewed, old records reviewed <Ashish Winchester - Last Filed: 10/31/22 08:08> - General Chief complaint: Shortness of Breath Stated complaint: Symptoms of pneumonia Time Seen by Provider: 10/30/22 22:37 - History of Present Illness Initial comments: 62-year-old male with polysubstance abuse history presents the emergency department with a chief of chest pain and shortness of breath. (Rosy Webb) Patient is a 62-year-old male with past medical history remarkable for tobacco abuse, COPD, polysubstance abuse, presents emergency Department complaining of pleuritic chest pain, shortness of breath, cough, congestion for the last few days. States this is similar to when he had pneumonia last month and was admitted to an outside hospital for multiple days for IV antibiotics. Became concerned and wanted to be evaluated. States he becomes short of breath when moving from room to room. Wants to get ahead of it so does not require admission. Patient originally presented to quick note but declined any attempts at obtaining laboratory studies prior to evaluation in a room, which was delayed due to ER volumes. (Ashish Winchester) - Related Data Home Medications Medication Instructions Recorded Confirmed Albuterol Sulfate [Proair Hfa] 2 puff INHALATION RT-Q6H PRN 11/30/20 08/09/22 Gabapentin [Neurontin] 100 mg PO DAILY 06/18/22 08/09/22 Ibuprofen [Motrin] 800 mg PO BID PRN 06/18/22 08/09/22 Levothyroxine Sodium [Synthroid] 88 mcg PO DAILY 06/18/22 08/09/22 traZODone HCL 150 mg PO HS 06/18/22 08/09/22 Previous Rx's Medication Instructions Recorded Tamsulosin [Flomax] 0.4 mg PO DAILY 30 Days cap 04/21/20 Divalproex ER [Depakote ER] 500 mg PO BID #60 tab 12/06/20 Albuterol Inhaler [Ventolin Hfa 1 puff INHALATION QID #8 gm 10/31/22 Inhaler] Doxycycline Hyclate 100 mg PO BID 7 Days #14 capsule 10/31/22 predniSONE [Deltasone] 40 mg PO DAILY 5 Days #10 tab 10/31/22 Allergies Allergy/AdvReac Type Severity Reaction Status Date / Time quetiapine fumarate Allergy Rash/Hives Verified 10/30/22 21:52 [From Seroquel] Review of Systems ROS Other: All systems not noted in ROS Statement are negative. <Rosy Webb - Last Filed: 10/30/22 22:37> ROS Other: All systems not noted in ROS Statement are negative. <Ashish Winchester - Last Filed: 10/31/22 08:08> ROS Statement: Those systems with pertinent positive or pertinent negative responses have been documented in the HPI. Review of Systems: CONST: Denies fever EYES: Denies blurry vision ENT: Endorses nasal congestion C/V: Denies Chest pain RESP: Endorses cough, shortness of breath GI: Denies abdominal pain : Denies dysuria SKIN: Denies rash. MSK: Denies joint pain. NEURO: Denies headache (Ashish Winchester) Past Medical History Past Medical History: Asthma, COPD, Hyperlipidemia, Liver Disease, Musculoskeletal Disorder, Thyroid Disorder Additional Past Medical History / Comment(s): Optic neuritis. liver disease. ETOH History of Any Multi-Drug Resistant Organisms: None Reported Past Surgical History: No Surgical Hx Reported Past Anesthesia/Blood Transfusion Reactions: No Reported Reaction Past Psychological History: Bipolar, Depression Smoking Status: Current every day smoker Past Alcohol Use History: None Reported, Abuse, Daily Past Drug Use History: Cocaine, Heroin, IV Drug Use, Marijuana, Methamphetamine, Opiates, Prescription Drug Abuse - Past Family History Father Additional Family Medical History / Comment(s): Patient states is father is but will not provide any additional information. He states he does not know his mothers history. He has 2 brothers and 2 step brothers and only one living. They have committed suicide. <Rosy Webb - Last Filed: 10/30/22 22:37> General Exam Limitations: no limitations <Rosy Webb - Last Filed: 10/30/22 22:37> <Ashish Winchester - Last Filed: 10/31/22 08:08> - General Exam Comments Initial Comments: Visual Physical Exam Vital signs reviewed General: Well-appearing, nontoxic, no acute distress. Head: Normocephalic, atraumatic Eyes: PERRLA, EOMI ENT: Airway patent Chest: Nonlabored breathing Skin: No visual rash, normal skin tone Neuro: Alert and oriented 3 Musculoskeletal: No gross abnormalities (Rosy Webb) General: Appears in no acute distress. Febrile. HEAD: Normal with no signs of head trauma. EYES: PERRLA, EOMI, conjunctiva normal, no discharge. ENT: Hearing grossly intact, normal oropharynx. RESPIRATORY: Bilateral end expiratory wheezing. No hypoxia. No increased work of breathing. C/V: Mild tachycardia.. S1 and S2 auscultated, no edema, peripheral pulses 2+ and intact throughout ABD: Abd is soft, nontender, nondistended EXT: Normal range of motion, no obvious deformity SKIN: No rashes or lesions observed on exposed skin. NEURO: Alert and oriented 4. (Ashish Winchester) Course Vital Signs 10/30/22 10/31/22 10/31/22 21:49 04:50 05:17 Temperature 98.9 F 101.4 F H Pulse Rate 126 H 110 H 113 H Respiratory 20 18 18 Rate Blood Pressure 156/94 123/85 137/83 O2 Sat by Pulse 99 98 95 Oximetry 10/31/22 10/31/22 10/31/22 05:28 05:38 06:21 Temperature 98.7 F Pulse Rate 102 H 108 H Respiratory Rate Blood Pressure O2 Sat by Pulse Oximetry 10/31/22 10/31/22 06:47 07:33 Temperature 97.8 F Pulse Rate 92 Respiratory 18 Rate Blood Pressure 120/72 O2 Sat by Pulse 93 L Oximetry Medical Decision Making - Lab Data Result diagrams: 10/31/22 04:37 10/31/22 04:37 - EKG Data -: EKG Interpreted by Dc <Ashish Winchester - Last Filed: 10/31/22 08:08> - Medical Decision Making Was pt. sent in by a medical professional or institution (, PA, INCIDENT ENGINEER, urgent care, hospital, or fpc...) When possible be specific @ -No Did you speak to anyone other than the patient for history (EMS, parent, family, police, friend...)? What history was obtained from this source @ -No Did you review nursing and triage notes (agree or disagree)? Why? @ -I reviewed and agree with nursing and triage notes Were old charts reviewed (outside hosp., previous admission, EMS record, old EKG, old radiological studies, urgent care reports/EKG's, fpc records)? Report findings @ -No old charts were reviewed Differential Diagnosis (chest pain, altered mental status, abdominal pain women, abdominal pain men, vaginal bleeding, weakness, fever, dyspnea, syncope, headache, dizziness, GI bleed, back pain, seizure, CVA, palpatations, mental health, musculoskeletal)? @ -Differential Dyspnea: Coronary syndrome, arrhythmia, tamponade, asthma, COPD, pulmonary embolism, pneumonia, pneumothorax, pulmonary effusion, anaphylaxis, diabetic ketoacidosis, flailed chest, pulmonary contusion, diaphragmatic rupture, anemia, neuromuscular, this is not meant to be an all-inclusive list. EKG interpreted by me (3pts min.). @ -As above X-rays interpreted by me (1pt min.). @ -Chest x-ray reveals no obvious acute cardio pulmonary process, pneumonia. CT interpreted by me (1pt min.). @ -CT angiogram of the chest reveals no obvious PE. Patient does have a concerning possible mass in the right lung. Recommended follow-up imaging. Corroborated with radiology read. U/S interpreted by me (1pt. min.). @ -None done What testing was considered but not performed or refused? (CT, X-rays, U/S, labs)? Why? @ -None What meds were considered but not given or refused? Why? @ -None Did you discuss the management of the patient with other professionals (professionals i.e. , PA, INCIDENT ENGINEER, lab, RT, psych nurse, medical social consultant, apartment house manager, teacher, chief sales officer, case checker)? Give summary @ -No Was smoking cessation discussed for >3mins.? @ -No Was critical care preformed (if so, how long)? @ -No Were there social determinants of health that impacted care today? How? (Homelessness, low income, unemployed, alcoholism, drug addiction, transportation, low edu. Level, literacy, decrease access to med. care, custodial, rehab)? @ -No Was there de-escalation of care discussed even if they declined (Discuss DNR or withdrawal of care, Hospice)? DNR status @ -No What co-morbidities impacted this encounter? (DM, HTN, Smoking, COPD, CAD, Cancer, CVA, ARF, Chemo, Hep., AIDS, mental health diagnosis, sleep apnea, morbid obesity)? @ -Tobacco use, polysubstance abuse Was patient admitted / discharged? Hospital course, mention meds given and route, prescriptions, significant lab abnormalities, going to OR and other pertinent info. @ -Based on the patient's presentation and physical exam, he presents concerned for upper respiratory infection. Is having pleuritic chest pain, cough, shortness of breath. Does have a history of polysubstance abuse. Appears to be having a COPD exacerbation but cannot rule out other etiology at this time. We'll obtain cardiopulmonary labs. Vital signs remarkable for fever and a tachycardia which resolved with antipyretics. He'll also receive a breathing treatment as well as IV steroids. Patient was in agreement with this plan. Vital signs otherwise are within acceptable limits. EKG showed no signs of acute ischemia. Imaging shows no evidence of PE after an elevated d-dimer and workup. Patient's troponin is undetectable. BNP is within acceptable limits. The remainder the patient's lavatory studies are within acc eptable limits. Vital signs negative. I updated the patient. We discussed his workup. I believe he is likely having bronchitis and with his fever we will treat with antibiotics. I did update him on the findings of possible mass in the left lung. He expressed understanding. Recommended follow-up imaging. Patient will be given a dose of IV Rocephin, as well as prescription for prednisone and albuterol inhaler. I will provide the patient with a prescription for doxycycline, albuterol, prednisone. I instructed the patient to follow up with their PCP in the next 1-3 days. I will provide him with follow up information with pulmonology. I explained that the patient should return to the emergency department if they experience any worsening symptoms. Strict return precautions were discussed with the patient. The patient expressed understanding of these instructions. I answer ed all questions that the patient had. The patient was discharged home in good condition with their prescriptions and follow up information. Undiagnosed new problem with uncertain prognosis? @ -No Drug Therapy requiring intensive monitoring for toxicity (Heparin, Nitro, Insulin, Cardizem)? @ -No Were any procedures done? @ -No Diagnosis/symptom? @ -Febrile illness, bronchitis, lung mass Acute, or Chronic, or Acute on Chronic? @ -Acute Uncomplicated (without systemic symptoms) or Complicated (systemic symptoms)? @ -Complicated Side effects of treatment? @ -No Exacerbation, Progression, or Severe Exacerbation? @ -No Poses a threat to life or bodily function? How? (Chest pain, [place], [place], pneumonia, PE, COPD, DKA, ARF, appy, cholecystitis, CVA, Diverticulitis, Homicidal, [place] icidal, threat to staff... and all critical care pts) @ -No Diagnosis/symptom? @ -COPD Acute, or Chronic, or Acute on Chronic? @ -Acute Uncomplicated (without systemic symptoms) or Complicated (systemic symptoms)? @ -Complicated Side effects of treatment? @ -none Exacerbation, Progression, or Severe Exacerbation] @ -Exacerbation Poses a threat to life or bodily function? @ -no (Ashish Winchester) - Lab Data Lab Results 10/31/22 10/31/22 10/31/22 Range/Units 04:37 04:37 04:37 WBC 7.3 (3.8-10.6) k/uL RBC 3.69 L (4.30-5.90) m/uL Hgb 12.4 L (13.0-17.5) gm/dL Hct 35.8 L (39.0-53.0) % MCV 97.0 (80.0-100.0) fL MCH 33.5 (25.0-35.0) pg MCHC 34.6 (31.0-37.0) g/dL RDW 13.5 (11.5-15.5) % Plt Count 145 L (150-450) k/uL MPV 8.2 Neutrophils % 66 % Lymphocytes % 23 % Monocytes % 8 % Eosinophils % 0 % Basophils % 0 % Neutrophils # 4.8 (1.3-7.7) k/uL Lymphocytes # 1.7 (1.0-4.8) k/uL Monocytes # 0.6 (0-1.0) k/uL Eosinophils # 0.0 (0-0.7) k/uL Basophils # 0.0 (0-0.2) k/uL PT 10.8 (9.0-12.0) sec INR 1.0 (<1.2) APTT 30.3 H (22.0-30.0) sec D-Dimer 0.90 H (<0.60) mg/L FEU Sodium 134 L (137-145) mmol/L Potassium 3.5 (3.5-5.1) mmol/L Chloride 103 (98-107) mmol/L Carbon Dioxide 24 (22-30) mmol/L Anion Gap 7 mmol/L BUN 14 (9-20) mg/dL Creatinine 0.50 L (0.66-1.25) mg/dL Est GFR (CKD-EPI)AfAm >90 (>60 ml/min/1.73 sqM) Est GFR (CKD-EPI)NonAf >90 (>60 ml/min/1.73 sqM) Glucose 101 H (74-99) mg/dL Calcium 8.9 (8.4-10.2) mg/dL Total Bilirubin 3.1 H (0.2-1.3) mg/dL AST 55 (17-59) U/L ALT 50 H (4-49) U/L Alkaline Phosphatase 71 (38-126) U/L Troponin I (0.000-0.034) ng/mL NT-Pro-B Natriuret Pep pg/mL Total Protein 6.6 (6.3-8.2) g/dL Albumin 3.8 (3.5-5.0) g/dL Influenza Type A (PCR) (Not Detectd) Influenza Type B (PCR) (Not Detectd) RSV (PCR) (Not Detectd) SARS-CoV-2 (PCR) (Not Detectd) 10/31/22 10/31/22 10/31/22 Range/Units 04:37 04:37 04:37 WBC (3.8-10.6) k/uL RBC (4.30-5.90) m/uL Hgb (13.0-17.5) gm/dL Hct (39.0-53.0) % MCV (80.0-100.0) fL MCH (25.0-35.0) pg MCHC (31.0-37.0) g/dL RDW (11.5-15.5) % Plt Count (150-450) k/uL MPV Neutrophils % % Lymphocytes % % Monocytes % % Eosinophils % % Basophils % % Neutrophils # (1.3-7.7) k/uL Lymphocytes # (1.0-4.8) k/uL Monocytes # (0-1.0) k/uL Eosinophils # (0-0.7) k/uL Basophils # (0-0.2) k/uL PT (9.0-12.0) sec INR (<1.2) APTT (22.0-30.0) sec D-Dimer (<0.60) mg/L FEU Sodium (137-145) mmol/L Potassium (3.5-5.1) mmol/L Chloride (98-107) mmol/L Carbon Dioxide (22-30) mmol/L Anion Gap mmol/L BUN (9-20) mg/dL Creatinine (0.66-1.25) mg/dL Est GFR (CKD-EPI)AfAm (>60 ml/min/1.73 sqM) Est GFR (CKD-EPI)NonAf (>60 ml/min/1.73 sqM) Glucose (74-99) mg/dL Calcium (8.4-10.2) mg/dL Total Bilirubin (0.2-1.3) mg/dL AST (17-59) U/L ALT (4-49) U/L Alkaline Phosphatase (38-126) U/L Troponin I <0.012 (0.000-0.034) ng/mL NT-Pro-B Natriuret Pep 137 pg/mL Total Protein (6.3-8.2) g/dL Albumin (3.5-5.0) g/dL Influenza Type A (PCR) Not Detected (Not Detectd) Influenza Type B (PCR) Not Detected (Not Detectd) RSV (PCR) Not Detected (Not Detectd) SARS-CoV-2 (PCR) Not Detected (Not Detectd) - EKG Data EKG Comments: 12-lead Electrocardiogram Interpretation Note EKG was reviewed and interpreted by myself. 12-lead ECG performed at 2208 is interpreted by me as revealing sinus tachycardia at a rate of 107 beats per minute. [place] is normal. DE interval is 139 ms, QRS duration is 101 ms, QTc is 408 ms.. There were no ST or T wave abnormalities to suggest myocardial ischemia or injury. R wave progression across the precordium was satisfactory. By my interpretation this EKG is non-diagnostic for acute ischemia. (Ashish Winchester) Disposition <Rosy Webb - Last Filed: 10/30/22 22:37> Is patient prescribed a controlled substance at d/c from ED?: No Time of Disposition: 07:55 <Ashish Winchester - Last Filed: 10/31/22 08:08> Clinical Impression: Bronchitis, Febrile illness, COPD (chronic obstructive pulmonary disease), Lung mass Disposition: HOME SELF-CARE Condition: Good Instructions (If sedation given, give patient instructions): Acute Bronchitis (ED), COPD (Chronic Obstructive Pulmonary Disease) (ED) Additional Instructions: follow up for further imaging due to concern for lung mass. Prescriptions: predniSONE [Deltasone] 40 mg PO DAILY 5 Days #10 tab Doxycycline Hyclate 100 mg PO BID 7 Days #14 capsule Albuterol Inhaler [Ventolin Hfa Inhaler] 1 puff INHALATION QID #8 gm Referrals: Sena Root MD [Primary Care Provider] - 1-2 days Jim Phillips MD [STAFF PHYSICIAN] - 1-2 days
--- NOTE | 2022-10-31 | XR ---
EXAM: XR Chest, 2 Views CLINICAL HISTORY: ITS.REASON XR Reason: cough TECHNIQUE: Frontal and lateral views of the chest. COMPARISON: 08-17-20 FINDINGS: Lungs: Subtle airspace opacities over bilateral lower lung zones. Pleural space: Unremarkable. No pneumothorax. Heart: Unremarkable. No cardiomegaly. Mediastinum: Calcified aorta. Bones/joints: No acute findings. IMPRESSION: Suspect Small amount of bibasilar atelectasis and/or pneumonia
[2022-10-31 04:48] LABS: Basophils % (A) 0 %; Eosinophils % (A) 0 %; HCT 35.8 % (39.0-53.0); HGB 12.4 gm/dL (13.0-17.5); Lymphocytes # (A) 1.7 k/uL (1.0-4.8); Lymphocytes % (A) 23 %; MCH 33.5 pg (25.0-35.0); MCHC 34.6 g/dL (31.0-37.0); Mean Platelet Volume 8.2; Monocytes # (A) 0.6 k/uL (0-1.0); Monocytes % (A) 8 %; Neutrophils # (A) 4.8 k/uL (1.3-7.7); Neutrophils % (A) 66 %; Platelet Count 145 k/uL (150-450); RBC 3.69 m/uL (4.30-5.90); RDW 13.5 % (11.5-15.5); WBC 7.3 k/uL (3.8-10.6)
[2022-10-31] MEDS ORDERED: methylPREDNISolone SOD SUCCI 40 MG/ML 1 ML VIAL IV STA (04:48)
[2022-10-31] MEDS ORDERED: IBUPROFEN 800 MG TAB PO STA (04:49)
[2022-10-31] MEDS ORDERED: ACETAMINOPHEN TAB 500 MG TAB PO STA (04:49)
[2022-10-31 04:51] VITALS: RESP 18
[2022-10-31 04:58] LABS: ALT 50 U/L (4-49); AST 55 U/L (17-59); African American GFR (CKD) >90 (>60 ml/min/1.73 sqM); Albumin 3.8 g/dL (3.5-5.0); Alkaline Phosphatase 71 U/L (38-126); Anion Gap 7 mmol/L; Blood Urea Nitrogen 14 mg/dL (9-20); Calcium 8.9 mg/dL (8.4-10.2); Carbon Dioxide 24 mmol/L (22-30); Chloride 103 mmol/L (98-107); Glucose 101 mg/dL (74-99); Non-African American GFR(CKD) >90 (>60 ml/min/1.73 sqM); Sodium 134 mmol/L (137-145); Total Bilirubin 3.1 mg/dL (0.2-1.3); Total Protein 6.6 g/dL (6.3-8.2)
[2022-10-31 05:11] LABS: Partial Thromboplastin Time 30.3 sec (22.0-30.0); Prothrombin Time 10.8 sec (9.0-12.0)
[2022-10-31] MEDS: IPRATROPIUM-ALBUTEROL 3 ML NEB INHALATION SCH ×2 (05:27→05:30)
[2022-10-31 05:32] LABS: Potassium 3.5 mmol/L (3.5-5.1)
[2022-10-31 07:34] VITALS: TEMP 97.8
--- NOTE | 2022-10-31 07:42 | CT ---
CT CHEST FOR PULMONARY EMBOLISM. EXAMINATION TYPE: CT chest angio for PE DATE OF EXAM: 10/31/2022 INDICATION: Elevated d-dimer, short of breath CT DLP: 2657.5 mGycm, Automated exposure control for dose reduction was used. CONTRAST: Patient injected with 84 mL of Isovue 370. COMPARISON: None TECHNIQUE: CT of the chest is performed on a spiral scan at 2 mm thick sections. Study is performed with intravenous contrast timed for evaluation for pulmonary embolism. This will limit additional po rtions of the evaluation. 3-D MIP images reconstructed by the technologist are reviewed on the compu ter in the coronal and sagittal planes. FINDINGS: No persistent filling defects are evident to suggest an acute pulmonary embolism. No mediastinal or hilar adenopathy enlarged by CT criteria is evident. The ascending aorta diameter at the level of the main pulmonary artery is 3.2 cm. The main pulmonary artery diameter at the bifur cation is 2.8 cm. Minimal infiltrate is at the cardiophrenic angle in the lingula. Some very minimal infiltrate remaini ng in the posterior lung bases. There is a 1.2 cm area of increased density within the right cardiop hrenic angle. Follow-up is recommended. Underlying mass is not excluded Limited CT section through the upper abdomen are unremarkable. IMPRESSIONS: 1. No acute pulmonary embolism. 2. 1.2 cm density within the right cardiophrenic angle. Follow-up is recommended. Underlying mass is not excluded. 3. There is minimal additional areas of infiltrate may be related to atelectasis. Follow these areas is also recommended.
[2022-10-31] MEDS ORDERED: cefTRIAXone IN SWFI 1,000 MG/10 ML SYRINGE IVP STA (08:00)
[2022-10-31] MEDS ORDERED: DOXYCYCLINE 100 MG CAP PO STA (08:00)
[2022-10-31 10:33] VITALS: BP 135/90; PULSE 69
== END 2022-10-31 10:43 | disposition home or self-care (01) ==
LOC: EC 21:41
DX: J40 Bronchitis, not specified as acute or chronic (principal); R50.9 Fever, unspecified; J44.9 Chronic obstructive pulmonary disease, unspecified; R91.8 Other nonspecific abnormal finding of lung field; E07.9 Disorder of thyroid, unspecified; F31.9 Bipolar disorder, unspecified; F17.200 Nicotine dependence, unspecified, uncomplicated; F14.90 Cocaine use, unspecified, uncomplicated; F12.90 Cannabis use, unspecified, uncomplicated; F11.90 Opioid use, unspecified, uncomplicated; F15.90 Other stimulant use, unspecified, uncomplicated; Z79.890 Hormone replacement therapy; Z79.899 Other long term (current) drug therapy; Z88.8 Allergy status to other drugs, medicaments and biological substances; Z20.822 Contact with and (suspected) exposure to COVID-19
CPT/HCPCS: 36415; 71046; 71275; 80053; 83880; 84484; 85025; 85379; 85610; 85730; 87636; 93005; 96374; 96375; 99285

== ENCOUNTER 2023-01-01 11:23 | Day surgery (SDC) | payer OTHER ==
[2022-12-29 08:22] VITALS: BMI 20.5
[~2023-01-01 11:23] MED LIST: DEXAMETHASONE SOD PHOSPHATE 4 MG/ML 1 ML VIAL IV ONE; HYDROmorphone 0.5 MG/0.5 ML SYRINGE IVP PRN; LACTATED RINGERS 1,000 ML IV SCH; LIDOCAINE 1% (10MG/ML) FOR IV START INTRADERMA PRN; MIDAZOLAM 2 MG/2 ML VIAL IV PRN; ONDANSETRON 4 MG/2 ML VIAL IVP ONE
[2023-01-01 12:09] VITALS: TEMP 97.9
[2023-01-01] MEDS ORDERED: PROPOFOL 10 MG/ML 20 ML VIAL IV ONE (12:38)
[2023-01-01] MEDS ORDERED: MIDAZOLAM 2 MG/2 ML VIAL ONE (12:38)
[2023-01-01 13:33] VITALS: RESP 20
[2023-01-01 13:47] VITALS: BP 148/91; PULSE 55
--- NOTE | 2023-01-01 16:17 | P.PCN ---
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 A timeout was done. The procedure was done in the endoscopy suite under conscious sedation. The purpose for the procedure was to obtain a bronchial lavage of the patient was having recurrent pneumonias The flexible bronchoscope was introduced through the left nostril and was easily advanced into the posterior oropharynx and later on to the larynx. The laryngeal wall was quite inflamed and there was necrotic tissue involving the vallecula and the area behind and anterior to the epiglottis. The tissue was quite necrotic, pale, irregular looking. Epiglottis was sharp in the midline and the vocal cords were pale without any lesions or nodules identified. A total of 2 mL of 1% lidocaine was applied to the vocal cord and following that the bronchoscope was advanced into the upper trachea. Examination of the airways revealed no cyst or secretions scattered throughout the airways bilaterally. Therapeutic airway suctioning was done. Airways inspected included the trachea, bilateral mainstem bronchi, right upper lobe bronchus, bronchus intermedius, right middle lobe bronchus and right lower lobe bronchus and the various 10 segments on the right and a eczema patient the left side included the left upper lobe bronchus, left lower lobe bronchus and the various segments on the left. the airways and the various segments were patent and there was no endobronchial tumors or lesions or abnormalities identified. There was however mild to moderate amount of respiratory secretions. A bronchial lavage of the right lower lobe was done. A total of 60 mL of fluid was infused and 20 mL's was suctioned back and the aspirate was not bloody. There was however cloudy. The bronchoscope was gradually retracted back to the supraglottic area and under direct visualization, few biopsies of the necrotic tissue involving the laryngeal wall/vallecula was obtained. This was sent for pathologic evaluation. The bronchoscope was removed. The patient was transferred to recovery in stable condition. The patient remains stable throughout the procedure. No oxygen desaturations Plan Continue Trelegy Ellipta on prednisone burst taper. Send the bronchial lavage for microbial culture and analysis. Refer this patient to an ENT evaluation regarding the abnormal findings in the larynx.
== END 2023-01-01 15:05 | disposition home or self-care (01) ==
LOC: ORWHC2ENDO 11:23
PROVIDERS: ATTEND Internal Medicine Critical Care Medicine
DX: J44.9 Chronic obstructive pulmonary disease, unspecified (principal); N40.0 Benign prostatic hyperplasia without lower urinary tract symptoms; E03.9 Hypothyroidism, unspecified; K70.10 Alcoholic hepatitis without ascites; F17.210 Nicotine dependence, cigarettes, uncomplicated; Z87.01 Personal history of pneumonia (recurrent); Z88.8 Allergy status to other drugs, medicaments and biological substances; Z79.890 Hormone replacement therapy; Z79.899 Other long term (current) drug therapy; Z79.51 Long term (current) use of inhaled steroids; Z79.52 Long term (current) use of systemic steroids
CPT/HCPCS: 31624; 87070; 87205; 87116; 87102; 87206; J1100; J2405; 31625; 88108; 88305; 88312

== ENCOUNTER 2023-01-19 02:37 | Emergency (ER) | payer OTHER ==
--- NOTE | 2023-01-19 07:05 | ED ---
Alcohol HPI - General Chief Complaint: Alcohol Stated Complaint: Detoxing Time Seen by Provider: 01/19/23 03:06 Source: patient Mode of arrival: ambulatory Limitations: no limitations - History of Present Illness Initial Comments: This patient is 62-year-old man who presents with complaint that he believes he needs to have detox. Patient states she drinks probably a pint of alcohol per day. Patient had a last drink couple of hours ago. He is having some nausea but no vomiting. Patient denies any recent fall or injury. No chest pain, abdominal pain. MD Complaint: alcohol intoxication Last Drink: just [employer] Previous Visits for Alcohol Intoxication?: Yes Recent Trauma: No Associated Symptoms: nausea Treatments Prior to Arrival: none Chronic Alcohol Use: Yes - Related Data Home Medications Medication Instructions Recorded Confirmed Albuterol Nebulized [Ventolin 2.5 mg INHALATION RT-Q6H PRN 01/01/23 01/22/23 Nebulized] Divalproex [Depakote] 500 mg PO DAILY 01/01/23 01/22/23 Fluticasone/Umeclidin/Vilanter 1 puff INHALATION RT-DAILY 01/01/23 01/22/23 [Trelegy Ellipta 100-62.5-25] HYDROcodone/APAP 7.5-325MG [[place] 1 tab PO Q6HR PRN 01/01/23 01/22/23 7.5-325] Ibuprofen [Motrin] 800 mg PO BID PRN 01/01/23 01/22/23 Levothyroxine Sodium 88 mcg PO DAILY 01/01/23 01/22/23 Tamsulosin HCl [Flomax] 0.4 mg PO DAILY 01/01/23 01/22/23 traZODone HCL 150 mg PO DAILY 01/01/23 01/22/23 Albuterol Inhaler [Ventolin Hfa 1 puff INHALATION RT-QID 01/22/23 01/22/23 Inhaler] Nicotine 21Mg/24Hr Patch [Habitrol] 1 patch TRANSDERM DAILY 01/22/23 01/22/23 buPROPion XL [Wellbutrin XL] 150 mg PO DAILY 01/22/23 01/22/23 Allergies Allergy/AdvReac Type Severity Reaction Status Date / Time quetiapine fumarate Allergy Rash/Hives Verified 01/22/23 13:36 [From Seroquel] Review of Systems ROS Statement: Those systems with pertinent positive or pertinent negative responses have been documented in the HPI. ROS Other: All systems not noted in ROS Statement are negative. Constitutional: Denies: fever, chills Respiratory: Denies: cough, dyspnea Cardiovascular: Denies: chest pain, palpitations, edema Gastrointestinal: Reports: nausea. Denies: abdominal pain, vomiting, diarrhea Genitourinary: Denies: dysuria, hematuria Musculoskeletal: Denies: back pain Skin: Denies: rash Neurological: Denies: headache, weakness Psychiatric: Denies: depression, suicidal thoughts Past Medical History Past Medical History: Asthma, COPD, Liver Disease, Musculoskeletal Disorder, Thyroid Disorder Additional Past Medical History / Comment(s): Optic neuritis. liver disease. ETOH hepatitis c, hypothyroid History of Any Multi-Drug Resistant Organisms: None Reported Past Surgical History: No Surgical Hx Reported Past Anesthesia/Blood Transfusion Reactions: No Reported Reaction Past Psychological History: Bipolar, Depression Smoking Status: Current every day smoker Past Alcohol Use History: Abuse, Daily, Heavy Past Drug Use History: None Reported - Past Family History Father Additional Family Medical History / Comment(s): Patient states is father is but will not provide any additional information. He states he does not know his mothers history. He has 2 brothers and 2 step brothers and only one living. They have committed suicide. General Exam Limitations: no limitations General appearance: alert, in no apparent distress, appears intoxicated Head exam: Present: atraumatic, normocephalic Eye exam: Present: normal appearance. Absent: scleral icterus, conjunctival injection Neck exam: Present: normal inspection, full ROM. Absent: tenderness Respiratory exam: Present: normal lung sounds bilaterally. Absent: respiratory distress, wheezes, rales, rhonchi, chest wall tenderness, accessory muscle use Cardiovascular Exam: Present: regular rate, normal rhythm, normal heart sounds. Absent: systolic murmur, diastolic murmur, rubs, gallop GI/Abdominal exam: Present: soft. Absent: distended, tenderness, guarding, rebound, rigid Extremities exam: Present: normal inspection, normal capillary refill. Absent: pedal edema, calf tenderness Back exam: Present: normal inspection. Absent: CVA tenderness (R), CVA tenderness (L) Neurological exam: Present: alert Psychiatric exam: Absent: depressed, suicidal ideation Skin exam: Present: warm, dry, intact, normal color. Absent: rash Course Vital Signs 01/19/23 01/19/23 01/19/23 02:41 07:05 07:50 Temperature 97.8 F 98.0 F Pulse Rate 94 54 L 78 Respiratory 18 12 18 Rate Blood Pressure 145/99 101/67 118/76 O2 Sat by Pulse 99 100 99 Oximetry Medical Decision Making - Medical Decision Making Patient is a 62-year-old man with long history of alcohol abuse. On reevalua tion, the patient is not currently manifesting signs of severe withdrawal. Discussed outpatient management and patient to follow-up with outpatient alcohol treatment resources. Discussed return parameters as well. Was pt. sent in by a medical professional or institution (, [facility], CLINICAL BIOCHEMIST, urgent care, hospital, or prison...) When possible be specific @ -[No] Did you speak to anyone other than the patient for history (EMS, parent, family, police, friend...)? What history was obtained from this source @ -[No] Did you review nursing and triage notes (agree or disagree)? Why? @ -[I reviewed and agree with nursing and triage notes] Were old charts reviewed (outside hosp., previous admission, EMS record, old EKG, old radiological studies, urgent care reports/EKG's, prison records)? Report findings @ -[old charts were reviewed] Differential Diagnosis (chest pain, altered mental status, abdominal pain women, abdominal pain men, vaginal bleeding, weakness, fever, dyspnea, syncope, headache, dizziness, GI bleed, back pain, seizure, CVA, palpatations, mental health, musculoskeletal)? @ -[not applicable] EKG interpreted by me (3pts min.). @ -[ X-rays interpreted by me (1pt min.). @ -[None done] CT interpreted by me (1pt min.). @ -[None done] U/S interpreted by me (1pt. min.). @ -[None done] What testing was considered but not performed or refused? (CT, X-rays, U/S, labs)? Why? @ -[None] What meds were considered but not given or refused? Why? @ -[None] Did you discuss the management of the patient with other professionals (professionals i.e. , PA, CLINICAL BIOCHEMIST, lab, RT, psych nurse, social media strategist, cab worker, teacher, customer service officer, case loader operator)? Give summary @ -[No] Was smoking cessation discussed for >3mins.? @ -[No] Was critical care preformed (if so, how long)? @ -[No] Were there social determinants of health that impacted care today? How? (Homelessness, low income, unemployed, alcoholism, drug addiction, transportation, low edu. Level, literacy, decrease access to med. care, [facility], rehab)? @ -[No] Was there de-escalation of care discussed even if they declined (Discuss DNR or withdrawal of care, Hospice)? DNR status @ -[No] What co-morbidities impacted this encounter? (DM, HTN, Smoking, COPD, CAD, Cancer, CVA, ARF, Chemo, Hep., AIDS, mental health diagnosis, sleep apnea, morbid obesity)? @ -[None] Was patient admitted / discharged? Hospital course, mention meds given and route, prescriptions, significant lab abnormalities, going to OR and other pertinent info. @ -[See above Undiagnosed new problem with uncertain prognosis? @ -[No] Drug Therapy requiring intensive monitoring for toxicity (Heparin, Nitro, Insulin, Cardizem)? @ -[No] Were any procedures done? @ -[No] Diagnosis/symptom? @ -[Acute alcohol intoxication/abuse Acute, or Chronic, or Acute on Chronic? @ -[Acute Uncomplicated (without systemic symptoms) or Complicated (systemic symptoms)? @ -[Uncomplicated Side effects of treatment? @ -[No] Exacerbation, Progression, or Severe Exacerbation? @ -[No] Poses a threat to life or bodily function? How? (Chest pain, [place], [place], pneumonia, PE, COPD, DKA, ARF, appy, cholecystitis, CVA, Diverticulitis, Homicidal, Suicidal, threat to staff... and all critical care pts) @ -[No] Disposition Clinical Impression: Alcohol intoxication Disposition: HOME SELF-CARE Condition: Fair Instructions (If sedation given, give patient instructions): Alcohol Intoxication (ED) Is patient prescribed a controlled substance at d/c from ED?: No Referrals: Sena Root MD [Primary Care Provider] - 1-2 days
[2023-01-19 09:27] VITALS: BP 118/76; PULSE 78; RESP 18; TEMP 98
== END 2023-01-19 07:50 | disposition home or self-care (01) ==
LOC: EC 02:37
DX: F10.129 Alcohol abuse with intoxication, unspecified (principal); J44.9 Chronic obstructive pulmonary disease, unspecified; E03.9 Hypothyroidism, unspecified; F31.9 Bipolar disorder, unspecified; F17.200 Nicotine dependence, unspecified, uncomplicated; Z88.8 Allergy status to other drugs, medicaments and biological substances; Z79.890 Hormone replacement therapy; Z79.899 Other long term (current) drug therapy; Z79.51 Long term (current) use of inhaled steroids
CPT/HCPCS: 99284

== ENCOUNTER 2023-01-20 03:03 | Emergency (ER) | payer OTHER ==
[2023-01-20 03:18] VITALS: BP 142/95; PULSE 98; RESP 18; TEMP 98.5
[2023-01-20] MEDS ORDERED: chlordiazePOXIDE 25 MG CAP PO STA (05:19)
--- NOTE | 2023-01-20 07:55 | ED ---
General Adult HPI - General Chief complaint: Alcohol Stated complaint: Detox Time Seen by Provider: 01/20/23 05:14 Source: patient Mode of arrival: ambulatory Limitations: no limitations - History of Present Illness Initial comments: This patient is 62-year-old man with history of previous alcohol abuse who presents with concerns that he may develop withdrawal symptoms. The patient states he is scheduled to go to [facility] on Sunday. He was here yesterday for similar. He states that he drank about a pint of alcohol. -: week(s) Severity scale (1-10): 0 Consistency: constant Improves with: none Worsens with: none Associated Symptoms: denies other symptoms Treatments Prior to Arrival: none - Related Data Home Medications Medication Instructions Recorded Confirmed Albuterol Nebulized [Ventolin 2.5 mg INHALATION RT-Q6H PRN 01/01/23 01/22/23 Nebulized] Divalproex [Depakote] 500 mg PO DAILY 01/01/23 01/22/23 Fluticasone/Umeclidin/Vilanter 1 puff INHALATION RT-DAILY 01/01/23 01/22/23 [Trelegy Ellipta 100-62.5-25] HYDROcodone/APAP 7.5-325MG [[place] 1 tab PO Q6HR PRN 01/01/23 01/22/23 7.5-325] Ibuprofen [Motrin] 800 mg PO BID PRN 01/01/23 01/22/23 Levothyroxine Sodium 88 mcg PO DAILY 01/01/23 01/22/23 Tamsulosin HCl [Flomax] 0.4 mg PO DAILY 01/01/23 01/22/23 traZODone HCL 150 mg PO DAILY 01/01/23 01/22/23 Albuterol Inhaler [Ventolin Hfa 1 puff INHALATION RT-QID 01/22/23 01/22/23 Inhaler] Nicotine 21Mg/24Hr Patch [Habitrol] 1 patch TRANSDERM DAILY 01/22/23 01/22/23 buPROPion XL [Wellbutrin XL] 150 mg PO DAILY 01/22/23 01/22/23 Allergies Allergy/AdvReac Type Severity Reaction Status Date / Time quetiapine fumarate Allergy Rash/Hives Verified 01/22/23 13:36 [From Seroquel] Review of Systems ROS Statement: Those systems with pertinent positive or pertinent negative responses have been documented in the HPI. ROS Other: All systems not noted in ROS Statement are negative. Constitutional: Denies: fever, chills, weakness Eyes: Denies: vision change Respiratory: Denies: cough, dyspnea Cardiovascular: Denies: chest pain, palpitations, edema Gastrointestinal: Reports: nausea. Denies: abdominal pain, vomiting Genitourinary: Denies: dysuria Musculoskeletal: Denies: back pain Skin: Denies: rash Neurological: Denies: headache, weakness, numbness Psychiatric: Reports: anxiety. Denies: depression, homicidal thoughts, suicidal thoughts Past Medical History Past Medical History: Asthma, COPD, Liver Disease, Musculoskeletal Disorder, Thyroid Disorder Additional Past Medical History / Comment(s): Optic neuritis. liver disease. ETOH hepatitis c, hypothyroid History of Any Multi-Drug Resistant Organisms: None Reported Past Surgical History: No Surgical Hx Reported Past Anesthesia/Blood Transfusion Reactions: No Reported Reaction Past Psychological History: Bipolar, Depression Smoking Status: Current every day smoker Past Alcohol Use History: Abuse, Daily, Heavy Past Drug Use History: None Reported - Past Family History Father Additional Family Medical History / Comment(s): Patient states is father is but will not provide any additional information. He states he does not know his mothers history. He has 2 brothers and 2 step brothers and only one living. They have committed suicide. General Exam Limitations: no limitations General appearance: alert, in no apparent distress, appears intoxicated Head exam: Present: atraumatic, normocephalic Eye exam: Present: normal appearance. Absent: scleral icterus, conjunctival injection Neck exam: Present: normal inspection, full ROM Respiratory exam: Present: normal lung sounds bilaterally. Absent: respiratory distress, wheezes, rales, rhonchi, stridor Cardiovascular Exam: Present: regular rate, normal rhythm, normal heart sounds. Absent: systolic murmur, diastolic murmur, rubs, gallop GI/Abdominal exam: Present: soft. Absent: distended, tenderness, guarding, rebound, rigid, mass Extremities exam: Present: normal inspection, normal capillary refill. Absent: pedal edema, calf tenderness Back exam: Present: normal inspection. Absent: CVA tenderness (R), CVA tenderness (L) Neurological exam: Present: alert, oriented X3. Absent: motor sensory deficit Psychiatric exam: Absent: depressed, agitated, anxious, homicidal ideation, suicidal ideation Skin exam: Present: warm, dry, intact, normal color. Absent: rash Course Vital Signs 01/20/23 03:09 Temperature 98.5 F Pulse Rate 98 Respiratory 18 Rate Blood Pressure 142/95 O2 Sat by Pulse 97 Oximetry Medical Decision Making - Medical Decision Making Patient is 62-year-old man here with concerns that he may develop withdrawal. Apparently there was difficulty filling prescription after visit yesterday. The patient will be given course of benzodiazepines to minimize symptoms until he is able to follow-up with [facility]. Consultation to decrease his alcohol intake, stopping completely of able. Discussed return parameters Was pt. sent in by a medical professional or institution (, MEGHANN, OPTICAL ENGINEERING MANAGER, urgent care, hospital, or assisted...) When possible be specific @ -[No] Did you speak to anyone other than the patient for history (EMS, parent, family, police, friend...)? What history was obtained from this source @ -[No] Did you review nursing and triage notes (agree or disagree)? Why? @ -[I reviewed and agree with nursing and triage notes] Were old charts reviewed (outside hosp., previous admission, EMS record, old EKG, old radiological studies, urgent care reports/EKG's, assisted records)? Report findings @ -[No old charts were reviewed] Differential Diagnosis (chest pain, altered mental status, abdominal pain women, abdominal pain men, vaginal bleeding, weakness, fever, dyspnea, syncope, headache, dizziness, GI bleed, back pain, seizure, CVA, palpatations, mental health, musculoskeletal)? @ -[not applicable] EKG interpreted by me (3pts min.). @ -[ X-rays interpreted by me (1pt min.). @ -[None done] CT interpreted by me (1pt min.). @ -[None done] U/S interpreted by me (1pt. min.). @ -[None done] What testing was considered but not performed or refused? (CT, X-rays, U/S, labs)? Why? @ -[None] What meds were considered but not given or refused? Why? @ -[None] Did you discuss the management of the patient with other professionals (professionals i.e. , MEGHANN, OPTICAL ENGINEERING MANAGER, lab, RT, psych nurse, social work instructor, supervisor kosher dietary service, teacher, ambulance officer, social work case manager)? Give summary @ -[No] Was smoking cessation discussed for >3mins.? @ -[No] Was critical care preformed (if so, how long)? @ -[No] Were there social determinants of health that impacted care today? How? (Homelessness, low income, unemployed, alcoholism, drug addiction, transp ortation, low edu. Level, literacy, decrease access to med. care, penitentiary, rehab)? @ -[No] Was there de-escalation of care discussed even if they declined (Discuss DNR or withdrawal of care, Hospice)? DNR status @ -[No] What co-morbidities impacted this encounter? (DM, HTN, Smoking, COPD, CAD, Cancer, CVA, ARF, Chemo, Hep., AIDS, mental health diagnosis, sleep apnea, morbid obesity)? @ -[None] Was patient admitted / discharged? Hospital course, mention meds given and route, prescriptions, significant lab abnormalities, going to OR and other pertinent info. @ -[Patient is 62-year-old man with history of alcohol abuse who at this point does appear stable to have outpatient course of benzodiazepine treatment until he is able to get into [facility] in days. We discussed the appropriate further care as well as return parameters. Undiagnosed new problem with uncertain prognosis? @ -[No] Drug Therapy requiring intensive monitoring for toxicity (Heparin, Nitro, Insulin, Cardizem)? @ -[No] Were any procedures done? @ -[No] Diagnosis/symptom? @ -[Acute alcohol intoxication/abuse Acute, or Chronic, or Acute on Chronic? @ -[acute Uncomplicated (without systemic symptoms) or Complicated (systemic symptoms)? @ -[Uncomplicated Side effects of treatment? @ -[No] Exacerbation, Progression, or Severe Exacerbation? @ -[No] Poses a threat to life or bodily function? How? (Chest pain, [place], [place], pneumonia, PE, COPD, DKA, ARF, appy, cholecystitis, CVA, Diverticulitis, Homicidal, Suicidal, threat to staff... and all critical care pts) @ -[No] Disposition Clinical Impression: Alcohol intoxication Disposition: HOME SELF-CARE Condition: Good Instructions (If sedation given, give patient instructions): Alcohol Intoxication (ED) Is patient prescribed a controlled substance at d/c from ED?: Yes Referrals: Sena Root MD [Primary Care Provider] - 1-2 days
== END 2023-01-20 08:29 | disposition home or self-care (01) ==
LOC: EC 03:03
DX: F10.129 Alcohol abuse with intoxication, unspecified (principal); J44.9 Chronic obstructive pulmonary disease, unspecified; E03.9 Hypothyroidism, unspecified; F31.9 Bipolar disorder, unspecified; F17.200 Nicotine dependence, unspecified, uncomplicated; Z79.890 Hormone replacement therapy; Z79.899 Other long term (current) drug therapy; Z88.8 Allergy status to other drugs, medicaments and biological substances; Z79.51 Long term (current) use of inhaled steroids
CPT/HCPCS: 99284

== ENCOUNTER 2023-01-22 08:17 | Inpatient (IN) | payer MEDICAID, OTHER ==
[2023-01-22] MEDS ORDERED: LORazepam 2 MG/ML INJ IV STA (08:36)
--- NOTE | 2023-01-22 08:38 | ED ---
Alcohol HPI - General Chief Complaint: Alcohol Stated Complaint: Withdrawals Time Seen by Provider: 01/22/23 08:26 Source: patient, RN notes reviewed Mode of arrival: ambulatory Limitations: no limitations - History of Present Illness Initial Comments: 62-year-old male presents emergency Department with chief complaint of alcohol abuse. Patient has been seen here twice last few days for similar complaints. Patient states that he was told by [facility] that he needed to have psychiatric clearance first because his been OFF his psych meds. Patient states she's been drinking heavily for last 10 days. Denies being suicidal or homicidal. Does not that he has multiple psych medications he's not been taking. Patient denies any fevers or chills denies localized abdominal, chest or back pain. - Related Data Home Medications Medication Instructions Recorded Confirmed Albuterol Nebulized [Ventolin 2.5 mg INHALATION RT-Q6H PRN 01/01/23 01/22/23 Nebulized] Divalproex [Depakote] 500 mg PO DAILY 01/01/23 01/22/23 Fluticasone/Umeclidin/Vilanter 1 puff INHALATION RT-DAILY 01/01/23 01/22/23 [Trelegy Ellipta 100-62.5-25] HYDROcodone/APAP 7.5-325MG [[place] 1 tab PO Q6HR PRN 01/01/23 01/22/23 7.5-325] Ibuprofen [Motrin] 800 mg PO BID PRN 01/01/23 01/22/23 Levothyroxine Sodium 88 mcg PO DAILY 01/01/23 01/22/23 Tamsulosin HCl [Flomax] 0.4 mg PO DAILY 01/01/23 01/22/23 traZODone HCL 150 mg PO DAILY 01/01/23 01/22/23 Albuterol Inhaler [Ventolin Hfa 1 puff INHALATION RT-QID 01/22/23 01/22/23 Inhaler] Nicotine 21Mg/24Hr Patch [Habitrol] 1 patch TRANSDERM DAILY 01/22/23 01/22/23 buPROPion XL [Wellbutrin XL] 150 mg PO DAILY 01/22/23 01/22/23 Previous Rx's Medication Instructions Recorded LORazepam [Ativan] 1 mg PO TID 3 Days #9 tab 01/20/23 Allergies Allergy/AdvReac Type Severity Reaction Status Date / Time quetiapine fumarate Allergy Rash/Hives Verified 01/22/23 13:36 [From Seroquel] Review of Systems ROS Statement: Those systems with pertinent positive or pertinent negative responses have been documented in the HPI. ROS Other: All systems not noted in ROS Statement are negative. Past Medical History Past Medical History: Asthma, COPD, Liver Disease, Musculoskeletal Disorder, Th yroid Disorder Additional Past Medical History / Comment(s): Optic neuritis. liver disease. ETOH hepatitis c, hypothyroid History of Any Multi-Drug Resistant Organisms: None Reported Past Surgical History: No Surgical Hx Reported Past Anesthesia/Blood Transfusion Reactions: No Reported Reaction Past Psychological History: Bipolar, Depression Smoking Status: Current every day smoker Past Alcohol Use History: Abuse, Daily, Heavy Past Drug Use History: None Reported - Past Family History Father Additional Family Medical History / Comment(s): Patient states is father is but will not provide any additional information. He states he does not know his mothers history. He has 2 brothers and 2 step brothers and only one living. They have committed suicide. General Exam Limitations: no limitations General appearance: alert, in no apparent distress Head exam: Present: atraumatic, normocephalic, normal inspection Eye exam: Present: normal appearance, PERRL, EOMI. Absent: scleral icterus, conjunctival injection, periorbital swelling ENT exam: Present: normal exam, mucous membranes moist Neck exam: Present: normal inspection, full ROM. Absent: tenderness, meningismus, lymphadenopathy Respiratory exam: Present: normal lung sounds bilaterally. Absent: respiratory distress, wheezes, rales, rhonchi, stridor Cardiovascular Exam: Present: regular rate, normal rhythm, normal heart sounds. Absent: systolic murmur, diastolic murmur, rubs, gallop, clicks GI/Abdominal exam: Present: soft, normal bowel sounds. Absent: distended, tenderness, guarding, rebound, rigid Course Vital Signs 01/22/23 08:18 Temperature 98.2 F Pulse Rate 82 Respiratory 18 Rate Blood Pressure 134/97 O2 Sat by Pulse 99 Oximetry Medical Decision Making - Medical Decision Making Was pt. sent in by a medical professional or institution (, PA, EDGE SANDER, urgent care, hospital, or long term...) When possible be specific @ -No Did you speak to anyone other than the patient for history (EMS, parent, family, police, friend...)? What history was obtained from this source @ -No Did you review nursing and triage notes (agree or disagree)? Why? @ -I reviewed and agree with nursing and triage notes Were old charts reviewed (outside hosp., previous admission, EMS record, old EKG, old radiological studies, urgent care reports/EKG's, long term records)? Report findings @ -Reviewed prior ER records, laboratory studies Differential Diagnosis (chest pain, altered mental status, abdominal pain women, abdominal pain men, vaginal bleeding, weakness, fever, dyspnea, syncope, headache, dizziness, GI bleed, back pain, seizure, CVA, palpatations, mental health, musculoskeletal)? @ -Differential Mental Health Depression, anxiety, bipolar, psychosis, schizophrenia, borderline personality, situational depression, adjustment disorder, behavioral disorder, brain tumor, malingering, substance abuse, encephalopathy, medication reaction, dementia, hypothyroidism, degenerative neurologic disorder, lupus.... This is not meant to be all-inclusive list EKG interpreted by me (3pts min.). @ -[None X-rays interpreted by me (1pt min.). @ -None done CT interpreted by me (1pt min.). @ -None done U/S interpreted by me (1pt. min.). @ -None done What testing was considered but not performed or refused? (CT, X-rays, U/S, labs)? Why? @ -None What meds were considered but not given or refused? Why? @ -None Did you discuss the management of the patient with other professionals (jose luis dominique i.alex Alba, PA, EDGE SANDER, lab, RT, psych nurse, medical social consultant, crane service technician, teacher, air force senior officer, supervisor case loading)? Give summary @ -EPS evaluated patient and recommended psychiatric inpatient treatment Was smoking cessation discussed for >3mins.? @ -No Was critical care preformed (if so, how long)? @ -No Were there social determinants of health that impacted care today? How? (Homelessness, low income, unemployed, alcoholism, drug addiction, transportation, low edu. Level, literacy, decrease access to med. care, [facility], rehab)? @ -No Was there de-escalation of care discussed even if they declined (Discuss DNR or withdrawal of care, Hospice)? DNR status @ -No What co-morbidities impacted this encounter? (DM, HTN, Smoking, COPD, CAD, Cancer, CVA, ARF, Chemo, Hep., AIDS, mental health diagnosis, sleep apnea, mo rbid obesity)? @ -[Alcohol abuse Was patient admitted / discharged? Hospital course, mention meds given and route, prescriptions, significant lab abnormalities, going to OR and other pertinent info. @ -Admitted patient for psychiatric treatment. Patient was evaluated by EPS and stated that he is suicidal and had access to guns. Patient also has Alcoholism, alcohol abuse history Undiagnosed new problem with uncertain prognosis? @ -No Drug Therapy requiring intensive monitoring for toxicity (Heparin, Nitro, Insulin, Cardizem)? @ -No Were any procedures done? @ -No Diagnosis/symptom? @ -[Alcohol abuse, depression, suicidal ideation Acute, or Chronic, or Acute on Chronic? @ -Acute Uncomplicated (without systemic symptoms) or Complicated (systemic symptoms)? @ -complicated Side effects of treatment? @ -No Exacerbation, Progression, or Severe Exacerbation? @ -No Poses a threat to life or bodily function? How? (Chest pain, [place], [place], pneumonia, PE, COPD, DKA, ARF, appy, cholecystitis, CVA, Diverticulitis, Homicidal, Suicidal, threat to staff... and all critical care pts) @ -Yes patient is suicidal - Lab Data Result diagrams: 01/22/23 09:22 01/22/23 09:22 Lab Results 01/22/23 01/22/23 Range/Units 09:22 09:22 WBC 5.1 (3.8-10.6) k/uL RBC 4.30 (4.30-5.90) m/uL Hgb 14.3 (13.0-17.5) gm/dL Hct 41.4 (39.0-53.0) % MCV 96.3 (80.0-100.0) fL MCH 33.4 (25.0-35.0) pg MCHC 34.6 (31.0-37.0) g/dL RDW 13.3 (11.5-15.5) % Plt Count 173 (150-450) k/uL MPV 8.4 Neutrophils % 59 % Lymphocytes % 31 % Monocytes % 5 % Eosinophils % 2 % Basophils % 1 % Neutrophils # 3.0 (1.3-7.7) k/uL Lymphocytes # 1.6 (1.0-4.8) k/uL Monocytes # 0.3 (0-1.0) k/uL Eosinophils # 0.1 (0-0.7) k/uL Basophils # 0.0 (0-0.2) k/uL Sodium 139 (137-145) mmol/L Potassium 3.9 (3.5-5.1) mmol/L Chloride 107 (98-107) mmol/L Carbon Dioxide 24 (22-30) mmol/L Anion Gap 8 mmol/L BUN 9 (9-20) mg/dL Creatinine 0.55 L (0.66-1.25) mg/dL Est GFR (CKD-EPI)AfAm >90 (>60 ml/min/1.73 sqM) Est GFR (CKD-EPI)NonAf >90 (>60 ml/min/1.73 sqM) Glucose 92 (74-99) mg/dL Calcium 8.8 (8.4-10.2) mg/dL Magnesium 1.4 L (1.6-2.3) mg/dL Total Bilirubin 1.1 (0.2-1.3) mg/dL AST 111 H (17-59) U/L ALT 68 H (4-49) U/L Alkaline Phosphatase 63 (38-126) U/L Total Protein 6.5 (6.3-8.2) g/dL Albumin 3.7 (3.5-5.0) g/dL Lipase 224 (23-300) U/L Disposition Clinical Impression: Suicidal ideation, Alcohol use disorder, Depression Disposition: TRANSFER TO PSYCH HOSP/UNIT Referrals: None,Stated [Primary Care Provider] - 1-2 days Time of Disposition: 15:00
[2023-01-22 09:30] LABS: Basophils % (A) 1 %; Eosinophils # (A) 0.1 k/uL (0-0.7); Eosinophils % (A) 2 %; HCT 41.4 % (39.0-53.0); HGB 14.3 gm/dL (13.0-17.5); Lymphocytes # (A) 1.6 k/uL (1.0-4.8); Lymphocytes % (A) 31 %; MCH 33.4 pg (25.0-35.0); MCHC 34.6 g/dL (31.0-37.0); MCV 96.3 fL (80.0-100.0); Mean Platelet Volume 8.4; Monocytes # (A) 0.3 k/uL (0-1.0); Monocytes % (A) 5 %; Neutrophils % (A) 59 %; Platelet Count 173 k/uL (150-450); RDW 13.3 % (11.5-15.5); WBC 5.1 k/uL (3.8-10.6)
[2023-01-22 10:03] LABS: ALT 68 U/L (4-49); AST 111 U/L (17-59); African American GFR (CKD) >90 (>60 ml/min/1.73 sqM); Albumin 3.7 g/dL (3.5-5.0); Alkaline Phosphatase 63 U/L (38-126); Anion Gap 8 mmol/L; Blood Urea Nitrogen 9 mg/dL (9-20); Calcium 8.8 mg/dL (8.4-10.2); Carbon Dioxide 24 mmol/L (22-30); Chloride 107 mmol/L (98-107); Glucose 92 mg/dL (74-99); Lipase 224 U/L (23-300); Magnesium 1.4 mg/dL (1.6-2.3); Non-African American GFR(CKD) >90 (>60 ml/min/1.73 sqM); Potassium 3.9 mmol/L (3.5-5.1); Sodium 139 mmol/L (137-145); Total Bilirubin 1.1 mg/dL (0.2-1.3); Total Protein 6.5 g/dL (6.3-8.2)
[2023-01-22] MEDS ORDERED: LORazepam 2 MG/ML INJ IV PRN (14:56)
[2023-01-22] MEDS ORDERED: THIAMINE 100 MG/ML 2 ML VIAL IM STA (14:56)
[2023-01-22] MEDS ORDERED: LORazepam 1 MG TAB PO PRN ×2 (14:56)
[2023-01-22 16:12] LABS: Appearance,Urine Clear (Clear); Bilirubin,Urine Negative (Negative); Blood,Urine Negative (Negative); Color,Urine Yellow; Glucose,Urine (UA) Negative (Negative); Ketones,Urine Negative (Negative); Leukocyte Esterase,Urine Negative (Negative); Nitrite,Urine Negative (Negative); PH, Urine 7.5 (5.0-8.0); Protein,Urine Trace (Negative); Specific Gravity,Urine 1.021 (1.001-1.035)
[2023-01-22 16:49] LABS: Amphetamine Screen,Urine Not Detected (NotDetected); Barbiturate Screen,Urine Not Detected (NotDetected); Benzodiazepines Screen,Urine Detected (NotDetected); Cocaine Screen,Urine Not Detected (NotDetected); Methadone Screen, Urine Not Detected (NotDetected); Opiate Screen,Urine Not Detected (NotDetected); Oxycodone Screen, Urine Not Detected (NotDetected); Phencyclidine Screen,Urine Not Detected (NotDetected); Tricyclic Antidepressant,Urine Not Detected (NotDetected); Urn Cannabinoid Scrn Detected (NotDetected)
[2023-01-22] MEDS: LORazepam 0.5 MG TAB PO PRN (21:57)
[2023-01-23] MEDS: LORazepam 1 MG TAB PO PRN ×2 (09:38→21:28)
[2023-01-23] MEDS: THIAMINE 100 MG TAB PO SCH (09:38)
[2023-01-23] MEDS: LORazepam 0.5 MG TAB PO PRN (16:20)
[2023-01-23] MEDS ORDERED: haloperidoL 5 MG TAB PO PRN (17:25)
[2023-01-23] MEDS ORDERED: LORazepam 1 MG TAB PO PRN (17:25)
[2023-01-23] MEDS ORDERED: MAGNESIUM HYDROXIDE 2,400 MG/30 ML CUP PO PRN (17:25)
[2023-01-23] MEDS ORDERED: LORazepam 2 MG/ML INJ IM PRN (17:25)
[2023-01-23] MEDS ORDERED: ACETAMINOPHEN TAB 325 MG TAB PO PRN (17:25)
[2023-01-23] MEDS ORDERED: HALOPERIDOL LACTATE 5 MG/ML 1 ML VIAL IM PRN (17:25)
[2023-01-23] MEDS ORDERED: MAG HYDROX/AL HYDROX/SIMETH 30 ML CUP PO PRN (17:25)
[2023-01-23] MEDS: ALBUTEROL INHALER 60 PUFF/8 GM INHALER (MHU) INHALATION SCH (20:07)
[2023-01-23] MEDS: SYMBICORT 80-4.5 MCG INHALER INHALATION SCH (20:08)
[2023-01-23] MEDS ORDERED: traZODone HCL 50 MG TAB PO SCH (21:00)
[2023-01-24] MEDS: LEVOTHYROXINE 88 MCG TAB PO SCH (06:24)
[2023-01-24] MEDS ORDERED: IPRATROPIUM 0.5 MG/2.5 ML NEBU INHALATION SCH (08:00)
[2023-01-24 09:11] LABS: LDL Cholesterol,Calculated 68.4 mg/dL (0.0-131.0); VLDL Calculation 14.64 mg/dL (5.00-40.00)
[2023-01-24] MEDS: ALBUTEROL INHALER 60 PUFF/8 GM INHALER (MHU) INHALATION SCH ×4 (09:28→20:30)
[2023-01-24] MEDS: SYMBICORT 80-4.5 MCG INHALER INHALATION SCH ×2 (09:29→21:19)
[2023-01-24] MEDS: TIOTROPIUM 2.5 MCG INHALER (MHU) INHALATION SCH (09:29)
[2023-01-24] MEDS: buPROPion XL 150 MG TAB.ER.24H PO SCH ×2 (11:03→13:32)
[2023-01-24] MEDS: THIAMINE 100 MG TAB PO SCH ×2 (11:04→13:32)
[2023-01-24] MEDS: NICOTINE 14MG/24HR PATCH TRANSDERM SCH (11:04)
[2023-01-24] MEDS: DIVALPROEX 500 MG TABLET.DR PO SCH ×2 (11:04→13:32)
[2023-01-24] MEDS: TAMSULOSIN 0.4 MG CAP.ER.24H PO SCH ×2 (11:04→13:31)
[2023-01-24 11:20] VITALS: BMI 18.3
[2023-01-24] MEDS ORDERED: FLUoxetine HCL 10 MG CAP PO STA (15:15)
--- NOTE | 2023-01-24 15:23 | P.HP ---
Psychiatric H&P - . H&P Date: 01/24/23 History & Physical: Allergies Allergy/AdvReac Type Severity Reaction Status Date / Time quetiapine fumarate Allergy Rash/Hives Verified 01/22/23 13:36 From Seroquel Vital Signs Temp 98.1 F 01/24/23 05:18 Pulse 88 01/24/23 05:18 Resp 16 01/24/23 05:18 BP 117/78 01/24/23 05:18 Pulse Ox 100 01/24/23 05:18 FiO2 Intake & Output 01/23/23 01/24/23 01/24/23 18:59 06:59 18:59 Weight 56.245 kg 56.245 kg Laboratory Last Values WBC 5.1 k/uL (3.8-10.6) 01/22/23 09: RBC 4.30 m/uL (4.30-5.90) 01/22/23 09:22 Hgb 14.3 gm/dL (13.0-17.5) 01/22/23 09: Hct 41.4 % (39.0-53.0) 01/22/23 09:22 MCV 96.3 fL (80.0-100.0) 01/22/23 09:22 MCH 33.4 pg (25.0-35.0) 01/22/23 09: MCHC 34.6 g/dL (31.0-37.0) 01/22/23 09:22 RDW 13.3 % (11.5-15.5) 01/22/23 09:22 Plt Count 173 k/uL (150-450) 01/22/23 09:22 MPV 8.4 01/22/23 09:22 Neutrophils % 59 % 01/22/23 09:22 Lymphocytes % 31 % 01/22/23 09:22 Monocytes % 5 % 01/22/23 09:22 Eosinophils % 2 % 01/22/23 09: Basophils % 1 % 01/22/23 09: Neutrophils # 3.0 k/uL (1.3-7.7) 01/22/23 09:22 Lymphocytes # 1.6 k/uL (1.0-4.8) 01/22/23 09: Monocytes # 0.3 k/uL (0-1.0) 01/22/23 09:22 Eosinophils # 0.1 k/uL (0-0.7) 01/22/23 09:22 Basophils # 0.0 k/uL (0-0.2) 01/22/23 09:22 Sodium 139 mmol/L (137-145) 01/22/23 09:22 Potassium 3.9 mmol/L (3.5-5.1) 01/22/23 09:22 Chloride 107 mmol/L (98-107) 01/22/23 09:22 Carbon Dioxide 24 mmol/L (22-30) 01/22/23 09:22 Anion Gap 8 mmol/L 01/22/23 09:22 BUN 9 mg/dL (9-20) 01/22/23 09:22 Creatinine 0.55 mg/dL (0.66-1.25) L 01/22/23 09:22 Est GFR (CKD-EPI)AfAm >90 (>60 ml/min/1.73 sqM) 01/22/23 09:22 Est GFR (CKD-EPI)NonAf >90 (>60 ml/min/1.73 sqM) 01/22/23 09:22 Glucose 92 mg/dL (74-99) 01/22/23 09:[address] Glu mg/dL 111 mg/dL 01/22/23 09:22 Hemoglobin A1c 5.5 % (<=6.0) 01/22/23 09:22 Calcium 8.8 mg/dL (8.4-10.2) 01/22/23 09:22 Magnesium 1.4 mg/dL (1.6-2.3) L 01/22/23 09:22 Total Bilirubin 1.1 mg/dL (0.2-1.3) 01/22/23 09:22 AST 111 U/L (17-59) H 01/22/23 09:22 ALT 68 U/L (4-49) H 01/22/23 09:22 Alkaline Phosphatase 63 U/L (38-126) 01/22/23 09:22 Total Protein 6.5 g/dL (6.3-8.2) 01/22/23 09:22 Albumin 3.7 g/dL (3.5-5.0) 01/22/23 09:22 Triglycerides 73.20 mg/dL (0.00-149.00) 01/22/23 09:22 Cholesterol 166.00 mg/dL (0.00-200.00) 01/22/23 09:22 LDL Cholesterol, Calc 68.4 mg/dL (0.0-131.0) 01/22/23 09:22 VLDL Cholesterol, Calc 14.64 mg/dL (5.00-40.00) 01/22/23 09:22 HDL Cholesterol 83.00 mg/dL (40.00-60.00) H 01/22/23 09: Cholesterol/HDL Ratio 2.00 Ratio 01/22/23 09: Lipase 224 U/L (23-300) 01/22/23 09: TSH 2.420 mIU/L (0.465-4.680) 01/22/23 09: Urine Color Yellow 01/22/23 09: Urine Appearance Clear (Clear) 01/22/23 09: Urine pH 7.5 (5.0-8.0) 01/22/23 09: Ur Specific [place] 1.021 (1.001-1.035) 01/22/23 09: Urine Protein Trace (Negative) H 01/22/23 09:22 Urine Glucose (UA) Negative (Negative) 01/22/23 09: Urine Ketones Negative (Negative) 01/22/23 09: Urine Blood Negative (Negative) 01/22/23 09: Urine Nitrite Negative (Negative) 01/22/23 09: Urine Bilirubin Negative (Negative) 01/22/23 09: Urine Urobilinogen 8.0 mg/dL (<2.0) 01/22/23 09:22 Ur Leukocyte Esterase Negative (Negative) 01/22/23 09:22 Urine Opiates Screen Not Detected (NotDetected) 01/22/23 09:22 Ur Oxycodone Screen Not Detected (NotDetected) 01/22/23 09:22 Urine Methadone Screen Not Detected (NotDetected) 01/22/23 09:22 Ur Propoxyphene Screen Not Detected (NotDetected) 01/22/23 09:22 Ur Barbiturates Screen Not Detected (NotDetected) 01/22/23 09:22 U Tricyclic Antidepress Not Detected (NotDetected) 01/22/23 09:22 Ur Phencyclidine Scrn Not Detected (NotDetected) 01/22/23 09:22 Ur Amphetamines Screen Not Detected (NotDetected) 01/22/23 09:22 U Methamphetamines Scrn Not Detected (NotDetected) 01/22/23 09:22 U Benzodiazepines Scrn Detected (NotDetected) H 01/22/23 09:22 Urine Cocaine Screen Not Detected (NotDetected) 01/22/23 09:22 U Marijuana (THC) Screen Detected (NotDetected) H 01/22/23 09:22 Coronavirus (PCR) Not Detected (Not Detectd) 01/22/23 22:47 01/24/23 15:16 IDENTIFYING DATA: Patient is a 62-year-old male, is currently homeless, collecting Social Security, no kids and single. HPI: Patient presented to the hospital on 01/22 complaining of depression and alcohol abuse. Apparently patient tried to go do [facility] however was turned away and came to the hospital instead. Patient was complaining of being off his psychiatric medication is feeling suicidal. Patient admitted voluntarily the mental health unit and seen this morning. Patient was seen lying in bed with the blankets covering his entire body. He was fairly irritable with information writer initially however gradually became more cooperative during the interview. He states that he does not want to leave his bed. He claims he is going through alcohol withdrawal at this time. He states that he wanted to go do [facility] however was turned away. States that he was diagnosed with "double pneumonia" and states that he went to go see Dr Phillips however states that "after that I just went downhill". He states that he stopped taking his medications including his psychiatric meds and claims that he relapsed back on alcohol. He states that he is drinking fairly heavily however did not specify how much for the past several days. States that his last drink was about 2 days ago. Claims that he does have a history of DTs in the past. Claims that he also smokes marijuana occasionally, claims that he has been smoking cigarettes as well. States that he is feeling depressed, anxious, states that his sleep is poor appetite is fair. General grooming. He presents as fairly irritable. Patient denies any current suicidal or homicidal ideations intent or plan. At this time patient denies any auditory or visual hallucinations. He claims that he does have history of bipolar disorder and claims that his mood does fluctuate. Patient admits to using recreational drugs as noted above. PAST PSYCHIATRIC HISTORY: Patient states that he has history of bipolar disorder and alcohol abuse. He claims that he was previously on trazodone, Wellbutrin and Depakote. He has stopped taking his medications for several days now. Claims that his last psychiatric hospitalization was at this hospital. Patient denies any psychiatric outpatient follow-up, dates that he is to follow-[facility] at [facility] however does not any longer. Claims that several years ago he overdosed and try to kill himself. PMH: As per ER note ALLERGIES: as per EMR CHEMICAL DEPENDENCY HISTORY: as per HPI FAMILY PSYCHIATRIC/SUBSTANCE USE HISTORY: Claims that 3 of his brothers committed suicide. SOCIAL HISTORY: Patient was born and raised in [place], states that he completed high school. He is currently unemployed, collecting Social Security, no kids and is single. MENTAL STATUS EXAM: General Appearance: Patient appears to be thin, stated age is alert, directable, and attempts to cooperate. Laying in bed and appears to be withdrawing. Patient appears to have poor hygiene and grooming. Behavior: Patient is seated without any agitated behavior. Irritable Speech: Patient's speech is fluent and nonpressured. Irritable tone Mood/Affect: Patient reports their mood is depressed and anxious, affect is congruent and labile Suicidality/Homicidality: Patient denies having any homicidal ideation intent or plan. Denies any suicidal ideations intent or plan Perceptions: Patient denies any visual hallucinations and denies any auditory hallucinations Though content/process: There is no evidence of any delusional thought content and thought process is linear and goal-directed. Focused on his medications and stressors. Memory and concentration: AOX3, grossly intact for the purposes of this session. Can spell "WORLD" backwards Judgment and insight: poor/impulsive STRENGTHS/WEAKNESSES: strength is that patient is resilient. Weakness is that taylor baldwin has poor judgment and is impulsive, and his sister has history of severe alcohol abuse INTELLECT: average IMPRESSIONS: Bipolar disorder, current episode depressed Alcohol use disorder severe dependence, currently in withdrawal Cannabis use disorder Nicotine dependence Homelessness PLAN: -Patient is admitted under voluntary status to MHU for stabilization of psychiatric symptoms and safety. Patient has not signed medication consent and is placed in patient's chart. -Medications : Start Librium scheduled 25 mg 3 times a day for alcohol withdrawal, plan to taper down. Will speak with patient about anti-craving medications for alcohol use tomorrow. Prozac 10 mg today and 20 mg tomorrow daily for mood/anxiety, Zyprexa 7.5 mg daily at bedtime for insomnia/mood stabilization. -Ativan and Haldol PRN for agitation/aggression -Started thiamine, MVM for etoh use -CIWA protocol with Ativan PRN for ETOH withdrawal -Patient was counselled on substance abuse and desired to cut back on use -Patient was informed of the risks, benefits and side effects of the medication -Internal Medicine consult to perform medical evaluation and physical. -NRT - nicotine patch -SW on board for discharge planning. Encourage patient to participate in groups to work on coping skills. Patient wants to get back into [facility] once he is discharged from the psychiatric unit. ] 01/24/23 15:16 01/24/23 15:21
[2023-01-24] MEDS: chlordiazePOXIDE 25 MG CAP PO SCH ×2 (18:27→20:32)
[2023-01-24] MEDS: HYDROcodone/APAP 7.5-325MG 1 EACH TAB PO PRN ×2 (18:35→23:43)
[2023-01-24] MEDS: IBUPROFEN 600 MG TAB PO PRN (20:30)
[2023-01-24] MEDS ORDERED: OLANZapine 7.5 MG TAB PO SCH (21:00)
[2023-01-25] MEDS: FLUoxetine HCL 20 MG CAP PO SCH (08:22)
[2023-01-25] MEDS: TAMSULOSIN 0.4 MG CAP.ER.24H PO SCH (08:22)
[2023-01-25] MEDS: LEVOTHYROXINE 88 MCG TAB PO SCH (08:22)
[2023-01-25] MEDS: THIAMINE 100 MG TAB PO SCH (08:22)
[2023-01-25] MEDS: chlordiazePOXIDE 25 MG CAP PO SCH (08:22)
[2023-01-25] MEDS: TIOTROPIUM 2.5 MCG INHALER (MHU) INHALATION SCH (08:23)
[2023-01-25] MEDS: ALBUTEROL INHALER 60 PUFF/8 GM INHALER (MHU) INHALATION SCH ×4 (08:23→23:10)
[2023-01-25] MEDS: SYMBICORT 80-4.5 MCG INHALER INHALATION SCH ×2 (08:23→23:10)
[2023-01-25] MEDS: NICOTINE 14MG/24HR PATCH TRANSDERM SCH (08:23)
[2023-01-25] MEDS: HYDROcodone/APAP 7.5-325MG 1 EACH TAB PO PRN ×3 (08:24→23:30)
[2023-01-25] MEDS: IBUPROFEN 600 MG TAB PO PRN (12:01)
--- NOTE | 2023-01-25 12:06 | P.PN ---
Progress Note - Text Progress Note Date: 01/25/23 Interval History: Patient was seen laying in his bed today and was directable and agreeable to s peak with selling underwriter in the office. [she continues to be fairly irritable with selling underwriter. Patient received Haldol and Ativan when necessary yesterday due to agitation. Patient claims that he did not sleep well last night and was "just trying to get sleep this morning". He continues to remain isolated in his room, continues to have poor hygiene and grooming. States that he still feeling depressed, did make suicidal remarks however no intent or plan. Claims that his appetite is mildly improving. He was requesting to be placed back on his old medication regimen including Depakote and trazodone at nighttime]. At this time patient denies any homical ideations, intent or plan. Patient denies any auditory, visual hallucinations and denies any paranoia or delusions. Patient denies any side effects from the medications and has been compliant with meds. Mental Status Exam: General Appearance: Patient appears to be thin, stated age is alert, directable, and attempts to cooperate. Laying in bed and appears to be midlly withdrawing. Patient appears to have poor hygiene and grooming. Behavior: Patient is seated without any agitated behavior. Irritable Speech: Patient's speech is fluent and nonpressured. Irritable tone Mood/Affect: Patient reports their mood is depressed and anxious, affect is congruent Suicidality/Homicidality: Patient denies having any homicidal ideation intent or plan. Denies any suicidal ideations intent or plan Perceptions: Patient denies any visual hallucinations and denies any auditory hallucinations Though content/process: There is no evidence of any delusional thought content and thought process is linear and goal-directed. Focused on his medications and stressors. Memory and concentration: AOX3, grossly intact for the purposes of this session Judgment and insight: poor/impulsive IMPRESSIONS: Bipolar disorder, current episode depressed Alcohol use disorder severe dependence, currently in withdrawal Cannabis use disorder Nicotine dependence Homelessness PLAN: -Patient is admitted under voluntary status to MHU for stabilization of psychiatric symptoms and safety. Patient has not signed medication consent and is placed in patient's chart. -Medications : decrease Librium 20 mg 3 times a day for alcohol withdrawal, plan to taper down. Will speak with patient about anti-craving medications for alcohol use tomorrow. Prozac 20 mg tomorrow daily for mood/anxiety, d/c Zyprexa and replace with Trazodone 150 mg qhs for insomnia, added depakote 1000 mg qhs for mood stabilization -Ativan and Haldol PRN for agitation/aggression -CIWA protocol with Ativan PRN for ETOH withdrawal -NRT - nicotine patch -SW on board for discharge planning. Encourage patient to participate in groups to work on coping skills. Patient wants to get back into [facility] once he is discharged from the psychiatric unit, currently awaiting patient to make the call to access line for intake date
--- NOTE | 2023-01-25 17:36 | P.HPMEDMHU ---
History of Present Illness H&P Date: 01/25/23 Patient is a 62-year-old male with history of COPD, hypothyroidism, BPH, bipolar disorder, alcohol dependence currently in mental health unit. [facility] physicians has been consulted for medical management. Patient denies any chest pain, shortness of breath, abdominal pain, nausea, vomiting, urinary or bowel complaints. Patient is really upset about recent changes in his medications for his psychiatric problems. Pertinent positives and negatives as discussed in HPI, a complete review of systems was performed and all other systems are negative. Patient seen and examined at bedside. Vital signs reviewed General: nontoxic, no distress, appears at stated age Derm: warm, dry Head: atraumatic, normocephalic, symmetric Eyes: EOMI, no lid lag, anicteric sclera, pupils equal round reactive to light ENT: Nose and ears atraumatic Neck: No thyromegaly, supple Mouth: no lip lesion, mucus membranes moist Cardiovascular: S1S2 reg, no murmur, no edema Lungs: clear to auscultation bilateral, no rhonchi, no rales, no wheeze, no accessory muscle use Abdominal: soft, nontender to palpation, no guarding, no appreciable organomegaly Ext: no gross muscle atrophy, muscle strength muscle strength 5 out of 5 in all 4 extremities, no contractures Neuro: CN II-XII grossly intact Psych: Alert, oriented, appropriate affect Assessment/Plan: COPD, not in exacerbation Hypothyroidism BPH Alcohol dependence Nicotine dependence Bipolar disorder -Home medications reviewed -Laboratory results on admission reviewed -Counseled regarding smoking and alcohol cessation -Rest of the care per primary Thank you for allowing us to participate in the care of this pleasant patient. Do not hesitate to contact us with questions. Someone can be reached from the [facility] hospitalist group all hours of the day at [phone] or via [employer] Past Medical History Past Medical History: Asthma, COPD, Liver Disease, Musculoskeletal Disorder, Thyroid Disorder Additional Past Medical History / Comment(s): Optic neuritis. liver disease. ETOH hepatitis c, hypothyroid History of Any Multi-Drug Resistant Organisms: None Reported Past Surgical History: No Surgical Hx Reported Past Anesthesia/Blood Transfusion Reactions: No Reported Reaction Past Psychological History: Bipolar, Depression Smoking Status: Current every day smoker Past Alcohol Use History: Abuse, Daily, Heavy Past Drug Use History: None Reported - Past Family History Father Additional Family Medical History / Comment(s): Patient states is father is but will not provide any additional information. He states he does not know his mothers history. He has 2 brothers and 2 step brothers and only one living. They have committed suicide. Medications and Allergies Home Medications Medication Instructions Recorded Confirmed Type Albuterol Nebulized [Ventolin 2.5 mg INHALATION RT-Q6H PRN 01/01/23 01/22/23 History Nebulized] Divalproex [Depakote] 500 mg PO DAILY 01/01/23 01/22/23 History Fluticasone/Umeclidin/Vilanter 1 puff INHALATION RT-DAILY 01/01/23 01/22/23 History [Trelegy Ellipta 100-62.5-25] HYDROcodone/APAP 7.5-325MG [[place] 1 tab PO Q6HR PRN 01/01/23 01/22/23 History 7.5-325] Ibuprofen [Motrin] 800 mg PO BID PRN 01/01/23 01/22/23 History Levothyroxine Sodium 88 mcg PO DAILY 01/01/23 01/22/23 History Tamsulosin HCl [Flomax] 0.4 mg PO DAILY 01/01/23 01/22/23 History traZODone HCL 150 mg PO DAILY 01/01/23 01/22/23 History Albuterol Inhaler [Ventolin Hfa 1 puff INHALATION RT-QID 01/22/23 01/22/23 History Inhaler] Nicotine 21Mg/24Hr Patch [Habitrol] 1 patch TRANSDERM DAILY 01/22/23 01/22/23 History buPROPion XL [Wellbutrin XL] 150 mg PO DAILY 01/22/23 01/22/23 History Allergies Allergy/AdvReac Type Severity Reaction Status Date / Time quetiapine fumarate Allergy Rash/Hives Verified 01/22/23 13:36 [From Seroquel] Physical Exam Vitals: Vital Signs Temp Pulse Resp BP Pulse Ox 01/24/23 23:47 118 H 96 01/24/23 22:15 98.8 F 84 18 112/68 93 L 01/24/23 20:40 132 H 18 102/74 Cranial Nerve Examination - Cranial Nerves Cranial Nerve II- Optic: Intact Cranial Nerve III- Oculomotor: Intact Cranial Nerve IV- Trochlear: Intact Cranial Nerve V- Trigeminal: Intact Cranial Nerve - Abducens: Intact Cranial Nerve VII- Facial: Intact Cranial Nerve VIII- Auditory: Intact Cranial Nerve IX- Glossopharyngeal: Intact Cranial Nerve X- Vagus: Intact Cranial Nerve XI- Accessory: Intact Cranial Nerve XII- Hypoglossal: Intact Results CBC & Chem 7: 01/22/23 09:22 01/22/23 09:22 Thrombosis Risk Factor Assmnt - Choose All That Apply Any of the Below Risk Factors Present?: No Other Risk Factors: Yes Each Risk Factor Represents 2 Points: Age 61-74 years Other congenital or acquired thrombophilia - If yes, enter type in comment: No Thrombosis Risk Factor Assessment Total Risk Factor Score: 2 Thrombosis Risk Factor Assessment Level: Low Risk
[2023-01-25] MEDS: DIVALPROEX ER 500 MG TAB.ER.24H PO SCH (23:05)
[2023-01-25] MEDS: traZODone HCL 50 MG TAB PO SCH (23:07)
[2023-01-26] MEDS: LEVOTHYROXINE 88 MCG TAB PO SCH (06:33)
[2023-01-26] MEDS: TIOTROPIUM 2.5 MCG INHALER (MHU) INHALATION SCH (09:03)
[2023-01-26] MEDS: SYMBICORT 80-4.5 MCG INHALER INHALATION SCH ×2 (09:03→20:46)
[2023-01-26] MEDS: TAMSULOSIN 0.4 MG CAP.ER.24H PO SCH ×2 (10:20→12:14)
[2023-01-26] MEDS: ALBUTEROL INHALER 60 PUFF/8 GM INHALER (MHU) INHALATION SCH ×4 (10:20→20:46)
[2023-01-26] MEDS: FLUoxetine HCL 20 MG CAP PO SCH ×2 (10:20→12:14)
[2023-01-26] MEDS: NICOTINE 14MG/24HR PATCH TRANSDERM SCH ×2 (10:20→15:43)
[2023-01-26] MEDS: THIAMINE 100 MG TAB PO SCH ×2 (10:20→12:14)
[2023-01-26] MEDS: HYDROcodone/APAP 7.5-325MG 1 EACH TAB PO PRN ×2 (12:16→20:42)
[2023-01-26] MEDS ORDERED: FLUoxetine HCL 20 MG CAP PO STA (13:26)
--- NOTE | 2023-01-26 13:30 | P.PN ---
Progress Note - Text Progress Note Date: 01/26/23 Interval History: Patient was seen laying in his bed today and was directable and agreeable to s peak with narrative writer in the office. Patient continues to be irritable however more directable today during conversation. He states that he has been taking the medications and was able to sleep better last night with the trazodone. We spoke about increasing his Prozac which she is okay with. He continues to not call access line to get into rehab and claims that another staff member was going to do for him. He appears to be somewhat evasive today. Continues to endorse suicidal ideations however no intent or plan. Continues to be fairly irritable and isolative. Claims that his appetite is mildly improving. At this time patient denies any homical ideations, intent or plan. Patient denies any auditory, visual hallucinations and denies any paranoia or delusions. Patient denies any side effects from the medications and has been compliant with meds. Mental Status Exam: General Appearance: Patient appears to be thin, stated age is alert, directable, and attempts to cooperate. Laying in bed. Patient appears to have mildly improving hygiene and grooming. Behavior: Patient is seated without any agitated behavior. Irritable, providing mildly Speech: Patient's speech is fluent and nonpressured. Irritable tone Mood/Affect: Patient reports their mood is depressed and anxious, improving mildly, affect is congruent Suicidality/Homicidality: Patient denies having any homicidal ideation intent or plan. Denies any suicidal ideations intent or plan Perceptions: Patient denies any visual hallucinations and denies any auditory hallucinations Though content/process: There is no evidence of any delusional thought content and thought process is linear and goal-directed. Focused on his medications and stressors. Memory and concentration: AOX3, grossly intact for the purposes of this session Judgment and insight: poor/impulsive, improving mildly IMPRESSIONS: Bipolar disorder, current episode depressed Alcohol use disorder severe dependence, currently in withdrawal Cannabis use disorder Nicotine dependence Homelessness PLAN: -Patient is admitted under voluntary status to MHU for stabilization of psychiatric symptoms and safety. Patient has not signed medication consent and is placed in patient's chart. -Medications : decrease Librium 10 mg 4 times a day for alcohol withdrawal, plan to taper down over the weekend. increase Prozac 40 mg tomorrow daily for mood/anxiety, Trazodone 150 mg qhs for insomnia, depakote 1000 mg qhs for mood stabilization -Ativan and Haldol PRN for agitation/aggression -CIWA protocol with Ativan PRN for ETOH withdrawal, can discotninue on sunday -NRT - nicotine patch -SW on board for discharge planning. Encourage patient to participate in groups to work on coping skills. Patient wants to get back into [place] once he is discharged from the psychiatric unit, currently awaiting patient to make the call to access line for intake date. likely discharge early next week
[2023-01-26] MEDS: traZODone HCL 50 MG TAB PO SCH (20:39)
[2023-01-26] MEDS: DIVALPROEX ER 500 MG TAB.ER.24H PO SCH (20:39)
[2023-01-27] MEDS: LEVOTHYROXINE 88 MCG TAB PO SCH (06:04)
[2023-01-27 06:42] VITALS: RESP 16
[2023-01-27] MEDS: THIAMINE 100 MG TAB PO SCH (09:54)
[2023-01-27] MEDS: TAMSULOSIN 0.4 MG CAP.ER.24H PO SCH (09:54)
[2023-01-27] MEDS: FLUoxetine HCL 20 MG CAP PO SCH (09:54)
[2023-01-27] MEDS: HYDROcodone/APAP 7.5-325MG 1 EACH TAB PO PRN (09:57)
[2023-01-27] MEDS: TIOTROPIUM 2.5 MCG INHALER (MHU) INHALATION SCH ×2 (11:28→12:04)
[2023-01-27] MEDS: SYMBICORT 80-4.5 MCG INHALER INHALATION SCH ×2 (11:28→21:19)
[2023-01-27] MEDS: ALBUTEROL INHALER 60 PUFF/8 GM INHALER (MHU) INHALATION SCH ×4 (11:28→21:40)
[2023-01-27] MEDS: NICOTINE 14MG/24HR PATCH TRANSDERM SCH (11:29)
[2023-01-27] MEDS: traZODone HCL 50 MG TAB PO SCH (21:40)
[2023-01-27] MEDS: DIVALPROEX ER 500 MG TAB.ER.24H PO SCH (21:40)
[2023-01-28] MEDS: SYMBICORT 80-4.5 MCG INHALER INHALATION SCH ×2 (10:36→21:06)
[2023-01-28] MEDS: ALBUTEROL INHALER 60 PUFF/8 GM INHALER (MHU) INHALATION SCH ×4 (10:36→21:06)
[2023-01-28] MEDS: LEVOTHYROXINE 88 MCG TAB PO SCH (10:36)
[2023-01-28] MEDS: THIAMINE 100 MG TAB PO SCH (10:37)
[2023-01-28] MEDS: FLUoxetine HCL 20 MG CAP PO SCH (10:37)
[2023-01-28] MEDS: NICOTINE 14MG/24HR PATCH TRANSDERM SCH (10:37)
[2023-01-28] MEDS: TAMSULOSIN 0.4 MG CAP.ER.24H PO SCH (10:37)
[2023-01-28] MEDS: TIOTROPIUM 2.5 MCG INHALER (MHU) INHALATION SCH ×2 (10:37→21:05)
--- NOTE | 2023-01-28 11:22 | P.PN ---
Progress Note - Text Interval history: Patient was seen [wandering the hallways] and was directable and agreeable to speak with rewriter. Reports withdrawal symptoms. At this time patient denies any suicidal or homicidal ideations intent or plan. Denies any Auditory or visual hallucinations. Patient denies any side effects from the medications and has been compliant with meds. Mental status exam: General Appearance: [Patient appears to be older than stated age is alert, directable, and cooperative.] Behavior: [No agitated behavior. Patient is calm and directable] Speech: Patient's speech is fluent and nonpressured. Mood/Affect: Mood is improving mildly, affect is congruent and constricted. Suicidality/Homicidality: Patient denies having any suicidal or homicidal ideation intent or plan. Perceptions: Patient denies any auditory or visual hallucinations. Though content/process: [There is no evidence of any delusional thought content and thought process is linear and goal-directed.] Memory and concentration: AOX3, grossly intact for the purposes of this session Judgment and insight: improving mildly Assessment/Plan: Continue with current diagnosis. Patient continues to meet criteria for inpatient psychiatric admission for symptom stabilization and safety.[Patient will be maintained on current psychotropic medication regimen.] Monitor for medication compliance and for any psychotropic medication side effects. Will continue to monitor ongoing response to treatment. Encouraged participation in milieu.
--- NOTE | 2023-01-28 11:23 | P.PN ---
Progress Note - Text Interval history: Patient was seen in his room. no suicidal or homicidal ideations intent or plan. No Auditory or visual hallucinations. No side effects from the medications and has been compliant with meds. Mental status exam: General Appearance: [Patient appears to be older than stated age, drowsy Behavior: [No agitated behavior. Patient is calm and directable] Speech: Patient's speech is fluent and nonpressured. Mood/Affect: Mood is improving mildly, affect is congruent and constricted. Suicidality/Homicidality: No suicidal or homicidal ideation intent or plan. Perceptions: No auditory or visual hallucinations. Though content/process: [There is no evidence of any delusional thought content and thought process is linear and goal-directed.] Memory and concentration: AOX3, grossly intact for the purposes of this session Judgment and insight: improving mildly Assessment/Plan: Continue with current diagnosis. Patient continues to meet criteria for inpatient psychiatric admission for symptom stabilization and safety.[Patient will be maintained on current psychotropic medication regimen.] Monitor for medication compliance and for any psychotropic medication side effects. Will continue to monitor ongoing response to treatment. Encouraged participation in milieu.
[2023-01-28] MEDS: HYDROcodone/APAP 7.5-325MG 1 EACH TAB PO PRN (21:07)
[2023-01-28] MEDS: DIVALPROEX ER 500 MG TAB.ER.24H PO SCH (21:07)
[2023-01-28] MEDS: traZODone HCL 50 MG TAB PO SCH (21:07)
[2023-01-29] MEDS: LEVOTHYROXINE 88 MCG TAB PO SCH (07:09)
[2023-01-29 07:33] VITALS: TEMP 97.2
[2023-01-29] MEDS: SYMBICORT 80-4.5 MCG INHALER INHALATION SCH ×2 (08:38→21:36)
[2023-01-29] MEDS: ALBUTEROL INHALER 60 PUFF/8 GM INHALER (MHU) INHALATION SCH ×4 (08:38→21:36)
[2023-01-29] MEDS: TIOTROPIUM 2.5 MCG INHALER (MHU) INHALATION SCH (08:38)
[2023-01-29] MEDS: NICOTINE 14MG/24HR PATCH TRANSDERM SCH (08:38)
[2023-01-29] MEDS: THIAMINE 100 MG TAB PO SCH (08:42)
[2023-01-29] MEDS: HYDROcodone/APAP 7.5-325MG 1 EACH TAB PO PRN ×2 (08:42→21:26)
[2023-01-29] MEDS: TAMSULOSIN 0.4 MG CAP.ER.24H PO SCH (08:42)
[2023-01-29] MEDS: FLUoxetine HCL 20 MG CAP PO SCH (08:43)
[2023-01-29 08:49] VITALS: BP 93/62; PULSE 81
[2023-01-29] MEDS ORDERED: NALTREXONE HCL 50 MG TAB PO SCH (12:15)
--- NOTE | 2023-01-29 12:15 | P.PN ---
Progress Note - Text Progress Note Date: 01/29/23 Interval History: Patient was seen laying in his bed today and was directable and agreeable to s peak with continuity writer. Patient was less irritable today with continuity writer. He states that he was very upset yesterday and last night due to another patient opening his door and wandering in. He states that he threatened to "punch her". He claims that he is doing a bit better with his medications. He claims he is not having much withdrawal symptoms at this time. States that he is still trying to get into [facility] believes that he does not need an intake date and he can go there whenever he wants. He states that he has not been going to many groups however was encouraged to do so today. He continues to be fairly isolative. Claims that his appetite is mildly improving. At this time patient denies any homical ideations, intent or plan. Patient denies any auditory, visual hallucinations and denies any paranoia or delusions. Patient denies any side effects from the medications and has been compliant with meds. Mental Status Exam: General Appearance: Patient appears to be thin, stated age is alert, directable, and attempts to cooperate. Laying in bed. Patient appears to have mildly improving hygiene and grooming. Behavior: Patient is seated without any agitated behavior. Attempts to cooperate Speech: Patient's speech is fluent and nonpressured. Less irritable today. Mood/Affect: Patient reports their mood is improving mildly, affect is congruent and constricted Suicidality/Homicidality: Patient denies having any homicidal ideation intent or plan. Denies any suicidal ideations intent or plan Perceptions: Patient denies any visual hallucinations and denies any auditory hallucinations Though content/process: There is no evidence of any delusional thought content and thought process is linear and goal-directed. Memory and concentration: AOX3, grossly intact for the purposes of this session Judgment and insight: poor/impulsive, improving mildly IMPRESSIONS: Bipolar disorder, current episode depressed Alcohol use disorder severe dependence, currently in withdrawal Cannabis use disorder Nicotine dependence Homelessness PLAN: -Patient is admitted under voluntary status to [facility]HU for stabilization of psychiatric symptoms and safety. Patient has not signed medication consent and is placed in patient's chart. -Medications : continue Prozac 40 mg tomorrow daily for mood/anxiety, Trazodone 150 mg qhs for insomnia, depakote 1000 mg qhs for mood stabilization. added naltrexone 50 mg daily for etoh cravings. -Ativan and Haldol PRN for agitation/aggression -NRT - nicotine patch -SW on board for discharge planning. Encourage patient to participate in groups to work on coping skills. Patient wants to get back into [place] once he is discharged from the psychiatric unit, currently awaiting patient to make the call to access line for intake date. likely discharge tomorrow, SW to assist with discharge planning for tomorrow.
[2023-01-29] MEDS: traZODone HCL 50 MG TAB PO SCH (21:26)
[2023-01-29] MEDS: DIVALPROEX ER 500 MG TAB.ER.24H PO SCH (21:26)
[2023-01-30] MEDS: LEVOTHYROXINE 88 MCG TAB PO SCH (07:06)
[2023-01-30] MEDS: SYMBICORT 80-4.5 MCG INHALER INHALATION SCH (09:49)
[2023-01-30] MEDS: ALBUTEROL INHALER 60 PUFF/8 GM INHALER (MHU) INHALATION SCH ×2 (09:49→13:14)
[2023-01-30] MEDS: FLUoxetine HCL 20 MG CAP PO SCH (09:49)
[2023-01-30] MEDS: THIAMINE 100 MG TAB PO SCH (09:50)
[2023-01-30] MEDS: TAMSULOSIN 0.4 MG CAP.ER.24H PO SCH (09:50)
[2023-01-30] MEDS: HYDROcodone/APAP 7.5-325MG 1 EACH TAB PO PRN (09:51)
[2023-01-30] MEDS: TIOTROPIUM 2.5 MCG INHALER (MHU) INHALATION SCH (09:51)
[2023-01-30] MEDS: NICOTINE 14MG/24HR PATCH TRANSDERM SCH (09:52)
--- NOTE | 2023-01-30 10:10 | P.DS ---
Providers Date of admission: 01/23/23 17:19 Expected date of discharge: 01/30/23 Attending physician: Coleman Moyer MD Consults: 01/23/23 17:25 Consult Physician Routine Consulting Provider: Apolonia De Anda Consult Reason/Comments: H&P and medical Do you want consulting provider notified?: Yes Primary care physician: Stated None - Discharge Diagnosis(es) (1) Bipolar disorder with current episode depressed Current Visit: Yes Status: Acute Priority: High (2) Alcohol use disorder, severe, dependence Current Visit: Yes Status: Acute Priority: High (3) Cannabis use disorder Current Visit: Yes Status: Acute Priority: Medium (4) Nicotine dependence Current Visit: Yes Status: Acute Priority: Low (5) Homelessness Current Visit: Yes Status: Acute Priority: Medium Hospital Course: Admission HPI: Admission note was completed by keno writer / runner "Patient is a 62-year-old male, is currently homeless, collecting Social Security, no kids and single. Patient presented to the hospital on 01/22 complaining of depression and alcohol abuse. Apparently patient tried to go do [place] however was turned away and came to the hospital instead. Patient was complaining of being off his psychiatric medication is feeling suicidal. Patient admitted voluntarily the mental health unit and seen this morning. Patient was seen lying in bed with the blankets covering his entire body. He was fairly irritable with keno writer / runner initially however gradually became more cooperative during the interview. He states that he does not want to leave his bed. He claims he is going through alcohol withdrawal at this time. He states that he wanted to go do [place] however was turned away. States that he was diagnosed with "double pneumonia" and states that he went to go see Dr Phillips however states that "after that I just went downhill". He states that he stopped taking his medications including his psychiatric meds and claims that he relapsed back on alcohol. He states that he is drinking fairly heavily however did not specify how much for the past several days. States that his last drink was about 2 days ago. Claims that he does have a history of DTs in the past. Claims that he also smokes marijuana occasionally, claims that he has been smoking cigarettes as well. States that he is feeling depressed, anxious, states that his sleep is poor appetite is fair. General grooming. He presents as fairly irritable. Patient denies any current suicidal or homicidal ideations intent or plan. At this time patient denies any auditory or visual hallucinations. He claims that he does have history of bipolar disorder and claims that his mood does fluctuate. Patient admits to using recreational drugs as noted above." Hospital course: Upon admission to the unit patient was directable and agreeable to commence treatment and signed adult voluntary form. Patient was initially fairly isolative, fairly irritable and hostile however with time and treatment he eventually got along well with other patients on the unit and followed unit protocol. Patient was compliant with the medications and denied any side effects throughout hospital course. Patient was started on Prozac 40 mg daily for mood/anxiety, trazodone 150 mg daily at bedtime for insomnia/mood, Depakote 1000 mg daily at bedtime for mood stabilization. patient was offered PO naltrexone for cravings however due to patient already being on norco it was contraindicated at this time. Patient spoke of his stressors and engaged in therapy both group and individual. Patient was also seen by medical team for history and physical exam. Throughout the course of the hospitalization patient gradually improved with regards to mood, anxiety, irritability, sleep and returned back to their baseline level of functioning. On the day of discharge patient denied any suicidal or homicidal ideations intent or plan denied any auditory or visual hallucinations. Patient endorsed wanting to live for his health and sobriety. The patient denied any access to guns or weapons. Patient denied any paranoia and did not endorse any delusions. Patient does have a significant history of substance abuse and was counseled on abstaining from all substances including alcohol and marijuana. Patient was able to get a [place] intake date/appointment on 02/01. Patient will be arranging with [facility] for transportation and also housing/accomodation until his intake date. Patient was also counseled on the medications and need for regular compliance and was encouraged to follow-up with their outpatient appointment for mental health and also for primary care. Mental status exam: General Appearance: Patient appears to be thin, stated age is alert, pleasant, and cooperative. Patient is in no acute distress and has improved hygiene and grooming Behavior: Patient is calmly seated without any agitated behavior. Speech: Patient's speech is fluent and nonpressured. Mood/Affect: Patient reports their mood is "good", affect is congruent. Suicidality/Homicidality: Patient denies having any suicidal or homicidal id eation intent or plan. Perceptions: Patient denies any auditory or visual hallucinations. Though content/process: There is no evidence of any delusional thought content and thought process is linear and goal-directed. more future oriented Memory and concentration: AOX3, grossly intact for the purposes of this session. Can spell "WORLD" backwards correctly. Judgment and insight: chronically poor, however has improved with guarded prognosis Impression: Bipolar disorder, current episode depressed Alcohol use disorder severe dependence Cannabis use disorder Homelessness Nicotine dependence Plan: -Continue with discharge today as patient has improved and stabilized psychiatrically and is not currently an imminent threat to himself and/or others. Patient will remain at chronically elevated risk for harm to self and/or others due to his impulsivity and substance abuse. -Continue medications: Prozac 40 mg daily for mood/anxiety, trazodone 150 mg daily at bedtime for insomnia/mood, Depakote by mouth 1000 mg daily at bedtime for mood stabilization. -Patient was counseled on the need for medication compliance and appropriate follow-up at mental health and also primary care for medical issues. Patient verbalized understanding and agreed. -Social work to help coordinate patient's discharge today to [facility] for transportation and also accomodation until his intake date at . Social work also to arrange for patients follow up appointments with [facility] for psychiatric care along with follow up with primary care provider. -Patient counseled on abstaining from recreational drugs and marijuana and alcohol. Was informed/educated on the adverse effects on their physical and mental health. Patient verbally agreed and understood. -Patient was instructed to return to the hospital or seek immediate medical care if their psychiatric or medical symptoms do worsen or reoccur. Allergies Allergy/AdvReac Type Severity Reaction Status Date / Time quetiapine fumarate Allergy Rash/Hives Verified 01/22/23 13:36 [From Seroquel] Laboratory Results WBC 5.1 k/uL (3.8-10.6) 01/22/23 09:22 RBC 4.30 m/uL (4.30-5.90) 01/22/23 09:22 Hgb 14.3 gm/dL (13.0-17.5) 01/22/23 09:22 Hct 41.4 % (39.0-53.0) 01/22/23 09:22 MCV 96.3 fL (80.0-100.0) 01/22/23 09: MCH 33.4 pg (25.0-35.0) 01/22/23 09: MCHC 34.6 g/dL (31.0-37.0) 01/22/23 09: RDW 13.3 % (11.5-15.5) 01/22/23 09: Plt Count 173 k/uL (150-450) 01/22/23 09: MPV 8.4 01/22/23 09:22 Neutrophils % 59 % 01/22/23 09: Lymphocytes % 31 % 01/22/23 09: Monocytes % 5 % 01/22/23 09: Eosinophils % 2 % 01/22/23: Basophils % 1 % 01/22/23 09: Neutrophils # 3.0 k/uL (1.3-7.7) 01/22/23 09: Lymphocytes # 1.6 k/uL (1.0-4.8) 01/22/23 09: Monocytes # 0.3 k/uL (0-1.0) 01/22/23 09: Eosinophils # 0.1 k/uL (0-0.7) 01/22/23 09: Basophils # 0.0 k/uL (0-0.2) 01/22/23 09:22 Sodium 139 mmol/L (137-145) 01/22/23 09:22 Potassium 3.9 mmol/L (3.5-5.1) 01/22/23 09: Chloride 107 mmol/L (98-107) 01/22/23 09:22 Carbon Dioxide 24 mmol/L (22-30) 01/22/23 09:22 Anion Gap 8 mmol/L 01/22/23 09:22 BUN 9 mg/dL (9-20) 01/22/23 09:22 Creatinine 0.55 mg/dL (0.66-1.25) L 01/22/23 09:22 Est GFR (CKD-EPI)AfAm >90 (>60 ml/min/1.73 sqM) 01/22/23 09:22 Est GFR (CKD-EPI)NonAf >90 (>60 ml/min/1.73 sqM) 01/22/23 09:22 Glucose 92 mg/dL (74-99) 01/22/23 09: Estimated Ave Glu mg/dL 111 mg/dL 01/22/23 09: Hemoglobin A1c 5.5 % (<=6.0) 01/22/23 09:22 Calcium 8.8 mg/dL (8.4-10.2) 01/22/23 09: Magnesium 1.4 mg/dL (1.6-2.3) L 01/22/23 09:22 Total Bilirubin 1.1 mg/dL (0.2-1.3) 01/22/23 09:22 AST 111 U/L (17-59) H 01/22/23 09:22 ALT 68 U/L (4-49) H 01/22/23 09: Alkaline Phosphatase 63 U/L (38-126) 01/22/23 09:22 Total Protein 6.5 g/dL (6.3-8.2) 01/22/23 09: Albumin 3.7 g/dL (3.5-5.0) 01/22/23 09:22 Triglycerides 73.20 mg/dL (0.00-149.00) 01/22/23 09:22 Cholesterol 166.00 mg/dL (0.00-200.00) 01/22/23 09:22 LDL Cholesterol, Calc 68.4 mg/dL (0.0-131.0) 01/22/23 09: VLDL Cholesterol, Calc 14.64 mg/dL (5.00-40.00) 01/22/23 09: HDL Cholesterol 83.00 mg/dL (40.00-60.00) H 01/22/23 09: Cholesterol/HDL Ratio 2.00 Ratio 01/22/23 09: Lipase 224 U/L (23-300) 01/22/23 09: TSH 2.420 mIU/L (0.465-4.680) 01/22/23 09:22 Urine Color Yellow 01/22/23 09: Urine Appearance Clear (Clear) 01/22/23 09: Urine pH 7.5 (5.0-8.0) 01/22/23 09: Ur Specific [place] 1.021 (1.001-1.035) 01/22/23 09:22 Urine Protein Trace (Negative) H 01/22/23 09:22 Urine Glucose (UA) Negative (Negative) 01/22/23 09:22 Urine Ketones Negative (Negative) 01/22/23 09:22 Urine Blood Negative (Negative) 01/22/23 09:22 Urine Nitrite Negative (Negative) 01/22/23 09:22 Urine Bilirubin Negative (Negative) 01/22/23 09:22 Urine Urobilinogen 8.0 mg/dL (<2.0) 01/22/23 09:22 Ur Leukocyte Esterase Negative (Negative) 01/22/23 09:22 Urine Opiates Screen Not Detected (NotDetected) 01/22/23 09:22 Ur Oxycodone Screen Not Detected (NotDetected) 01/22/23 09:22 Urine Methadone Screen Not Detected (NotDetected) 01/22/23 09:22 Ur Propoxyphene Screen Not Detected (NotDetected) 01/22/23 09:22 Ur Barbiturates Screen Not Detected (NotDetected) 01/22/23 09:22 U Tricyclic Antidepress Not Detected (NotDetected) 01/22/23 09:22 Ur Phencyclidine Scrn Not Detected (NotDetected) 01/22/23 09:22 Ur Amphetamines Screen Not Detected (NotDetected) 01/22/23 09:22 U Methamphetamines Scrn Not Detected (NotDetected) 01/22/23 09:22 U Benzodiazepines Scrn Detected (NotDetected) H 01/22/23 09:22 Urine Cocaine Screen Not Detected (NotDetected) 01/22/23 09:22 U Marijuana (THC) Screen Detected (NotDetected) H 01/22/23 09:22 Coronavirus (PCR) Not Detected (Not Detectd) 01/22/23 22:47 Vital Signs Temp 97.2 F L 01/29/23 07:15 Pulse 81 01/29/23 08:47 Resp 16 01/29/23 07:15 BP 93/62 01/29/23 08:47 Pulse Ox 98 01/29/23 07:15 FiO2 Intake & Output 01/29/23 01/30/23 01/30/23 18:59 06:59 18:59 Weight 56.245 kg Patient Condition at Discharge: Stable Plan - Discharge Summary New Discharge Prescriptions: New Nicotine 14Mg/24Hr Patch [Habitrol] 1 patch TRANSDERM DAILY 14 Days #14 patch Ibuprofen [Motrin] 600 mg PO Q6HR PRN tab PRN Reason: Moderate Pain (Scale 4 To 6) traZODone HCL 150 mg PO HS 30 Days #30 tablet Thiamine [Vitamin B-1] 100 mg PO DAILY 30 Days #30 tab Divalproex ER [Depakote ER] 1,000 mg PO HS 30 Days #60 tab FLUoxetine HCL [PROzac] 40 mg PO DAILY 30 Days #30 cap Continue Fluticasone/Umeclidin/Vilanter [Trelegy Ellipta 100-62.5-25] 1 puff INHALATION RT-DAILY 30 Days #1 each HYDROcodone/APAP 7.5-325MG [[place] 7.5-325] 1 tab PO Q6HR PRN PRN Reason: Pain Tamsulosin HCl [Flomax] 0.4 mg PO DAILY 30 Days #30 cap Levothyroxine Sodium 88 mcg PO DAILY 30 Days #30 tab Changed Albuterol Inhaler [Ventolin Hfa Inhaler] 1 puff INHALATION RT-QID 30 Days #1 each Discontinued Divalproex [Depakote] 500 mg PO DAILY Nicotine 21Mg/24Hr Patch [Habitrol] 1 patch TRANSDERM DAILY buPROPion XL [Wellbutrin XL] 150 mg PO DAILY traZODone HCL 150 mg PO DAILY Ibuprofen [Motrin] 800 mg PO BID PRN PRN Reason: Pain Albuterol Nebulized [Ventolin Nebulized] 2.5 mg INHALATION RT-Q6H PRN PRN Reason: Shortness Of Breath Discharge Medication List HYDROcodone/APAP 7.5-325MG [[place] 7.5-325] 1 tab PO Q6HR PRN 01/01/23 [History] Albuterol Inhaler [Ventolin Hfa Inhaler] 1 puff INHALATION RT-QID 30 Days #1 each 01/30/23 [Rx] Divalproex ER [Depakote ER] 1,000 mg PO HS 30 Days #60 tab 01/30/23 [Rx] FLUoxetine HCL [PROzac] 40 mg PO DAILY 30 Days #30 cap 01/30/23 [Rx] Fluticasone/Umeclidin/Vilanter [Trelegy Ellipta 100-62.5-25] 1 puff INHALATION RT-DAILY 30 Days #1 each 01/30/23 [Rx] Ibuprofen [Motrin] 600 mg PO Q6HR PRN tab 01/30/23 [Rx] Levothyroxine Sodium 88 mcg PO DAILY 30 Days #30 tab 01/30/23 [Rx] Nicotine 14Mg/24Hr Patch [Habitrol] 1 patch TRANSDERM DAILY 14 Days #14 patch 01/30/23 [Rx] Tamsulosin HCl [Flomax] 0.4 mg PO DAILY 30 Days #30 cap 01/30/23 [Rx] Thiamine [Vitamin B-1] 100 mg PO DAILY 30 Days #30 tab 01/30/23 [Rx] traZODone HCL 150 mg PO HS 30 Days #30 tablet 01/30/23 [Rx] Follow up Appointment(s)/Referral(s): None,Stated [Primary Care Provider] - 1-2 days Discharge/Stand Alone Forms: AA Meetings [place] Discharge Disposition: OTHER INSTITUTION NOT DEFINED
== END 2023-01-30 13:14 | disposition other institution (70) | DRG 753 ==
LOC: EC 08:17 → 3MHU 01-23 17:19
PROVIDERS: ADMIT Psychiatry & Neurology Psychiatry; ATTEND Psychiatry & Neurology Psychiatry
DX: F31.30 Bipolar disorder, current episode depressed, mild or moderate severity, unspecified (principal); F10.239 Alcohol dependence with withdrawal, unspecified; Z71.6 Tobacco abuse counseling; F17.210 Nicotine dependence, cigarettes, uncomplicated; Z71.41 Alcohol abuse counseling and surveillance of alcoholic; Z71.51 Drug abuse counseling and surveillance of drug abuser; Z71.89 Other specified counseling; G47.00 Insomnia, unspecified; R45.851 Suicidal ideations; J44.9 Chronic obstructive pulmonary disease, unspecified; Z20.822 Contact with and (suspected) exposure to COVID-19; Z11.52 Encounter for screening for COVID-19; Z28.310 Unvaccinated for COVID-19; Z28.21 Immunization not carried out because of patient refusal; Z59.00 Homelessness unspecified; E03.9 Hypothyroidism, unspecified; N40.0 Benign prostatic hyperplasia without lower urinary tract symptoms; B19.20 Unspecified viral hepatitis C without hepatic coma; Z81.8 Family history of other mental and behavioral disorders; H46.9 Unspecified optic neuritis; Z79.899 Other long term (current) drug therapy; Z88.8 Allergy status to other drugs, medicaments and biological substances; Z56.0 Unemployment, unspecified; Z79.890 Hormone replacement therapy
CPT/HCPCS: 36415; 80053; 80061; 80306; 81003; 82075; 83036; 83690; 83735; 84443; 85025; 87635; 96372; 96374; 99285

== ENCOUNTER 2023-02-01 12:25 | Emergency (ER) | payer OTHER ==
--- NOTE | 2023-02-01 13:28 | ED ---
Recheck HPI - General Source: patient, RN notes reviewed Mode of arrival: EMS Limitations: no limitations <Cindy Jeffery - Last Filed: 02/01/23 13:18> - General Source: patient, RN notes reviewed Mode of arrival: EMS Limitations: no limitations <Del Berman - Last Filed: 02/01/23 18:18> - General Chief Complaint: Recheck/Abnormal Lab/Rx Stated Complaint: Low O2 Time Seen by Provider: 02/01/23 13:18 - History of Present Illness Initial Comments: This is a 62 year old male who presents to the emergency department for low oxygen saturation. Patient just checked into [facility] for [facility] abuse and they were concerned that his oxygen level was too low. However, EMS states that he had an oxygen saturation of at least 96% the whole ride here. Denies any chest pain or shortness of breath. He does have a hx of asthma and COPD. (Cindy Jeffery) Patient is a pleasant 62-year-old male presenting to the emergency department with concern for low oxygen. Patient states he was checking into [facility] secondary to alcohol problems and they reported to him that his oxygen was low. Patient states he does have history of COPD. Patient denies any cough or dyspnea. Patient does have history of recent double pneumonia however feels symptoms have resolved and has no symptoms of dyspnea. No chest pain. No leg swelling. (Del Berman) - Related Data Home Medications Medication Instructions Recorded Confirmed HYDROcodone/APAP 7.5-325MG [[place]ent[place] 1 tab PO Q6HR PRN 01/01/23 02/01/23 7.5-325] Albuterol Inhaler [Ventolin Hfa 2 puff INHALATION RT-QID PRN 02/01/23 02/01/23 Inhaler] Divalproex ER [Depakote ER] 1,000 mg PO DIRECTED 02/01/23 02/01/23 FLUoxetine HCL [PROzac] 40 mg PO DIRECTED 02/01/23 02/01/23 Levothyroxine Sodium 88 mcg PO DIRECTED 02/01/23 02/01/23 Nicotine 14Mg/24Hr Patch [Habitrol] 1 patch TRANSDERM DIRECTED 02/01/23 02/01/23 Tamsulosin HCl [Flomax] 0.4 mg PO DIRECTED 02/01/23 02/01/23 Thiamine [Vitamin B-1] 100 mg PO DIRECTED 02/01/23 02/01/23 traZODone HCL 150 mg PO DIRECTED 02/01/23 02/01/23 Previous Rx's Medication Instructions Recorded Fluticasone/Umeclidin/Vilanter 1 puff INHALATION RT-DAILY 30 Days 01/30/23 [Trelegy Ellipta 100-62.5-25] #1 each Ibuprofen [Motrin] 600 mg PO Q6HR PRN tab 01/30/23 Allergies Allergy/AdvReac Type Severity Reaction Status Date / Time quetiapine fumarate Allergy Rash/Hives Verified 02/01/23 15:34 [From Seroquel] Review of Systems ROS Other: All systems not noted in ROS Statement are negative. <Cindy Jeffery - Last Filed: 02/01/23 13:18> ROS Other: All systems not noted in ROS Statement are negative. Constitutional: Denies: fever Eyes: Denies: eye pain ENT: Denies: ear pain Respiratory: Denies: cough, dyspnea Cardiovascular: Denies: chest pain Endocrine: Denies: fatigue Gastrointestinal: Denies: abdominal pain <Del Berman - Last Filed: 02/01/23 18:18> ROS Statement: Those systems with pertinent positive or pertinent negative responses have been documented in the HPI. Past Medical History Past Medical History: Asthma, COPD, Liver Disease, Musculoskeletal Disorder, Thyroid Disorder Additional Past Medical History / Comment(s): Optic neuritis. liver disease. ETOH hepatitis c, hypothyroid History of Any Multi-Drug Resistant Organisms: None Reported Past Surgical History: No Surgical Hx Reported Past Anesthesia/Blood Transfusion Reactions: No Reported Reaction Past Psychological History: Bipolar, Depression Smoking Status: Current every day smoker Past Alcohol Use History: Abuse, Daily, Heavy Past Drug Use History: None Reported - Past Family History Father Additional Family Medical History / Comment(s): Patient states is father is but will not provide any additional information. He states he does not know his mothers history. He has 2 brothers and 2 step brothers and only one living. They have committed suicide. <Cindy Jeffery - Last Filed: 02/01/23 13:18> General Exam <Cindy Jeffery - Last Filed: 02/01/23 13:18> General appearance: alert, in no apparent distress Head exam: Present: normocephalic Eye exam: Present: normal appearance Neck exam: Present: normal inspection Respiratory exam: Present: wheezes Cardiovascular Exam: Present: regular rate, normal rhythm Extremities exam: Present: normal inspection. Absent: pedal edema, calf tenderness Neurological exam: Present: alert Psychiatric exam: Present: normal affect, normal mood Skin exam: Present: normal color <Del Berman - Last Filed: 02/01/23 18:18> - General Exam Comments Initial Comments: Visual Physical Exam Vital signs reviewed General: Well-appearing, nontoxic, no acute distress. Head: Normocephalic, atraumatic Eyes: PERRLA, EOMI ENT: Airway patent Chest: Nonlabored breathing Skin: No visual rash, normal skin tone Neuro: Alert and oriented 3 Musculoskeletal: No gross abnormalities I performed the QuickNote portion of this chart. Signed Cindy Jeffery PA-C. (Cindy Jeffery) Course Vital Signs 02/01/23 02/01/23 02/01/23 13:17 16:36 17:48 Temperature 97.8 F 98.4 F Pulse Rate 81 83 83 Respiratory 16 18 Rate Blood Pressure 101/68 113/74 O2 Sat by Pulse 98 97 Oximetry 02/01/23 17:54 Temperature Pulse Rate 83 Respiratory Rate Blood Pressure O2 Sat by Pulse Oximetry Medical Decision Making <Del Berman - Last Filed: 02/01/23 18:18> - Medical Decision Making Was pt. sent in by a medical professional or institution (MEGHANN Alba, FIRE CONTROL TECHNICIAN B, urgent care, hospital, or halfway...) When possible be specific @ -Patient was sent from [facility] Did you speak to anyone other than the patient for history (EMS, parent, family, police, friend...)? What history was obtained from this source @ -No Did you review nursing and triage notes (agree or disagree)? Why? @ -I reviewed and agree with nursing and triage notes Were old charts reviewed (outside hosp., previous admission, EMS record, old EKG, old radiological studies, urgent care reports/EKG's, halfway records)? Report findings @ -Reviewed paperwork from [facility] Differential Diagnosis (chest pain, altered mental status, abdominal pain women, abdominal pain men, vaginal bleeding, weakness, fever, dyspnea, syncope, headache, dizziness, GI bleed, back pain, seizure, CVA, palpatations, mental health, musculoskeletal)? @ -Differential Dyspnea: Coronary syndrome, arrhythmia, tamponade, asthma, COPD, pulmonary embolism, pneumonia, pneumothorax, pulmonary effusion, anaphylaxis, diabetic ketoacidosis, flailed chest, pulmonary contusion, diaphragmatic rupture, anemia, neuromuscular, this is not meant to be an all-inclusive list. EKG interpreted by me (3pts min.). @ -As above X-rays interpreted by me (1pt min.). @ -Chest x-ray shows no acute process CT interpreted by me (1pt min.). @ -None done U/S interpreted by me (1pt. min.). @ -None done What testing was considered but not performed or refused? (CT, X-rays, U/S, labs)? Why? @ -None What meds were considered but not given or refused? Why? @ -None Did you discuss the management of the patient with other professionals (professionals i.e. , PA, FIRE CONTROL TECHNICIAN B, lab, RT, psych nurse, psychologist social, consultant dietitian, teacher, armed custom protection officer, showcase trimmer)? Give summary @ -No Was smoking cessation discussed for >3mins.? @ -No Was critical care preformed (if so, how long)? @ -No Were there social determinants of health that impacted care today? How? (Homelessness, low income, unemployed, alcoholism, drug addiction, transportation, low edu. Level, literacy, decrease access to med. care, longterm, rehab)? @ -No Was there de-escalation of care discussed even if they declined (Discuss DNR or withdrawal of care, Hospice)? DNR status @ -No What co-morbidities impacted this encounter? (DM, HTN, Smoking, COPD, CAD, C ancer, CVA, ARF, Chemo, Hep., AIDS, mental health diagnosis, sleep apnea, morbid obesity)? @ -None Was patient admitted / discharged? Hospital course, mention meds given and route, prescriptions, significant lab abnormalities, going to OR and other pertinent info. @ -Patient reevaluated and remained symptom-free. Pulse ox remains stable. Patient did receive nebulizer and still has mild wheezing. Patient still however is asymptomatic with normal oxygen level. Patient is requesting discharge. Patient will be discharged back to [facility]. Undiagnosed new problem with uncertain prognosis? @ -No Drug Therapy requiring intensive monitoring for toxicity (Heparin, Nitro, Insul in, Cardizem)? @ -No Were any procedures done? @ -No Diagnosis/symptom? @ -COPD Acute, or Chronic, or Acute on Chronic? @ -Acute on chronic Uncomplicated (without systemic symptoms) or Complicated (systemic symptoms)? @ -default Side effects of treatment? @ -No Exacerbation, Progression, or Severe Exacerbation? @ -No Poses a threat to life or bodily function? How? (Chest pain, [place], MA, pneumonia, PE, COPD, DKA, ARF, appy, cholecystitis, CVA, Diverticulitis, Homicidal, Suicidal, threat to staff... and all critical care pts) @ -No (Del Berman) Disposition <Cindy Jeffery - Last Filed: 02/01/23 13:18> Is patient prescribed a controlled substance at d/c from ED?: No Time of Disposition: 18:17 <Del Berman - Last Filed: 02/01/23 18:18> Clinical Impression: COPD (chronic obstructive pulmonary disease) Disposition: HOME SELF-CARE Condition: Stable Instructions (If sedation given, give patient instructions): COPD (Chronic Obstructive Pulmonary Disease) (ED), Abuse of Alcohol (ED) Additional Instructions: Discontinue alcohol use. Please do follow-up with primary care physician in the next couple days for recheck. Return for difficulty breathing, cough, fever, low oxygen level, worsening symptoms or other concerns. Referrals: Sena Root MD [Primary Care Provider] - 1-2 days
[2023-02-01] MEDS ORDERED: IPRATROPIUM-ALBUTEROL 3 ML NEB INHALATION STA (16:31)
[2023-02-01 16:40] VITALS: PULSE 83; TEMP 98.4
--- NOTE | 2023-02-01 17:02 | XR ---
EXAMINATION TYPE: XR chest 2V DATE OF EXAM: 02/01/2023 COMPARISON: 10/30/2022 and 12/26/2022 HISTORY: 62-year-old male with wheezing TECHNIQUE: AP and lateral views FINDINGS: Heart normal size. Atherosclerotic arch calcifications. Peribronchial cuffing and interstitial promin ence. No consolidation or pleural effusion. IMPRESSION: Mild interstitial prominence with hyperinflation, possible bronchitis or asthma. Correlate to exclude underlying COPD.
[2023-02-01 18:44] VITALS: BP 117/79; RESP 20
== END 2023-02-01 18:42 | disposition home or self-care (01) ==
LOC: EC 12:25
DX: J44.9 Chronic obstructive pulmonary disease, unspecified (principal); F17.200 Nicotine dependence, unspecified, uncomplicated; E03.9 Hypothyroidism, unspecified; F31.9 Bipolar disorder, unspecified; Z79.899 Other long term (current) drug therapy; Z79.890 Hormone replacement therapy; Z88.8 Allergy status to other drugs, medicaments and biological substances
CPT/HCPCS: 71046; 94640; 99284

== ENCOUNTER 2023-02-02 13:08 | Emergency (ER) | payer OTHER ==
[2023-02-02 13:43] VITALS: RESP 18
--- NOTE | 2023-02-02 15:09 | ED ---
Alcohol HPI - General Chief Complaint: Alcohol Stated Complaint: Detox Time Seen by Provider: 02/02/23 13:18 Source: patient, RN notes reviewed Mode of arrival: ambulatory Limitations: no limitations - History of Present Illness Initial Comments: 62-year-old male presents emergency Department chief complaint of needing alcohol detox. Patient was sent here by [facility] for evaluation of possible occult detects. Patient was primarily admitted from 01/23/2023 to 01/30 in the psychiatric [facility]. Patient was discharged she states he did drink 1 time. Patient states he went to rehab and was sent here yesterday because his pulse ox was low. Patient states he has no chest pain or shortness of breath he has no withdrawal symptoms states he feels well this time but wants to complete rehab. Denies any suicidal homicidal. Patient states he has not drank since yesterday he states it's only did he drank. - Related Data Home Medications Medication Instructions Recorded Confirmed HYDROcodone/APAP 7.5-325MG [[place] 1 tab PO Q6HR PRN 01/01/23 02/01/23 7.5-325] Albuterol Inhaler [Ventolin Hfa 2 puff INHALATION RT-QID PRN 02/01/23 02/01/23 Inhaler] Divalproex ER [Depakote ER] 1,000 mg PO DIRECTED 02/01/23 02/01/23 FLUoxetine HCL [PROzac] 40 mg PO DIRECTED 02/01/23 02/01/23 Levothyroxine Sodium 88 mcg PO DIRECTED 02/01/23 02/01/23 Nicotine 14Mg/24Hr Patch [Habitrol] 1 patch TRANSDERM DIRECTED 02/01/23 02/01/23 Tamsulosin HCl [Flomax] 0.4 mg PO DIRECTED 02/01/23 02/01/23 Thiamine [Vitamin B-1] 100 mg PO DIRECTED 02/01/23 02/01/23 traZODone HCL 150 mg PO DIRECTED 02/01/23 02/01/23 Previous Rx's Medication Instructions Recorded Fluticasone/Umeclidin/Vilanter 1 puff INHALATION RT-DAILY 30 Days 01/30/23 [Trelegy Ellipta 100-62.5-25] #1 each Ibuprofen [Motrin] 600 mg PO Q6HR PRN tab 01/30/23 Allergies Allergy/AdvReac Type Severity Reaction Status Date / Time quetiapine fumarate Allergy Rash/Hives Verified 02/02/23 13:16 [From Seroquel] Review of Systems ROS Statement: Those systems with pertinent positive or pertinent negative responses have been documented in the HPI. ROS Other: All systems not noted in ROS Statement are negative. Past Medical History Past Medical History: Asthma, COPD, Liver Disease, Musculoskeletal Disorder, Thyroid Disorder Additional Past Medical History / Comment(s): Optic neuritis. liver disease. ETOH hepatitis c, hypothyroid History of Any Multi-Drug Resistant Organisms: None Reported Past Surgical History: No Surgical Hx Reported Past Anesthesia/Blood Transfusion Reactions: No Reported Reaction Past Psychological History: Bipolar, Depression Smoking Status: Current every day smoker Past Alcohol Use History: Abuse, Daily, Heavy Past Drug Use History: None Reported - Past Family History Father Additional Family Medical History / Comment(s): Patient states is father is but will not provide any additional information. He states he does not know his mothers history. He has 2 brothers and 2 step brothers and only one living. They have committed suicide. General Exam Limitations: no limitations General appearance: alert, in no apparent distress Head exam: Present: atraumatic, normocephalic, normal inspection Eye exam: Present: normal appearance, PERRL, EOMI. Absent: scleral icterus, conjunctival injection, periorbital swelling ENT exam: Present: normal exam, normal oropharynx, mucous membranes moist Neck exam: Present: normal inspection, full ROM. Absent: tenderness, meningismus, lymphadenopathy Respiratory exam: Present: normal lung sounds bilaterally. Absent: respiratory distress, wheezes, rales, rhonchi, stridor Cardiovascular Exam: Present: regular rate, normal rhythm, normal heart sounds. Absent: systolic murmur, diastolic murmur, rubs, gallop, clicks Neurological exam: Present: alert Skin exam: Present: warm, dry, intact, normal color. Absent: rash Course Vital Signs 02/02/23 13:14 Temperature 97.5 F L Pulse Rate 77 Respiratory 18 Rate Blood Pressure 115/86 O2 Sat by Pulse 97 Oximetry Medical Decision Making - Medical Decision Making Was pt. sent in by a medical professional or institution (, PA, CONTENT ADMINISTRATOR, urgent care, hospital, or prison...) When possible be specific @ -[[facility] Did you speak to anyone other than the patient for history (EMS, parent, family, police, friend...)? What history was obtained from this source @ -[No] Did you review nursing and triage notes (agree or disagree)? Why? @ -[I reviewed and agree with nursing and triage notes] Were old charts reviewed (outside hosp., previous admission, EMS record, old EKG, old radiological studies, urgent care reports/EKG's, prison records)? Report findings @ -[No old charts were reviewed] Differential Diagnosis (chest pain, altered mental status, abdominal pain women, abdominal pain men, vaginal bleeding, weakness, fever, dyspnea, syncope, headache, dizziness, GI bleed, back pain, seizure, CVA, palpatations, mental health, musculoskeletal)? @ -[Alcohol abuse, alcohol withdrawal] EKG interpreted by me (3pts min.). @ -[None] X-rays interpreted by me (1pt min.). @ -[None done] CT interpreted by me (1pt min.). @ -[None done] U/S interpreted by me (1pt. min.). @ -[None done] What testing was considered but not performed or refused? (CT, X-rays, U/S, labs)? Why? @ -[None] What meds were considered but not given or refused? Why? @ -[None] Did you discuss the management of the patient with other professionals (professionals i.e. , MEGHANN, CONTENT ADMINISTRATOR, lab, RT, psych nurse, social worker psychiatric, children's nursery assistant, teacher, second officer, casework supervisor)? Give summary @ -[I did discuss the case with nursing staff at [facility] regarding meghann baldwin's current condition, vitals with a CIWA 0 patient is well-appearing patient did have alcohol use yesterday but otherwise has been sober for the last 10 days. They do agree that the patient is stable for admission at [facility] given that he has no current withdrawal symptoms. Was smoking cessation discussed for >3mins.? @ -[No] Was critical care preformed (if so, how long)? @ -[No] Were there social determinants of health that impacted care today? How? (Homelessness, low income, unemployed, alcoholism, drug addiction, transportation, low edu. Level, literacy, decrease access to med. care, care home, rehab)? @ -[No] Was there de-escalation of care discussed even if they declined (Discuss DNR or withdrawal of care, Hospice)? DNR status @ -[No] What co-morbidities impacted this encounter? (DM, HTN, Smoking, COPD, CAD, Cancer, CVA, ARF, Chemo, Hep., AIDS, mental health diagnosis, sleep apnea, morbid obesity)? @ -[None] Was patient admitted / discharged? Hospital course, mention meds given and route, prescriptions, significant lab abnormalities, going to OR and other pertinent info. @ -[Patient is discharged and will be picked up by [facility] for alcohol rehab] Undiagnosed new problem with uncertain prognosis? @ -[No] Drug Therapy requiring intensive monitoring for toxicity (Heparin, Nitro, I nsulin, Cardizem)? @ -[No] Were any procedures done? @ -[No] Diagnosis/symptom? @ -[Alcohol abuse] Acute, or Chronic, or Acute on Chronic? @ -[Acute Uncomplicated (without systemic symptoms) or Complicated (systemic symptoms)? @ -[Uncomplicated] Side effects of treatment? @ -[No] Exacerbation, Progression, or Severe Exacerbation? @ -[No] Poses a threat to life or bodily function? How? (Chest pain, [place], [place], pneumonia, PE, COPD, DKA, ARF, appy, cholecystitis, CVA, Diverticulitis, Homicidal, Suicidal, threat to staff... and all critical care pts) @ -[No] Disposition Clinical Impression: Alcohol use disorder Disposition: HOME SELF-CARE Condition: Stable Additional Instructions: Please return to the Emergency Department if symptoms worsen or any other concerns. Is patient prescribed a controlled substance at d/c from ED?: No Referrals: None,Stated [Primary Care Provider] - 1-2 days Time of Disposition: 15:46
[2023-02-02 16:18] VITALS: BP 138/97; PULSE 66; TEMP 98.5
== END 2023-02-02 16:01 | disposition home or self-care (01) ==
LOC: EC 13:08
DX: F10.99 Alcohol use, unspecified with unspecified alcohol-induced disorder (principal); E03.9 Hypothyroidism, unspecified; J44.9 Chronic obstructive pulmonary disease, unspecified; F31.9 Bipolar disorder, unspecified; F17.200 Nicotine dependence, unspecified, uncomplicated; Z79.890 Hormone replacement therapy; Z79.899 Other long term (current) drug therapy; Z88.8 Allergy status to other drugs, medicaments and biological substances
CPT/HCPCS: 99284

== ENCOUNTER 2023-02-10 08:59 | Emergency (ER) | payer OTHER ==
[2023-02-10] MEDS ORDERED: SODIUM CHLORIDE 0.9% 1,000 ML IV STA (09:05)
--- NOTE | 2023-02-10 09:08 | ED ---
General Adult HPI - General Chief complaint: Syncope Stated complaint: Near Syncope Time Seen by Provider: 02/10/23 09:00 Source: patient, RN notes reviewed, old records reviewed Mode of arrival: EMS Limitations: no limitations - History of Present Illness Initial comments: This is a 62-year-old male who resides at [facility] currently for alcohol abu se. Patient's last drink was 10 days ago. Patient states he was standing in line to get his medicine in the room started to spin he felt very dizzy like he was given a fall down and some other residents help him to the ground. Patient states the symptoms lasted for about 15 minutes and then it subsided. Patient states he has no headache patient denies numbness or weakness. Patient denies chest pain difficulty breathing shortness of breath per patient denies any abdominal pain patient denies nausea vomiting diarrhea. Patient states currently has no complaints no pain or no symptoms. Patient denies any new ringing in the ears or deafness. - Related Data Home Medications Medication Instructions Recorded Confirmed HYDROcodone/APAP 7.5-325MG [[place] 1 tab PO Q6HR PRN 01/01/23 02/01/23 7.5-325] Albuterol Inhaler [Ventolin Hfa 2 puff INHALATION RT-QID PRN 02/01/23 02/01/23 Inhaler] Divalproex ER [Depakote ER] 1,000 mg PO DIRECTED 02/01/23 02/01/23 FLUoxetine HCL [PROzac] 40 mg PO DIRECTED 02/01/23 02/01/23 Levothyroxine Sodium 88 mcg PO DIRECTED 02/01/23 02/01/23 Nicotine 14Mg/24Hr Patch [Habitrol] 1 patch TRANSDERM DIRECTED 02/01/23 02/01/23 Tamsulosin HCl [Flomax] 0.4 mg PO DIRECTED 02/01/23 02/01/23 Thiamine [Vitamin B-1] 100 mg PO DIRECTED 02/01/23 02/01/23 traZODone HCL 150 mg PO DIRECTED 02/01/23 02/01/23 Previous Rx's Medication Instructions Recorded Fluticasone/Umeclidin/Vilanter 1 puff INHALATION RT-DAILY 30 Days 01/30/23 [Trelegy Ellipta 100-62.5-25] #1 each Ibuprofen [Motrin] 600 mg PO Q6HR PRN tab 01/30/23 Allergies Allergy/AdvReac Type Severity Reaction Status Date / Time quetiapine fumarate Allergy Rash/Hives Verified 02/02/23 13:16 [From Seroquel] Review of Systems ROS Statement: Those systems with pertinent positive or pertinent negative responses have been documented in the HPI. ROS Other: All systems not noted in ROS Statement are negative. Past Medical History Past Medical History: Asthma, COPD, Liver Disease, Musculoskeletal Disorder, Thyroid Disorder Additional Past Medical History / Comment(s): Optic neuritis. liver disease. ETOH hepatitis c, hypothyroid History of Any Multi-Drug Resistant Organisms: None Reported Past Surgical History: No Surgical Hx Reported Past Anesthesia/Blood Transfusion Reactions: No Reported Reaction Past Psychological History: Bipolar, Depression Smoking Status: Current every day smoker Past Alcohol Use History: Abuse, Daily, Heavy Past Drug Use History: None Reported - Past Family History Father Additional Family Medical History / Comment(s): Patient states is father is but will not provide any additional information. He states he does not know his mothers history. He has 2 brothers and 2 step brothers and only one living. They have committed suicide. General Exam - General Exam Comments Initial Comments: GENERAL: Patient is well-developed and well-nourished. Patient is nontoxic and well- hydrated and is in no acute distress. ENT: Neck is soft and supple. No significant lymphadenopathy is noted. Oropharynx is clear. Moist mucous membranes. Neck has full range of motion without eliciting any pain. EYES: The sclera were anicteric and conjunctiva were pink and moist. Extraocular movements were intact and pupils were equal round and reactive to light. Eyelids were unremarkable. PULMONARY: Unlabored respirations. Good breath sounds bilaterally. No audible rales rhonchi or wheezing was noted. CARDIOVASCULAR: There is a regular rate and rhythm without any murmurs gallops or rubs. ABDOMEN: Soft and nontender with normal bowel sounds. SKIN: Skin is clear with no lesions or rashes and otherwise unremarkable. NEUROLOGIC: Patient is alert and oriented x3. Cranial nerves II through XII are grossly intact. Motor and sensory are also intact. Normal speech, volume and content. Symmetrical smile. Finger to nose testing bilaterally was normal MUSCULOSKELETAL: Normal extremities with adequate strength and full range of motion. No lower extremity swelling or edema. No calf tenderness. LYMPHATICS: No significant lymphadenopathy is noted PSYCHIATRIC: Normal psychiatric evaluation. Limitations: no limitations Course Vital Signs 02/10/23 02/10/23 09:02 09:06 Temperature 98.4 F Pulse Rate 67 68 Respiratory 16 16 Rate Blood Pressure 124/87 130/68 O2 Sat by Pulse 97 97 Oximetry Medical Decision Making - Medical Decision Making EKG is interpreted by myself. EKG shows sinus rhythm at 63 bpm CO interval 161 cardiac is 95 Q-T intervals 388 QTC is 395. Patient's EKG shows no ST segment elevation or depression. Was pt. sent in by a medical professional or institution (, PA, TRANSCRIBING MACHINE MECHANIC, urgent care, hospital, or [place] health [place] facility...) When possible be specific @ -[facility] sent the patient in to the emergency department Did you speak to anyone other than the patient for history (EMS, parent, family, police, friend...)? What history was obtained from this source @ -No Did you review nursing and triage notes (agree or disagree)? Why? @ -I reviewed and agree with nursing and triage notes Were old charts reviewed (outside hosp., previous admission, EMS record, old EKG, old radiological studies, urgent care reports/EKG's, [place] health [place] records)? Report findings @ -Reviewed prior charts from her lab work on this patient Differential Diagnosis (chest pain, altered mental status, abdominal pain women, abdominal pain men, vaginal bleeding, weakness, fever, dyspnea, syncope, headache, dizziness, GI bleed, back pain, seizure, CVA, palpatations, mental health, musculoskeletal)? @ -Differential Syncope: Valvular disease, hypertrophic cardiomyopathy, pulmonary embolism, tamponade, tachycardia, bradycardia, [place], hypovolemia, hemorrhage, dissection, anemia, intracranial hemorrhage, seizure, hypoglycemia, carbon monoxide poisoning, this is not meant to be an all-inclusive list. EKG interpreted by me (3pts min.). @ -As above X-rays interpreted by me (1pt min.). @ -Chest x-ray shows no acute abnormality CT interpreted by me (1pt min.). @ -None done U/S interpreted by me (1pt. min.). @ -None done What testing was considered but not performed or refused? (CT, X-rays, U/S, labs)? Why? @ -None What meds were considered but not given or refused? Why? @ -None Did you discuss the management of the patient with other professionals (professionals i.e. , PA, TRANSCRIBING MACHINE MECHANIC, lab, RT, psych nurse, social services director, waterproofer, teacher, conservation science officer, shoe caser)? Give summary @ -No Was smoking cessation discussed for >3mins.? @ -No Was critical care preformed (if so, how long)? @ -No Were there social determinants of health that impacted care today? How? (Homelessness, low income, unemployed, alcoholism, drug addiction, transportation, low edu. Level, literacy, decrease access to med. care, care home, rehab)? @ -No Was there de-escalation of care discussed even if they declined (Discuss DNR or withdrawal of care, Hospice)? DNR status @ -No What co-morbidities impacted this encounter? (DM, HTN, Smoking, COPD, CAD, Cancer, CVA, ARF, Chemo, Hep., AIDS, mental health diagnosis, sleep apnea, morbid obesity)? @ -None Was patient admitted / discharged? Hospital course, mention meds given and route, prescriptions, significant lab abnormalities, going to OR and other pertinent info. @ -Patient was asymptomatic on arrival and continued to be asymptomatic. Patient got some IV fluids and orthostatics were done and they were normal. Undiagnosed new problem with uncertain prognosis? @ -No Drug Therapy requiring intensive monitoring for toxicity (Heparin, Nitro, Insulin, Cardizem)? @ -No Were any procedures done? @ -No Diagnosis/symptom? @ -Dizziness resolved Acute, or Chronic, or Acute on Chronic? @ -Acute Uncomplicated (without systemic symptoms) or Complicated (systemic symptoms)? @ -Complicated Side effects of treatment? @ -No Exacerbation, Progression, or Severe Exacerbation? @ -No Poses a threat to life or bodily function? How? (Chest pain, [place], [place], pneumonia, PE, COPD, DKA, ARF, appy, cholecystitis, CVA, Diverticulitis, Homicidal, Suicidal, threat to staff... and all critical care pts) @ -No - Lab Data Result diagrams: 02/10/23 09:05 02/10/23 09:05 Lab Results 02/10/23 02/10/23 02/10/23 Range/Units 09:05 09:05 09:05 WBC 4.5 (3.8-10.6) k/uL RBC 4.33 (4.30-5.90) m/uL Hgb 14.3 (13.0-17.5) gm/dL Hct 43.8 (39.0-53.0) % MCV 101.2 H (80.0-100.0) fL MCH 33.0 (25.0-35.0) pg MCHC 32.7 (31.0-37.0) g/dL RDW 12.8 (11.5-15.5) % Plt Count 169 (150-450) k/uL MPV 7.9 Neutrophils % 35 % Lymphocytes % 49 % Monocytes % 9 % Eosinophils % 3 % Basophils % 0 % Neutrophils # 1.6 (1.3-7.7) k/uL Lymphocytes # 2.2 (1.0-4.8) k/uL Monocytes # 0.4 (0-1.0) k/uL Eosinophils # 0.1 (0-0.7) k/uL Basophils # 0.0 (0-0.2) k/uL PT 11.9 (10.0-12.5) sec INR 1.1 (<1.2) APTT 31.8 H (22.0-30.0) sec Sodium 141 (137-145) mmol/L Potassium 4.7 (3.5-5.1) mmol/L Chloride 105 (98-107) mmol/L Carbon Dioxide 28 (22-30) mmol/L Anion Gap 8 mmol/L BUN 22 H (9-20) mg/dL Creatinine 0.75 (0.66-1.25) mg/dL Est GFR (CKD-EPI)AfAm >90 (>60 ml/min/1.73 sqM) Est GFR (CKD-EPI)NonAf >90 (>60 ml/min/1.73 sqM) Glucose 61 L (74-99) mg/dL Calcium 9.8 (8.4-10.2) mg/dL Magnesium 1.7 (1.6-2.3) mg/dL Total Bilirubin 0.5 (0.2-1.3) mg/dL AST 23 (17-59) U/L ALT 25 (4-49) U/L Alkaline Phosphatase 45 (38-126) U/L Troponin I (0.000-0.034) ng/mL Total Protein 6.7 (6.3-8.2) g/dL Albumin 3.8 (3.5-5.0) g/dL 02/10/23 Range/Units 09:05 WBC (3.8-10.6) k/uL RBC (4.30-5.90) m/uL Hgb (13.0-17.5) gm/dL Hct (39.0-53.0) % MCV (80.0-100.0) fL MCH (25.0-35.0) pg MCHC (31.0-37.0) g/dL RDW (11.5-15.5) % Plt Count (150-450) k/uL MPV Neutrophils % % Lymphocytes % % Monocytes % % Eosinophils % % Basophils % % Neutrophils # (1.3-7.7) k/uL Lymphocytes # (1.0-4.8) k/uL Monocytes # (0-1.0) k/uL Eosinophils # (0-0.7) k/uL Basophils # (0-0.2) k/uL PT (10.0-12.5) sec INR (<1.2) APTT (22.0-30.0) sec Sodium (137-145) mmol/L Potassium (3.5-5.1) mmol/L Chloride (98-107) mmol/L Carbon Dioxide (22-30) mmol/L Anion Gap mmol/L BUN (9-20) mg/dL Creatinine (0.66-1.25) mg/dL Est GFR (CKD-EPI)AfAm (>60 ml/min/1.73 sqM) Est GFR (CKD-EPI)NonAf (>60 ml/min/1.73 sqM) Glucose (74-99) mg/dL Calcium (8.4-10.2) mg/dL Magnesium (1.6-2.3) mg/dL Total Bilirubin (0.2-1.3) mg/dL AST (17-59) U/L ALT (4-49) U/L Alkaline Phosphatase (38-126) U/L Troponin I <0.012 (0.000-0.034) ng/mL Total Protein (6.3-8.2) g/dL Albumin (3.5-5.0) g/dL Disposition Clinical Impression: Dizziness, nonspecific Disposition: HOME SELF-CARE Condition: Good Instructions (If sedation given, give patient instructions): Dizziness (ED) Is patient prescribed a controlled substance at d/c from ED?: No Referrals: None,Stated [Primary Care Provider] - 1-2 days Time of Disposition: 10:42
[2023-02-10 09:49] VITALS: TEMP 98.4
--- NOTE | 2023-02-10 10:05 | XR ---
EXAMINATION TYPE: XR chest 2V DATE OF EXAM: 02/10/2023 9:42 AM CLINICAL INDICATION:Male, 62 years old with history of Chest Pain; [facility] COMPARISON: Chest radiographs from 02/01/2023 TECHNIQUE: XR chest 2V Frontal and lateral views of the chest. FINDINGS: Lungs/Pleura: There is no evidence of pleural effusion, focal consolidation, or pneumothorax. Pulmonary vascularity: Unremarkable. Heart/mediastinum: Cardiomediastinal silhouette is unremarkable. Musculoskeletal: No acute osseous pathology. IMPRESSION: No acute cardiopulmonary disease/process.
[2023-02-10 10:07] LABS: Basophils % (A) 0 %; Eosinophils # (A) 0.1 k/uL (0-0.7); Eosinophils % (A) 3 %; HCT 43.8 % (39.0-53.0); HGB 14.3 gm/dL (13.0-17.5); Lymphocytes # (A) 2.2 k/uL (1.0-4.8); Lymphocytes % (A) 49 %; MCHC 32.7 g/dL (31.0-37.0); MCV 101.2 fL (80.0-100.0); Mean Platelet Volume 7.9; Monocytes # (A) 0.4 k/uL (0-1.0); Monocytes % (A) 9 %; Neutrophils # (A) 1.6 k/uL (1.3-7.7); Neutrophils % (A) 35 %; Platelet Count 169 k/uL (150-450); RBC 4.33 m/uL (4.30-5.90); RDW 12.8 % (11.5-15.5); WBC 4.5 k/uL (3.8-10.6)
[2023-02-10 10:16] LABS: ALT 25 U/L (4-49); AST 23 U/L (17-59); African American GFR (CKD) >90 (>60 ml/min/1.73 sqM); Albumin 3.8 g/dL (3.5-5.0); Alkaline Phosphatase 45 U/L (38-126); Anion Gap 8 mmol/L; Blood Urea Nitrogen 22 mg/dL (9-20); Calcium 9.8 mg/dL (8.4-10.2); Carbon Dioxide 28 mmol/L (22-30); Chloride 105 mmol/L (98-107); Glucose 61 mg/dL (74-99); Magnesium 1.7 mg/dL (1.6-2.3); Non-African American GFR(CKD) >90 (>60 ml/min/1.73 sqM); Potassium 4.7 mmol/L (3.5-5.1); Sodium 141 mmol/L (137-145); Total Bilirubin 0.5 mg/dL (0.2-1.3); Total Protein 6.7 g/dL (6.3-8.2)
[2023-02-10 10:21] LABS: INR 1.1 (<1.2); Partial Thromboplastin Time 31.8 sec (22.0-30.0); Prothrombin Time 11.9 sec (10.0-12.5)
[2023-02-10 10:58] VITALS: BP 145/70; PULSE 68; RESP 16
== END 2023-02-10 11:07 | disposition home or self-care (01) ==
LOC: EC 08:59
DX: R42 Dizziness and giddiness (principal); J44.89 Other specified chronic obstructive pulmonary disease; E03.9 Hypothyroidism, unspecified; F17.200 Nicotine dependence, unspecified, uncomplicated; Z88.8 Allergy status to other drugs, medicaments and biological substances; Z79.899 Other long term (current) drug therapy; W18.30XA Fall on same level, unspecified, initial encounter
CPT/HCPCS: 36415; 71046; 80053; 83735; 84484; 85025; 85610; 85730; 93005; 99285

== ENCOUNTER 2024-01-30 18:54 | Observation (INO) | payer OTHER ==
--- NOTE | 2024-01-30 19:21 | ED ---
Alcohol HPI - General Chief Complaint: Alcohol Stated Complaint: ETOH Time Seen by Provider: 01/30/24 19:09 Source: patient Mode of arrival: ambulatory Limitations: no limitations - History of Present Illness Initial Comments: 63-year-old male presenting for alcohol intoxication. Patient has history of alcohol use disorder when asked how much he normally drinks today he replies "I drink every minute of every day". He was attempting to check into [facility] and then sent here for detox. Patient is not able to provide a detailed history at this time due to intoxication - Related Data Home Medications Medication Instructions Recorded Confirmed HYDROcodone/APAP 7.5-325MG [[place] 1 tab PO Q6HR PRN 01/01/23 02/01/23 7.5-325] Albuterol Inhaler [Ventolin Hfa 2 puff INHALATION RT-QID PRN 02/01/23 02/01/23 Inhaler] Divalproex ER [Depakote ER] 1,000 mg PO DIRECTED 02/01/23 02/01/23 FLUoxetine HCL [PROzac] 40 mg PO DIRECTED 02/01/23 02/01/23 Levothyroxine Sodium 88 mcg PO DIRECTED 02/01/23 02/01/23 Nicotine 14Mg/24Hr Patch [Habitrol] 1 patch TRANSDERM DIRECTED 02/01/23 1 Tamsulosin HCl [Flomax] 0.4 mg PO DIRECTED 02/01/23 02/01/23 Thiamine [Vitamin B-1] 100 mg PO DIRECTED 02/01/23 02/01/23 traZODone HCL 150 mg PO DIRECTED 02/01/23 02/01/23 Previous Rx's Medication Instructions Recorded Fluticasone/Umeclidin/Vilanter 1 puff INHALATION RT-DAILY 30 Days 01/30/23 [Trelegy Ellipta 100-62.5-25] #1 each Ibuprofen [Motrin] 600 mg PO Q6HR PRN tab 01/30/23 Allergies Allergy/AdvReac Type Severity Reaction Status Date / Time quetiapine fumarate Allergy Rash/Hives Verified 01/30/24 19:01 [From Seroquel] Review of Systems ROS Statement: Those systems with pertinent positive or pertinent negative responses have been documented in the HPI. ROS Other: All systems not noted in ROS Statement are negative. Past Medical History Past Medical History: Asthma, COPD, Liver Disease, Musculoskeletal Disorder, Thyroid Disorder Additional Past Medical History / Comment(s): Optic neuritis. liver disease. ETOH hepatitis c, hypothyroid History of Any Multi-Drug Resistant Organisms: None Reported Past Surgical History: No Surgical Hx Reported Past Anesthesia/Blood Transfusion Reactions: No Reported Reaction Past Psychological History: Bipolar, Depression Smoking Status: Current every day smoker Past Alcohol Use History: Abuse, Daily, Heavy Past Drug Use History: None Reported - Past Family History Father Additional Family Medical History / Comment(s): Patient states is father is but will not provide any additional information. He states he does not know his mothers history. He has 2 brothers and 2 step brothers and only one living. They have committed suicide. General Exam Limitations: altered mental status (Intoxicated) General appearance: alert, appears intoxicated Head exam: Present: atraumatic, normocephalic, normal inspection Eye exam: Present: normal appearance Neck exam: Present: normal inspection. Absent: meningismus Respiratory exam: Absent: respiratory distress Cardiovascular Exam: Present: regular rate Neurological exam: Present: alert, altered Skin exam: Present: normal color Course Vital Signs 01/30/24 01/30/24 01/30/24 18:58 20:41 23:06 Temperature 98.0 F Pulse Rate 99 78 81 Respiratory 18 18 16 Rate Blood Pressure 122/76 116/81 106/65 O2 Sat by Pulse 97 93 L 94 L Oximetry Medical Decision Making - Medical Decision Making Was pt. sent in by a medical professional or institution (MEGHANN [facility]ba, WASH PL[employer] OPERATOR, urgent care, hospital, or correction...) When possible be specific @ -No Did you speak to anyone other than the patient for history (EMS, parent, family, police, friend...)? What history was obtained from this source @ -No Did you review nursing and triage notes (agree or disagree)? Why? @ -I reviewed and agree with nursing and triage notes Were old charts reviewed (outside hosp., previous admission, EMS record, old EKG, old radiological studies, urgent care reports/EKG's, correction records)? Report findings @ -No old charts were reviewed Differential Diagnosis (chest pain, altered mental status, abdominal pain women, abdominal pain men, vaginal bleeding, weakness, fever, dyspnea, syncope, headache, dizziness, GI bleed, back pain, seizure, CVA, palpatations, mental health, musculoskeletal)? @ -Differential includes alcohol intoxication, metabolic encephalopathy, schizophrenia, this is not an all-inclusive list EKG interpreted by me (3pts min.). @ -As above X-rays interpreted by me (1pt min.). @ -None done CT interpreted by me (1pt min.). @ -None done U/S interpreted by me (1pt. min.). @ -None done What testing was considered but not performed or refused? (CT, X-rays, U/S, la bs)? Why? @ -None What meds were considered but not given or refused? Why? @ -None Did you discuss the management of the patient with other professionals (professionals i.e. , PA, WASH PLANT OPERATOR, lab, RT, psych nurse, social media executive, gang drill press operator, teacher, financial administration officer, case investigator)? Give summary @ -I spoke with Irena from [facility] who accepts admission Was smoking cessation discussed for >3mins.? @ -No Was critical care preformed (if so, how long)? @ -No Were there social determinants of health that impacted care today? How? (Homelessness, low income, unemployed, alcoholism, drug addiction, transportati on, low edu. Level, literacy, decrease access to med. care, correction, rehab)? @ -No Was there de-escalation of care discussed even if they declined (Discuss DNR or withdrawal of care, Hospice)? DNR status @ -No What co-morbidities impacted this encounter? (DM, HTN, Smoking, COPD, CAD, Cancer, CVA, ARF, Chemo, Hep., AIDS, mental health diagnosis, sleep apnea, morbid obesity)? @ -None Was patient admitted / discharged? Hospital course, mention meds given and route, prescriptions, significant lab abnormalities, going to OR and other pertinent info. @ -63-year-old male presenting with alcohol intoxication. Sent by [facility] for detox. Unable to obtain meaningful history from the patient given his intoxication. Magnesium 1.5, replacement ordered. Mild transaminitis, expected given alcohol use disorder. Serum alcohol 238. Patient will be admitted for intoxication and impending withdrawals, CIWA scale is ordered. I discussed this case with my attending Dr. Sandoval Undiagnosed new problem with uncertain prognosis? @ -No Drug Therapy requiring intensive monitoring for toxicity (Heparin, Nitro, Insulin, Cardizem)? @ -No Were any procedures done? @ -No Diagnosis/symptom? @ -Alcohol intoxication Acute, or Chronic, or Acute on Chronic? @ -Acute Uncomplicated (without systemic symptoms) or Complicated (systemic symptoms)? @ -Complicated Side effects of treatment? @ -No Exacerbation, Progression, or Severe Exacerbation? @ -No Poses a threat to life or bodily function? How? (Chest pain, [place], [place], pneumonia, PE, COPD, DKA, ARF, appy, cholecystitis, CVA, Diverticulitis, Homicidal, Suicidal, threat to staff... and all critical care pts) @ -Withdrawals pose threat - Lab Data Result diagrams: 01/30/24 19:29 01/30/24 19:29 Lab Results 01/30/24 01/30/24 Range/Units 19:29 19:29 WBC 5.8 (3.8-10.6) k/uL RBC 4.03 L (4.30-5.90) m/uL Hgb 13.1 (13.0-17.5) gm/dL Hct 38.5 L (39.0-53.0) % MCV 95.7 (80.0-100.0) fL MCH 32.5 (25.0-35.0) pg MCHC 34.0 (31.0-37.0) g/dL RDW 14.3 (11.5-15.5) % Plt Count 243 (150-450) k/uL MPV 7.8 Neutrophils % 55 % Lymphocytes % 33 % Monocytes % 6 % Eosinophils % 2 % Basophils % 1 % Neutrophils # 3.2 (1.3-7.7) k/uL Lymphocytes # 1.9 (1.0-4.8) k/uL Monocytes # 0.4 (0-1.0) k/uL Eosinophils # 0.1 (0-0.7) k/uL Basophils # 0.0 (0-0.2) k/uL Sodium 142 (137-145) mmol/L Potassium 4.0 (3.5-5.1) mmol/L Chloride 113 H (98-107) mmol/L Carbon Dioxide 24 (22-30) mmol/L Anion Gap 5 mmol/L BUN 11 (9-20) mg/dL Creatinine 0.61 L (0.66-1.25) mg/dL Est GFR (CKD-EPI)AfAm >90 (>60 ml/min/1.73 sqM) Est GFR (CKD-EPI)NonAf >90 (>60 ml/min/1.73 sqM) Glucose 93 (74-99) mg/dL Calcium 9.2 (8.4-10.2) mg/dL Phosphorus 4.4 (2.5-4.5) mg/dL Magnesium 1.5 L (1.6-2.3) mg/dL Total Bilirubin 0.5 (0.2-1.3) mg/dL AST 64 H (17-59) U/L ALT 52 H (4-49) U/L Alkaline Phosphatase 54 (38-126) U/L Total Protein 6.2 L (6.3-8.2) g/dL Albumin 3.8 (3.5-5.0) g/dL Serum Alcohol 238 H* mg/dL Disposition Clinical Impression: Alcohol intoxication Disposition: ADMITTED IP TO THIS HOSP Condition: Fair Time of Disposition: 21:24
[2024-01-30 19:52] LABS: ALT 52 U/L (4-49); AST 64 U/L (17-59); African American GFR (CKD) >90 (>60 ml/min/1.73 sqM); Albumin 3.8 g/dL (3.5-5.0); Alkaline Phosphatase 54 U/L (38-126); Anion Gap 5 mmol/L; Blood Urea Nitrogen 11 mg/dL (9-20); Calcium 9.2 mg/dL (8.4-10.2); Carbon Dioxide 24 mmol/L (22-30); Chloride 113 mmol/L (98-107); Glucose 93 mg/dL (74-99); Magnesium 1.5 mg/dL (1.6-2.3); Non-African American GFR(CKD) >90 (>60 ml/min/1.73 sqM); Phosphorus 4.4 mg/dL (2.5-4.5); Sodium 142 mmol/L (137-145); Total Bilirubin 0.5 mg/dL (0.2-1.3); Total Protein 6.2 g/dL (6.3-8.2)
[2024-01-30 19:55] LABS: Basophils % (A) 1 %; Eosinophils # (A) 0.1 k/uL (0-0.7); Eosinophils % (A) 2 %; HCT 38.5 % (39.0-53.0); HGB 13.1 gm/dL (13.0-17.5); Lymphocytes # (A) 1.9 k/uL (1.0-4.8); Lymphocytes % (A) 33 %; MCH 32.5 pg (25.0-35.0); MCV 95.7 fL (80.0-100.0); Mean Platelet Volume 7.8; Monocytes # (A) 0.4 k/uL (0-1.0); Monocytes % (A) 6 %; Neutrophils # (A) 3.2 k/uL (1.3-7.7); Neutrophils % (A) 55 %; Platelet Count 243 k/uL (150-450); RBC 4.03 m/uL (4.30-5.90); RDW 14.3 % (11.5-15.5); WBC 5.8 k/uL (3.8-10.6)
[2024-01-30 20:04] LABS: Alcohol 238 mg/dL
[2024-01-30] MEDS ORDERED: Magnesium Replacement Protocol 1 EACH MISC MISCELLANE PRN (21:14)
[2024-01-30] MEDS ORDERED: NALOXONE 0.4 MG/ML 1 ML VIAL IV PRN (21:23)
[2024-01-30] MEDS ORDERED: ONDANSETRON 4 MG/2 ML VIAL IVP PRN (21:23)
[2024-01-30] MEDS ORDERED: LORazepam 2 MG/ML INJ IV PRN ×2 (21:24)
[2024-01-30] MEDS: SODIUM CHLORIDE 0.9% 1,000 ML IV SCH (21:34)
[2024-01-30] MEDS: MAGNESIUM SULFATE-D5W PMX 1 GM in DEXTROSE/WATER 1 100ML.BAG IVPB SCH (21:35)
[2024-01-31] MEDS: LORazepam 2 MG/ML INJ IV PRN (00:16)
--- NOTE | 2024-01-31 08:32 | P.HPIM ---
History of Present Illness History of present illness; 63-year-old male with a past medical history of alcohol use disorder, COPD, hypothyroidism, BPH, and bipolar disorder presents with alcohol intoxication. Patient not arousable due to recent administration of Ativan at time of interview. Per ER note patient reports he was trying to check into [facility] when he was found to be severely intoxicated and was sent to the hospital from there for detox. Initial lab work from the ER was significant for WBC 5.8, hemoglobin 13.1, sodium 142, potassium 4, creatinine 0.61, magnesium 1.5, AST 64, ALT 52, alkaline phosphatase 54, serum alcohol 238. Patient admitted to internal medicine service REVIEW OF SYSTEMS: Unable to obtain at time of interview as patient had recently received Ativan and was significantly drowsy. PHYSICAL EXAMINATION: GENERAL: The patient is alert and oriented x3, not in any acute distress. Well developed, well nourished. HEENT: Pupils are round and equally reacting to light. EOMI. No scleral icterus. No conjunctival pallor. Normocephalic, atraumatic. No pharyngeal erythema. No thyromegaly. CARDIOVASCULAR: S1 and S2 present. No murmurs, rubs, or gallops. PULMONARY: Chest is clear to auscultation b/l, no wheezing or crackles. ABDOMEN: Soft, nontender, nondistended, normoactive bowel sounds. No palpable organomegaly. MUSCULOSKELETAL: No joint swelling or deformity. EXTREMITIES: No cyanosis, clubbing, or pedal edema. NEUROLOGICAL: Gross neurological examination did not reveal any focal deficits. SKIN: No rashes. Assessment & Plan: #Alcohol intoxication: Per ER note patient plans to go to [facility] after detox is complete. Currently on CIWA protocol, CIWA done today at 6:20 AM was 8 and most recent is 0 Patient has received 2 mg IV Ativan since admission Continue NS 75 cc/h #Hypomagnesemia: Likely in the setting of chronic alcohol use Repleted with magnesium replacement protocol Recheck labs in the a.m. Chronic: #Hypothyroidism: Continue home levothyroxine 88 mcg p.o. #BPH: Continue home tamsulosin 0.4 mg p.o. #Bipolar disorder: Continue home fluoxetine 40 mg p.o. and Depakote 1000 mg p.o. #COPD: Continue home Trelegy and albuterol inhaler F: NS 75 cc/h E: Magnesium N: Heart healthy diet A: Normally ambulates at home unassisted DVT ppx: Lovenox 40 SQ GI ppx: Pepcid 20 mg twice daily Dispo: Pending clinical course, likely to [facility]. Roseanna Floyd MD PGY-1 FM Attestation I have seen and examined this patient with my resident , discussed the same with the resident/EMMA, and agree with the dictator's assessment and plan as written Dr. Fili gale Dictation was produced using [employer] dictation software. please excuse any grammatical, word or spelling errors. Past Medical History Past Medical History: Asthma, COPD, Liver Disease, Musculoskeletal Disorder, Thy roid Disorder Additional Past Medical History / Comment(s): Optic neuritis. liver disease. ETOH hepatitis c, hypothyroid History of Any Multi-Drug Resistant Organisms: None Reported Past Surgical History: No Surgical Hx Reported Past Anesthesia/Blood Transfusion Reactions: No Reported Reaction Past Psychological History: Bipolar, Depression Smoking Status: Current every day smoker Past Alcohol Use History: Abuse, Daily, Heavy Past Drug Use History: None Reported - Past Family History Father Additional Family Medical History / Comment(s): Patient states is father is but will not provide any additional information. He states he does not know his mothers history. He has 2 brothers and 2 step brothers and only one living. They have committed suicide. Medications and Allergies Home Medications Medication Instructions Recorded Confirmed Type Albuterol Inhaler [Ventolin Hfa 2 puff INHALATION RT-Q4H PRN 02/01/23 01/31/24 History Inhaler] Divalproex ER [Depakote ER] 1,000 mg PO DIRECTED 02/01/23 01/31/24 History Levothyroxine Sodium 88 mcg PO DAILY 02/01/23 01/31/24 History Tamsulosin HCl [Flomax] 0.4 mg PO DAILY 02/01/23 01/31/24 History traZODone HCL 150 mg PO HS 02/01/23 01/31/24 History Divalproex Sodium [Depakote] 500 mg PO DIRECTED 01/31/24 01/31/24 History Allergies Allergy/AdvReac Type Severity Reaction Status Date / Time quetiapine fumarate Allergy Rash/Hives Verified 01/31/24 09:27 [From Seroquel] Physical Exam Vitals: Vital Signs Temp Pulse Pulse Resp BP BP Pulse Ox 01/31/24 07:00 65 18 137/75 96 01/31/24 00:09 98.1 F 82 18 100/59 95 01/30/24 23:06 81 16 106/65 94 L 01/30/24 20:41 78 18 116/81 93 L 01/30/24 18:58 98.0 F 99 18 122/76 97 Intake and Output 01/30/24 01/31/24 01/31/24 22:59 06:59 14:59 Other: Voiding Method Toilet Weight 55.792 kg Results CBC & Chem 7: 01/30/24 19:29 01/31/24 08:37 Labs: Abnormal Lab Results - Last 24 Hours (Table) 01/30/24 01/30/24 Range/Units 19:29 19:29 RBC 4.03 L (4.30-5.90) m/uL Hct 38.5 L (39.0-53.0) % Chloride 113 H (98-107) mmol/L Creatinine 0.61 L (0.66-1.25) mg/dL Magnesium 1.5 L (1.6-2.3) mg/dL AST 64 H (17-59) U/L ALT 52 H (4-49) U/L Total Protein 6.2 L (6.3-8.2) g/dL Serum Alcohol 238 H* mg/dL
[2024-01-31] MEDS: FAMOTIDINE 20 MG TAB PO SCH (08:57)
[2024-01-31] MEDS: ENOXAPARIN 40 MG/0.4 ML SYRINGE SQ SCH (08:57)
[2024-01-31 09:40] LABS: ALT 50 U/L (4-49); AST 70 U/L (17-59); African American GFR (CKD) >90 (>60 ml/min/1.73 sqM); Albumin 3.1 g/dL (3.5-5.0); Albumin/Globulin Ratio 1.4; Alkaline Phosphatase 49 U/L (38-126); Anion Gap 0 mmol/L; Blood Urea Nitrogen 16 mg/dL (9-20); Calcium 8.8 mg/dL (8.4-10.2); Carbon Dioxide 26 mmol/L (22-30); Chloride 116 mmol/L (98-107); Globulin 2.2 g/dL; Glucose 89 mg/dL (74-99); Magnesium 1.6 mg/dL (1.6-2.3); Non-African American GFR(CKD) >90 (>60 ml/min/1.73 sqM); Potassium 4.4 mmol/L (3.5-5.1); Sodium 142 mmol/L (137-145); Total Protein 5.3 g/dL (6.3-8.2)
[2024-01-31 10:30] VITALS: BMI 18.1
[2024-01-31] MEDS ORDERED: ALBUTEROL HFA INHALER INHALATION PRN (14:58)
[2024-01-31] MEDS: LEVOTHYROXINE 88 MCG TAB PO SCH (16:39)
[2024-01-31] MEDS: traZODone HCL 50 MG TAB PO SCH (20:28)
[2024-01-31] MEDS: DIVALPROEX 500 MG TABLET.DR PO SCH (20:28)
[2024-01-31] MEDS ORDERED: DIVALPROEX ER 500 MG TAB.ER.24H PO SCH (21:00)
[2024-02-01] MEDS: TAMSULOSIN 0.4 MG CAP.ER.24H PO SCH (08:52)
[2024-02-01 09:10] VITALS: BP 143/80; PULSE 80; RESP 16; TEMP 97.6
[2024-02-01 11:28] LABS: Magnesium 1.5 mg/dL (1.5-2.4)
[2024-02-01 11:31] LABS: ALT 49 U/L (10-49); AST 47 U/L (14-35); Albumin 3.2 g/dL (3.8-4.9); Albumin/Globulin Ratio 1.78 Ratio (1.60-3.17); Alkaline Phosphatase 57 U/L (41-126); BUN/Creat Ratio 26.83 Ratio (12.00-20.00); Blood Urea Nitrogen 16.1 mg/dL (9.0-27.0); Calcium 8.4 mg/dL (8.7-10.3); Carbon Dioxide 24.3 mmol/L (21.6-31.8); Chloride 110 mmol/L (96-109); Globulin 1.8 g/dL (1.6-3.3); Glucose 108 mg/dL (70-110); Sodium 141 mmol/L (135-145); Total Bilirubin 0.4 mg/dL (0.3-1.2)
--- NOTE | 2024-02-01 15:38 | P.DS ---
Providers Date of admission: 01/30/24 22:10 Attending physician: Lamine Ovalles Primary care physician: Physician Nonstaff Hospital Course: Discharge Diagnosis: Alcohol intoxication Hypomagnesemia Hypothyroidism BPH Bipolar disorder COPD Hospital Course: 63-year-old male with a past medical history of alcohol use disorder, COPD, hypothyroidism, BPH, and bipolar disorder presents with alcohol intoxication. Patient not arousable due to recent administration of Ativan at time of interview. Per ER note patient reports he was trying to check into [facility] facility when he was found to be severely intoxicated and was sent to the hospital from there for detox. Initial lab work from the ER was significant for WBC 5.8, hemoglobin 13.1, sodium 142, potassium 4, creatinine 0.61, magnesium 1.5, AST 64, ALT 52, alkaline phosphatase 54, serum alcohol 238. In the ED patient received IV Ativan and placed on CIWA protocol. While admitted patient received a total of 2 mg IV Ativan, and after initially having mild scores on the CIWA protocol he eventually had consistent scores of 0. Patient did not show any signs of severe alcohol withdrawal including seizures, shaking, visual or tactile hallucinations, or sweating. On second day of admission patient was feeling better than when he arrived. Patient had planned to go to [facility], but could not be discharged directly to the facility due to needing to be off alcohol for at least 5 days. Patient reported on the secondary admission that his last drink was the day of his admission to the hospital. Patient is medically and hemodynamically stable for discharge. Patient is discharged to home. Patient is advised to follow-up with his PCP. Pt seen and examined at bedside: Patient reports he feels well and is ready to go to rehab. Vital signs reveiwed and stable: General: non toxic, no distress, appears at stated age, normal weight Derm: no unusual rashes/lesions, warm Head: atraumatic, normocephalic, symmetric Eyes: EOMI, no lid lag, anicteric sclera, pupils equal round reactive to light ENT: Nose and ears atraumatic Neck: No cervical lymphadenopathy, trachea midline, supple Mouth: no lip lesion, mucus membranes moist Cardiovascular: S1S2 reg, no murmur, positive dorsalis pedis pulse bilateral, no edema Lungs: Decreased air entry bilaterally, no rhonchi, no rales, no accessory muscle use Abdominal: soft, nontender to palpation, no guarding Ext: muscle strength 5 out of 5 in all 4 extremities grossly, no gross muscle atrophy, no contractures, Neuro: CN II-XI grossly intact, no gross focal neuro deficits Psych: Alert, oriented, appropriate affect A total of greater than 30 minutes were spent preparing this complex discarge summary. Patient was discharged on 02/01/2024, 12:45 PM. Attestation I have seen and examined this patient with my resident , discussed the same with the resident/EMMA, and agree with the dictator's assessment and plan as written Dr. Fili gale Patient Condition at Discharge: Fair Plan - Discharge Summary New Discharge Prescriptions: Continue Divalproex ER [Depakote ER] 1,000 mg PO DIRECTED traZODone HCL 150 mg PO HS Tamsulosin HCl [Flomax] 0.4 mg PO DAILY Levothyroxine Sodium 88 mcg PO DAILY Albuterol Inhaler [Ventolin Hfa Inhaler] 2 puff INHALATION RT-Q4H PRN PRN Reason: Shortness Of Breath Divalproex Sodium [Depakote] 500 mg PO DIRECTED Discharge Medication List Albuterol Inhaler [Ventolin Hfa Inhaler] 2 puff INHALATION RT-Q4H PRN 02/01/23 [History] Divalproex ER [Depakote ER] 1,000 mg PO DIRECTED 02/01/23 [History] Levothyroxine Sodium 88 mcg PO DAILY 02/01/23 [History] Tamsulosin HCl [Flomax] 0.4 mg PO DAILY 02/01/23 [History] traZODone HCL 150 mg PO HS 02/01/23 [History] Divalproex Sodium [Depakote] 500 mg PO DIRECTED 01/31/24 [History] Follow up Appointment(s)/Referral(s): Nonstaff,Physician [Primary Care Provider] - 1-2 days Patient Instructions/Handouts: Alcohol Intoxication (DC) Discharge/Stand Alone Forms: AA Meetings [facility] - [facility], AA Meetings [place], [facility], [facility], Who Do I Call?, Community Resources, Outpatient Counseling, Area PCPs Discharge Disposition: HOME SELF-CARE
== END 2024-02-01 13:27 | disposition home or self-care (01) ==
LOC: EC 18:54 → 6NMEDSUR 22:10
PROVIDERS: ADMIT Hospitalist; ATTEND Hospitalist
DX: F10.129 Alcohol abuse with intoxication, unspecified (principal); E83.42 Hypomagnesemia; E03.9 Hypothyroidism, unspecified; F31.9 Bipolar disorder, unspecified; F17.200 Nicotine dependence, unspecified, uncomplicated; N40.0 Benign prostatic hyperplasia without lower urinary tract symptoms; J44.9 Chronic obstructive pulmonary disease, unspecified; Z79.890 Hormone replacement therapy; Z79.899 Other long term (current) drug therapy
CPT/HCPCS: 96376 ×2; 96361; 96375; 96365; 96366; 99284; 36415; 80053 ×3; 83735 ×3; 84100; 85025; G0378 ×3; G0480; J2060; J3475; 80320

== ENCOUNTER 2024-02-01 22:11 | Emergency (ER) | payer OTHER ==
[2024-02-01 22:35] VITALS: TEMP 98.1
[2024-02-01] MEDS ORDERED: LORazepam 2 MG/ML INJ IV PRN ×3 (23:29)
--- NOTE | 2024-02-01 23:32 | ED ---
Alcohol HPI - General Chief Complaint: Alcohol Stated Complaint: ETOH Time Seen by Provider: 02/01/24 23:30 Source: patient, RN notes reviewed Mode of arrival: ambulatory Limitations: no limitations - History of Present Illness Initial Comments: 63-year-old male presented to ER with a chief open of alcohol intoxication. Patient was released from this hospital for similar complaint this am. He states while visiting some friends tonight he started to relapse and consumed 5 1/2 pints of vodka. He denies any history of seizure. History of DTs with with drawl. He would like to enter [place] for rehabilitation. He denies any other drug use. He denies any complaints. Patient denies any suicidal or homicidal ideations. - Related Data Home Medications Medication Instructions Recorded Confirmed Albuterol Inhaler [Ventolin Hfa 2 puff INHALATION RT-Q4H PRN 02/01/23 01/31/24 Inhaler] Divalproex ER [Depakote ER] 1,000 mg PO DIRECTED 02/01/23 01/31/24 Levothyroxine Sodium 88 mcg PO DAILY 02/01/23 01/31/24 Tamsulosin HCl [Flomax] 0.4 mg PO DAILY 02/01/23 01/31/24 traZODone HCL 150 mg PO HS 02/01/23 01/31/24 Divalproex Sodium [Depakote] 500 mg PO DIRECTED 01/31/24 01/31/24 Allergies Allergy/AdvReac Type Severity Reaction Status Date / Time quetiapine fumarate Allergy Rash/Hives Verified 02/01/24 22:35 [From Seroquel] Review of Systems ROS Statement: Those systems with pertinent positive or pertinent negative responses have been documented in the HPI. ROS Other: All systems not noted in ROS Statement are negative. Past Medical History Past Medical History: Asthma, COPD, Liver Disease, Musculoskeletal Disorder, Thyroid Disorder Additional Past Medical History / Comment(s): Optic neuritis. liver disease. ETOH hepatitis c, hypothyroid History of Any Multi-Drug Resistant Organisms: None Reported Past Surgical History: No Surgical Hx Reported Past Anesthesia/Blood Transfusion Reactions: No Reported Reaction Past Psychological History: Bipolar, Depression Smoking Status: Current every day smoker Past Alcohol Use History: Abuse, Daily, Heavy Past Drug Use History: None Reported - Past Family History Father Additional Family Medical History / Comment(s): Patient states is father is but will not provide any additional information. He states he does not know his mothers history. He has 2 brothers and 2 step brothers and only one living. They have committed suicide. General Exam Limitations: no limitations General appearance: alert, in no apparent distress Respiratory exam: Present: normal lung sounds bilaterally. Absent: respiratory distress, wheezes, rales, rhonchi, stridor Cardiovascular Exam: Present: regular rate, normal rhythm, normal heart sounds. Absent: systolic murmur, diastolic murmur, rubs, gallop, clicks GI/Abdominal exam: Present: soft, normal bowel sounds. Absent: distended, tenderness, guarding, rebound, rigid Neurological exam: Present: alert, oriented X3, CN II-XII intact Skin exam: Present: warm, dry, intact, normal color. Absent: rash Course Vital Signs 02/01/24 02/02/24 22:33 06:27 Temperature 98.1 F Pulse Rate 73 66 Respiratory 18 16 Rate Blood Pressure 141/91 138/82 O2 Sat by Pulse 96 96 Oximetry Medical Decision Making - Medical Decision Making Was pt. sent in by a medical professional or institution (, PA, GLOBAL CATEGORY MANAGER, urgent care, hospital, or long term...) When possible be specific @ -No Did you speak to anyone other than the patient for history (EMS, parent, family, police, friend...)? What history was obtained from this source @ -No Did you review nursing and triage notes (agree or disagree)? Why? @ -I reviewed and agree with nursing and triage notes Were old charts reviewed (outside hosp., previous admission, EMS record, old EKG, old radiological studies, urgent care reports/EKG's, long term records)? Report findings @ -Yes, I reviewed ER visit and admission from 01-31-2024. Patient admitted due to alcohol intoxication. Differential Diagnosis (chest pain, altered mental status, abdominal pain women, abdominal pain men, vaginal bleeding, weakness, fever, dyspnea, syncope, headac he, dizziness, GI bleed, back pain, seizure, CVA, palpatations, mental health, musculoskeletal)? @ -Alcohol intoxication, alcohol withdrawal, delirium tremors... This list is not to be all-inclusive EKG interpreted by me (3pts min.). @ -None done X-rays interpreted by me (1pt min.). @ -None done CT interpreted by me (1pt min.). @ -None done U/S interpreted by me (1pt. min.). @ -None done What testing was considered but not performed or refused? (CT, X-rays, U/S, labs)? Why? @ -None What meds were considered but not given or refused? Why? @ -None Did you discuss the management of the patient with other professionals (professionals i.e. , PA, GLOBAL CATEGORY MANAGER, lab, RT, psych nurse, social welfare clerk, switch technician, teacher, search and rescue officer, case packer)? Give summary @ -No Was smoking cessation discussed for >3mins.? @ -No Was critical care preformed (if so, how long)? @ -No Were there social determinants of health that impacted care today? How? (Homelessness, low income, unemployed, alcoholism, drug addiction, transportation, low edu. Level, literacy, decrease access to med. care, senior care, rehab)? @ -Patient has alcoholism and is homeless. He has decreased access to healthcare. Was there de-escalation of care discussed even if they declined (Discuss DNR or withdrawal of care, Hospice)? DNR status @ -No What co-morbidities impacted this encounter? (DM, HTN, Smoking, COPD, CAD, Cancer, CVA, ARF, Chemo, Hep., AIDS, mental health diagnosis, sleep apnea, morbid obesity)? @ -Alcoholism Was patient admitted / discharged? Hospital course, mention meds given and route, prescriptions, significant lab abnormalities, going to OR and other pertinent info. @ -Discharge. 63-year-old male presented to ER with a chief complaint alcohol intoxication. History and physical exam completed. Vitals within normal limits. Patient in no signs of acute distress but is intoxicated on exam. Exam benign. Laboratory studies obtained showing a serum alcohol 168. Laboratory studies showing signs of dehydration. Patient was started on CIWA and Ativan protocol. CIWA 1. Patient received p.o. trazodone for sleep aid in the ER. Patient also given 1L IV fluids.Upon reevaluation, patient sleeping in exam room no signs of acute distress. Patient was allowed to sleep until clinically sober for discharge. Patient is agreeable with this. Community resources given. Strict return parameters discussed. Patient discharged in stable condition with follow-up to PCP. Patient verbally expressed understanding and agreement with care plan. Case discussed with ED attending, Dr. Murphy. Undiagnosed new problem with uncertain prognosis? @ -No Drug Therapy requiring intensive monitoring for toxicity (Heparin, Nitro, Insulin, Cardizem)? @ -No Were any procedures done? @ -No Diagnosis/symptom? @ -Alcohol intoxication/alcohol use disorder/homeless Acute, or Chronic, or Acute on Chronic? @ -Acute Uncomplicated (without systemic symptoms) or Complicated (systemic symptoms)? @ -Complicated Side effects of treatment? @ -No Exacerbation, Progression, or Severe Exacerbation? @ -No Poses a threat to life or bodily function? How? (Chest pain, USA, PR, pneumonia, PE, COPD, DKA, ARF, appy, cholecystitis, CVA, Diverticulitis, Homicidal, Suicidal, threat to staff... and all critical care pts) @ -Yes, alcohol withdrawal can lead to seizures. - Lab Data Result diagrams: 02/02/24 02:09 02/02/24 02:09 Lab Results 02/02/24 02/02/24 Range/Units 02:09 02:09 WBC 5.2 (3.8-10.6) k/uL RBC 4.03 L (4.30-5.90) m/uL Hgb 13.1 (13.0-17.5) gm/dL Hct 39.5 (39.0-53.0) % MCV 97.9 (80.0-100.0) fL MCH 32.5 (25.0-35.0) pg MCHC 33.2 (31.0-37.0) g/dL RDW 13.7 (11.5-15.5) % Plt Count 221 (150-450) k/uL MPV 7.7 Neutrophils % 77 % Lymphocytes % 16 % Monocytes % 4 % Eosinophils % 0 % Basophils % 1 % Neutrophils # 4.0 (1.3-7.7) k/uL Lymphocytes # 0.9 L (1.0-4.8) k/uL Monocytes # 0.2 (0-1.0) k/uL Eosinophils # 0.0 (0-0.7) k/uL Basophils # 0.0 (0-0.2) k/uL Sodium 141 (137-145) mmol/L Potassium 3.7 (3.5-5.1) mmol/L Chloride 113 H (98-107) mmol/L Carbon Dioxide 21 L (22-30) mmol/L Anion Gap 7 mmol/L BUN 10 (9-20) mg/dL Creatinine 0.61 L (0.66-1.25) mg/dL Est GFR (CKD-EPI)AfAm >90 (>60 ml/min/1.73 sqM) Est GFR (CKD-EPI)NonAf >90 (>60 ml/min/1.73 sqM) Glucose 105 H (74-99) mg/dL Calcium 9.0 (8.4-10.2) mg/dL Magnesium 1.5 L (1.6-2.3) mg/dL Total Bilirubin 0.7 (0.2-1.3) mg/dL AST 52 (17-59) U/L ALT 50 H (4-49) U/L Alkaline Phosphatase 50 (38-126) U/L Total Protein 5.7 L (6.3-8.2) g/dL Albumin 3.4 L (3.5-5.0) g/dL Serum Alcohol 168 mg/dL Disposition Clinical Impression: Alcohol intoxication, Homelessness, Alcohol use disorder Disposition: HOME SELF-CARE Condition: Stable Instructions (If sedation given, give patient instructions): Alcohol Intoxication (ED) Additional Instructions: I highly recommend you stop drinking alcohol and enter rehab. Follow-up with PCP. Return to the ER for any new or worsening concerns. Is patient prescribed a controlled substance at d/c from ED?: No Referrals: None,Stated [Primary Care Provider] - 1-2 days Forms: Area PCPs, AA Meetings OLIVIA Velazco Meetings [address] [facility] - [facility] Time of Disposition: 02:52
[2024-02-02] MEDS: THIAMINE 100 MG/ML 2 ML VIAL IM STA (02:04)
[2024-02-02] MEDS: traZODone HCL 100 MG TAB PO SCH (02:18)
[2024-02-02] MEDS: traZODone HCL 50 MG TAB PO ONE (02:18)
[2024-02-02 02:27] LABS: Basophils % (A) 1 %; Eosinophils % (A) 0 %; HCT 39.5 % (39.0-53.0); HGB 13.1 gm/dL (13.0-17.5); Lymphocytes # (A) 0.9 k/uL (1.0-4.8); Lymphocytes % (A) 16 %; MCH 32.5 pg (25.0-35.0); MCHC 33.2 g/dL (31.0-37.0); MCV 97.9 fL (80.0-100.0); Mean Platelet Volume 7.7; Monocytes # (A) 0.2 k/uL (0-1.0); Monocytes % (A) 4 %; Neutrophils % (A) 77 %; Platelet Count 221 k/uL (150-450); RBC 4.03 m/uL (4.30-5.90); RDW 13.7 % (11.5-15.5); WBC 5.2 k/uL (3.8-10.6)
[2024-02-02 02:38] LABS: ALT 50 U/L (4-49); AST 52 U/L (17-59); African American GFR (CKD) >90 (>60 ml/min/1.73 sqM); Albumin 3.4 g/dL (3.5-5.0); Alkaline Phosphatase 50 U/L (38-126); Anion Gap 7 mmol/L; Blood Urea Nitrogen 10 mg/dL (9-20); Carbon Dioxide 21 mmol/L (22-30); Chloride 113 mmol/L (98-107); Glucose 105 mg/dL (74-99); Magnesium 1.5 mg/dL (1.6-2.3); Non-African American GFR(CKD) >90 (>60 ml/min/1.73 sqM); Potassium 3.7 mmol/L (3.5-5.1); Sodium 141 mmol/L (137-145); Total Bilirubin 0.7 mg/dL (0.2-1.3); Total Protein 5.7 g/dL (6.3-8.2)
[2024-02-02 02:45] LABS: Alcohol 168 mg/dL
[2024-02-02 06:28] VITALS: BP 138/82; PULSE 66; RESP 16
== END 2024-02-02 06:35 | disposition home or self-care (01) ==
LOC: EC 22:11
CPT/HCPCS: 36415; 80053; 80320; 83735; 85025; 96372; 99284

== ENCOUNTER 2024-09-07 02:09 | Emergency (ER) | payer OTHER ==
[2024-09-07 02:19] VITALS: BP 170/105; PULSE 92; RESP 19; TEMP 97.7
--- NOTE | 2024-09-07 02:20 | ED ---
General Adult HPI <Kay Sands - Last Filed: 09/07/24 07:57> <Frandy Sandoval - Last Filed: 09/07/24 12:24> - General Stated complaint: ETOH Time Seen by Provider: 09/07/24 02:13 - History of Present Illness Initial comments: History is limited by patient's intoxication and uncooperative behavior. Majority of history is provided by EMS personnel. They were called after police were called to "[employer]" where patient was found face down on the ground with an abrasion to his forehead, appearing intoxicated. He was found with a back brace in place. Endorsed alcohol use. Became combative with PD en route to the ED. A C collar was placed by EMS personel however pt is attempting to remove it. On assessment patient endorses neck pain, is visibly intoxicated. Does state that he drink alcohol tonight but unwilling to specify how much. (Kay Sands) - Related Data Home Medications Medication Instructions Recorded Confirmed Albuterol Inhaler [Ventolin Hfa 2 puff INHALATION RT-Q4H PRN 02/01/23 01/31/24 Inhaler] Divalproex ER [Depakote ER] 1,000 mg PO DIRECTED 02/01/23 01/31/24 Levothyroxine Sodium 88 mcg PO DAILY 02/01/23 01/31/24 Tamsulosin HCl [Flomax] 0.4 mg PO DAILY 02/01/23 01/31/24 traZODone HCL 150 mg PO HS 02/01/23 01/31/24 Divalproex Sodium [Depakote] 500 mg PO DIRECTED 01/31/24 01/31/24 Allergies Allergy/AdvReac Type Severity Reaction Status Date / Time quetiapine fumarate Allergy Rash/Hives Verified 02/01/24 22:35 [From Seroquel] Review of Systems ROS Other: All systems not noted in ROS Statement are negative. <Kay Sands - Last Filed: 09/07/24 07:57> ROS Other: All systems not noted in ROS Statement are negative. <Frandy Sandoval - Last Filed: 09/07/24 12:24> ROS Statement: Those systems with pertinent positive or pertinent negative responses have been documented in the HPI. Past Medical History Past Medical History: Asthma, COPD, Liver Disease, Musculoskeletal Disorder, Thyroid Disorder Additional Past Medical History / Comment(s): Optic neuritis. liver disease. ETOH hepatitis c, hypothyroid History of Any Multi-Drug Resistant Organisms: None Reported Past Surgical History: No Surgical Hx Reported Past Anesthesia/Blood Transfusion Reactions: No Reported Reaction Past Psychological History: Bipolar, Depression Smoking Status: Current every day smoker Past Alcohol Use History: Abuse, Daily, Heavy Past Drug Use History: None Reported - Past Family History Father Additional Family Medical History / Comment(s): Patient states is father is but will not provide any additional information. He states he does not know his mothers history. He has 2 brothers and 2 step brothers and only one living. They have committed suicide. <Kay Sands - Last Filed: 09/07/24 07:57> General Exam <Kay Sands - Last Filed: 09/07/24 07:57> - General Exam Comments Initial Comments: Vital signs reviewed Exam is limited by patient's uncooperative behavior, swinging at staff General: Well-appearing, nontoxic, no acute distress, disheveled appearing and intoxicated. Head: Normocephalic, small abrasion to the left eyebrow, otherwise atraumatic Neck: Collar in place that patient is actively trying to remove Eyes: JOSE ANTONIO ADAIRMI ENT: Airway patent Chest: Nonlabored breathing Skin: No visual rash, normal skin tone Neuro: Alert and oriented 3, though smells strongly of alcohol and visibly intoxicated, slurred speech, loud, verbose, no focal neruologic deficits, moves all 4 extremities through full ROM without neurologic deficit Musculoskeletal: No gross abnormalities, atraumatic (Kay Sands) Course Vital Signs 09/07/24 02:12 Temperature 97.7 F Pulse Rate 92 Respiratory 19 Rate Blood Pressure 170/105 O2 Sat by Pulse 96 Oximetry Medical Decision Making <Kay Sands - Last Filed: 09/07/24 07:57> <Frandy Sandoval - Last Filed: 09/07/24 12:24> - Medical Decision Making Was pt. sent in by a medical professional or institution (, PA, GLOBAL COMPENSATION MANAGER, urgent care, hospital, or [facility]...) When possible be specific @ -No Did you speak to anyone other than the patient for history (EMS, parent, family, police, friend...)? What history was obtained from this source @ -Spoke with EMS personnel who state patient was found facedown outside a bar, combative, uncooperative Did you review nursing and triage notes (agree or disagree)? Why? @ -I reviewed nursing and triage notes- I disagree, pt does not endorse back pain to myself Were old charts reviewed (outside hosp., previous admission, EMS record, old EKG, old radiological studies, urgent care reports/EKG's, [facility] records)? Report findings @ -Medical records reviewed reviewed discharge summary from visit on 01/30/2024, on review of this, it appears the patient had presented at that time for alcohol intoxication, patient was brought in at that time for being severely intoxicated, blood alcohol that time was 238 Differential Diagnosis (chest pain, altered mental status, abdominal pain women, abdominal pain men, vaginal bleeding, weakness, fever, dyspnea, syncope, headache, dizziness, GI bleed, back pain, seizure, CVA, palpatations, mental health, musculoskeletal)? @Differential diagnose derangement over top considerations include concussion, traumatic intracranial hemorrhage, contusion, cervical spine injury, alcohol intoxication,drug intoxication this is not all inclusive list. Based on patient's history, exam with only superficial abrasion to left eyebrow, I suspect presentation is most consistent with alcohol intoxication, however CT brain/C spine will be obtained due to evidence of head trauma, endorsed neck pain and intoxication. EKG interpreted by me (3pts min.). @ -As above X-rays interpreted by me (1pt min.). @ -None done CT interpreted by me (1pt min.). Personally viewed CT brain and C-spine I see no evidence of hemorrhage, skull fracture, C-spine fracture or malalignment I agree with radiologist interpretation U/S interpreted by me (1pt. min.). @ -None done What testing was considered but not performed or refused? (CT, X-rays, U/S, labs)? Why? @ -None What meds were considered but not given or refused? Why? @ -None Did you discuss the management of the patient with other professionals (professionals i.e. , PA, GLOBAL COMPENSATION MANAGER, lab, RT, psych nurse, mental health social worker, welder tech, teacher, juvenile detention officer, rn case manager hospice)? Give summary @ -No Was smoking cessation discussed for >3mins.? @ -No Was critical care preformed (if so, how long)? @ -Yes 35 minutes Were there social determinants of health that impacted care today? How? (Homelessness, low income, unemployed, alcoholism, drug addiction, transportation, low edu. Level, literacy, decrease access to med. care, residential, rehab)? @ -No Was there de-escalation of care discussed even if they declined (Discuss DNR or withdrawal of care, Hospice)? @ -No What co-morbidities impacted this encounter? (DM, HTN, Smoking, COPD, CAD, Cancer, CVA, ARF, Chemo, Hep., AIDS, mental health diagnosis, sleep apnea, morbid obesity)? @Alcoholism Was patient admitted / discharged? Hospital course, mention meds given and route, prescriptions, significant lab abnormalities, going to OR and other pertinent info. @Signed out to oncoming physician, pending sobriety- This is a 64-year-old gentleman presenting today for alcohol intoxication found facedown outside a local bar. Abrasion to left eyebrow, intermittently trying to tear off his c- collar, yelling at staff, will not lay in bed to be examined despite verbal redirection. Exam is limited in order to preserve staff safety, as patient is intermittently combative and swinging at staff. Out of concern that patient has evidence of head injury in setting of significant alcohol intoxication, IM Haldol and Benadryl will be administered to help patient tolerate CT to ensure no acute traumatic intracranial injury. PBT will also be obtained. Of note, pt did self remove C collar despite being redirected not to multiple times. CT brain/C spine negative for acute process. Patient's C spine was cleared and he had no midline spinal TTP on reexam. PBT .183. Patient will be sober for discharge at 12 PM, unless a sober ride is able to come and take him home safely sooner. Patient signed out to oncoming physician, Dr. Stone, pending sobriety. Undiagnosed new problem with uncertain prognosis? @ -No Drug Therapy requiring intensive monitoring for toxicity (Heparin, Nitro, Insulin, Cardizem)? @ -No Were any procedures done? @ -No Diagnosis/symptom? @ -Alcohol intoxication, abrasion Acute, or Chronic, or Acute on Chronic? Acute Uncomplicated (without systemic symptoms) or Complicated (systemic symptoms)? @Complicated (Kay Sands) Patient care signed out to me by previous shift physician. Patient care signed out pending sobriety. Patient present in the emergency department reevaluated at bedside 12:20 PM Bonnie stable to condition. Patient well-appearing and will be discharged. (Frandy Sandoval) Disposition <Kay Sands - Last Filed: 09/07/24 07:57> Is patient prescribed a controlled substance at d/c from ED?: No Time of Disposition: 12:24 <Frandy Sandoval - Last Filed: 09/07/24 12:24> Clinical Impression: Alcohol intoxication Disposition: HOME SELF-CARE Condition: Fair Instructions (If sedation given, give patient instructions): Alcohol Intoxication (ED) Referrals: None,Stated [Primary Care Provider] - 1-2 days
[2024-09-07] MEDS: HALOPERIDOL LACTATE 5 MG/ML 1 ML VIAL IM STA ×2 (02:34→02:35)
[2024-09-07] MEDS: diphenhydrAMINE 50 MG/ML 1 ML VIAL IM STA (02:34)
--- NOTE | 2024-09-07 04:01 | CT ---
EXAM: CT Head Without Intravenous Contrast CLINICAL HISTORY: ITS.REASON CT Reason: Trauma TECHNIQUE: Axial computed tomography images of the head/brain without intravenous contrast. CTDI is 45.2 mGy and DLP is 1061 mGy-cm. This CT exam was performed using one or more of the following dose reduction techniques: automated exposure control, adjustment of the mA and/or kV according to patient size, and/or use of iterative reconstruction technique. COMPARISON: No relevant prior studies available. FINDINGS: Brain: The territorial osullivan-white matter differentiation is maintained throughout. Age-related cerebral volume loss. Periventricular and subcortical white matter hypoattenuation, consistent with chronic microangiopathy. No acute intracranial hemorrhage. No midline shift or mass effect. Ventricles: Unremarkable. No ventriculomegaly. Bones/joints: Unremarkable. No acute fracture. Soft tissues: Unremarkable. Sinuses: Unremarkable as visualized. No acute sinusitis. Mastoid air cells: Unremarkable as visualized. No mastoid effusion. IMPRESSION: No acute findings in the head/brain. EXAM: CT Cervical Spine Without Intravenous Contrast CLINICAL HISTORY: ITS.REASON CT Reason: Trauma TECHNIQUE: Axial computed tomography images of the cervical spine without intravenous contrast. CTDI is 10.8 mGy and DLP is 335.3 mGy-cm. This CT exam was performed using one or more of the following dose reduction techniques: automated exposure control, adjustment of the mA and/or kV according to patient size, and/or use of iterative reconstruction technique. COMPARISON: No relevant prior studies available. FINDINGS: The vertebral body heights are maintained. The craniocervical junction is intact. The atlanto-dens interval is maintained. The dens is intact. There is no spondylolisthesis. Multilevel cervical spondylosis and degenerative disc disease. Straightening of the cervical lordosis. IMPRESSION: No acute fracture or subluxation of the cervical spine.
== END 2024-09-07 12:43 | disposition home or self-care (01) ==
LOC: EC 02:09
DX: S00.212A Abrasion of left eyelid and periocular area, initial encounter (principal); F10.129 Alcohol abuse with intoxication, unspecified; F17.200 Nicotine dependence, unspecified, uncomplicated; Z88.8 Allergy status to other drugs, medicaments and biological substances; X58.XXXA Exposure to other specified factors, initial encounter
CPT/HCPCS: 82075; 72125; 70450; 99291; 96372 ×2; J1200; J1630